=== PATIENT | female | born 1945 | race Caucasian/White ===

== ENCOUNTER → 2017-05-27 | Outpatient (CLI) | payer MEDICARE ==
[~2017-05-27] MED LIST: CALC500T36 PO; FISH500C PO; KEFL500C17 PO; MELO7.5T7 PO; MULT1TAB8 PO; NORCOTAB PO; VITA100067 PO; VITA100T20 PO
--- NOTE | 2017-05-27 17:33 | REP ---
MRI LUMBAR SPINE WITHOUT CONTRAST: 05/27/2017. Clinical history: Back pain. Radiates to left hip. Technique: Sagittal T1, T2 and STIR images with axial T1 and T2 sequences. Findings: There is slight loss of the normal lordosis. There is spondylosis from T12-L1 through L5-S1, least at L3-4. All levels show loss of disc water signal and disc height. The T11-12 level shows no bulge or herniation and no spinal or foraminal stenosis. At T12-L1, there is a broad-based disc bulge not causing cord compression, spinal stenosis or foraminal encroachment. At L1-L2, there is a broad-based disc bulge not causing any cord compression, spinal stenosis. No foraminal encroachment. At L2-3, there is a broad-based disc bulge, asymmetric towards the left, not abutting or displacing the L3 nerve roots. It does not cause significant central canal stenosis. The foramina show mild encroachment due to combined factors. At L3-4, there is a broad-based disc bulge thinning ventral subarachnoid space, flattening and abutting the L4 nerve roots. The ligamentum flavum and facet hypertrophy combined with this bulge to cause central canal stenosis. At L4-5, there is a broad-based disc bulge with asymmetric disc protrusion towards the right abutting the right L5 root. This is contributing to some central canal stenosis. The foramina show loss of perineural fat and mild encroachment, left less than right. At L5-S1, there is broad-based disc bulge not abutting or displacing the S1 nerve roots. It is not causing significant central canal stenosis. The bulge extends into the foramina with some loss of perineural fat, right more than left. Impression: 1. Multilevel degenerative disc disease with spondylosis from T12-L1 through L5-S1 and with central canal stenosis at the L3-4 level due to combined factors. Protrusion right paracentral at L4-5 and broad-based disc bulge at L5-S1 noted as well. Foramina show loss of perineural fat at multiple levels as described. No compression deformity. Diffuse loss of disc water signal and disc height. Signed by Calixto Yanez MD 05/28/2017 09:57 A
== END ==
LOC: M PLARAD 15:46
PROVIDERS: ATTEND Physician Assistant
DX: M51.36 Other intervertebral disc degeneration, lumbar region (principal); M51.16 Intervertebral disc disorders with radiculopathy, lumbar region; M48.06 Spinal stenosis, lumbar region

== ENCOUNTER → 2017-10-01 | Outpatient (CLI) | payer MEDICARE | LOC: M PAIN 08:45 | DX: G89.29 Other chronic pain (principal); M47.27 Other spondylosis with radiculopathy, lumbosacral region; M51.27 Other intervertebral disc displacement, lumbosacral region; E11.9 Type 2 diabetes mellitus without complications; E78.5 Hyperlipidemia, unspecified; E66.9 Obesity, unspecified; Z68.30 Body mass index [BMI] 30.0-30.9, adult; J30.2 Other seasonal allergic rhinitis; Z79.899 Other long term (current) drug therapy; Z98.84 Bariatric surgery status; Z87.891 Personal history of nicotine dependence; Z85.3 Personal history of malignant neoplasm of breast | CPT/HCPCS: G0463 ==

== ENCOUNTER → 2017-10-15 | Outpatient (CLI) | payer MEDICARE ==
[~2017-10-15] MED LIST changes: +BUPIVACAINE HCL 0.25% 30 ML VIAL As Ordered; -CALC500T36 PO; -FISH500C PO; +ISOVUE-M 300 61% 15ML VIAL (Q9967) As Ordered; -KEFL500C17 PO; +LIDOCAINE 1% SDV INJ 30 ML VIAL As Ordered; -MELO7.5T7 PO; -MULT1TAB8 PO; -NORCOTAB PO; +TRIAMCINOLONE ACETONIDE SUSP 40 MG/ML VIAL (J3301) As Ordered; -VITA100067 PO; -VITA100T20 PO
== END ==
LOC: M PAIN 08:30
DX: G89.29 Other chronic pain (principal); M46.1 Sacroiliitis, not elsewhere classified; E11.9 Type 2 diabetes mellitus without complications; E78.5 Hyperlipidemia, unspecified; E66.9 Obesity, unspecified; J30.2 Other seasonal allergic rhinitis; Z85.3 Personal history of malignant neoplasm of breast; Z98.84 Bariatric surgery status; Z90.11 Acquired absence of right breast and nipple; Z79.899 Other long term (current) drug therapy; Z87.891 Personal history of nicotine dependence; Z68.30 Body mass index [BMI] 30.0-30.9, adult
CPT/HCPCS: J3301

== ENCOUNTER → 2017-11-06 | Outpatient (CLI) | payer MEDICARE | LOC: M PAIN 08:45 | DX: M51.26 Other intervertebral disc displacement, lumbar region (principal); M54.17 Radiculopathy, lumbosacral region; Z79.899 Other long term (current) drug therapy; Z87.891 Personal history of nicotine dependence; J30.2 Other seasonal allergic rhinitis | CPT/HCPCS: G0463 ==

== ENCOUNTER → 2017-11-20 | Outpatient (CLI) | payer MEDICARE ==
[~2017-11-20] MED LIST changes: -BUPIVACAINE HCL 0.25% 30 ML VIAL As Ordered; -TRIAMCINOLONE ACETONIDE SUSP 40 MG/ML VIAL (J3301) As Ordered; +methylPREDNISolone SUSP 40 MG/ML (DEPO-medrol) VIAL (J1030) As Ordered
== END ==
LOC: M PAIN 11:30
DX: G89.29 Other chronic pain (principal); M51.16 Intervertebral disc disorders with radiculopathy, lumbar region; E11.9 Type 2 diabetes mellitus without complications; E78.5 Hyperlipidemia, unspecified; E66.9 Obesity, unspecified; L30.9 Dermatitis, unspecified; J30.2 Other seasonal allergic rhinitis; Z79.899 Other long term (current) drug therapy; Z85.3 Personal history of malignant neoplasm of breast
CPT/HCPCS: J1030

== ENCOUNTER → 2018-02-19 | Outpatient (CLI) | payer MEDICARE | LOC: M PAIN 09:15 | DX: M51.26 Other intervertebral disc displacement, lumbar region (principal); M54.17 Radiculopathy, lumbosacral region; E11.9 Type 2 diabetes mellitus without complications; E78.5 Hyperlipidemia, unspecified; J30.2 Other seasonal allergic rhinitis; Z79.810 Long term (current) use of selective estrogen receptor modulators (SERMs); Z79.899 Other long term (current) drug therapy; Z85.3 Personal history of malignant neoplasm of breast | CPT/HCPCS: G0463 ==

== ENCOUNTER → 2018-02-26 | Outpatient (CLI) | payer MEDICARE ==
[~2018-02-26] MED LIST changes: +BUPIVACAINE HCL 0.25% 30 ML VIAL As Ordered; +TRIAMCINOLONE ACETONIDE SUSP 40 MG/ML VIAL (J3301) As Ordered; -methylPREDNISolone SUSP 40 MG/ML (DEPO-medrol) VIAL (J1030) As Ordered
== END ==
LOC: M PAIN 10:00
DX: G89.29 Other chronic pain (principal); M47.816 Spondylosis without myelopathy or radiculopathy, lumbar region; M47.817 Spondylosis without myelopathy or radiculopathy, lumbosacral region; Z79.899 Other long term (current) drug therapy; Z98.84 Bariatric surgery status; Z87.891 Personal history of nicotine dependence; J30.2 Other seasonal allergic rhinitis
CPT/HCPCS: J3301

== ENCOUNTER → 2018-03-17 | Outpatient (CLI) | payer MEDICARE | LOC: M PAIN 09:15 | DX: M51.26 Other intervertebral disc displacement, lumbar region (principal); M54.17 Radiculopathy, lumbosacral region; E11.9 Type 2 diabetes mellitus without complications; E78.5 Hyperlipidemia, unspecified; J30.2 Other seasonal allergic rhinitis; Z79.810 Long term (current) use of selective estrogen receptor modulators (SERMs); Z79.899 Other long term (current) drug therapy; Z85.3 Personal history of malignant neoplasm of breast; Z98.84 Bariatric surgery status; Z90.11 Acquired absence of right breast and nipple; Z87.891 Personal history of nicotine dependence | CPT/HCPCS: G0463 ==

== ENCOUNTER → 2018-04-29 | Outpatient (CLI) | payer MEDICARE | LOC: M PAIN 08:45 | DX: M51.26 Other intervertebral disc displacement, lumbar region (principal); M54.17 Radiculopathy, lumbosacral region; L30.9 Dermatitis, unspecified; E11.9 Type 2 diabetes mellitus without complications; E78.5 Hyperlipidemia, unspecified; J30.2 Other seasonal allergic rhinitis; E66.9 Obesity, unspecified; Z85.3 Personal history of malignant neoplasm of breast; Z68.27 Body mass index [BMI] 27.0-27.9, adult; Z87.891 Personal history of nicotine dependence; Z98.84 Bariatric surgery status; Z90.11 Acquired absence of right breast and nipple; Z79.899 Other long term (current) drug therapy | CPT/HCPCS: G0463 ==

== ENCOUNTER → 2018-06-17 | Outpatient (CLI) | payer MEDICARE | LOC: M PAIN 10:15 | DX: M51.26 Other intervertebral disc displacement, lumbar region (principal); M79.7 Fibromyalgia; M12.9 Arthropathy, unspecified; F41.9 Anxiety disorder, unspecified; F32.9 Major depressive disorder, single episode, unspecified; Z79.899 Other long term (current) drug therapy | CPT/HCPCS: G0463 ==

== ENCOUNTER → 2018-10-21 | Outpatient (CLI) | payer MEDICARE ==
[~2018-10-21] MED LIST changes: -BUPIVACAINE HCL 0.25% 30 ML VIAL As Ordered; +CALC500T36 PO; +FISH500C PO; -ISOVUE-M 300 61% 15ML VIAL (Q9967) As Ordered; +KEFL500C17 PO; -LIDOCAINE 1% SDV INJ 30 ML VIAL As Ordered; +MELO7.5T7 PO; +MULT1TAB8 PO; +NORCOTAB PO; -TRIAMCINOLONE ACETONIDE SUSP 40 MG/ML VIAL (J3301) As Ordered; +VITA100067 PO; +VITA100T20 PO
--- NOTE | 2018-11-06 00:14 | ECWPNPC ---
PATIENT NAME: NEO HANSON : 1945 GENDER: FEMALE VISIT DATE: 10/21/2018 DISCHARGE DATE: 10/21/18 1018 VISIT LOCKED DATE TIME: PHYSICIAN: LAURA CLIFFORD RESOURCE: LAURA CLIFFORD HISTORY OF PRESENT ILLNESS HISTORY OF PRESENT ILLNESS: HERE FOR F/U OF CHRONIC LOW BACK PAIN.FEELS MEDICATION ISNT HELPING ANYMORE.RATING PAIN VAS 8/10.DESCRIBES PAIN CONTINUOUS AND ACHING.HAS TRIALED MULTIPLE MEDICATIONS AND PROCEDURES OVER THE YEARS WITHOUT IMPROVEMENT. PAIN THE PATIENT DESCRIBES THE PAIN... FALL RISK SCREENING: SCREENING :NO FALLS IN THE PAST YEAR CURRENT MEDICATIONS TAKING CALCIUM 600+D 600-800 MG-UNIT TABLET 2 TABLETS ORALLY ONCE A DAY TAKING ONE DAILY - TABLET 1 TABLET ORALLY ONCE A DAY TAKING TAMOXIFEN CITRATE 20 MG TABLET 1 TABLET ORALLY ONCE A DAY TAKING MELOXICAM 15 MG TABLET 1 TABLET ORALLY ONCE A DAY TAKING VITAMIN B-12 500 MCG LOZENGE 1 LOZENGE ORALLY ONCE A DAY TAKING VITAMIN D (CHOLECALCIFEROL) 1000 UNIT TABLET 1 TABLET ORALLY ONCE A DAY TAKING GABAPENTIN 100 MG CAPSULE 3 ORALLY BEFORE BEDTIME TAKING TRAMADOL HCL 50 MG TABLET 1 TABLET NEEDED ORALLY Q4-6H PRN MDD4 NOT-TAKING CYMBALTA 30 MG CAPSULE DELAYED RELEASE PARTICLES 1 CAPSULE ORALLY ONCE A DAY MEDICATION LIST REVIEWED AND RECONCILED WITH THE PATIENT PAST MEDICAL HISTORY DEGENERATIVE DISC DISEASE ECEMA DIABETES MELLITUS HYPERLIPIDEMIA OBESITY RIGHT BREAST CANCER ALLERGIES SEASONAL: NASAL CONGESTION, ITCHY EYES: ALLERGY SURGICAL HISTORY GASTRIC BYPASS SURGERY 2012 RIGHT MASTECTOMY 05/2016 FAMILY HISTORY FATHER: 75 YRS, EMPHYSEMA MOTHER: ALIVE 88 YRS, DEMENTIA SIBLINGS: ALIVE SON(S): ALIVE DAUGHTER(S): ALIVE 3 BROTHER(S) , 5 SISTER(S) . 2 SON(S) , 1 DAUGHTER(S) . SOCIAL HISTORY GENERAL: TOBACCO USE ARE YOU A:FORMER SMOKER HOW LONG HAS IT BEEN SINCE YOU LAST SMOKED?> 10 YEARS ALCOHOL SCREENING DID YOU HAVE A DRINK CONTAINING ALCOHOL IN THE PAST YEAR?YES HOW OFTEN DID YOU HAVE A DRINK CONTAINING ALCOHOL IN THE PAST YEAR?MONTHLY OR LESS (1 POINT) HOW MANY DRINKS DID YOU HAVE ON A TYPICAL DAY WHEN YOU WERE DRINKING IN THE PAST YEAR?7 TO 9 (3 POINTS) HOW OFTEN DID YOU HAVE SIX OR MORE DRINKS ON ONE OCCASION IN THE PAST YEAR?LESS THAN MONTHLY (1 POINT) POINTS5 INTERPRETATIONPOSITIVE RECREATIONAL DRUG USE DRUG USE?NO CAFFEINE CAFFEINE USE?YES HOW OFTEN AND HOW MUCH? 3 CUPS COFFEE/DAY PENTECOSTAL [id number] YARSANI LANGUAGE LANGUAGES SPOKEN:CITIZEN OF [place] LEARNING BARRIERS / SPECIAL NEEDS CHANGE FROM LAST VISIT?NO DOMESTIC VIOLENCE DO YOU FEEL SAFE IN YOUR ENVIRONMENT?YES PAIN CLINIC PFS, CLERGY, PUBLIC HEALTH REFERRALS PFS REFERRAL NEEDED?NO CLERGY REFERRAL NEEDED?NO PUBLIC HEALTH REFERRAL NEEDED?NO WAS THE PROVIDER NOTIFIED OF ANY PERTINENT INFO?NO N/A HAS THE PATIENT BEEN EDUCATED REGARDING HIS/HER PLAN OF CARE?YES HAS THE PATIENT BEEN EDUCATED REGARDING PAIN, THE RISK FOR PAIN, THE IMPORTANCE OF EFFECTIVE PAIN MANAGEMENT, AND THE PAIN ASSESSMENT PROCESS?YES ADVANCE DIRECTIVE ADVANCE DIRECTIVE DISCUSSED WITH PATIENT:YES PT HAS HCP LONNY [phone] 02/26/18 1005 REVIEWED WITH PT. [id number] REVIEWED WITH PT LAS. HOSPITALIZATION/MAJOR DIAGNOSTIC PROCEDURE SURGERIES REVIEW OF SYSTEMS REVIEWED BY: PROVIDER: LAURA CUEVAS . CONSTITUTIONAL: ANY CHANGE IN YOUR MEDICAL CONDITION? NO . CHILLS NO . FEVER NO . INFECTION: DO YOU HAVE NEW INFECTIONS? NO . DO YOU HAVE HISTORY OF MRSA? NO . MUSCULOSKELETAL: ANY NEW PATTERNS OF PAIN OR NUMBNESS? NO . GASTROENTEROLOGY: ANY NEW CHANGE IN BOWEL CONTROL? NO . GENITOURINARY: ANY NEW CHANGE IN BLADDER CONTROL? NO . IS THERE A CHANCE YOU COULD BE ? NO . HEMATOLOGY/LYMPH: DO YOU TAKE ANY BLOOD THINNERS? (FOR EXAMPLE- COUMADIN, PLAVIX, AGGRENOX, PLATEL, PRADAXA, OR XARELTO) NO . WHEN WAS YOUR LAST DOSE? DATE: TIME: . NEUROLOGY: HAVE YOU FALLEN IN THE PAST 12 MONTHS? NO . ANY NEW EXTREMITY NUMBNESS OR WEAKNESS? NO . CARDIOLOGY: DO YOU HAVE A PACEMAKER OR DEFIBRILLATOR? NO . RESPIRATORY: HAVE YOU BEEN SICK IN THE PAST WEEK? NO . FEVER NO . FLU LIKE SYMPTOMS? NO . COUGH NO . INTEGUMENTARY: DO YOU HAVE ANY RASHES OR OPEN SORES? NO . ALLERGIC/IMMUNO: ARE YOU ALLERGIC TO IV DYE? NO . ANY NEW ALLERGIES? NO . PSYCHIATRIC: DO YOU HAVE THOUGHTS OF HURTING YOURSELF OR SOMEONE ELSE? NO . ARE YOU ABUSED, NEGLECTED, OR IN AN UNSAFE ENVIRONMENT? NO . ENDOCRINOLOGY: ARE YOU DIABETIC? YES . OTHER: DO YOU NEED ANY PRESCRIPTIONS? YES . IF YES, PLEASE LIST: ____TRAMADOL . ANY NEW PROBLEMS WITH YOUR MEDICATIONS? NO . WHEN DID YOU LAST EAT? ____ . WHEN DID YOU LAST DRINK? ____ . WHAT DID YOU LAST DRINK? ____ . NAME OF PERSON DRIVING YOU HOME? ____ . DO YOU HAVE ANY OTHER QUESTIONS OR CONCERNS NO . VITAL SIGNS WT 169 LBS, HT 63", BMI 29.93 INDEX, BP 108/72 MM HG, HR 78 /MIN, RR 18 /MIN, TEMP 97.7 F, OXYGEN SAT % 98%, SAFE IN ENV? (Y/N) YES, REVIEWED BY: DANIEL. EXAMINATION GENERAL EXAMINATION: GENERAL APPEARANCE:AWAKE,ALERT ,PLEAASANT . PSYCHAFFECT NORMAL . LUNGS:LUNG WELSH ARE CLEAR TO AUSCULTATION BILATERALLY. GOOD MOVEMENT OF AIR . HEART:S1, S2 IN A REGULAR RATE AND RHYTHM. NO SIGNIFICANT MURMURS, RUBS OR GALLOPS NOTED . MUSCULOSKELETAL:MUSCLE STRENGTH TESTING 4/5 BILATERAL LOWER EXTREMITIES. LUMBAR SACRAL SPINETRIGGER POINTS:, ELICITED WITH PALPATION OVER LUMBAR PARAVERTEBRAL MUSCLES AND RESTRICTION OF ROM IN THIS AREA. ASSESSMENTS MYALGIA, OTHER SITE - M79.18 (PRIMARY) TREATMENT MYALGIA, OTHER SITE CONTINUE MELOXICAM TABLET, 15 MG, 1 TABLET, ORALLY, ONCE A DAY CONTINUE GABAPENTIN CAPSULE, 100 MG, 3, ORALLY, BEFORE BEDTIME CONTINUE TRAMADOL HCL TABLET, 50 MG, 1 TABLET NEEDED, ORALLY, Q4-6H PRN MDD4 NOTES: TPI LOW BACK. PROCEDURE CODES FA211 ESTABILISHED PATIENT [facility] CHARGE DISPOSITION & COMMUNICATION FOLLOW UP POST (REASON: TPI LOW BACK) ELECTRONICALLY SIGNED BY MASON GONSALVES ON 11/05/2018 AT 01:11 PM EST DISCLAIMER : THIS IS A VISIT SUMMARY EXTRACTED FROM THE [employer] CHART. IT IS NOT A COPY OF THE [employer] PROGRESS NOTE. ROGERIO
== END ==
LOC: M PAIN 09:15
PROVIDERS: ATTEND Nurse Practitioner Family
DX: M79.18 Myalgia, other site (principal); L30.9 Dermatitis, unspecified; E11.9 Type 2 diabetes mellitus without complications; E78.5 Hyperlipidemia, unspecified; Z85.3 Personal history of malignant neoplasm of breast; Z98.84 Bariatric surgery status; Z90.11 Acquired absence of right breast and nipple; Z87.891 Personal history of nicotine dependence

== ENCOUNTER → 2018-11-25 | Outpatient (CLI) | payer MEDICARE ==
[~2018-11-25] MED LIST changes: +BUPIVACAINE HCL 0.25% 10 ML VIAL As Ordered ONE; +BUPIVACAINE HCL 0.25% 30 ML VIAL As Ordered ONE; +TRIAMCINOLONE ACETONIDE SUSP 40 MG/ML VIAL (J3301) As Ordered ONE
--- NOTE | 2018-12-09 03:07 | ECWPNPC ---
PATIENT NAME: NEO HANSON : 1945 GENDER: FEMALE VISIT DATE: 11/25/2018 DISCHARGE DATE: 11/25/18924 VISIT LOCKED DATE TIME: PHYSICIAN: TONIO RAMIREZ MD RESOURCE: TONIO RAMIREZ MD REASON FOR APPOINTMENT 1. TPI HISTORY OF PRESENT ILLNESS HISTORY OF PRESENT ILLNESS: PAIN THE PATIENT DESCRIBES THE PAIN... FALL RISK SCREENING: SCREENING : NO FALLS IN THE PAST YEAR. CURRENT MEDICATIONS TAKING CALCIUM 600+D 600-800 MG-UNIT TABLET 2 TABLETS ORALLY ONCE A DAY, NOTES: 1 YEAR AGO TAKING ONE DAILY - TABLET 1 TABLET ORALLY ONCE A DAY, NOTES: 1 YEAR AGO TAKING TAMOXIFEN CITRATE 20 MG TABLET 1 TABLET ORALLY ONCE A DAY, NOTES: 11/24 8AM TAKING VITAMIN B-12 500 MCG LOZENGE 1 LOZENGE ORALLY ONCE A DAY, NOTES: 1 YEAR AGO TAKING VITAMIN D (CHOLECALCIFEROL) 1000 UNIT TABLET 1 TABLET ORALLY ONCE A DAY, NOTES: 1 YEAR AGO TAKING MELOXICAM 15 MG TABLET 1 TABLET ORALLY ONCE A DAY, NOTES: 11/24 8AM TAKING GABAPENTIN 100 MG CAPSULE 3 ORALLY BEFORE BEDTIME, NOTES: 11/24 8AM TAKING TRAMADOL HCL 50 MG TABLET 1 TABLET NEEDED ORALLY Q4-6H PRN MDD4, NOTES: 11/24 8AM NOT-TAKING CYMBALTA 30 MG CAPSULE DELAYED RELEASE PARTICLES 1 CAPSULE ORALLY ONCE A DAY MEDICATION LIST REVIEWED AND RECONCILED WITH THE PATIENT PAST MEDICAL HISTORY DEGENERATIVE DISC DISEASE ECEMA DIABETES MELLITUS HYPERLIPIDEMIA OBESITY RIGHT BREAST CANCER ALLERGIES SEASONAL: NASAL CONGESTION, ITCHY EYES - ALLERGY SURGICAL HISTORY GASTRIC BYPASS SURGERY 2012 RIGHT MASTECTOMY 05/2016 FAMILY HISTORY FATHER: 75 YRS, EMPHYSEMA MOTHER: ALIVE 88 YRS, DEMENTIA SIBLINGS: ALIVE SON(S): ALIVE DAUGHTER(S): ALIVE 3 BROTHER(S) , 5 SISTER(S) . 2 SON(S) , 1 DAUGHTER(S) . SOCIAL HISTORY GENERAL: TOBACCO USE ARE YOU A:FORMER SMOKER HOW LONG HAS IT BEEN SINCE YOU LAST SMOKED?> 10 YEARS LATEX QUESTIONNAIRE LATEX ALLERGY : HAVE YOU EVER DEVELOPED ANY TYPE OF REACTION AFTER HANDLING LATEX PRODUCTS SUCH RUBBER GLOVES, CONDOMS, DIAPHRAGMS, BALLOONS, SOCKS, OR UNDERWEAR?NO LATEX ALLERGY : HAVE YOU EVER DEVELOPED ANY TYPE OF REACTION DURING OR AFTER DENTAL APPOINTMENT, VAGINAL/RECTAL EXAMINATION, SURGICAL PROCEDURE, OR ANY OTHER EXPOSURE?NO LATEX RISK : HAVE YOU EVER HAD ANY DIFFICULTY BREATHING OR HIVES AFTER EATING OR HANDLING ANY FRUITS, OR VEGETABLES; SUCH KIWI, BANANAS, STONE FRUITS, OR CHESTNUTSNO LATEX RISK : DO YOU HAVE A PREVIOUS PERSONAL HISTORY OF MORE THAN NINE SURGERIES, SPINA BIFIDA, OR REPEATED CATHERTIZATIONS? NO LATEX RISK : ARE YOU FREQUENTLY EXPOSED TO LATEX PRODUCTS IN YOUR OCCUPATION?NO DATE ASKED : 11/25/2018 ALCOHOL SCREENING DID YOU HAVE A DRINK CONTAINING ALCOHOL IN THE PAST YEAR?YES HOW OFTEN DID YOU HAVE A DRINK CONTAINING ALCOHOL IN THE PAST YEAR?MONTHLY OR LESS (1 POINT) HOW MANY DRINKS DID YOU HAVE ON A TYPICAL DAY WHEN YOU WERE DRINKING IN THE PAST YEAR?7 TO 9 (3 POINTS) HOW OFTEN DID YOU HAVE SIX OR MORE DRINKS ON ONE OCCASION IN THE PAST YEAR?LESS THAN MONTHLY (1 POINT) POINTS5 INTERPRETATIONPOSITIVE RECREATIONAL DRUG USE DRUG USE?NO CAFFEINE CAFFEINE USE?YES HOW OFTEN AND HOW MUCH? 3 CUPS COFFEE/DAY SCIENTOLOGIST [id number] EPISCOPAL LANGUAGE LANGUAGES SPOKEN:DOMINICAN LEARNING BARRIERS / SPECIAL NEEDS CHANGE FROM LAST VISIT?NO DOMESTIC VIOLENCE DO YOU FEEL SAFE IN YOUR ENVIRONMENT?YES DIET: REGULAR. PAIN CLINIC PFS, CLERGY, PUBLIC HEALTH REFERRALS PFS REFERRAL NEEDED?NO CLERGY REFERRAL NEEDED?NO PUBLIC HEALTH REFERRAL NEEDED?NO WAS THE PROVIDER NOTIFIED OF ANY PERTINENT INFO?YES N/A HAS THE PATIENT BEEN EDUCATED REGARDING HIS/HER PLAN OF CARE?YES HAS THE PATIENT BEEN EDUCATED REGARDING PAIN, THE RISK FOR PAIN, THE IMPORTANCE OF EFFECTIVE PAIN MANAGEMENT, AND THE PAIN ASSESSMENT PROCESS?YES ADVANCE DIRECTIVE ADVANCE DIRECTIVE DISCUSSED WITH PATIENT:YES PT HAS HCP LONNY [phone] 02/26/18 1005 REVIEWED WITH PT. [id number] REVIEWED WITH LEV SANCHEZ. HOSPITALIZATION/MAJOR DIAGNOSTIC PROCEDURE SURGERIES REVIEW OF SYSTEMS REVIEWED BY: PROVIDER: . CONSTITUTIONAL: ANY CHANGE IN YOUR MEDICAL CONDITION? NO . CHILLS NO . FEVER NO . INFECTION: DO YOU HAVE NEW INFECTIONS? NO . DO YOU HAVE HISTORY OF MRSA? NO . MUSCULOSKELETAL: ANY NEW PATTERNS OF PAIN OR NUMBNESS? NO . GASTROENTEROLOGY: ANY NEW CHANGE IN BOWEL CONTROL? NO . GENITOURINARY: ANY NEW CHANGE IN BLADDER CONTROL? NO . IS THERE A CHANCE YOU COULD BE ? NO . HEMATOLOGY/LYMPH: DO YOU TAKE ANY BLOOD THINNERS? (FOR EXAMPLE- COUMADIN, PLAVIX, AGGRENOX, PLATEL, PRADAXA, OR XARELTO) NO . WHEN WAS YOUR LAST DOSE? DATE: TIME: . NEUROLOGY: HAVE YOU FALLEN IN THE PAST 12 MONTHS? NO . ANY NEW EXTREMITY NUMBNESS OR WEAKNESS? NO . CARDIOLOGY: DO YOU HAVE A PACEMAKER OR DEFIBRILLATOR? NO . RESPIRATORY: HAVE YOU BEEN SICK IN THE PAST WEEK? NO . FEVER NO . FLU LIKE SYMPTOMS? NO . COUGH NO . INTEGUMENTARY: DO YOU HAVE ANY RASHES OR OPEN SORES? YES, PT HAS RASH ON UPPER ARMS. . ALLERGIC/IMMUNO: ARE YOU ALLERGIC TO IV DYE? NO . ANY NEW ALLERGIES? NO . PSYCHIATRIC: DO YOU HAVE THOUGHTS OF HURTING YOURSELF OR SOMEONE ELSE? NO . ARE YOU ABUSED, NEGLECTED, OR IN AN UNSAFE ENVIRONMENT? NO . ENDOCRINOLOGY: ARE YOU DIABETIC? NO . OTHER: DO YOU NEED ANY PRESCRIPTIONS? NO . IF YES, PLEASE LIST: ____ . ANY NEW PROBLEMS WITH YOUR MEDICATIONS? NO . WHEN DID YOU LAST EAT? 11/24 5:30PM . WHEN DID YOU LAST DRINK? 11/24 12 MIDNIGHT . WHAT DID YOU LAST DRINK? WATER . NAME OF PERSON DRIVING YOU HOME? LONNY HANSON . DO YOU HAVE ANY OTHER QUESTIONS OR CONCERNS NO . VITAL SIGNS WT 163.2 LBS, HT 63", BMI 28.91 INDEX, BP 120/76 MM HG, HR 76 /MIN, RR 16 /MIN, TEMP 97.3 F, OXYGEN SAT % 97%, SAFE IN ENV? (Y/N) Y, NA INITIALS ME 09:04, REVIEWED BY: SAROJ. ASSESSMENTS MYALGIA, OTHER SITE - M79.18 (PRIMARY) PROCEDURES PN TRIGGER POINT INJECTION WITH STEROIDS PRE PROCEDURE DIAGNOSIS 1. MYALGIA 2. PAIN AT BILATERAL LOW BACK AREA POST PROCEDURE DIAGNOSIS 1. MYALGIA 2. PAIN AT BILATERAL LOW BACK AREA PROCEDURE TRIGGER POINT INJECTION AT BILATERAL LOW BACK AREA SURGEON DR. TONIO RAMIREZ PULP GRINDER NONE ANESTHESIA LOCAL PRE PROCEDURE NOTE THE PATIENT HAS A HISTORY OF CHRONIC PAIN AT THE RIGHT AND LEFT LOW BACK AREA. I EVALUATE THE PATIENT AND REVIEWED THE CHART. THERE IS EVIDENCE OF BANDS OF TISSUE WITH RESTRICTION OF MOVEMENT AND PRESENCE OF TRIGGER POINT AT THE AFFECTED AREA. I WENT OVER THE RISKS, ALTERNATIVES, AND BENEFITS ASSOCIATED WITH THIS PROCEDURE. THE PATIENT WOULD LIKE TO PROCEED AND GIVE CONSENT TO PERFORMED THE PROCEDURE. THE PATIENT DENIES UNEXPLAINABLE WEIGHT LOSS, FEVER, CHILLS, OR NEW CHANGES IN URINARY OR BOWEL CONTROL DESCRIPTION OF PROCEDURE THE PATIENT WAS BROUGHT TO THE PROCEDURE ROOM AND PLACED IN THE SITTING POSITION. THE AREA WAS CLEANED WITH ALCOHOL. THE PROCEDURE WAS DONE USING ASEPTIC STERILE TECHNIQUE. I CHECKED LATERALITY AND THE LEVEL WHERE THE PROCEDURE WAS GOING TO BE PERFORMED WITH THE PATIENT AND THE SUPPORTING STAFF AT THE MOMENT OF THE TIME OUT IN THE PROCEDURE ROOM. USING A 25-GAUGE NEEDLE, TRIGGER POINTS WERE INJECTED AT THE RIGHT AND LEFT LOW BACK AREA WITH A TOTAL OF 40 ML OF BUPIVACAINE 0.25% AND KENALOG 40 MG. THERE WAS NO EVIDENCE OF BLOOD, PARESTHESIA OR CEREBROSPINAL FLUID DURING THE PROCEDURE. THE PATIENT WAS SENT TO THE RECOVERY ROOM. THE PATIENT WAS MOVING THE EXTREMITIES AND DOING WELL. THERE WAS NO COMPLICATION DURING THE PROCEDURE POST PROCEDURE NOTE THE PATIENT WILL BE SEEN IN A FOLLOW UP IN THE NEXT FEW WEEKS. INSTRUCTIONS WERE GIVEN, QUESTIONS WERE ANSWERED, AND THE PATIENT EXPRESSED UNDERSTANDING AND AGREES WITH THE PLAN. I, LOLITA ROMO, DOCUMENTED THE ABOVE INFORMATION ACTING A SCRIBE FOR DR. RAMIREZ. I HAVE REVIEWED THE ABOVE DOCUMENT, WRITTEN BY LOLITA KERNS AND I VERIFY THAT IT IS ACCURATE. PROCEDURE CODES 11015 INJ TRIGGER POINT / MUSC DISPOSITION & COMMUNICATION FOLLOW UP 3 WEEKS ELECTRONICALLY SIGNED BY TONIO RAMIREZ MD, MD ON 12/08/2018 AT 06:26 PM EDT DISCLAIMER : THIS IS A VISIT SUMMARY EXTRACTED FROM THE [employer] CHART. IT IS NOT A COPY OF THE [employer] PROGRESS NOTE. MTDErnestina
== END ==
LOC: M PAIN 08:30
PROVIDERS: ATTEND Anesthesiology
DX: M79.18 Myalgia, other site (principal); E11.9 Type 2 diabetes mellitus without complications; E78.5 Hyperlipidemia, unspecified; J30.2 Other seasonal allergic rhinitis; L30.9 Dermatitis, unspecified; Z98.84 Bariatric surgery status; Z90.11 Acquired absence of right breast and nipple; Z85.3 Personal history of malignant neoplasm of breast; Z87.891 Personal history of nicotine dependence; Z79.1 Long term (current) use of non-steroidal anti-inflammatories (NSAID); Z79.899 Other long term (current) drug therapy
CPT/HCPCS: 20552; J3301

== ENCOUNTER → 2018-12-16 | Outpatient (CLI) | payer MEDICARE ==
[~2018-12-16] MED LIST changes: -BUPIVACAINE HCL 0.25% 10 ML VIAL As Ordered ONE; -BUPIVACAINE HCL 0.25% 30 ML VIAL As Ordered ONE; +CALC12504 PO; -CALC500T36 PO; +HYDR-3715 PO; -NORCOTAB PO; -TRIAMCINOLONE ACETONIDE SUSP 40 MG/ML VIAL (J3301) As Ordered ONE; -VITA100T20 PO; +VITA100T51 PO
--- NOTE | 2018-12-26 02:15 | ECWPNPC ---
PATIENT NAME: NEO HANSON : 1945 GENDER: FEMALE VISIT DATE: 12/16/2018 DISCHARGE DATE: 12/16/18917 VISIT LOCKED DATE TIME: PHYSICIAN: LAURA CLIFFORD RESOURCE: LAURA CLIFFORD REASON FOR APPOINTMENT 1. POST PROC HISTORY OF PRESENT ILLNESS HISTORY OF PRESENT ILLNESS: HERE FOR POST PROCEDURE F/U.HAD TPI ON11/25/18.REPORTING SIGNIFICANT REDUCTION IN LOW BACK PAIN THAT CONTINUES TODAY.RATING PAIN VAS 2/10.CHIEF AREA OF PAIN IS RIGHT LOW BACK.DISCUSSED TREATMENT OPTIONS. PAIN THE PATIENT DESCRIBES THE PAIN... FALL RISK SCREENING: SCREENING :NO FALLS REPORTED IN THE LAST YEAR CURRENT MEDICATIONS TAKING CALCIUM 600+D 600-800 MG-UNIT TABLET 2 TABLETS ORALLY ONCE A DAY TAKING ONE DAILY - TABLET 1 TABLET ORALLY ONCE A DAY TAKING TAMOXIFEN CITRATE 20 MG TABLET 1 TABLET ORALLY ONCE A DAY TAKING VITAMIN B-12 500 MCG LOZENGE 1 LOZENGE ORALLY ONCE A DAY TAKING VITAMIN D (CHOLECALCIFEROL) 1000 UNIT TABLET 1 TABLET ORALLY ONCE A DAY TAKING MELOXICAM 15 MG TABLET 1 TABLET ORALLY ONCE A DAY TAKING GABAPENTIN 100 MG CAPSULE 3 ORALLY BEFORE BEDTIME TAKING TRAMADOL HCL 50 MG TABLET 1 TABLET NEEDED ORALLY Q4-6H PRN MDD4 NOT-TAKING CYMBALTA 30 MG CAPSULE DELAYED RELEASE PARTICLES 1 CAPSULE ORALLY ONCE A DAY MEDICATION LIST REVIEWED AND RECONCILED WITH THE PATIENT PAST MEDICAL HISTORY DEGENERATIVE DISC DISEASE ECEMA DIABETES MELLITUS HYPERLIPIDEMIA OBESITY RIGHT BREAST CANCER ALLERGIES SEASONAL: NASAL CONGESTION, ITCHY EYES - ALLERGY SURGICAL HISTORY GASTRIC BYPASS SURGERY 2012 RIGHT MASTECTOMY 05/2016 FAMILY HISTORY FATHER: 75 YRS, EMPHYSEMA MOTHER: ALIVE 88 YRS, DEMENTIA SIBLINGS: ALIVE SON(S): ALIVE DAUGHTER(S): ALIVE 3 BROTHER(S) , 5 SISTER(S) . 2 SON(S) , 1 DAUGHTER(S) . SOCIAL HISTORY GENERAL: TOBACCO USE ARE YOU A:FORMER SMOKER HOW LONG HAS IT BEEN SINCE YOU LAST SMOKED?> 10 YEARS LATEX QUESTIONNAIRE LATEX ALLERGY : HAVE YOU EVER DEVELOPED ANY TYPE OF REACTION AFTER HANDLING LATEX PRODUCTS SUCH RUBBER GLOVES, CONDOMS, DIAPHRAGMS, BALLOONS, SOCKS, OR UNDERWEAR?NO LATEX ALLERGY : HAVE YOU EVER DEVELOPED ANY TYPE OF REACTION DURING OR AFTER DENTAL APPOINTMENT, VAGINAL/RECTAL EXAMINATION, SURGICAL PROCEDURE, OR ANY OTHER EXPOSURE?NO LATEX RISK : HAVE YOU EVER HAD ANY DIFFICULTY BREATHING OR HIVES AFTER EATING OR HANDLING ANY FRUITS, OR VEGETABLES; SUCH KIWI, BANANAS, STONE FRUITS, OR CHESTNUTSNO LATEX RISK : DO YOU HAVE A PREVIOUS PERSONAL HISTORY OF MORE THAN NINE SURGERIES, SPINA BIFIDA, OR REPEATED CATHERTIZATIONS? NO LATEX RISK : ARE YOU FREQUENTLY EXPOSED TO LATEX PRODUCTS IN YOUR OCCUPATION?NO DATE ASKED : 11/25/2018 ALCOHOL SCREENING DID YOU HAVE A DRINK CONTAINING ALCOHOL IN THE PAST YEAR?YES HOW OFTEN DID YOU HAVE A DRINK CONTAINING ALCOHOL IN THE PAST YEAR?MONTHLY OR LESS (1 POINT) HOW MANY DRINKS DID YOU HAVE ON A TYPICAL DAY WHEN YOU WERE DRINKING IN THE PAST YEAR?7 TO 9 (3 POINTS) HOW OFTEN DID YOU HAVE SIX OR MORE DRINKS ON ONE OCCASION IN THE PAST YEAR?LESS THAN MONTHLY (1 POINT) POINTS5 INTERPRETATIONPOSITIVE RECREATIONAL DRUG USE DRUG USE?NO CAFFEINE CAFFEINE USE?YES HOW OFTEN AND HOW MUCH? 3 CUPS COFFEE/DAY EPISCOPAL [id number] ISLAM LANGUAGE LANGUAGES SPOKEN:KINYARWANDA LEARNING BARRIERS / SPECIAL NEEDS CHANGE FROM LAST VISIT?NO DOMESTIC VIOLENCE DO YOU FEEL SAFE IN YOUR ENVIRONMENT?YES DIET: REGULAR. PAIN CLINIC PFS, CLERGY, PUBLIC HEALTH REFERRALS PFS REFERRAL NEEDED?NO CLERGY REFERRAL NEEDED?NO PUBLIC HEALTH REFERRAL NEEDED?NO WAS THE PROVIDER NOTIFIED OF ANY PERTINENT INFO?YES N/A HAS THE PATIENT BEEN EDUCATED REGARDING HIS/HER PLAN OF CARE?YES HAS THE PATIENT BEEN EDUCATED REGARDING PAIN, THE RISK FOR PAIN, THE IMPORTANCE OF EFFECTIVE PAIN MANAGEMENT, AND THE PAIN ASSESSMENT PROCESS?YES ADVANCE DIRECTIVE ADVANCE DIRECTIVE DISCUSSED WITH PATIENT:YES PT HAS HCP LONNY [phone] 02/26/18 1005 REVIEWED WITH PT. [id number] REVIEWED WITH LEV SANCHEZ. HOSPITALIZATION/MAJOR DIAGNOSTIC PROCEDURE SURGERIES REVIEW OF SYSTEMS REVIEWED BY: PROVIDER: LAURA CUEVAS . CONSTITUTIONAL: ANY CHANGE IN YOUR MEDICAL CONDITION? NO . CHILLS NO . FEVER NO . INFECTION: DO YOU HAVE NEW INFECTIONS? NO . DO YOU HAVE HISTORY OF MRSA? NO . MUSCULOSKELETAL: ANY NEW PATTERNS OF PAIN OR NUMBNESS? NO . GASTROENTEROLOGY: ANY NEW CHANGE IN BOWEL CONTROL? NO . GENITOURINARY: ANY NEW CHANGE IN BLADDER CONTROL? NO . IS THERE A CHANCE YOU COULD BE ? NO . HEMATOLOGY/LYMPH: DO YOU TAKE ANY BLOOD THINNERS? (FOR EXAMPLE- COUMADIN, PLAVIX, AGGRENOX, PLATEL, PRADAXA, OR XARELTO) NO . WHEN WAS YOUR LAST DOSE? DATE: TIME: . NEUROLOGY: HAVE YOU FALLEN IN THE PAST 12 MONTHS? NO . ANY NEW EXTREMITY NUMBNESS OR WEAKNESS? NO . CARDIOLOGY: DO YOU HAVE A PACEMAKER OR DEFIBRILLATOR? NO . RESPIRATORY: HAVE YOU BEEN SICK IN THE PAST WEEK? NO . FEVER NO . FLU LIKE SYMPTOMS? NO . COUGH NO . INTEGUMENTARY: DO YOU HAVE ANY RASHES OR OPEN SORES? NO . ALLERGIC/IMMUNO: ARE YOU ALLERGIC TO IV DYE? NO . ANY NEW ALLERGIES? NO . PSYCHIATRIC: DO YOU HAVE THOUGHTS OF HURTING YOURSELF OR SOMEONE ELSE? NO . ARE YOU ABUSED, NEGLECTED, OR IN AN UNSAFE ENVIRONMENT? NO . ENDOCRINOLOGY: ARE YOU DIABETIC? YES . OTHER: DO YOU NEED ANY PRESCRIPTIONS? NO . IF YES, PLEASE LIST: ____ . ANY NEW PROBLEMS WITH YOUR MEDICATIONS? NO . WHEN DID YOU LAST EAT? ____ . WHEN DID YOU LAST DRINK? ____ . WHAT DID YOU LAST DRINK? ____ . NAME OF PERSON DRIVING YOU HOME? ____ . DO YOU HAVE ANY OTHER QUESTIONS OR CONCERNS NO . VITAL SIGNS WT 159.6 LBS, HT 63", BMI 28.27 INDEX, BP 168/84 MM HG, HR 85 /MIN, RR 16 /MIN, TEMP 99.0 F, OXYGEN SAT % 95%, NA INITIALS AW 0859. EXAMINATION GENERAL EXAMINATION: GENERAL APPEARANCE:AWAKE,ALERT ,PLEAASANT . PSYCHAFFECT NORMAL . LUNGS:LUNG WELSH ARE CLEAR TO AUSCULTATION BILATERALLY. GOOD MOVEMENT OF AIR . HEART:S1, S2 IN A REGULAR RATE AND RHYTHM. NO SIGNIFICANT MURMURS, RUBS OR GALLOPS NOTED . MUSCULOSKELETAL:MUSCLE STRENGTH TESTING 4/5 BILATERAL LOWER EXTREMITIES. LUMBAR SACRAL SPINETRIGGER POINTS:, ELICITED WITH PALPATION OVER RIGHT LUMBAR PARAVERTEBRAL MUSCLES AND RESTRICTION OF ROM IN THIS AREA. ASSESSMENTS MYALGIA, OTHER SITE - M79.18 (PRIMARY) TREATMENT MYALGIA, OTHER SITE NOTES: TPI LOW BACK R>L. PROCEDURE CODES FA211 ESTABILISHED PATIENT [facility] CHARGE DISPOSITION & COMMUNICATION FOLLOW UP POST (REASON: TPI LOW BACK R>L IN 1 MOS) ELECTRONICALLY SIGNED BY MASON GONSALVES ON 12/25/2018 AT 04:10 PM EDT DISCLAIMER : THIS IS A VISIT SUMMARY EXTRACTED FROM THE [employer] CHART. IT IS NOT A COPY OF THE [employer] PROGRESS NOTE. ROGERIO
== END ==
LOC: M PAIN 08:30
PROVIDERS: ATTEND Nurse Practitioner Family
DX: M79.18 Myalgia, other site (principal); E11.9 Type 2 diabetes mellitus without complications; E78.5 Hyperlipidemia, unspecified; Z85.3 Personal history of malignant neoplasm of breast; Z98.84 Bariatric surgery status; Z90.11 Acquired absence of right breast and nipple; Z87.891 Personal history of nicotine dependence; Z79.1 Long term (current) use of non-steroidal anti-inflammatories (NSAID); Z79.899 Other long term (current) drug therapy

== ENCOUNTER → 2019-01-07 | Outpatient (CLI) | payer MEDICARE ==
[~2019-01-07] MED LIST changes: +BUPIVACAINE HCL 0.25% 10 ML VIAL As Ordered ONE; +BUPIVACAINE HCL 0.25% 30 ML VIAL As Ordered ONE; +TRIAMCINOLONE ACETONIDE SUSP 40 MG/ML VIAL (J3301) As Ordered ONE
--- NOTE | 2019-01-26 00:41 | ECWPNPC ---
PATIENT NAME: NEO HANSON : 1945 GENDER: FEMALE VISIT DATE: 01/07/2019 DISCHARGE DATE: 01/07/19945 VISIT LOCKED DATE TIME: PHYSICIAN: TONIO RAMIREZ MD RESOURCE: TONIO RAMIREZ MD REASON FOR APPOINTMENT 1. TPI LOW BACK HISTORY OF PRESENT ILLNESS HISTORY OF PRESENT ILLNESS: PAIN THE PATIENT DESCRIBES THE PAIN... FALL RISK SCREENING: SCREENING :NO FALLS REPORTED IN THE LAST YEAR CURRENT MEDICATIONS TAKING CALCIUM 600+D 600-800 MG-UNIT TABLET 2 TABLETS ORALLY ONCE A DAY, NOTES: 01/06/19 TAKING ONE DAILY - TABLET 1 TABLET ORALLY ONCE A DAY, NOTES: 01/06/19 TAKING TAMOXIFEN CITRATE 20 MG TABLET 1 TABLET ORALLY ONCE A DAY, NOTES: 01/06/19 TAKING VITAMIN B-12 500 MCG LOZENGE 1 LOZENGE ORALLY ONCE A DAY, NOTES: 01/06/19 TAKING VITAMIN D (CHOLECALCIFEROL) 1000 UNIT TABLET 1 TABLET ORALLY ONCE A DAY, NOTES: 01/06/19 TAKING MELOXICAM 15 MG TABLET 1 TABLET ORALLY ONCE A DAY, NOTES: 01/06/19 TAKING TRAMADOL HCL 50 MG TABLET 1 TABLET NEEDED ORALLY Q4-6H PRN MDD4, NOTES: 01/06/19 TAKING GABAPENTIN 100 MG CAPSULE 3 ORALLY BEFORE BEDTIME, NOTES: 01/06/19 NOT-TAKING CYMBALTA 30 MG CAPSULE DELAYED RELEASE PARTICLES 1 CAPSULE ORALLY ONCE A DAY MEDICATION LIST REVIEWED AND RECONCILED WITH THE PATIENT PAST MEDICAL HISTORY DEGENERATIVE DISC DISEASE ECEMA DIABETES MELLITUS HYPERLIPIDEMIA OBESITY RIGHT BREAST CANCER ALLERGIES SEASONAL: NASAL CONGESTION, ITCHY EYES - ALLERGY SURGICAL HISTORY GASTRIC BYPASS SURGERY 2012 RIGHT MASTECTOMY 05/2016 BILAT BREAST IMPLANTS 11/2018 FAMILY HISTORY FATHER: 75 YRS, EMPHYSEMA MOTHER: ALIVE 88 YRS, DEMENTIA SIBLINGS: ALIVE SON(S): ALIVE DAUGHTER(S): ALIVE 3 BROTHER(S) , 5 SISTER(S) . 2 SON(S) , 1 DAUGHTER(S) . SOCIAL HISTORY GENERAL: TOBACCO USE ARE YOU A:FORMER SMOKER HOW LONG HAS IT BEEN SINCE YOU LAST SMOKED?> 10 YEARS PAIN CLINIC PFS, CLERGY, PUBLIC HEALTH REFERRALS PFS REFERRAL NEEDED?NO CLERGY REFERRAL NEEDED?NO PUBLIC HEALTH REFERRAL NEEDED?NO WAS THE PROVIDER NOTIFIED OF ANY PERTINENT INFO?YES N/A HAS THE PATIENT BEEN EDUCATED REGARDING HIS/HER PLAN OF CARE?YES HAS THE PATIENT BEEN EDUCATED REGARDING PAIN, THE RISK FOR PAIN, THE IMPORTANCE OF EFFECTIVE PAIN MANAGEMENT, AND THE PAIN ASSESSMENT PROCESS?YES LATEX QUESTIONNAIRE LATEX ALLERGY : HAVE YOU EVER DEVELOPED ANY TYPE OF REACTION AFTER HANDLING LATEX PRODUCTS SUCH RUBBER GLOVES, CONDOMS, DIAPHRAGMS, BALLOONS, SOCKS, OR UNDERWEAR?NO LATEX ALLERGY : HAVE YOU EVER DEVELOPED ANY TYPE OF REACTION DURING OR AFTER DENTAL APPOINTMENT, VAGINAL/RECTAL EXAMINATION, SURGICAL PROCEDURE, OR ANY OTHER EXPOSURE?NO LATEX RISK : HAVE YOU EVER HAD ANY DIFFICULTY BREATHING OR HIVES AFTER EATING OR HANDLING ANY FRUITS, OR VEGETABLES; SUCH KIWI, BANANAS, STONE FRUITS, OR CHESTNUTSNO LATEX RISK : DO YOU HAVE A PREVIOUS PERSONAL HISTORY OF MORE THAN NINE SURGERIES, SPINA BIFIDA, OR REPEATED CATHERTIZATIONS? NO LATEX RISK : ARE YOU FREQUENTLY EXPOSED TO LATEX PRODUCTS IN YOUR OCCUPATION?NO DATE ASKED : 11/25/2018 CAFFEINE CAFFEINE USE?YES HOW OFTEN AND HOW MUCH? 3 CUPS COFFEE/DAY ADVANCE DIRECTIVE ADVANCE DIRECTIVE DISCUSSED WITH PATIENT:YES PT HAS HCP [facility] [phone] DIET: REGULAR. PENTECOSTAL [id number] ALEVISM LANGUAGE LANGUAGES SPOKEN:MALAYSIAN DOMESTIC VIOLENCE DO YOU FEEL SAFE IN YOUR ENVIRONMENT?YES ALCOHOL SCREENING DID YOU HAVE A DRINK CONTAINING ALCOHOL IN THE PAST YEAR?YES HOW OFTEN DID YOU HAVE A DRINK CONTAINING ALCOHOL IN THE PAST YEAR?MONTHLY OR LESS (1 POINT) HOW MANY DRINKS DID YOU HAVE ON A TYPICAL DAY WHEN YOU WERE DRINKING IN THE PAST YEAR?7 TO 9 (3 POINTS) HOW OFTEN DID YOU HAVE SIX OR MORE DRINKS ON ONE OCCASION IN THE PAST YEAR?LESS THAN MONTHLY (1 POINT) POINTS5 INTERPRETATIONPOSITIVE RECREATIONAL DRUG USE DRUG USE?NO LEARNING BARRIERS / SPECIAL NEEDS CHANGE FROM LAST VISIT?NO 02/26/18 1005 REVIEWED WITH PT. [id number] REVIEWED WITH PT DANIEL. HOSPITALIZATION/MAJOR DIAGNOSTIC PROCEDURE SURGERIES REVIEW OF SYSTEMS REVIEWED BY: PROVIDER: . CONSTITUTIONAL: ANY CHANGE IN YOUR MEDICAL CONDITION? NO . CHILLS NO . FEVER NO . INFECTION: DO YOU HAVE NEW INFECTIONS? NO . DO YOU HAVE HISTORY OF MRSA? NO . MUSCULOSKELETAL: ANY NEW PATTERNS OF PAIN OR NUMBNESS? NO . GASTROENTEROLOGY: ANY NEW CHANGE IN BOWEL CONTROL? NO . GENITOURINARY: ANY NEW CHANGE IN BLADDER CONTROL? NO . IS THERE A CHANCE YOU COULD BE ? NO . HEMATOLOGY/LYMPH: DO YOU TAKE ANY BLOOD THINNERS? (FOR EXAMPLE- COUMADIN, PLAVIX, AGGRENOX, PLATEL, PRADAXA, OR XARELTO) NO . WHEN WAS YOUR LAST DOSE? DATE: TIME: . NEUROLOGY: HAVE YOU FALLEN IN THE PAST 12 MONTHS? NO . ANY NEW EXTREMITY NUMBNESS OR WEAKNESS? NO . CARDIOLOGY: DO YOU HAVE A PACEMAKER OR DEFIBRILLATOR? NO . RESPIRATORY: HAVE YOU BEEN SICK IN THE PAST WEEK? NO . FEVER NO . FLU LIKE SYMPTOMS? NO . COUGH NO . INTEGUMENTARY: DO YOU HAVE ANY RASHES OR OPEN SORES? NO . ALLERGIC/IMMUNO: ARE YOU ALLERGIC TO IV DYE? NO . ANY NEW ALLERGIES? NO . PSYCHIATRIC: DO YOU HAVE THOUGHTS OF HURTING YOURSELF OR SOMEONE ELSE? NO . ARE YOU ABUSED, NEGLECTED, OR IN AN UNSAFE ENVIRONMENT? NO . ENDOCRINOLOGY: ARE YOU DIABETIC? YES, DIET CONTROLLED . OTHER: DO YOU NEED ANY PRESCRIPTIONS? NO . IF YES, PLEASE LIST: ____ . ANY NEW PROBLEMS WITH YOUR MEDICATIONS? NO . WHEN DID YOU LAST EAT? 01/06 1800 . WHEN DID YOU LAST DRINK? 01/06 1900 . WHAT DID YOU LAST DRINK? COFFEE . NAME OF PERSON DRIVING YOU HOME? MARILIN- . DO YOU HAVE ANY OTHER QUESTIONS OR CONCERNS NO PT. HAS NOT HAD ANY VACCINES IN THE PAST 30 DAYS . VITAL SIGNS WT 161.8 LBS, HT 63", BMI 28.66 INDEX, BP 119/75 MM HG, HR 71 /MIN, RR 16 /MIN, TEMP 96.8 F, OXYGEN SAT % 94%, SAFE IN ENV? (Y/N) Y, NA INITIALS 09:00, REVIEWED BY: AD. ASSESSMENTS MYALGIA, OTHER SITE - M79.18 (PRIMARY) PROCEDURES PN TRIGGER POINT INJECTION WITH STEROIDS PRE PROCEDURE DIAGNOSIS 1. MYALGIA 2. PAIN AT BILATERAL LOW BACK AREA. POST PROCEDURE DIAGNOSIS 1. MYALGIA 2. PAIN AT BILATERAL LOW BACK AREA. PROCEDURE TRIGGER POINT INJECTION AT RIGHT AND LEFT LOW BACK AREA. SURGEON DR. TONIO RAMIREZ SCORING MACHINE OPERATOR NONE ANESTHESIA LOCAL PRE PROCEDURE NOTE THE PATIENT HAS A HISTORY OF CHRONIC PAIN AT THE RIGHT AND LEFT LOW BACK AREA. I EVALUATED THE PATIENT AND REVIEWED THE CHART. THERE IS EVIDENCE OF BANDS OF TISSUE WITH RESTRICTION OF MOVEMENT AND PRESENCE OF TRIGGER POINT AT THE AFFECTED AREA. I WENT OVER THE RISKS, ALTERNATIVES, AND BENEFITS ASSOCIATED WITH THIS PROCEDURE. THE PATIENT WOULD LIKE TO PROCEED AND GIVES CONSENT TO PERFORMED THE PROCEDURE. THE PATIENT DENIES UNEXPLAINABLE WEIGHT LOSS, FEVER, CHILLS, OR NEW CHANGES IN URINARY OR BOWEL CONTROL DESCRIPTION OF PROCEDURE THE PATIENT WAS BROUGHT TO THE PROCEDURE ROOM AND PLACED IN THE SITTING POSITION. THE AREA WAS CLEANED WITH ALCOHOL. THE PROCEDURE WAS DONE USING ASEPTIC STERILE TECHNIQUE. I CHECKED LATERALITY AND THE LEVEL WHERE THE PROCEDURE WAS GOING TO BE PERFORMED WITH THE PATIENT AND THE SUPPORTING STAFF AT THE MOMENT OF THE TIME OUT IN THE PROCEDURE ROOM. USING A 25-GAUGE NEEDLE, TRIGGER POINTS WERE INJECTED AT THE RIGHT AND LEFT LOW BACK AREA WITH A TOTAL OF 40 ML OF BUPIVACAINE 0.25% AND KENALOG 40 MG. THERE WAS NO EVIDENCE OF BLOOD, PARESTHESIA OR CEREBROSPINAL FLUID DURING THE PROCEDURE. THE PATIENT WAS SENT TO THE RECOVERY ROOM. THE PATIENT WAS MOVING THE EXTREMITIES AND DOING WELL. THERE WAS NO COMPLICATION DURING THE PROCEDURE POST PROCEDURE NOTE THE PATIENT WILL BE SEEN IN A FOLLOW UP IN THE NEXT FEW WEEKS. INSTRUCTIONS WERE GIVEN, QUESTIONS WERE ANSWERED, AND THE PATIENT EXPRESSED UNDERSTANDING AND AGREES WITH THE PLAN. I, CHRISTIE NIEVES, DOCUMENTED THE ABOVE INFORMATION ACTING A SCRIBE FOR DR. RAMIREZ. I HAVE REVIEWED THE ABOVE DOCUMENT, WRITTEN BY CHRISTIE NIEVES SCRIBAlexis AND I VERIFY THAT IT IS ACCURATE. PROCEDURE CODES 46933 INJ TRIGGER POINT 09/17 [facility] [place] [facility] FOLLOW UP 3 WEEKS ELECTRONICALLY SIGNED BY TONIO RAMIREZ MD, MD ON 01/25/2019 AT 03:15 PM EDT DISCLAIMER : THIS IS A VISIT SUMMARY EXTRACTED FROM THE [employer] CHART. IT IS NOT A COPY OF THE [employer] PROGRESS NOTE. ROGERIO
== END ==
LOC: M PAIN 08:30
PROVIDERS: ATTEND Anesthesiology
DX: M79.18 Myalgia, other site (principal); M54.5 Low back pain; E11.9 Type 2 diabetes mellitus without complications; E78.5 Hyperlipidemia, unspecified; J30.2 Other seasonal allergic rhinitis; Z79.899 Other long term (current) drug therapy; Z85.3 Personal history of malignant neoplasm of breast; Z98.84 Bariatric surgery status; Z90.11 Acquired absence of right breast and nipple; Z98.82 Breast implant status; Z87.891 Personal history of nicotine dependence
CPT/HCPCS: 20552; J3301

== ENCOUNTER → 2019-02-17 | Outpatient (CLI) | payer MEDICARE ==
[~2019-02-17] MED LIST changes: -BUPIVACAINE HCL 0.25% 10 ML VIAL As Ordered ONE; -BUPIVACAINE HCL 0.25% 30 ML VIAL As Ordered ONE; -TRIAMCINOLONE ACETONIDE SUSP 40 MG/ML VIAL (J3301) As Ordered ONE
== END ==
LOC: M PAIN 08:45
PROVIDERS: ATTEND Nurse Practitioner Family
DX: M46.1 Sacroiliitis, not elsewhere classified (principal); Z79.891 Long term (current) use of opiate analgesic; Z79.899 Other long term (current) drug therapy; Z87.891 Personal history of nicotine dependence; Z98.84 Bariatric surgery status; J30.2 Other seasonal allergic rhinitis

== ENCOUNTER → 2019-04-07 | Outpatient (CLI) | payer MEDICARE ==
[~2019-04-07] MED LIST changes: +BUPIVACAINE HCL 0.25% 30 ML VIAL As Ordered ONE; -CALC12504 PO; +CALC500T61 PO; +ISOVUE-M 200 41% 20ML VIAL (Q9966) As Ordered ONE; +LIDOCAINE 1% SDV INJ 30 ML VIAL As Ordered ONE
--- NOTE | 2019-04-07 14:30 | REP ---
C-ARM VIEWS, LOWER LUMBAR SPINE: CLINICAL HISTORY: Pain. Two C-arm views are performed during bilateral lumbar facet injections by Dr. Griggs. Crawford are seen along the lower lumbar facets. 45 seconds fluoroscopy time utilized. Electronically Signed by George Moser MD 04/08/2019 09:24 A
--- NOTE | 2019-04-18 01:02 | ECWPNPC ---
PATIENT NAME: NEO HANSON : 1945 GENDER: FEMALE VISIT DATE: 04/07/2019 DISCHARGE DATE: 04/07/19 1020 VISIT LOCKED DATE TIME: PHYSICIAN: TONIO RAMIREZ MD RESOURCE: TONIO RAMIREZ MD REASON FOR APPOINTMENT 1. LFBD #1 HISTORY OF PRESENT ILLNESS HISTORY OF PRESENT ILLNESS: PAIN THE PATIENT DESCRIBES THE PAIN... 74 YEAR OLD FEMALE PATIENT WITH A HISTORY OF CHRONIC LOW BACK PAIN. THE PATIENT DESCRIBES THE PAIN ACHING, TENDER, SORE WITH A PAIN SCORE OF 8-10/10 DEPENDING ON PHYSICAL ACTIVITY. THE PATIENT SAYS HER LOW BACK PAIN IS AFFECTING HER ABILITY TO PERFORM HER DAILY ACTIVITIES SUCH COOKING, CLEANING, AND GROCERY SHOPPING. PATIENT DENIES UNEXPLAINABLE WEIGHT LOSS, FEVER, CHILLS, NEW CHANGES ON HER URINARY OR BOWEL CONTROL. FALL RISK SCREENING: SCREENING :NO FALLS REPORTED IN THE LAST YEAR CURRENT MEDICATIONS TAKING CALCIUM 600+D 600-800 MG-UNIT TABLET 2 TABLETS ORALLY ONCE A DAY, NOTES: 04/06/19@999 TAKING ONE DAILY - TABLET 1 TABLET ORALLY ONCE A DAY, NOTES: 04/06/19@999 TAKING TAMOXIFEN CITRATE 20 MG TABLET 1 TABLET ORALLY ONCE A DAY, NOTES: 04/06/19@999 TAKING VITAMIN B-12 500 MCG LOZENGE 1 LOZENGE ORALLY ONCE A DAY, NOTES: 04/06/19@999 TAKING VITAMIN D (CHOLECALCIFEROL) 1000 UNIT TABLET 1 TABLET ORALLY ONCE A DAY, NOTES: 04/06/19@999 TAKING MELOXICAM 15 MG TABLET 1 TABLET ORALLY ONCE A DAY, NOTES: 04/06/19@999 TAKING TRAMADOL HCL 50 MG TABLET 1 TABLET NEEDED ORALLY Q4-6H PRN MDD4, NOTES: 04/06/19@999 TAKING GABAPENTIN 100 MG CAPSULE 3 ORALLY BEFORE BEDTIME, NOTES: 04/06/19@999 DISCONTINUED CYMBALTA 30 MG CAPSULE DELAYED RELEASE PARTICLES 1 CAPSULE ORALLY ONCE A DAY MEDICATION LIST REVIEWED AND RECONCILED WITH THE PATIENT PAST MEDICAL HISTORY DEGENERATIVE DISC DISEASE [employer]EMA DIABETES MELLITUS HYPERLIPIDEMIA OBESITY RIGHT BREAST CANCER ALLERGIES SEASONAL: NASAL CONGESTION, ITCHY EYES - ALLERGY SURGICAL HISTORY GASTRIC BYPASS SURGERY 2012 RIGHT MASTECTOMY 05/2016 BILAT BREAST IMPLANTS 11/2018 FAMILY HISTORY FATHER: 75 YRS, EMPHYSEMA MOTHER: ALIVE 88 YRS, DEMENTIA SIBLINGS: ALIVE SON(S): ALIVE DAUGHTER(S): ALIVE 3 BROTHER(S) , 5 SISTER(S) . 2 SON(S) , 1 DAUGHTER(S) . MOTHER DARIELA'S. SOCIAL HISTORY GENERAL: TOBACCO USE ARE YOU A:FORMER SMOKER HOW LONG HAS IT BEEN SINCE YOU LAST SMOKED?> 10 YEARS OTHERS AT HOME: SPOUSE. DIET: REGULAR. LANGUAGE LANGUAGES SPOKEN:BENGALI DOMESTIC VIOLENCE DO YOU FEEL SAFE IN YOUR ENVIRONMENT?YES RECREATIONAL DRUG USE DRUG USE?NO EXERCISE: NO REGULAR EXERCISE. LEARNING BARRIERS / SPECIAL NEEDS CHANGE FROM LAST VISIT?NO PAIN CLINIC PFS, CLERGY, PUBLIC HEALTH REFERRALS PFS REFERRAL NEEDED?NO CLERGY REFERRAL NEEDED?NO PUBLIC HEALTH REFERRAL NEEDED?NO WAS THE PROVIDER NOTIFIED OF ANY PERTINENT INFO?YES N/A HAS THE PATIENT BEEN EDUCATED REGARDING HIS/HER PLAN OF CARE?YES HAS THE PATIENT BEEN EDUCATED REGARDING PAIN, THE RISK FOR PAIN, THE IMPORTANCE OF EFFECTIVE PAIN MANAGEMENT, AND THE PAIN ASSESSMENT PROCESS?YES LATEX QUESTIONNAIRE LATEX ALLERGY : HAVE YOU EVER DEVELOPED ANY TYPE OF REACTION AFTER HANDLING LATEX PRODUCTS SUCH RUBBER GLOVES, CONDOMS, DIAPHRAGMS, BALLOONS, SOCKS, OR UNDERWEAR?NO LATEX ALLERGY : HAVE YOU EVER DEVELOPED ANY TYPE OF REACTION DURING OR AFTER DENTAL APPOINTMENT, VAGINAL/RECTAL EXAMINATION, SURGICAL PROCEDURE, OR ANY OTHER EXPOSURE?NO LATEX RISK : HAVE YOU EVER HAD ANY DIFFICULTY BREATHING OR HIVES AFTER EATING OR HANDLING ANY FRUITS, OR VEGETABLES; SUCH KIWI, BANANAS, STONE FRUITS, OR CHESTNUTSNO LATEX RISK : DO YOU HAVE A PREVIOUS PERSONAL HISTORY OF MORE THAN NINE SURGERIES, SPINA BIFIDA, OR REPEATED CATHERIZATIONS? NO LATEX RISK : ARE YOU FREQUENTLY EXPOSED TO LATEX PRODUCTS IN YOUR OCCUPATION?NO DATE ASKED : 04/07/2019 CAFFEINE CAFFEINE USE?YES HOW OFTEN AND HOW MUCH? 3 CUPS COFFEE/DAY ADVANCE DIRECTIVE ADVANCE DIRECTIVE DISCUSSED WITH PATIENT:YES PT HAS HCP [facility] [phone] LATTER DAY [id number] CAODAISM MARITAL STATUS: . ALCOHOL SCREENING DID YOU HAVE A DRINK CONTAINING ALCOHOL IN THE PAST YEAR?YES HOW OFTEN DID YOU HAVE A DRINK CONTAINING ALCOHOL IN THE PAST YEAR?MONTHLY OR LESS (1 POINT) HOW MANY DRINKS DID YOU HAVE ON A TYPICAL DAY WHEN YOU WERE DRINKING IN THE PAST YEAR?7 TO 9 (3 POINTS) HOW OFTEN DID YOU HAVE SIX OR MORE DRINKS ON ONE OCCASION IN THE PAST YEAR?LESS THAN MONTHLY (1 POINT) POINTS5 INTERPRETATIONPOSITIVE OCCUPATION: RETIRED. 02/26/18 1005 REVIEWED WITH PT. [id number] REVIEWED WITH PT DANIEL. HOSPITALIZATION/MAJOR DIAGNOSTIC PROCEDURE SURGERIES REVIEW OF SYSTEMS REVIEWED BY: PROVIDER: . CONSTITUTIONAL: ANY CHANGE IN YOUR MEDICAL CONDITION? NO . CHILLS NO . FEVER NO . INFECTION: DO YOU HAVE NEW INFECTIONS? NO . DO YOU HAVE HISTORY OF MRSA? NO . MUSCULOSKELETAL: ANY NEW PATTERNS OF PAIN OR NUMBNESS? NO . GASTROENTEROLOGY: ANY NEW CHANGE IN BOWEL CONTROL? NO . GENITOURINARY: ANY NEW CHANGE IN BLADDER CONTROL? NO . IS THERE A CHANCE YOU COULD BE ? NO . HEMATOLOGY/LYMPH: DO YOU TAKE ANY BLOOD THINNERS? (FOR EXAMPLE- COUMADIN, PLAVIX, AGGRENOX, PLATEL, PRADAXA, OR XARELTO) NO . WHEN WAS YOUR LAST DOSE? DATE: TIME: . NEUROLOGY: HAVE YOU FALLEN IN THE PAST 12 MONTHS? NO . ANY NEW EXTREMITY NUMBNESS OR WEAKNESS? NO . CARDIOLOGY: DO YOU HAVE A PACEMAKER OR DEFIBRILLATOR? NO . RESPIRATORY: HAVE YOU BEEN SICK IN THE PAST WEEK? NO . FEVER NO . FLU LIKE SYMPTOMS? NO . COUGH NO . INTEGUMENTARY: DO YOU HAVE ANY RASHES OR OPEN SORES? NO . ALLERGIC/IMMUNO: ARE YOU ALLERGIC TO IV DYE? NO . ANY NEW ALLERGIES? NO . PSYCHIATRIC: DO YOU HAVE THOUGHTS OF HURTING YOURSELF OR SOMEONE ELSE? NO . ARE YOU ABUSED, NEGLECTED, OR IN AN UNSAFE ENVIRONMENT? NO . ENDOCRINOLOGY: ARE YOU DIABETIC? YES . OTHER: DO YOU NEED ANY PRESCRIPTIONS? NO . IF YES, PLEASE LIST: ____ . ANY NEW PROBLEMS WITH YOUR MEDICATIONS? NO . WHEN DID YOU LAST EAT? ____04/06/19, YES . WHEN DID YOU LAST DRINK? ____04/06/19 . WHAT DID YOU LAST DRINK? ____WATER . NAME OF PERSON DRIVING YOU HOME? ____JOSEPH . DO YOU HAVE ANY OTHER QUESTIONS OR CONCERNS NO . VITAL SIGNS WT 161.8 LBS, HT 63", BMI 28.66 INDEX, BP 129/72 MM HG, HR 63 /MIN, RR 16 /MIN, TEMP 98.5 F, OXYGEN SAT % 98%, SAFE IN ENV? (Y/N) YES, NA INITIALS WI 09:02, REVIEWED BY: VD. EXAMINATION GENERAL EXAMINATION: PATIENT IS ALERT O X 3 AND COOPERATIVE. TENDERNESS IN THE LOW BACK. PAIN INCREASES OVER THE LUMBAR FACET JOINTS WITH EXTENSION AND LATERAL ROTATION OF THE BACK. MRI OF THE LUMBAR SPINE DONE ON 05/27/2017 SHOWS FACET ARTHROPATHY CHANGES. ASSESSMENTS SPONDYLOSIS OF LUMBAR REGION WITHOUT MYELOPATHY OR RADICULOPATHY - M47.816 (PRIMARY) SPONDYLOSIS OF LUMBOSACRAL REGION WITHOUT MYELOPATHY OR RADICULOPATHY - M47.817 TREATMENT SPONDYLOSIS OF LUMBAR REGION WITHOUT MYELOPATHY OR RADICULOPATHY CLINICAL NOTES: WE DISCUSSED SEVERAL ISSUES WITH MS. HANSON'S PAIN MANAGEMENT CASE. DUE TO THE LUMBAR SPONDYLOSIS, I WOULD LIKE TO MOVE FORWARD WITH A BILATERAL LUMBAR DIAGNOSTIC FACET BLOCK _#1 TO CONSIDER RADIOFREQUENCY. WE DISCUSSED THE BENEFITS, RISKS, AND ALTERNATIVES OF THE PROCEDURE AND THE PATIENT WOULD LIKE TO PROCEED. THE PATIENT WILL FOLLOW UP IN SEVERAL WEEKS AFTER THE PROCEDURE. INSTRUCTIONS WERE GIVEN, QUESTIONS WERE ANSWERED, PATIENT REPORTS UNDERSTANDING AND AGREES WITH THE PLAN. I, CHRISTIE NIEVES, DOCUMENTED THE ABOVE INFORMATION ACTING A SCRIBE FOR DR. RAMIREZ. I HAVE REVIEWED THE ABOVE DOCUMENT, WRITTEN BY CHRISTIE NIEVES SCRIBE AND I VERIFY THAT IT IS ACCURATE. . SPONDYLOSIS OF LUMBOSACRAL REGION WITHOUT MYELOPATHY OR RADICULOPATHY SMC FACET BLOCK (PAIN)[id number] PROCEDURES PN LUMBAR FACET BLOCK DIAGNOSTIC PRE PROCEDURE DIAGNOSIS LUMBAR SPONDYLOSIS, LUMBOSACRAL SPONDYLOSIS POST PROCEDURE DIAGNOSIS LUMBAR SPONDYLOSIS, LUMBOSACRAL SPONDYLOSIS PROCEDURE BILATERAL L4-L5 AND BILATERAL L5-S1 FACET BLOCK DIAGNOSTIC NUMBER [address] TONIO RAMIREZ AREA RELIEF PILOT NONE ANESTHESIA LOCAL PRE PROCEDURE NOTE THE PATIENT WITH HISTORY OF CHRONIC LOW BACK PAIN. I EVALUATED THE PATIENT AND REVIEWED THE CHART. I WENT OVER THE RISKS, ALTERNATIVES, AND BENEFITS ASSOCIATED WITH THIS PROCEDURE. THE PATIENT WOULD LIKE TO PROCEED AND GAVE CONSENT TO PERFORM THE PROCEDURE. AGREED WITH THE PATIENT WE ARE DOING THIS PROCEDURE TO DETERMINE IF THE PATIENT IS A CANDIDATE FOR A RADIOFREQUENCY ABLATION OF THE FACETS JOINTS. THE PATIENT DENIES UNEXPLAINABLE WEIGHT LOSS, FEVER, CHILLS, OR NEW CHANGES IN URINARY OR BOWEL CONTROL DESCRIPTION OF PROCEDURE THE PATIENT WAS BROUGHT TO THE PROCEDURE ROOM AND PLACED IN THE PRONE POSITION. THE LUMBOSACRAL AREA WAS CLEANED WITH CHLORAPREP SOLUTION AND DRAPED ASEPTICALLY. THE PROCEDURE WAS DONE UNDER STERILE CONDITIONS. I CHECKED LATERALITY AND THE LEVEL WHERE THE PROCEDURE WAS GOING TO BE PERFORMED WITH THE PATIENT AND THE SUPPORTING STAFF AT THE MOMENT OF THE TIME OUT IN THE PROCEDURE ROOM. UNDER FLUOROSCOPIC GUIDANCE, TARGETS WERE SELECTED AT THE INTERSECTION OF THE RIGHT AND LEFT TRANSVERSE PROCESS OF L4, L5 AND ALA OF S1 WITH ITS RESPECTIVE SUPERIOR ARTICULAR PROCESS. LIDOCAINE WAS USED TO NUMB THE SKIN AND THE SUBCUTANEOUS TISSUE BELOW IT. SPINAL NEEDLE, 22-GAUGE WAS ADVANCED UNDER FLUOROSCOPIC GUIDANCE AND FOLLOWING PATIENT FEEDBACK UNTIL THE TARGETS WERE REACHED. POSITION OF THE NEEDLES WAS VERIFIED WITH AP AND LATERAL VIEWS. AFTER PROPER POSITION OF THE NEEDLES WAS ACHIEVED, ISOVUE M-200 DYE WAS INJECTED AT EACH SITE SHOWING ADEQUATE SPREAD OF THE DYE. THEN A SOLUTION OF 0.4 ML OF BUPIVACAINE 0.25% WAS INJECTED AT EACH SITE. THERE WAS NO EVIDENCE OF BLOOD, PARESTHESIA OR CEREBROSPINAL FLUID DURING THE PROCEDURE. THE PATIENT WAS SENT TO THE RECOVERY ROOM. THE PATIENT WAS MOVING THE EXTREMITIES AND DOING WELL. THERE WAS NO COMPLICATION DURING THE PROCEDURE. FLUOROSCOPY TIME WAS 45 SECONDS POST PROCEDURE NOTE THE PATIENT WILL DOCUMENT HIS PAIN LEVEL AND RESPONSE TO THIS PROCEDURE EVERY 30 MINUTES. THE PATIENT WILL BE SEEN IN A FOLLOW UP IN THE NEXT FEW WEEKS. FURTHER DETERMINATION FOR HIS CASE WILL BE DONE AT THE NEXT VISIT. INSTRUCTIONS WERE GIVEN, QUESTIONS WERE ANSWERED, AND THE PATIENT EXPRESSED UNDERSTANDING AND AGREED WITH THE PLAN. I, LOLITA ROMO, DOCUMENTED THE ABOVE INFORMATION ACTING A SCRIBE FOR DR. RAMIREZ. I HAVE REVIEWED THE ABOVE DOCUMENT, WRITTEN BY LOLITA GUERREROIBAlexis AND I VERIFY THAT IT IS ACCURATE. PROCEDURE CODES [id number] RADXPS IN END [id number] PXD 10096 INJ PARAVERT F JNT L/S 1 LEV, MODIFIERS: 50 [id number] INJ PARAVERT F JNT L/S 2 LEV, MODIFIERS: 50 DISPOSITION & COMMUNICATION FOLLOW UP 3 WEEKS ELECTRONICALLY SIGNED BY TONIO RAMIREZ MD, MD ON 04/17/2019 AT 01:23 PM EDT DISCLAIMER : THIS IS A VISIT SUMMARY EXTRACTED FROM THE [email or web address] CHART. IT IS NOT A COPY OF THE [email or web address] PROGRESS NOTE. MTDD
== END ==
LOC: M PAIN 09:00
PROVIDERS: ATTEND Anesthesiology
DX: M47.816 Spondylosis without myelopathy or radiculopathy, lumbar region (principal); M47.817 Spondylosis without myelopathy or radiculopathy, lumbosacral region; E11.9 Type 2 diabetes mellitus without complications; E78.5 Hyperlipidemia, unspecified; E66.9 Obesity, unspecified; Z85.3 Personal history of malignant neoplasm of breast; J30.2 Other seasonal allergic rhinitis; Z98.84 Bariatric surgery status; Z90.11 Acquired absence of right breast and nipple; Z87.891 Personal history of nicotine dependence; Z68.28 Body mass index [BMI] 28.0-28.9, adult; Z79.1 Long term (current) use of non-steroidal anti-inflammatories (NSAID); Z79.891 Long term (current) use of opiate analgesic; Z79.899 Other long term (current) drug therapy
CPT/HCPCS: 64493; 64494; Q9966

== ENCOUNTER → 2019-05-05 | Outpatient (CLI) | payer MEDICARE ==
[~2019-05-05] MED LIST changes: -BUPIVACAINE HCL 0.25% 30 ML VIAL As Ordered ONE; -ISOVUE-M 200 41% 20ML VIAL (Q9966) As Ordered ONE; -LIDOCAINE 1% SDV INJ 30 ML VIAL As Ordered ONE
--- NOTE | 2019-05-06 01:46 | ECWPNPC ---
PATIENT NAME: NEO HANSON : 1945 GENDER: FEMALE VISIT DATE: 05/05/2019 DISCHARGE DATE: 05/05/19927 VISIT LOCKED DATE TIME: PHYSICIAN: LAURA CLIFFORD RESOURCE: LAURA CLIFFORD REASON FOR APPOINTMENT 1. POST RIGHT SIJ VS PIRIFORMIS HISTORY OF PRESENT ILLNESS HISTORY OF PRESENT ILLNESS: HERE FOR POST PROCEDURE F/U.HAD BILAT LUMBAR FACET DIAGNOSTIC BLOCK ON 04/07/19.ONLY 3-4 HRS OF 50% IMPROVEMENT THEN PAIN RETURNED TO BASELINE.RATING LOW BACK PAIN 7/10 VAS.SHE FELL TWO WEEKS AGO AND FX TOE LEFT FOOT AND AGGREVATED LEFT HIP PAIN.THAT HAS GOTTEN BETTER BUT CONTINUES WITH CHRONIC LOW BACK PAIN.DISCUSSED TREATMENT OPTIONS TO INCLUDE TPI AND DAILY WALKING FOR LOW BACK REHAB. PAIN THE PATIENT DESCRIBES THE PAIN... FALL RISK SCREENING: SCREENING :NO FALLS REPORTED IN THE LAST YEAR CURRENT MEDICATIONS TAKING CALCIUM 600+D 600-800 MG-UNIT TABLET 2 TABLETS ORALLY ONCE A DAY TAKING ONE DAILY - TABLET 1 TABLET ORALLY ONCE A DAY TAKING TAMOXIFEN CITRATE 20 MG TABLET 1 TABLET ORALLY ONCE A DAY TAKING VITAMIN B-12 500 MCG LOZENGE 1 LOZENGE ORALLY ONCE A DAY TAKING VITAMIN D (CHOLECALCIFEROL) 1000 UNIT TABLET 1 TABLET ORALLY ONCE A DAY TAKING MELOXICAM 15 MG TABLET 1 TABLET ORALLY ONCE A DAY TAKING TRAMADOL HCL 50 MG TABLET 1 TABLET NEEDED ORALLY Q4-6H PRN MDD4 TAKING GABAPENTIN 100 MG CAPSULE 3 ORALLY BEFORE BEDTIME MEDICATION LIST REVIEWED AND RECONCILED WITH THE PATIENT PAST MEDICAL HISTORY DEGENERATIVE DISC DISEASE ECZEMA DIABETES MELLITUS OBESITY RIGHT BREAST CANCER ALLERGIES SEASONAL: NASAL CONGESTION, ITCHY EYES - ALLERGY SURGICAL HISTORY GASTRIC BYPASS SURGERY 2012 RIGHT MASTECTOMY 05/2016 BILAT BREAST IMPLANTS 11/2018 FAMILY HISTORY FATHER: 75 YRS, EMPHYSEMA MOTHER: ALIVE 88 YRS, DEMENTIA SIBLINGS: ALIVE SON(S): ALIVE DAUGHTER(S): ALIVE 3 BROTHER(S) , 5 SISTER(S) - HEALTHY. 2 SON(S) , 1 DAUGHTER(S) - HEALTHY. MOTHER ALZHEIMER'S. SOCIAL HISTORY GENERAL: TOBACCO USE ARE YOU A:FORMER SMOKER HOW LONG HAS IT BEEN SINCE YOU LAST SMOKED?> 10 YEARS OTHERS AT HOME: SPOUSE. DIET: REGULAR. LANGUAGE LANGUAGES SPOKEN:NAURUAN DOMESTIC VIOLENCE DO YOU FEEL SAFE IN YOUR ENVIRONMENT?YES RECREATIONAL DRUG USE DRUG USE?NO EXERCISE: GYM 4 DAYS A WEEK. LEARNING BARRIERS / SPECIAL NEEDS CHANGE FROM LAST VISIT?NO PAIN CLINIC PFS, CLERGY, PUBLIC HEALTH REFERRALS PFS REFERRAL NEEDED?NO CLERGY REFERRAL NEEDED?NO PUBLIC HEALTH REFERRAL NEEDED?NO WAS THE PROVIDER NOTIFIED OF ANY PERTINENT INFO?YES N/A HAS THE PATIENT BEEN EDUCATED REGARDING HIS/HER PLAN OF CARE?YES HAS THE PATIENT BEEN EDUCATED REGARDING PAIN, THE RISK FOR PAIN, THE IMPORTANCE OF EFFECTIVE PAIN MANAGEMENT, AND THE PAIN ASSESSMENT PROCESS?YES LATEX QUESTIONNAIRE LATEX ALLERGY : HAVE YOU EVER DEVELOPED ANY TYPE OF REACTION AFTER HANDLING LATEX PRODUCTS SUCH RUBBER GLOVES, CONDOMS, DIAPHRAGMS, BALLOONS, SOCKS, OR UNDERWEAR?NO LATEX ALLERGY : HAVE YOU EVER DEVELOPED ANY TYPE OF REACTION DURING OR AFTER DENTAL APPOINTMENT, VAGINAL/RECTAL EXAMINATION, SURGICAL PROCEDURE, OR ANY OTHER EXPOSURE?NO LATEX RISK : HAVE YOU EVER HAD ANY DIFFICULTY BREATHING OR HIVES AFTER EATING OR HANDLING ANY FRUITS, OR VEGETABLES; SUCH KIWI, BANANAS, STONE FRUITS, OR CHESTNUTSNO LATEX RISK : DO YOU HAVE A PREVIOUS PERSONAL HISTORY OF MORE THAN NINE SURGERIES, SPINA BIFIDA, OR REPEATED CATHERIZATIONS? NO LATEX RISK : ARE YOU FREQUENTLY EXPOSED TO LATEX PRODUCTS IN YOUR OCCUPATION?NO DATE ASKED : 04/07/2019 CAFFEINE CAFFEINE USE?YES HOW OFTEN AND HOW MUCH? 3 CUPS COFFEE/DAY ADVANCE DIRECTIVE ADVANCE DIRECTIVE DISCUSSED WITH PATIENT:YES PT HAS HCP [facility] [phone] JEW [id number] RELIGION MARITAL STATUS: . ALCOHOL SCREENING DID YOU HAVE A DRINK CONTAINING ALCOHOL IN THE PAST YEAR?YES HOW OFTEN DID YOU HAVE A DRINK CONTAINING ALCOHOL IN THE PAST YEAR?MONTHLY OR LESS (1 POINT) HOW MANY DRINKS DID YOU HAVE ON A TYPICAL DAY WHEN YOU WERE DRINKING IN THE PAST YEAR?7 TO 9 (3 POINTS) HOW OFTEN DID YOU HAVE SIX OR MORE DRINKS ON ONE OCCASION IN THE PAST YEAR?LESS THAN MONTHLY (1 POINT) POINTS5 INTERPRETATIONPOSITIVE OCCUPATION: RETIRED. 02/26/18 1005 REVIEWED WITH PT. [id number] REVIEWED WITH PT DANIEL. HOSPITALIZATION/MAJOR DIAGNOSTIC PROCEDURE SURGERIES REVIEW OF SYSTEMS REVIEWED BY: PROVIDER: . CONSTITUTIONAL: ANY CHANGE IN YOUR MEDICAL CONDITION? NO . CHILLS NO . FEVER NO . INFECTION: DO YOU HAVE NEW INFECTIONS? NO . DO YOU HAVE HISTORY OF MRSA? NO . MUSCULOSKELETAL: ANY NEW PATTERNS OF PAIN OR NUMBNESS? NO . GASTROENTEROLOGY: ANY NEW CHANGE IN BOWEL CONTROL? NO . GENITOURINARY: ANY NEW CHANGE IN BLADDER CONTROL? NO . IS THERE A CHANCE YOU COULD BE ? NO . HEMATOLOGY/LYMPH: DO YOU TAKE ANY BLOOD THINNERS? (FOR EXAMPLE- COUMADIN, PLAVIX, AGGRENOX, PLATEL, PRADAXA, OR XARELTO) NO . WHEN WAS YOUR LAST DOSE? DATE: TIME: . NEUROLOGY: HAVE YOU FALLEN IN THE PAST 12 MONTHS? YES . ANY NEW EXTREMITY NUMBNESS OR WEAKNESS? NO . CARDIOLOGY: DO YOU HAVE A PACEMAKER OR DEFIBRILLATOR? NO . RESPIRATORY: HAVE YOU BEEN SICK IN THE PAST WEEK? NO . FEVER NO . FLU LIKE SYMPTOMS? NO . COUGH NO . INTEGUMENTARY: DO YOU HAVE ANY RASHES OR OPEN SORES? NO . ALLERGIC/IMMUNO: ARE YOU ALLERGIC TO IV DYE? NO . ANY NEW ALLERGIES? NO . PSYCHIATRIC: DO YOU HAVE THOUGHTS OF HURTING YOURSELF OR SOMEONE ELSE? NO . ARE YOU ABUSED, NEGLECTED, OR IN AN UNSAFE ENVIRONMENT? NO . ENDOCRINOLOGY: ARE YOU DIABETIC? YES . OTHER: DO YOU NEED ANY PRESCRIPTIONS? NO . IF YES, PLEASE LIST: ____ . ANY NEW PROBLEMS WITH YOUR MEDICATIONS? NO . WHEN DID YOU LAST EAT? ____ . WHEN DID YOU LAST DRINK? ____ . WHAT DID YOU LAST DRINK? ____ . NAME OF PERSON DRIVING YOU HOME? ____ . DO YOU HAVE ANY OTHER QUESTIONS OR CONCERNS NO . VITAL SIGNS WT 162.6 LBS, HT 63", BMI 28.80 INDEX, BP 120/63 MM HG, HR 83 /MIN, RR 16 /MIN, TEMP 97.6 F, OXYGEN SAT % 98%, NA INITIALS AW 0839, REVIEWED BY: LS. EXAMINATION GENERAL EXAMINATION: GENERALAWAKE,ALERT ,PLEAASANT . PSYCHAFFECT NORMAL . LUNGS:LUNG WELSH ARE CLEAR TO AUSCULTATION BILATERALLY. GOOD MOVEMENT OF AIR . HEART:S1, S2 IN A REGULAR RATE AND RHYTHM. NO SIGNIFICANT MURMURS, RUBS OR GALLOPS NOTED . MUSCULOSKELETAL:MUSCLE STRENGTH TESTING 4/5 BILATERAL LOWER EXTREMITIES. LUMBAR SACRAL SPINETRIGGER POINTS:, ELICITED WITH PALPATION OVER BIALT. LUMBAR PARAVERTEBRAL MUSCLES AND RESTRICTION OF ROM IN THIS AREA. ASSESSMENTS MYALGIA, OTHER SITE - M79.18 TREATMENT OTHERS NOTES: TPI BILAT LOW BACK. PROCEDURE CODES FA211 ESTABILISHED PATIENT [facility] FACILITY CHARGE DISPOSITION & COMMUNICATION FOLLOW UP POST (REASON: TPI BILAT LOW BACK) ELECTRONICALLY SIGNED BY MASON GONSALVES ON 05/05/2019 AT 09:24 AM EDT DISCLAIMER : THIS IS A VISIT SUMMARY EXTRACTED FROM THE [employer] CHART. IT IS NOT A COPY OF THE [employer] PROGRESS NOTE. ROGERIO
== END ==
LOC: M PAIN 08:45
PROVIDERS: ATTEND Nurse Practitioner Family
DX: M79.18 Myalgia, other site (principal); E11.9 Type 2 diabetes mellitus without complications; Z98.84 Bariatric surgery status; Z87.891 Personal history of nicotine dependence; Z79.899 Other long term (current) drug therapy

== ENCOUNTER → 2019-06-15 | Outpatient (CLI) | payer MEDICARE ==
[~2019-06-15] MED LIST changes: +BUPIVACAINE HCL 0.25% 10 ML VIAL As Ordered ONE; +BUPIVACAINE HCL 0.25% 30 ML VIAL As Ordered ONE; +TRIAMCINOLONE ACETONIDE SUSP 40 MG/ML VIAL (J3301) As Ordered ONE
--- NOTE | 2019-07-06 11:41 | ECWPNPC ---
PATIENT NAME: NEO HANSON : 1945 GENDER: FEMALE VISIT DATE: 06/15/2019 DISCHARGE DATE: 06/15/19 0954 VISIT LOCKED DATE TIME: PHYSICIAN: TONIO RAMIREZ MD RESOURCE: TONIO RAMIREZ MD REASON FOR APPOINTMENT 1. TPI BILAT LOW BACK HISTORY OF PRESENT ILLNESS HISTORY OF PRESENT ILLNESS: PAIN THE PATIENT DESCRIBES THE PAIN... FALL RISK SCREENING: SCREENING :NO FALLS REPORTED IN THE LAST YEAR CURRENT MEDICATIONS TAKING CALCIUM 600+D 600-800 MG-UNIT TABLET 2 TABLETS ORALLY ONCE A DAY TAKING ONE DAILY - TABLET 1 TABLET ORALLY ONCE A DAY TAKING TAMOXIFEN CITRATE 20 MG TABLET 1 TABLET ORALLY ONCE A DAY TAKING VITAMIN B-12 500 MCG LOZENGE 1 LOZENGE ORALLY ONCE A DAY TAKING VITAMIN D (CHOLECALCIFEROL) 1000 UNIT TABLET 1 TABLET ORALLY ONCE A DAY TAKING TRAMADOL HCL 50 MG TABLET 1 TABLET NEEDED ORALLY Q4-6H PRN MDD4, NOTES: 06/14/19 TAKING GABAPENTIN 100 MG CAPSULE 3 ORALLY BEFORE BEDTIME, NOTES: 06/14/19 NOT-TAKING MELOXICAM 15 MG TABLET 1 TABLET ORALLY ONCE A DAY MEDICATION LIST REVIEWED AND RECONCILED WITH THE PATIENT PAST MEDICAL HISTORY DEGENERATIVE DISC DISEASE ECZEMA DIABETES MELLITUS OBESITY RIGHT BREAST CANCER ALLERGIES SEASONAL: NASAL CONGESTION, ITCHY EYES - ALLERGY SURGICAL HISTORY GASTRIC BYPASS SURGERY 2012 RIGHT MASTECTOMY 05/2016 BILAT BREAST IMPLANTS 11/2018 FAMILY HISTORY FATHER: 75 YRS, EMPHYSEMA MOTHER: ALIVE 88 YRS, DEMENTIA SIBLINGS: ALIVE SON(S): ALIVE DAUGHTER(S): ALIVE 3 BROTHER(S) , 5 SISTER(S) - HEALTHY. 2 SON(S) , 1 DAUGHTER(S) - HEALTHY. MOTHER ALZHEIMER'S. SOCIAL HISTORY GENERAL: TOBACCO USE ARE YOU A:FORMER SMOKER HOW LONG HAS IT BEEN SINCE YOU LAST SMOKED?> 10 YEARS OTHERS AT HOME: SPOUSE. DIET: REGULAR. LANGUAGE LANGUAGES SPOKEN:BANGLADESHI DOMESTIC VIOLENCE DO YOU FEEL SAFE IN YOUR ENVIRONMENT?YES RECREATIONAL DRUG USE DRUG USE?NO EXERCISE: GYM 4 DAYS A WEEK. LEARNING BARRIERS / SPECIAL NEEDS CHANGE FROM LAST VISIT?NO PAIN CLINIC PFS, CLERGY, PUBLIC HEALTH REFERRALS PFS REFERRAL NEEDED?NO CLERGY REFERRAL NEEDED?NO PUBLIC HEALTH REFERRAL NEEDED?NO WAS THE PROVIDER NOTIFIED OF ANY PERTINENT INFO?YES N/A HAS THE PATIENT BEEN EDUCATED REGARDING HIS/HER PLAN OF CARE?YES HAS THE PATIENT BEEN EDUCATED REGARDING PAIN, THE RISK FOR PAIN, THE IMPORTANCE OF EFFECTIVE PAIN MANAGEMENT, AND THE PAIN ASSESSMENT PROCESS?YES LATEX QUESTIONNAIRE LATEX ALLERGY : HAVE YOU EVER DEVELOPED ANY TYPE OF REACTION AFTER HANDLING LATEX PRODUCTS SUCH RUBBER GLOVES, CONDOMS, DIAPHRAGMS, BALLOONS, SOCKS, OR UNDERWEAR?NO LATEX ALLERGY : HAVE YOU EVER DEVELOPED ANY TYPE OF REACTION DURING OR AFTER DENTAL APPOINTMENT, VAGINAL/RECTAL EXAMINATION, SURGICAL PROCEDURE, OR ANY OTHER EXPOSURE?NO DATE ASKED : 04/07/2019 LATEX RISK : HAVE YOU EVER HAD ANY DIFFICULTY BREATHING OR HIVES AFTER EATING OR HANDLING ANY FRUITS, OR VEGETABLES; SUCH KIWI, BANANAS, STONE FRUITS, OR CHESTNUTSNO LATEX RISK : DO YOU HAVE A PREVIOUS PERSONAL HISTORY OF MORE THAN NINE SURGERIES, SPINA BIFIDA, OR REPEATED CATHERIZATIONS? NO LATEX RISK : ARE YOU FREQUENTLY EXPOSED TO LATEX PRODUCTS IN YOUR OCCUPATION?NO CAFFEINE CAFFEINE USE?YES HOW OFTEN AND HOW MUCH? 3 CUPS COFFEE/DAY ADVANCE DIRECTIVE ADVANCE DIRECTIVE DISCUSSED WITH PATIENT:YES PT HAS HCP [facility] [phone] LATTER DAY [id number] BAPTIST MARITAL STATUS: . ALCOHOL SCREENING DID YOU HAVE A DRINK CONTAINING ALCOHOL IN THE PAST YEAR?YES HOW OFTEN DID YOU HAVE SIX OR MORE DRINKS ON ONE OCCASION IN THE PAST YEAR?LESS THAN MONTHLY (1 POINT) HOW MANY DRINKS DID YOU HAVE ON A TYPICAL DAY WHEN YOU WERE DRINKING IN THE PAST YEAR?7 TO 9 (3 POINTS) HOW OFTEN DID YOU HAVE A DRINK CONTAINING ALCOHOL IN THE PAST YEAR?MONTHLY OR LESS (1 POINT) POINTS5 INTERPRETATIONPOSITIVE OCCUPATION: RETIRED. 02/26/18 1005 REVIEWED WITH PT. [id number] REVIEWED WITH PT DANIEL. HOSPITALIZATION/MAJOR DIAGNOSTIC PROCEDURE SURGERIES REVIEW OF SYSTEMS REVIEWED BY: PROVIDER: . CONSTITUTIONAL: ANY CHANGE IN YOUR MEDICAL CONDITION? NO . CHILLS NO . FEVER NO . INFECTION: DO YOU HAVE NEW INFECTIONS? NO . DO YOU HAVE HISTORY OF MRSA? NO . MUSCULOSKELETAL: ANY NEW PATTERNS OF PAIN OR NUMBNESS? NO . GASTROENTEROLOGY: ANY NEW CHANGE IN BOWEL CONTROL? NO . GENITOURINARY: ANY NEW CHANGE IN BLADDER CONTROL? NO . IS THERE A CHANCE YOU COULD BE ? NO . HEMATOLOGY/LYMPH: DO YOU TAKE ANY BLOOD THINNERS? (FOR EXAMPLE- COUMADIN, PLAVIX, AGGRENOX, PLATEL, PRADAXA, OR XARELTO) NO . WHEN WAS YOUR LAST DOSE? DATE: TIME: . NEUROLOGY: HAVE YOU FALLEN IN THE PAST 12 MONTHS? NO . ANY NEW EXTREMITY NUMBNESS OR WEAKNESS? NO . CARDIOLOGY: DO YOU HAVE A PACEMAKER OR DEFIBRILLATOR? NO . RESPIRATORY: HAVE YOU BEEN SICK IN THE PAST WEEK? NO . FEVER NO . FLU LIKE SYMPTOMS? NO . COUGH NO . INTEGUMENTARY: DO YOU HAVE ANY RASHES OR OPEN SORES? NO . ALLERGIC/IMMUNO: ARE YOU ALLERGIC TO IV DYE? NO . ANY NEW ALLERGIES? NO . PSYCHIATRIC: DO YOU HAVE THOUGHTS OF HURTING YOURSELF OR SOMEONE ELSE? NO . ARE YOU ABUSED, NEGLECTED, OR IN AN UNSAFE ENVIRONMENT? NO . ENDOCRINOLOGY: ARE YOU DIABETIC? YES . OTHER: DO YOU NEED ANY PRESCRIPTIONS? NO . IF YES, PLEASE LIST: ____ . ANY NEW PROBLEMS WITH YOUR MEDICATIONS? NO . WHEN DID YOU LAST EAT? 06/14/191899 . WHEN DID YOU LAST DRINK? 06/14/191899 . WHAT DID YOU LAST DRINK? COFFEE AND WATER . NAME OF PERSON DRIVING YOU HOME? MARILIN . DO YOU HAVE ANY OTHER QUESTIONS OR CONCERNS NO . VITAL SIGNS WT 163 LBS, HT 63", BMI 28.87 INDEX, BP 111/69 MM HG, HR 61 /MIN, RR 16 /MIN, TEMP 97.1 F, OXYGEN SAT % 98%, NA INITIALS SC 09:03, REVIEWED BY: ASSESSMENTS MYALGIA, OTHER SITE - M79.18 (PRIMARY) PROCEDURES PN TRIGGER POINT INJECTION WITH STEROIDS PRE PROCEDURE DIAGNOSIS 1. MYALGIA 2. PAIN AT BILATERAL LOW BACK AREA. POST PROCEDURE DIAGNOSIS 1. MYALGIA 2. PAIN AT BILATERAL LOW BACK AREA. PROCEDURE TRIGGER POINT INJECTION AT RIGHT AND LEFT LOW BACK AREA. SURGEON DR. TONIO RAMIREZ FRONT OFFICE CLERK NONE ANESTHESIA LOCAL PRE PROCEDURE NOTE THE PATIENT HAS A HISTORY OF CHRONIC PAIN AT THE RIGHT AND LEFT LOW BACK AREA. I EVALUATED THE PATIENT AND REVIEWED THE CHART. THERE IS EVIDENCE OF BANDS OF TISSUE WITH RESTRICTION OF MOVEMENT AND PRESENCE OF TRIGGER POINT AT THE AFFECTED AREA. I WENT OVER THE RISKS, ALTERNATIVES, AND BENEFITS ASSOCIATED WITH THIS PROCEDURE. THE PATIENT WOULD LIKE TO PROCEED AND GIVES CONSENT TO PERFORM THE PROCEDURE. THE PATIENT DENIES UNEXPLAINABLE WEIGHT LOSS, FEVER, CHILLS, OR NEW CHANGES IN URINARY OR BOWEL CONTROL DESCRIPTION OF PROCEDURE THE PATIENT WAS BROUGHT TO THE PROCEDURE ROOM AND PLACED IN THE SITTING POSITION. THE AREA WAS CLEANED WITH ALCOHOL. THE PROCEDURE WAS DONE USING ASEPTIC STERILE TECHNIQUE. I CHECKED LATERALITY AND THE LEVEL WHERE THE PROCEDURE WAS GOING TO BE PERFORMED WITH THE PATIENT AND THE SUPPORTING STAFF AT THE MOMENT OF THE TIME OUT IN THE PROCEDURE ROOM. USING A 25-GAUGE NEEDLE, TRIGGER POINTS WERE INJECTED AT THE RIGHT AND LEFT LOW BACK AREA WITH A TOTAL OF 40 ML OF BUPIVACAINE 0.25% AND KENALOG 40 MG. THERE WAS NO EVIDENCE OF BLOOD, PARESTHESIA OR CEREBROSPINAL FLUID DURING THE PROCEDURE. THE PATIENT WAS SENT TO THE RECOVERY ROOM. THE PATIENT WAS MOVING THE EXTREMITIES AND DOING WELL. THERE WAS NO COMPLICATION DURING THE PROCEDURE POST PROCEDURE NOTE THE PATIENT WILL BE SEEN IN A FOLLOW UP IN THE NEXT FEW WEEKS. DEPENDING ON THE TRIGGER POINT INJECTION RESULTS, I MAY CONSIDER A LUMBAR FACET BLOCK IN THE FUTURE. INSTRUCTIONS WERE GIVEN, QUESTIONS WERE ANSWERED, AND THE PATIENT EXPRESSED UNDERSTANDING AND AGREES WITH THE PLAN. I, CHRISTIE NIEVES, DOCUMENTED THE ABOVE INFORMATION ACTING A SCRIBE FOR DR. RAMIREZ. I HAVE REVIEWED THE ABOVE DOCUMENT, WRITTEN BY CHRISTIE NIEVES SCRIBAlexis AND I VERIFY THAT IT IS ACCURATE. PROCEDURE CODES 42628 INJ TRIGGER POINT /2 [facility] [place] COMMUNICATION FOLLOW UP 3 WEEKS ELECTRONICALLY SIGNED BY TONIO RAMIREZ MD, MD ON 06/24/2019 AT 07:02 PM EDT DISCLAIMER : THIS IS A VISIT SUMMARY EXTRACTED FROM THE [employer] CHART. IT IS NOT A COPY OF THE [employer] PROGRESS NOTE. ROGERIO
== END ==
LOC: M PAIN 09:30
PROVIDERS: ATTEND Anesthesiology
DX: M79.18 Myalgia, other site (principal); L30.9 Dermatitis, unspecified; E11.9 Type 2 diabetes mellitus without complications; E66.9 Obesity, unspecified; Z85.3 Personal history of malignant neoplasm of breast; Z98.84 Bariatric surgery status; Z90.11 Acquired absence of right breast and nipple; Z98.82 Breast implant status; Z87.891 Personal history of nicotine dependence; Z79.891 Long term (current) use of opiate analgesic; Z79.899 Other long term (current) drug therapy; Z68.28 Body mass index [BMI] 28.0-28.9, adult
CPT/HCPCS: 20552; J3301

== ENCOUNTER → 2019-07-06 | Outpatient (CLI) | payer MEDICARE ==
[~2019-07-06] MED LIST changes: -BUPIVACAINE HCL 0.25% 10 ML VIAL As Ordered ONE; -BUPIVACAINE HCL 0.25% 30 ML VIAL As Ordered ONE; -TRIAMCINOLONE ACETONIDE SUSP 40 MG/ML VIAL (J3301) As Ordered ONE
--- NOTE | 2019-07-08 01:34 | ECWPNPC ---
PATIENT NAME: NEO HANSON : 1945 GENDER: FEMALE VISIT DATE: 07/06/2019 DISCHARGE DATE: 07/06/19927 VISIT LOCKED DATE TIME: PHYSICIAN: LAURA CLIFFORD RESOURCE: LAURA CLIFFORD REASON FOR APPOINTMENT 1. POST TPI BILAT LOW BACK HISTORY OF PRESENT ILLNESS HISTORY OF PRESENT ILLNESS: HERE FOR POST PROCEDURE F/U.HAD TPI BILAT LOW BACK ON06/15/19.REPORTING SIGNIFICANT IMPROVEMENT X2 WEEKS THEN PAIN RETURNED TO BASELINE.REPORTING INCREASE IN PAIN WITH WEATHER CHANGE/COLD WEATHER.RATING PAIN VAS 6/10.REVIEWED MRI AND DISCUSSED TREATMENT OPTIONS. PAIN THE PATIENT DESCRIBES THE PAIN... FALL RISK SCREENING: SCREENING :NO FALLS REPORTED IN THE LAST YEAR CURRENT MEDICATIONS TAKING CALCIUM 600+D 600-800 MG-UNIT TABLET 2 TABLETS ORALLY ONCE A DAY TAKING ONE DAILY - TABLET 1 TABLET ORALLY ONCE A DAY TAKING TAMOXIFEN CITRATE 20 MG TABLET 1 TABLET ORALLY ONCE A DAY TAKING VITAMIN B-12 500 MCG LOZENGE 1 LOZENGE ORALLY ONCE A DAY TAKING VITAMIN D (CHOLECALCIFEROL) 1000 UNIT TABLET 1 TABLET ORALLY ONCE A DAY TAKING GABAPENTIN 100 MG CAPSULE 3 ORALLY BEFORE BEDTIME NOT-TAKING TRAMADOL HCL 50 MG TABLET 1 TABLET NEEDED ORALLY Q4-6H PRN MDD4 NOT-TAKING MELOXICAM 15 MG TABLET 1 TABLET ORALLY ONCE A DAY MEDICATION LIST REVIEWED AND RECONCILED WITH THE PATIENT PAST MEDICAL HISTORY DEGENERATIVE DISC DISEASE ECZEMA DIABETES MELLITUS OBESITY RIGHT BREAST CANCER ALLERGIES SEASONAL: NASAL CONGESTION, ITCHY EYES - ALLERGY SURGICAL HISTORY GASTRIC BYPASS SURGERY 2012 RIGHT MASTECTOMY 05/2016 BILAT BREAST IMPLANTS 11/2018 FAMILY HISTORY FATHER: 75 YRS, EMPHYSEMA MOTHER: ALIVE 88 YRS, DEMENTIA SIBLINGS: ALIVE SON(S): ALIVE DAUGHTER(S): ALIVE 3 BROTHER(S) , 5 SISTER(S) - HEALTHY. 2 SON(S) , 1 DAUGHTER(S) - HEALTHY. MOTHER ALZHEIMER'S. SOCIAL HISTORY GENERAL: TOBACCO USE ARE YOU A:FORMER SMOKER HOW LONG HAS IT BEEN SINCE YOU LAST SMOKED?> 10 YEARS OTHERS AT HOME: SPOUSE. DIET: REGULAR. LANGUAGE LANGUAGES SPOKEN:MONGOLIAN DOMESTIC VIOLENCE DO YOU FEEL SAFE IN YOUR ENVIRONMENT?YES RECREATIONAL DRUG USE DRUG USE?NO EXERCISE: GYM 4 DAYS A WEEK. LEARNING BARRIERS / SPECIAL NEEDS CHANGE FROM LAST VISIT?NO PAIN CLINIC PFS, CLERGY, PUBLIC HEALTH REFERRALS PFS REFERRAL NEEDED?NO CLERGY REFERRAL NEEDED?NO PUBLIC HEALTH REFERRAL NEEDED?NO WAS THE PROVIDER NOTIFIED OF ANY PERTINENT INFO?YES N/A HAS THE PATIENT BEEN EDUCATED REGARDING HIS/HER PLAN OF CARE?YES HAS THE PATIENT BEEN EDUCATED REGARDING PAIN, THE RISK FOR PAIN, THE IMPORTANCE OF EFFECTIVE PAIN MANAGEMENT, AND THE PAIN ASSESSMENT PROCESS?YES LATEX QUESTIONNAIRE LATEX ALLERGY : HAVE YOU EVER DEVELOPED ANY TYPE OF REACTION AFTER HANDLING LATEX PRODUCTS SUCH RUBBER GLOVES, CONDOMS, DIAPHRAGMS, BALLOONS, SOCKS, OR UNDERWEAR?NO LATEX ALLERGY : HAVE YOU EVER DEVELOPED ANY TYPE OF REACTION DURING OR AFTER DENTAL APPOINTMENT, VAGINAL/RECTAL EXAMINATION, SURGICAL PROCEDURE, OR ANY OTHER EXPOSURE?NO DATE ASKED : 04/07/2019 LATEX RISK : HAVE YOU EVER HAD ANY DIFFICULTY BREATHING OR HIVES AFTER EATING OR HANDLING ANY FRUITS, OR VEGETABLES; SUCH KIWI, BANANAS, STONE FRUITS, OR CHESTNUTSNO LATEX RISK : DO YOU HAVE A PREVIOUS PERSONAL HISTORY OF MORE THAN NINE SURGERIES, SPINA BIFIDA, OR REPEATED CATHERIZATIONS? NO LATEX RISK : ARE YOU FREQUENTLY EXPOSED TO LATEX PRODUCTS IN YOUR OCCUPATION?NO CAFFEINE CAFFEINE USE?YES HOW OFTEN AND HOW MUCH? 3 CUPS COFFEE/DAY ADVANCE DIRECTIVE ADVANCE DIRECTIVE DISCUSSED WITH PATIENT:YES PT HAS HCP [facility] [phone] MU-ISM [id number] ZOROASTRIANISM MARITAL STATUS: . ALCOHOL SCREENING DID YOU HAVE A DRINK CONTAINING ALCOHOL IN THE PAST YEAR?YES HOW OFTEN DID YOU HAVE SIX OR MORE DRINKS ON ONE OCCASION IN THE PAST YEAR?LESS THAN MONTHLY (1 POINT) HOW MANY DRINKS DID YOU HAVE ON A TYPICAL DAY WHEN YOU WERE DRINKING IN THE PAST YEAR?7 TO 9 (3 POINTS) HOW OFTEN DID YOU HAVE A DRINK CONTAINING ALCOHOL IN THE PAST YEAR?MONTHLY OR LESS (1 POINT) POINTS5 INTERPRETATIONPOSITIVE OCCUPATION: RETIRED. 02/26/18 1005 REVIEWED WITH PT. [id number] REVIEWED WITH PT LASREVIEWED WITH PATIENT 07/06/19 0800 NL. HOSPITALIZATION/MAJOR DIAGNOSTIC PROCEDURE SURGERIES REVIEW OF SYSTEMS REVIEWED BY: PROVIDER: LAURA CUEVAS . CONSTITUTIONAL: ANY CHANGE IN YOUR MEDICAL CONDITION? NO . CHILLS NO . FEVER NO . INFECTION: DO YOU HAVE NEW INFECTIONS? NO . DO YOU HAVE HISTORY OF MRSA? NO . MUSCULOSKELETAL: ANY NEW PATTERNS OF PAIN OR NUMBNESS? YES- STATES TPI IN [place] WORKED FOR ABOUT 2 WEEKS, STATES THE WEATHER CHANGED HER PAIN STARTED TO INCREASE AND HAS NOW RETURNED TO PRE PROCEDURE LEVEL . GASTROENTEROLOGY: ANY NEW CHANGE IN BOWEL CONTROL? NO . GENITOURINARY: ANY NEW CHANGE IN BLADDER CONTROL? NO . IS THERE A CHANCE YOU COULD BE ? NO . HEMATOLOGY/LYMPH: DO YOU TAKE ANY BLOOD THINNERS? (FOR EXAMPLE- COUMADIN, PLAVIX, AGGRENOX, PLATEL, PRADAXA, OR XARELTO) NO . WHEN WAS YOUR LAST DOSE? DATE: TIME: . NEUROLOGY: HAVE YOU FALLEN IN THE PAST 12 MONTHS? NO . ANY NEW EXTREMITY NUMBNESS OR WEAKNESS? NO . CARDIOLOGY: DO YOU HAVE A PACEMAKER OR DEFIBRILLATOR? NO . RESPIRATORY: HAVE YOU BEEN SICK IN THE PAST WEEK? NO . FEVER NO . FLU LIKE SYMPTOMS? NO . COUGH NO . INTEGUMENTARY: DO YOU HAVE ANY RASHES OR OPEN SORES? NO . ALLERGIC/IMMUNO: ARE YOU ALLERGIC TO IV DYE? NO . ANY NEW ALLERGIES? NO . PSYCHIATRIC: DO YOU HAVE THOUGHTS OF HURTING YOURSELF OR SOMEONE ELSE? NO . ARE YOU ABUSED, NEGLECTED, OR IN AN UNSAFE ENVIRONMENT? NO . ENDOCRINOLOGY: ARE YOU DIABETIC? YES . OTHER: DO YOU NEED ANY PRESCRIPTIONS? NO . IF YES, PLEASE LIST: ____ . ANY NEW PROBLEMS WITH YOUR MEDICATIONS? NO . WHEN DID YOU LAST EAT? ____ . WHEN DID YOU LAST DRINK? ____ . WHAT DID YOU LAST DRINK? ____ . NAME OF PERSON DRIVING YOU HOME? ____ . DO YOU HAVE ANY OTHER QUESTIONS OR CONCERNS NO . VITAL SIGNS WT 161.6 LBS, HT 63", BMI 28.62 INDEX, BP 189/88 MM HG, HR 72 /MIN, RR 18 /MIN, TEMP 98.3 F, OXYGEN SAT % 98%, SAFE IN ENV? (Y/N) YES, NA INITIALS VT 08:54, REVIEWED BY: BRETTPATIENT RECEIVED BAD NEWS ONCE GETTING INTO EXAM ROOM 07/06/19 0906 BRETT. EXAMINATION GENERAL EXAMINATION: GENERALAWAKE,ALERT ,PLEAASANT . PSYCHAFFECT NORMAL . LUNGS:LUNG WELSH ARE CLEAR TO AUSCULTATION BILATERALLY. GOOD MOVEMENT OF AIR . HEART:S1, S2 IN A REGULAR RATE AND RHYTHM. NO SIGNIFICANT MURMURS, RUBS OR GALLOPS NOTED . MUSCULOSKELETAL:MUSCLE STRENGTH TESTING 4/5 BILATERAL LOWER EXTREMITIES. LUMBAR SACRAL SPINETRIGGER POINTS:, ELICITED WITH PALPATION OVER BIALT. LUMBAR PARAVERTEBRAL MUSCLES AND RESTRICTION OF ROM IN THIS AREA. ASSESSMENTS MYALGIA, OTHER SITE - M79.18 (PRIMARY) TREATMENT MYALGIA, OTHER SITE NOTES: TPI BILAT LOW BACK. PREVENTIVE MEDICINE PAIN CLINIC TEACHING: PROCEDURE TEACHING TRIGGER POINT INJECTION INFORMATION REVIEWED WITH PATIENT, PT DECLINED PRINTED HANOUTS 07/06/19 0928 [facility]. PROCEDURE CODES FA211 ESTABILISHED PATIENT [facility] FACILITY CHARGE DISPOSITION & COMMUNICATION FOLLOW UP POST (REASON: TPI BILAT LOW BACK) ELECTRONICALLY SIGNED BY MASON GONSALVES ON 07/07/2019 AT 09:08 AM EDT DISCLAIMER : THIS IS A VISIT SUMMARY EXTRACTED FROM THE [employer] CHART. IT IS NOT A COPY OF THE [employer] PROGRESS NOTE. ROGERIO
== END ==
LOC: M PAIN 08:45
PROVIDERS: ATTEND Nurse Practitioner Family
DX: M79.18 Myalgia, other site (principal); E11.9 Type 2 diabetes mellitus without complications; Z98.84 Bariatric surgery status; Z87.891 Personal history of nicotine dependence; Z79.899 Other long term (current) drug therapy

== ENCOUNTER → 2019-07-08 | Outpatient (CLI) | payer MEDICARE ==
[~2019-07-08] MED LIST changes: +BUPIVACAINE HCL 0.25% 10 ML VIAL As Ordered ONE; +BUPIVACAINE HCL 0.25% 30 ML VIAL As Ordered ONE; +TRIAMCINOLONE ACETONIDE SUSP 40 MG/ML VIAL (J3301) As Ordered ONE
--- NOTE | 2019-07-11 23:02 | ECWPNPC ---
PATIENT NAME: NEO HANSON : 1945 GENDER: FEMALE VISIT DATE: 07/08/2019 DISCHARGE DATE: 07/08/19 1536 VISIT LOCKED DATE TIME: PHYSICIAN: TONIO RAMIREZ MD RESOURCE: TONIO RAMIREZ MD REASON FOR APPOINTMENT 1. TPI BILAT LOW BACK HISTORY OF PRESENT ILLNESS HISTORY OF PRESENT ILLNESS: PAIN THE PATIENT DESCRIBES THE PAIN... FALL RISK SCREENING: SCREENING :NO FALLS REPORTED IN THE LAST YEAR CURRENT MEDICATIONS TAKING CALCIUM 600+D 600-800 MG-UNIT TABLET 2 TABLETS ORALLY ONCE A DAY, NOTES: 07/07/19 TAKING ONE DAILY - TABLET 1 TABLET ORALLY ONCE A DAY, NOTES: 07/07/19 TAKING TAMOXIFEN CITRATE 20 MG TABLET 1 TABLET ORALLY ONCE A DAY, NOTES: 07/07/19 TAKING VITAMIN B-12 500 MCG LOZENGE 1 LOZENGE ORALLY ONCE A DAY, NOTES: 07/07/19 TAKING VITAMIN D (CHOLECALCIFEROL) 1000 UNIT TABLET 1 TABLET ORALLY ONCE A DAY, NOTES: 07/07/19 TAKING MELOXICAM 15 MG TABLET 1 TABLET ORALLY ONCE A DAY, NOTES: 07/07/19 NOT-TAKING GABAPENTIN 100 MG CAPSULE 3 ORALLY BEFORE BEDTIME, NOTES: NONE RECENT NOT-TAKING TRAMADOL HCL 50 MG TABLET 1 TABLET NEEDED ORALLY Q4-6H PRN MDD4 MEDICATION LIST REVIEWED AND RECONCILED WITH THE PATIENT PAST MEDICAL HISTORY DEGENERATIVE DISC DISEASE ECZEMA DIABETES MELLITUS OBESITY RIGHT BREAST CANCER ALLERGIES SEASONAL: NASAL CONGESTION, ITCHY EYES - ALLERGY SURGICAL HISTORY GASTRIC BYPASS SURGERY 2012 RIGHT MASTECTOMY 05/2016 BILAT BREAST IMPLANTS 11/2018 FAMILY HISTORY FATHER: 75 YRS, EMPHYSEMA MOTHER: ALIVE 88 YRS, DEMENTIA SIBLINGS: ALIVE SON(S): ALIVE DAUGHTER(S): ALIVE 3 BROTHER(S) , 5 SISTER(S) - HEALTHY. 2 SON(S) , 1 DAUGHTER(S) - HEALTHY. MOTHER ALZHEIMER'S. SOCIAL HISTORY GENERAL: TOBACCO USE ARE YOU A:FORMER SMOKER HOW LONG HAS IT BEEN SINCE YOU LAST SMOKED?> 10 YEARS OTHERS AT HOME: SPOUSE. DIET: REGULAR. LANGUAGE LANGUAGES SPOKEN:BULGARIAN DOMESTIC VIOLENCE DO YOU FEEL SAFE IN YOUR ENVIRONMENT?YES RECREATIONAL DRUG USE DRUG USE?NO EXERCISE: GYM 4 DAYS A WEEK. LEARNING BARRIERS / SPECIAL NEEDS CHANGE FROM LAST VISIT?NO PAIN CLINIC PFS, CLERGY, PUBLIC HEALTH REFERRALS PFS REFERRAL NEEDED?NO CLERGY REFERRAL NEEDED?NO PUBLIC HEALTH REFERRAL NEEDED?NO WAS THE PROVIDER NOTIFIED OF ANY PERTINENT INFO?YES N/A HAS THE PATIENT BEEN EDUCATED REGARDING HIS/HER PLAN OF CARE?YES HAS THE PATIENT BEEN EDUCATED REGARDING PAIN, THE RISK FOR PAIN, THE IMPORTANCE OF EFFECTIVE PAIN MANAGEMENT, AND THE PAIN ASSESSMENT PROCESS?YES LATEX QUESTIONNAIRE LATEX ALLERGY : HAVE YOU EVER DEVELOPED ANY TYPE OF REACTION AFTER HANDLING LATEX PRODUCTS SUCH RUBBER GLOVES, CONDOMS, DIAPHRAGMS, BALLOONS, SOCKS, OR UNDERWEAR?NO LATEX ALLERGY : HAVE YOU EVER DEVELOPED ANY TYPE OF REACTION DURING OR AFTER DENTAL APPOINTMENT, VAGINAL/RECTAL EXAMINATION, SURGICAL PROCEDURE, OR ANY OTHER EXPOSURE?NO DATE ASKED : 04/07/2019 LATEX RISK : HAVE YOU EVER HAD ANY DIFFICULTY BREATHING OR HIVES AFTER EATING OR HANDLING ANY FRUITS, OR VEGETABLES; SUCH KIWI, BANANAS, STONE FRUITS, OR CHESTNUTSNO LATEX RISK : DO YOU HAVE A PREVIOUS PERSONAL HISTORY OF MORE THAN NINE SURGERIES, SPINA BIFIDA, OR REPEATED CATHERIZATIONS? NO LATEX RISK : ARE YOU FREQUENTLY EXPOSED TO LATEX PRODUCTS IN YOUR OCCUPATION?NO CAFFEINE CAFFEINE USE?YES HOW OFTEN AND HOW MUCH? 3 CUPS COFFEE/DAY ADVANCE DIRECTIVE ADVANCE DIRECTIVE DISCUSSED WITH PATIENT:YES PT HAS HCP [facility] [phone] TEMPLE [id number] TAOISM MARITAL STATUS: . ALCOHOL SCREENING DID YOU HAVE A DRINK CONTAINING ALCOHOL IN THE PAST YEAR?YES HOW OFTEN DID YOU HAVE SIX OR MORE DRINKS ON ONE OCCASION IN THE PAST YEAR?LESS THAN MONTHLY (1 POINT) HOW MANY DRINKS DID YOU HAVE ON A TYPICAL DAY WHEN YOU WERE DRINKING IN THE PAST YEAR?7 TO 9 (3 POINTS) HOW OFTEN DID YOU HAVE A DRINK CONTAINING ALCOHOL IN THE PAST YEAR?MONTHLY OR LESS (1 POINT) POINTS5 INTERPRETATIONPOSITIVE OCCUPATION: RETIRED. 02/26/18 1005 REVIEWED WITH PT. [id number] REVIEWED WITH PT LASREVIEWED WITH PATIENT 07/06/19 0859 NLJREVIEWED WITH PATIENT 07/08/19 2226 BV. HOSPITALIZATION/MAJOR DIAGNOSTIC PROCEDURE SURGERIES REVIEW OF SYSTEMS REVIEWED BY: PROVIDER: . CONSTITUTIONAL: ANY CHANGE IN YOUR MEDICAL CONDITION? NO . CHILLS NO . FEVER NO . INFECTION: DO YOU HAVE NEW INFECTIONS? NO . DO YOU HAVE HISTORY OF MRSA? NO . MUSCULOSKELETAL: ANY NEW PATTERNS OF PAIN OR NUMBNESS? NO . GASTROENTEROLOGY: ANY NEW CHANGE IN BOWEL CONTROL? NO . GENITOURINARY: ANY NEW CHANGE IN BLADDER CONTROL? NO . IS THERE A CHANCE YOU COULD BE ? NO . HEMATOLOGY/LYMPH: DO YOU TAKE ANY BLOOD THINNERS? (FOR EXAMPLE- COUMADIN, PLAVIX, AGGRENOX, PLATEL, PRADAXA, OR XARELTO) NO . WHEN WAS YOUR LAST DOSE? DATE: TIME: . NEUROLOGY: HAVE YOU FALLEN IN THE PAST 12 MONTHS? NO . ANY NEW EXTREMITY NUMBNESS OR WEAKNESS? NO . CARDIOLOGY: DO YOU HAVE A PACEMAKER OR DEFIBRILLATOR? NO . RESPIRATORY: HAVE YOU BEEN SICK IN THE PAST WEEK? NO . FEVER NO . FLU LIKE SYMPTOMS? NO . COUGH NO . INTEGUMENTARY: DO YOU HAVE ANY RASHES OR OPEN SORES? NO . ALLERGIC/IMMUNO: ARE YOU ALLERGIC TO IV DYE? NO . ANY NEW ALLERGIES? NO . PSYCHIATRIC: DO YOU HAVE THOUGHTS OF HURTING YOURSELF OR SOMEONE ELSE? NO . ARE YOU ABUSED, NEGLECTED, OR IN AN UNSAFE ENVIRONMENT? NO . ENDOCRINOLOGY: ARE YOU DIABETIC? NO . OTHER: DO YOU NEED ANY PRESCRIPTIONS? NO . IF YES, PLEASE LIST: ____ . ANY NEW PROBLEMS WITH YOUR MEDICATIONS? NO . WHEN DID YOU LAST EAT? 07/07/19 1630 . WHEN DID YOU LAST DRINK? 07/07/191999 . WHAT DID YOU LAST DRINK? COFFEE . NAME OF PERSON DRIVING YOU HOME? LONNY- . DO YOU HAVE ANY OTHER QUESTIONS OR CONCERNS NO . VITAL SIGNS WT 161 LBS, HT 63", BMI 28.52 INDEX, BP 170/78 MM HG, HR 65 /MIN, RR 18 /MIN, TEMP 97.5 F, OXYGEN SAT % 96%, NA INITIALS AW 1423, REVIEWED BY: BV. ASSESSMENTS MYALGIA, OTHER SITE - M79.18 (PRIMARY) PROCEDURES PN TRIGGER POINT INJECTION WITH STEROIDS PRE PROCEDURE DIAGNOSIS 1. MYALGIA 2. PAIN AT BILATERAL LOW BACK AREA. POST PROCEDURE DIAGNOSIS 1. MYALGIA 2. PAIN AT BILATERAL LOW BACK AREA. PROCEDURE TRIGGER POINT INJECTION AT RIGHT AND LEFT LOW BACK AREA. SURGEON DR. TONIO RAMIREZ LOAN EXAMINER NONE ANESTHESIA LOCAL PRE PROCEDURE NOTE THE PATIENT HAS A HISTORY OF CHRONIC PAIN AT THE RIGHT AND LEFT LOW BACK AREA. I EVALUATED THE PATIENT AND REVIEWED THE CHART. THERE IS EVIDENCE OF BANDS OF TISSUE WITH RESTRICTION OF MOVEMENT AND PRESENCE OF TRIGGER POINT AT THE AFFECTED AREA. I WENT OVER THE RISKS, ALTERNATIVES, AND BENEFITS ASSOCIATED WITH THIS PROCEDURE. THE PATIENT WOULD LIKE TO PROCEED AND GIVES CONSENT TO PERFORM THE PROCEDURE. THE PATIENT DENIES UNEXPLAINABLE WEIGHT LOSS, FEVER, CHILLS, OR NEW CHANGES IN URINARY OR BOWEL CONTROL DESCRIPTION OF PROCEDURE THE PATIENT WAS BROUGHT TO THE PROCEDURE ROOM AND PLACED IN THE SITTING POSITION. THE AREA WAS CLEANED WITH ALCOHOL. THE PROCEDURE WAS DONE USING ASEPTIC STERILE TECHNIQUE. I CHECKED LATERALITY AND THE LEVEL WHERE THE PROCEDURE WAS GOING TO BE PERFORMED WITH THE PATIENT AND THE SUPPORTING STAFF AT THE MOMENT OF THE TIME OUT IN THE PROCEDURE ROOM. USING A 25-GAUGE NEEDLE, TRIGGER POINTS WERE INJECTED AT THE RIGHT AND LEFT LOW BACK AREA WITH A TOTAL OF 40 ML OF BUPIVACAINE 0.25% AND KENALOG 40 MG. THERE WAS NO EVIDENCE OF BLOOD, PARESTHESIA OR CEREBROSPINAL FLUID DURING THE PROCEDURE. THE PATIENT WAS SENT TO THE RECOVERY ROOM. THE PATIENT WAS MOVING THE EXTREMITIES AND DOING WELL. THERE WAS NO COMPLICATION DURING THE PROCEDURE POST PROCEDURE NOTE THE PATIENT WILL BE SEEN IN A FOLLOW UP IN THE NEXT FEW WEEKS. DEPENDING ON THE TRIGGER POINT INJECTION RESULTS, I MAY CONSIDER TRYING A LUMBAR FACET BLOCK IN THE FUTURE. INSTRUCTIONS WERE GIVEN, QUESTIONS WERE ANSWERED, AND THE PATIENT EXPRESSED UNDERSTANDING AND AGREES WITH THE PLAN. I, CHRISTIE NIEVES, DOCUMENTED THE ABOVE INFORMATION ACTING A SCRIBE FOR DR. RAMIREZ. I HAVE REVIEWED THE ABOVE DOCUMENT, WRITTEN BY CHRISTIE KERNS AND I VERIFY THAT IT IS ACCURATE. PROCEDURE CODES 11727 INJ TRIGGER POINT / [facility] [place] DIS[place]ITION & COMMUNICATION FOLLOW UP 3 WEEKS ELECTRONICALLY SIGNED BY TONIO RAMIREZ MD, MD ON 07/11/2019 AT 04:52 PM EDT DISCLAIMER : THIS IS A VISIT SUMMARY EXTRACTED FROM THE [employer] CHART. IT IS NOT A COPY OF THE [employer] PROGRESS NOTE. ROGERIO
== END ==
LOC: M PAIN 14:15
PROVIDERS: ATTEND Anesthesiology
DX: M79.18 Myalgia, other site (principal); L30.9 Dermatitis, unspecified; E11.9 Type 2 diabetes mellitus without complications; Z85.3 Personal history of malignant neoplasm of breast; Z90.11 Acquired absence of right breast and nipple; Z87.891 Personal history of nicotine dependence; Z98.84 Bariatric surgery status; Z79.1 Long term (current) use of non-steroidal anti-inflammatories (NSAID); Z79.899 Other long term (current) drug therapy
CPT/HCPCS: 20552; J3301

== ENCOUNTER → 2019-08-03 | Outpatient (CLI) | payer MEDICARE ==
[~2019-08-03] MED LIST changes: -BUPIVACAINE HCL 0.25% 10 ML VIAL As Ordered ONE; -BUPIVACAINE HCL 0.25% 30 ML VIAL As Ordered ONE; -TRIAMCINOLONE ACETONIDE SUSP 40 MG/ML VIAL (J3301) As Ordered ONE
--- NOTE | 2019-08-19 03:43 | ECWPNPC ---
PATIENT NAME: NEO HANSON : 1945 GENDER: FEMALE VISIT DATE: 08/03/2019 DISCHARGE DATE: 08/03/1957 VISIT LOCKED DATE TIME: PHYSICIAN: LAURA CLIFFORD RESOURCE: LAURA CLIFFORD REASON FOR APPOINTMENT 1. POST TPI HISTORY OF PRESENT ILLNESS HISTORY OF PRESENT ILLNESS: HERE FOR POST PROCEDURE F/U.HAD TPI BILAT LOW BACK ON 07/08/19.REPORTING NO IMPROVEMENT POST PROCEDURE.REPORTING INCREASE IN PAIN WITH WEATHER CHANGE/COLD WEATHER.RATING PAIN VAS 8/10.REVIEWED MRI AND DISCUSSED TREATMENT OPTIONS. PAIN THE PATIENT DESCRIBES THE PAIN... FALL RISK SCREENING: SCREENING :NO FALLS REPORTED IN THE LAST YEAR CURRENT MEDICATIONS TAKING CALCIUM 600+D 600-800 MG-UNIT TABLET 2 TABLETS ORALLY ONCE A DAY TAKING ONE DAILY - TABLET 1 TABLET ORALLY ONCE A DAY TAKING TAMOXIFEN CITRATE 20 MG TABLET 1 TABLET ORALLY ONCE A DAY TAKING VITAMIN B-12 500 MCG LOZENGE 1 LOZENGE ORALLY ONCE A DAY TAKING VITAMIN D (CHOLECALCIFEROL) 1000 UNIT TABLET 1 TABLET ORALLY ONCE A DAY TAKING MELOXICAM 15 MG TABLET 1 TABLET ORALLY ONCE A DAY NOT-TAKING GABAPENTIN 100 MG CAPSULE 3 ORALLY BEFORE BEDTIME, NOTES: NONE RECENT NOT-TAKING TRAMADOL HCL 50 MG TABLET 1 TABLET NEEDED ORALLY Q4-6H PRN MDD4 MEDICATION LIST REVIEWED AND RECONCILED WITH THE PATIENT PAST MEDICAL HISTORY DEGENERATIVE DISC DISEASE ECZEMA DIABETES MELLITUS OBESITY RIGHT BREAST CANCER ALLERGIES SEASONAL: NASAL CONGESTION, ITCHY EYES - ALLERGY SURGICAL HISTORY GASTRIC BYPASS SURGERY 2012 RIGHT MASTECTOMY 05/2016 BILAT BREAST IMPLANTS 11/2018 FAMILY HISTORY FATHER: 75 YRS, EMPHYSEMA MOTHER: ALIVE 88 YRS, DEMENTIA SIBLINGS: ALIVE SON(S): ALIVE DAUGHTER(S): ALIVE 3 BROTHER(S) , 5 SISTER(S) - HEALTHY. 2 SON(S) , 1 DAUGHTER(S) - HEALTHY. MOTHER ALZHEIMER'S. SOCIAL HISTORY GENERAL: TOBACCO USE ARE YOU A:FORMER SMOKER HOW LONG HAS IT BEEN SINCE YOU LAST SMOKED?> 10 YEARS OTHERS AT HOME: SPOUSE. DIET: REGULAR. LANGUAGE LANGUAGES SPOKEN:CHINESE DOMESTIC VIOLENCE DO YOU FEEL SAFE IN YOUR ENVIRONMENT?YES RECREATIONAL DRUG USE DRUG USE?NO EXERCISE: GYM 4 DAYS A WEEK. LEARNING BARRIERS / SPECIAL NEEDS CHANGE FROM LAST VISIT?NO PAIN CLINIC PFS, CLERGY, PUBLIC HEALTH REFERRALS PFS REFERRAL NEEDED?NO CLERGY REFERRAL NEEDED?NO PUBLIC HEALTH REFERRAL NEEDED?NO WAS THE PROVIDER NOTIFIED OF ANY PERTINENT INFO?YES N/A HAS THE PATIENT BEEN EDUCATED REGARDING HIS/HER PLAN OF CARE?YES HAS THE PATIENT BEEN EDUCATED REGARDING PAIN, THE RISK FOR PAIN, THE IMPORTANCE OF EFFECTIVE PAIN MANAGEMENT, AND THE PAIN ASSESSMENT PROCESS?YES LATEX QUESTIONNAIRE LATEX ALLERGY : HAVE YOU EVER DEVELOPED ANY TYPE OF REACTION AFTER HANDLING LATEX PRODUCTS SUCH RUBBER GLOVES, CONDOMS, DIAPHRAGMS, BALLOONS, SOCKS, OR UNDERWEAR?NO LATEX ALLERGY : HAVE YOU EVER DEVELOPED ANY TYPE OF REACTION DURING OR AFTER DENTAL APPOINTMENT, VAGINAL/RECTAL EXAMINATION, SURGICAL PROCEDURE, OR ANY OTHER EXPOSURE?NO LATEX RISK : HAVE YOU EVER HAD ANY DIFFICULTY BREATHING OR HIVES AFTER EATING OR HANDLING ANY FRUITS, OR VEGETABLES; SUCH KIWI, BANANAS, STONE FRUITS, OR CHESTNUTSNO LATEX RISK : DO YOU HAVE A PREVIOUS PERSONAL HISTORY OF MORE THAN NINE SURGERIES, SPINA BIFIDA, OR REPEATED CATHERIZATIONS? NO LATEX RISK : ARE YOU FREQUENTLY EXPOSED TO LATEX PRODUCTS IN YOUR OCCUPATION?NO DATE ASKED : 04/07/2019 CAFFEINE CAFFEINE USE?YES HOW OFTEN AND HOW MUCH? 3 CUPS COFFEE/DAY ADVANCE DIRECTIVE ADVANCE DIRECTIVE DISCUSSED WITH PATIENT:YES PT HAS HCP [facility] [phone] AMISH [id number] YAZIDISM MARITAL STATUS: . ALCOHOL SCREENING DID YOU HAVE A DRINK CONTAINING ALCOHOL IN THE PAST YEAR?YES HOW OFTEN DID YOU HAVE SIX OR MORE DRINKS ON ONE OCCASION IN THE PAST YEAR?LESS THAN MONTHLY (1 POINT) HOW MANY DRINKS DID YOU HAVE ON A TYPICAL DAY WHEN YOU WERE DRINKING IN THE PAST YEAR?7 TO 9 (3 POINTS) HOW OFTEN DID YOU HAVE A DRINK CONTAINING ALCOHOL IN THE PAST YEAR?MONTHLY OR LESS (1 POINT) POINTS5 INTERPRETATIONPOSITIVE OCCUPATION: RETIRED. 02/26/18 1005 REVIEWED WITH PT. [id number] REVIEWED WITH PT LASREVIEWED WITH PATIENT 07/06/19 0859 NLJREVIEWED WITH PATIENT 07/08/19 1452 BVREVIEWED WITH PATIENT 08/03/19 0921 JS. HOSPITALIZATION/MAJOR DIAGNOSTIC PROCEDURE SURGERIES REVIEW OF SYSTEMS REVIEWED BY: PROVIDER: LAURA CUEVAS . CONSTITUTIONAL: ANY CHANGE IN YOUR MEDICAL CONDITION? NO . CHILLS NO . FEVER NO . INFECTION: DO YOU HAVE NEW INFECTIONS? NO . DO YOU HAVE HISTORY OF MRSA? NO . MUSCULOSKELETAL: ANY NEW PATTERNS OF PAIN OR NUMBNESS? NO . GASTROENTEROLOGY: ANY NEW CHANGE IN BOWEL CONTROL? NO . GENITOURINARY: ANY NEW CHANGE IN BLADDER CONTROL? NO . IS THERE A CHANCE YOU COULD BE ? NO . HEMATOLOGY/LYMPH: DO YOU TAKE ANY BLOOD THINNERS? (FOR EXAMPLE- COUMADIN, PLAVIX, AGGRENOX, PLATEL, PRADAXA, OR XARELTO) NO . WHEN WAS YOUR LAST DOSE? DATE: TIME: . NEUROLOGY: HAVE YOU FALLEN IN THE PAST 12 MONTHS? NO . ANY NEW EXTREMITY NUMBNESS OR WEAKNESS? NO . CARDIOLOGY: DO YOU HAVE A PACEMAKER OR DEFIBRILLATOR? NO . RESPIRATORY: HAVE YOU BEEN SICK IN THE PAST WEEK? NO . FEVER NO . FLU LIKE SYMPTOMS? NO . COUGH NO . INTEGUMENTARY: DO YOU HAVE ANY RASHES OR OPEN SORES? NO . ALLERGIC/IMMUNO: ARE YOU ALLERGIC TO IV DYE? NO . ANY NEW ALLERGIES? NO . PSYCHIATRIC: DO YOU HAVE THOUGHTS OF HURTING YOURSELF OR SOMEONE ELSE? NO . ARE YOU ABUSED, NEGLECTED, OR IN AN UNSAFE ENVIRONMENT? NO . ENDOCRINOLOGY: ARE YOU DIABETIC? YES - DIET CONTROLLED . OTHER: DO YOU NEED ANY PRESCRIPTIONS? NO . IF YES, PLEASE LIST: ____ . ANY NEW PROBLEMS WITH YOUR MEDICATIONS? NO . WHEN DID YOU LAST EAT? ____ . WHEN DID YOU LAST DRINK? ____ . WHAT DID YOU LAST DRINK? ____ . NAME OF PERSON DRIVING YOU HOME? ____ . DO YOU HAVE ANY OTHER QUESTIONS OR CONCERNS NO . VITAL SIGNS WT 161.0 LBS, HT 63", BMI 28.52 INDEX, BP 156/85 MM HG, HR 77 /MIN, RR 18 /MIN, TEMP 96.0 F, OXYGEN SAT % 97%, SAFE IN ENV? (Y/N) YES, NA INITIALS AW 0913, REVIEWED BY: JS. EXAMINATION GENERAL EXAMINATION: GENERAL AWAKE,ALERT ,PLEASANT . PSYCH AFFECT NORMAL . LUNGS: LUNG WELSH ARE CLEAR TO AUSCULTATION BILATERALLY. GOOD MOVEMENT OF AIR . HEART: S1, S2 IN A REGULAR RATE AND RHYTHM. NO SIGNIFICANT MURMURS, RUBS OR GALLOPS NOTED . LUMBAR SACRAL SPINEPALPATION:TENDER OVER BILAT. L4/5-L5/S1 LUMBAR FACETS WITH FACET LOADING.. DIAGNOSTIC TESTS REVIEWED MRI L/S SPINE-05/27/17. ASSESSMENTS SPONDYLOSIS OF LUMBOSACRAL REGION WITHOUT MYELOPATHY OR RADICULOPATHY - M47.817 (PRIMARY) TREATMENT SPONDYLOSIS OF LUMBOSACRAL REGION WITHOUT MYELOPATHY OR RADICULOPATHY NOTES: L4/5-L5/S1 BILAT. LUMBAR FACET BLOCK DIAGNOSTIC. PREVENTIVE MEDICINE PAIN CLINIC TEACHING: PROCEDURE TEACHING REVIEWED INFORMATION ON DIAGNOSTIC FACET BLOCK PROCEDURE WITH PATIENT. ALSO REVIEWED PRE-PROCEDURE INSTRUCTIONS. PATIENT VERBALIZED AN UNDERSTANDING. JOSE HAYS 08/03/2019 9:49:15 AM > . PROCEDURE CODES FA211 ESTABILISHED PATIENT [facility] FACILITY CHARGE DISPOSITION & COMMUNICATION FOLLOW UP POST (REASON: L4/5-L5/S1 BILAT. LUMBAR FACET BLOCK DIAGNOSTIC) ELECTRONICALLY SIGNED BY MASON GONSALVES ON 08/18/2019 AT 03:44 PM EST DISCLAIMER : THIS IS A VISIT SUMMARY EXTRACTED FROM THE [employer] CHART. IT IS NOT A COPY OF THE [employer] PROGRESS NOTE. ROGERIO
== END ==
LOC: M PAIN 09:15
PROVIDERS: ATTEND Nurse Practitioner Family
DX: M47.817 Spondylosis without myelopathy or radiculopathy, lumbosacral region (principal); E11.9 Type 2 diabetes mellitus without complications; Z98.84 Bariatric surgery status; Z87.891 Personal history of nicotine dependence; Z79.899 Other long term (current) drug therapy

== ENCOUNTER → 2019-09-28 | Outpatient (CLI) | payer MEDICARE ==
[~2019-09-28] MED LIST changes: +BUPIVACAINE HCL 0.25% 30 ML VIAL As Ordered ONE; +ISOVUE-M 300 61% 15ML VIAL (Q9967) As Ordered ONE; +LIDOCAINE 1% SDV INJ 30 ML VIAL As Ordered ONE
--- NOTE | 2019-09-28 14:02 | REP ---
C-ARM VIEWS LUMBAR SPINE: CLINICAL HISTORY: Pain. Two C-arm views lower lumbar spine performed during bilateral facet injection performed by Dr. Griggs. Taylors are seen along the lower lumbar facet joints, and a small amount of contrast is injected. 30 seconds fluoroscopy time utilized. Electronically Signed by George Moser MD 09/28/2019 06:07 P
--- NOTE | 2019-10-08 05:07 | ECWPNPC ---
PATIENT NAME: NEO HANSON : 1945 GENDER: FEMALE VISIT DATE: 09/28/2019 DISCHARGE DATE: 09/28/19 1028 VISIT LOCKED DATE TIME: PHYSICIAN: TONIO RAMIREZ MD RESOURCE: TONIO RAMIREZ MD REASON FOR APPOINTMENT 1. L4/5-L5/S1 BILAT. LUMBAR FACET BLOCK DIAGNOSTIC HISTORY OF PRESENT ILLNESS HISTORY OF PRESENT ILLNESS: PAIN THE PATIENT DESCRIBES THE PAIN... FALL RISK SCREENING: SCREENING :NO FALLS REPORTED IN THE LAST YEAR CURRENT MEDICATIONS TAKING CALCIUM 600+D 600-800 MG-UNIT TABLET 2 TABLETS ORALLY ONCE A DAY, NOTES: A COUPKLE OF DAYS AGO TAKING ONE DAILY - TABLET 1 TABLET ORALLY ONCE A DAY, NOTES: A COUPLE DAYS AGO TAKING TAMOXIFEN CITRATE 20 MG TABLET 1 TABLET ORALLY ONCE A DAY, NOTES: 09/27/19 0900 TAKING VITAMIN B-12 500 MCG LOZENGE 1 LOZENGE ORALLY ONCE A DAY, NOTES: A COUPLE DAYS AGO TAKING VITAMIN D (CHOLECALCIFEROL) 1000 UNIT TABLET 1 TABLET ORALLY ONCE A DAY, NOTES: A COUPLE DAYS AGO TAKING MELOXICAM 15 MG TABLET 1 TABLET ORALLY ONCE A DAY, NOTES: 09/27/19 0900 MEDICATION LIST REVIEWED AND RECONCILED WITH THE PATIENT PAST MEDICAL HISTORY DEGENERATIVE DISC DISEASE ECZEMA DIABETES MELLITUS OBESITY RIGHT BREAST CANCER ALLERGIES SEASONAL: NASAL CONGESTION, ITCHY EYES - ALLERGY SURGICAL HISTORY GASTRIC BYPASS SURGERY 2012 RIGHT MASTECTOMY 05/2016 BILAT BREAST IMPLANTS 11/2018 FAMILY HISTORY FATHER: 75 YRS, EMPHYSEMA MOTHER: ALIVE 88 YRS, DEMENTIA SIBLINGS: ALIVE SON(S): ALIVE DAUGHTER(S): ALIVE 3 BROTHER(S) , 5 SISTER(S) - HEALTHY. 2 SON(S) , 1 DAUGHTER(S) - HEALTHY. MOTHER ALZHEIMER'S. SOCIAL HISTORY GENERAL: TOBACCO USE ARE YOU A:FORMER SMOKER HOW LONG HAS IT BEEN SINCE YOU LAST SMOKED?> 10 YEARS OTHERS AT HOME: SPOUSE. DIET: REGULAR. LANGUAGE LANGUAGES SPOKEN:SAMMARINESE DOMESTIC VIOLENCE DO YOU FEEL SAFE IN YOUR ENVIRONMENT?YES RECREATIONAL DRUG USE DRUG USE?NO EXERCISE: GYM 4 DAYS A WEEK. LEARNING BARRIERS / SPECIAL NEEDS CHANGE FROM LAST VISIT?NO PAIN CLINIC PFS, CLERGY, PUBLIC HEALTH REFERRALS PFS REFERRAL NEEDED?NO CLERGY REFERRAL NEEDED?NO PUBLIC HEALTH REFERRAL NEEDED?NO WAS THE PROVIDER NOTIFIED OF ANY PERTINENT INFO?YES N/A HAS THE PATIENT BEEN EDUCATED REGARDING HIS/HER PLAN OF CARE?YES HAS THE PATIENT BEEN EDUCATED REGARDING PAIN, THE RISK FOR PAIN, THE IMPORTANCE OF EFFECTIVE PAIN MANAGEMENT, AND THE PAIN ASSESSMENT PROCESS?YES LATEX QUESTIONNAIRE LATEX ALLERGY : HAVE YOU EVER DEVELOPED ANY TYPE OF REACTION AFTER HANDLING LATEX PRODUCTS SUCH RUBBER GLOVES, CONDOMS, DIAPHRAGMS, BALLOONS, SOCKS, OR UNDERWEAR?NO LATEX ALLERGY : HAVE YOU EVER DEVELOPED ANY TYPE OF REACTION DURING OR AFTER DENTAL APPOINTMENT, VAGINAL/RECTAL EXAMINATION, SURGICAL PROCEDURE, OR ANY OTHER EXPOSURE?NO DATE ASKED : 04/07/2019 LATEX RISK : HAVE YOU EVER HAD ANY DIFFICULTY BREATHING OR HIVES AFTER EATING OR HANDLING ANY FRUITS, OR VEGETABLES; SUCH KIWI, BANANAS, STONE FRUITS, OR CHESTNUTSNO LATEX RISK : DO YOU HAVE A PREVIOUS PERSONAL HISTORY OF MORE THAN NINE SURGERIES, SPINA BIFIDA, OR REPEATED CATHERIZATIONS? NO LATEX RISK : ARE YOU FREQUENTLY EXPOSED TO LATEX PRODUCTS IN YOUR OCCUPATION?NO CAFFEINE CAFFEINE USE?YES HOW OFTEN AND HOW MUCH? 3 CUPS COFFEE/DAY ADVANCE DIRECTIVE ADVANCE DIRECTIVE DISCUSSED WITH PATIENT:YES PT HAS HCP [facility] [phone] UATSDIN [id number] [facility] STATUS: . ALCOHOL SCREENING DID YOU HAVE A DRINK CONTAINING ALCOHOL IN THE PAST YEAR?YES HOW OFTEN DID YOU HAVE SIX OR MORE DRINKS ON ONE OCCASION IN THE PAST YEAR?LESS THAN MONTHLY (1 POINT) HOW MANY DRINKS DID YOU HAVE ON A TYPICAL DAY WHEN YOU WERE DRINKING IN THE PAST YEAR?7 TO 9 (3 POINTS) HOW OFTEN DID YOU HAVE A DRINK CONTAINING ALCOHOL IN THE PAST YEAR?MONTHLY OR LESS (1 POINT) POINTS5 INTERPRETATIONPOSITIVE OCCUPATION: RETIRED. 02/26/18 1005 REVIEWED WITH PT. [id number] REVIEWED WITH PT LASREVIEWED WITH PATIENT 07/06/19 0859 NLJREVIEWED WITH PATIENT 07/08/19 1452 BVREVIEWED WITH PATIENT 08/03/19 0921 JSPRE PROCEDURE PHONE CALL COMPLETED 09/24/19 1711 BRETT. HOSPITALIZATION/MAJOR DIAGNOSTIC PROCEDURE SURGERIES REVIEW OF SYSTEMS REVIEWED BY: PROVIDER: . CONSTITUTIONAL: ANY CHANGE IN YOUR MEDICAL CONDITION? NO . CHILLS NO . FEVER NO . INFECTION: DO YOU HAVE NEW INFECTIONS? NO . DO YOU HAVE HISTORY OF MRSA? NO . MUSCULOSKELETAL: ANY NEW PATTERNS OF PAIN OR NUMBNESS? NO . GASTROENTEROLOGY: ANY NEW CHANGE IN BOWEL CONTROL? NO . GENITOURINARY: ANY NEW CHANGE IN BLADDER CONTROL? NO . IS THERE A CHANCE YOU COULD BE ? NO . HEMATOLOGY/LYMPH: DO YOU TAKE ANY BLOOD THINNERS? (FOR EXAMPLE- COUMADIN, PLAVIX, AGGRENOX, PLATEL, PRADAXA, OR XARELTO) NO . WHEN WAS YOUR LAST DOSE? DATE: TIME: . NEUROLOGY: HAVE YOU FALLEN IN THE PAST 12 MONTHS? NO . ANY NEW EXTREMITY NUMBNESS OR WEAKNESS? NO . CARDIOLOGY: DO YOU HAVE A PACEMAKER OR DEFIBRILLATOR? NO . RESPIRATORY: HAVE YOU BEEN SICK IN THE PAST WEEK? NO . FEVER NO . FLU LIKE SYMPTOMS? NO . COUGH NO . INTEGUMENTARY: DO YOU HAVE ANY RASHES OR OPEN SORES? NO . ALLERGIC/IMMUNO: ARE YOU ALLERGIC TO IV DYE? NO . ANY NEW ALLERGIES? NO . PSYCHIATRIC: DO YOU HAVE THOUGHTS OF HURTING YOURSELF OR SOMEONE ELSE? NO . ARE YOU ABUSED, NEGLECTED, OR IN AN UNSAFE ENVIRONMENT? NO . ENDOCRINOLOGY: ARE YOU DIABETIC? NO . OTHER: DO YOU NEED ANY PRESCRIPTIONS? NO . IF YES, PLEASE LIST: ____ . ANY NEW PROBLEMS WITH YOUR MEDICATIONS? NO . WHEN DID YOU LAST EAT? 09/27/19 1700 . WHEN DID YOU LAST DRINK? 09/27/19 193 . WHAT DID YOU LAST DRINK? COFFEE . NAME OF PERSON DRIVING YOU HOME? MARILIN HANSON . DO YOU HAVE ANY OTHER QUESTIONS OR CONCERNS NO . VITAL SIGNS WT 160 LBS, HT 63", BMI 28.34 INDEX, BP 127/71 MM HG, HR 75 /MIN, RR 18 /MIN, TEMP 97.3 F, OXYGEN SAT % 93%, SAFE IN ENV? (Y/N) YES, NA INITIALS VA 08:54, REVIEWED BY: BRETT. 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 TONIO RAMIREZ CASUALTY INSURANCE CLAIM ADJUSTER NONE ANESTHESIA LOCAL PRE PROCEDURE NOTE THE PATIENT WITH HISTORY OF CHRONIC LOW BACK PAIN. I EVALUATED THE PATIENT AND REVIEWED THE CHART. I WENT OVER THE RISKS, ALTERNATIVES, AND BENEFITS ASSOCIATED WITH THIS PROCEDURE. THE PATIENT WOULD LIKE TO PROCEED AND GAVE CONSENT TO PERFORM THE PROCEDURE. AGREED WITH THE PATIENT WE ARE DOING THIS PROCEDURE TO DETERMINE IF THE PATIENT IS A CANDIDATE FOR A RADIOFREQUENCY ABLATION OF THE FACETS JOINTS. THE PATIENT DENIES UNEXPLAINABLE WEIGHT LOSS, FEVER, CHILLS, OR NEW CHANGES IN URINARY OR BOWEL CONTROL DESCRIPTION OF PROCEDURE THE PATIENT WAS BROUGHT TO THE PROCEDURE ROOM AND PLACED IN THE PRONE POSITION. THE LUMBOSACRAL AREA WAS CLEANED WITH CHLORAPREP SOLUTION AND DRAPED ASEPTICALLY. THE PROCEDURE WAS DONE UNDER STERILE CONDITIONS. I CHECKED LATERALITY AND THE LEVEL WHERE THE PROCEDURE WAS GOING TO BE PERFORMED WITH THE PATIENT AND THE SUPPORTING STAFF AT THE MOMENT OF THE TIME OUT IN THE PROCEDURE ROOM. UNDER FLUOROSCOPIC GUIDANCE, TARGETS WERE SELECTED AT THE INTERSECTION OF THE RIGHT AND LEFT TRANSVERSE PROCESS L4, L5 AND ALA OF S1 WITH ITS RESPECTIVE SUPERIOR ARTICULAR PROCESS. LIDOCAINE WAS USED TO NUMB THE SKIN AND THE SUBCUTANEOUS TISSUE BELOW IT. SPINAL NEEDLE, 22-GAUGE WAS ADVANCED UNDER FLUOROSCOPIC GUIDANCE AND FOLLOWING PATIENT FEEDBACK UNTIL THE TARGETS WERE REACHED. POSITION OF THE NEEDLES WAS VERIFIED WITH AP AND LATERAL VIEWS. AFTER PROPER POSITION OF THE NEEDLES WAS ACHIEVED, ISOVUE-M DYE 30% 0.1 ML WAS INJECTED AT EACH SITE SHOWING ADEQUATE SPREAD OF THE DYE. THEN A SOLUTION OF 0.4 ML OF BUPIVACAINE 0.25% WAS INJECTED AT EACH SITE. THERE WAS NO EVIDENCE OF BLOOD, PARESTHESIA OR CEREBROSPINAL FLUID DURING THE PROCEDURE. THE PATIENT WAS SENT TO THE RECOVERY ROOM. THE PATIENT WAS MOVING THE EXTREMITIES AND DOING WELL. THERE WAS NO COMPLICATION DURING THE PROCEDURE. FLUOROSCOPY TIME WAS 30 SECONDS POST PROCEDURE NOTE THE PATIENT WILL DOCUMENT HIS PAIN LEVEL AND RESPONSE TO THIS PROCEDURE EVERY 30 MINUTES. THE PATIENT WILL BE SEEN IN A FOLLOWUP IN THE NEXT FEW WEEKS. FURTHER DETERMINATION FOR HIS CASE WILL BE DONE AT THE NEXT VISIT. INSTRUCTIONS WERE GIVEN, QUESTIONS WERE ANSWERED, AND THE PATIENT EXPRESSED UNDERSTANDING AND AGREED WITH THE PLAN. I, REFUGIO VALDOVINOS, DOCUMENTED THE ABOVE INFORMATION ACTING A SCRIBE FOR DR. RAMIREZ. I HAVE REVIEWED THE ABOVE DOCUMENT, WRITTEN BY SAUMYA ALARCON, AND I VERIFY THAT IT IS ACCURATE PROCEDURE CODES 30457 INJ PARAVERT F JNT L/S 1 LEV, MODIFIERS: 50 [id number] INJ PARAVERT F JNT L/S 2 LEV, MODIFIERS: 50 [id number] RADXPS IN END [id number] PXD DISPOSITION & COMMUNICATION FOLLOW UP 3 WEEKS ELECTRONICALLY SIGNED BY TONIO RAMIREZ MD, MD ON 10/07/2019 AT 03:50 PM EST DISCLAIMER : THIS IS A VISIT SUMMARY EXTRACTED FROM THE [employer] CHART. IT IS NOT A COPY OF THE [employer] PROGRESS NOTE. MTDD
== END ==
LOC: M PAIN 08:45
PROVIDERS: ATTEND Anesthesiology
DX: M47.816 Spondylosis without myelopathy or radiculopathy, lumbar region (principal); M47.817 Spondylosis without myelopathy or radiculopathy, lumbosacral region; E11.9 Type 2 diabetes mellitus without complications; Z98.84 Bariatric surgery status; Z87.891 Personal history of nicotine dependence; Z79.899 Other long term (current) drug therapy
CPT/HCPCS: 64493; 64494; Q9967

== ENCOUNTER → 2019-10-19 | Outpatient (CLI) | payer MEDICARE ==
[~2019-10-19] MED LIST changes: -BUPIVACAINE HCL 0.25% 30 ML VIAL As Ordered ONE; -ISOVUE-M 300 61% 15ML VIAL (Q9967) As Ordered ONE; -LIDOCAINE 1% SDV INJ 30 ML VIAL As Ordered ONE
--- NOTE | 2019-11-03 05:10 | ECWPNPC ---
PATIENT NAME: NEO HANSON : 1945 GENDER: FEMALE VISIT DATE: 10/19/2019 DISCHARGE DATE: 10/19/19 1446 VISIT LOCKED DATE TIME: PHYSICIAN: LAURA CLIFFORD RESOURCE: LAURA CLIFFORD REASON FOR APPOINTMENT 1. MED AB-POST DX FACET HISTORY OF PRESENT ILLNESS HISTORY OF PRESENT ILLNESS: HERE FOR POST PROCEDURE FOLLOW-UP. HAD DIAGNOSTIC L4-5, L5-S1 BILATERAL FACET BLOCK ON 09/28/2019. REPORTING GREATER THAN 80% REDUCTION IN HER LOW BACK PAIN FOR 24 HOURS, THEN PAIN ABRUPTLY RETURNED. PAIN IS WORSE ON THE LEFT SIDE. RATING PAIN LEVEL 5/10 VAS. DESCRIBES LOW BACK PAIN CONSTANT AND SHARP. PAIN THE PATIENT DESCRIBES THE PAIN... FALL RISK SCREENING: SCREENING :NO FALLS REPORTED IN THE LAST YEAR CURRENT MEDICATIONS TAKING CALCIUM 600+D 600-800 MG-UNIT TABLET 2 TABLETS ORALLY ONCE A DAY TAKING ONE DAILY - TABLET 1 TABLET ORALLY ONCE A DAY TAKING TAMOXIFEN CITRATE 20 MG TABLET 1 TABLET ORALLY ONCE A DAY TAKING VITAMIN B-12 500 MCG LOZENGE 1 LOZENGE ORALLY ONCE A DAY TAKING VITAMIN D (CHOLECALCIFEROL) 1000 UNIT TABLET 1 TABLET ORALLY ONCE A DAY TAKING MELOXICAM 15 MG TABLET 1 TABLET ORALLY ONCE A DAY MEDICATION LIST REVIEWED AND RECONCILED WITH THE PATIENT PAST MEDICAL HISTORY DEGENERATIVE DISC DISEASE ECZEMA DIABETES MELLITUS OBESITY RIGHT BREAST CANCER ALLERGIES SEASONAL: NASAL CONGESTION, ITCHY EYES - ALLERGY SURGICAL HISTORY GASTRIC BYPASS SURGERY 2012 RIGHT MASTECTOMY 05/2016 BILAT BREAST IMPLANTS 11/2018 FAMILY HISTORY FATHER: 75 YRS, EMPHYSEMA MOTHER: ALIVE 88 YRS, DEMENTIA SIBLINGS: ALIVE SON(S): ALIVE DAUGHTER(S): ALIVE 3 BROTHER(S) , 5 SISTER(S) - HEALTHY. 2 SON(S) , 1 DAUGHTER(S) - HEALTHY. MOTHER ALZHEIMER'S. SOCIAL HISTORY GENERAL: TOBACCO USE ARE YOU A:FORMER SMOKER HOW LONG HAS IT BEEN SINCE YOU LAST SMOKED?> 10 YEARS OTHERS AT HOME: SPOUSE. DIET: REGULAR. LANGUAGE LANGUAGES SPOKEN:CHINESE DOMESTIC VIOLENCE DO YOU FEEL SAFE IN YOUR ENVIRONMENT?YES RECREATIONAL DRUG USE DRUG USE?NO EXERCISE: GYM 4 DAYS A WEEK. LEARNING BARRIERS / SPECIAL NEEDS CHANGE FROM LAST VISIT?NO PAIN CLINIC PFS, CLERGY, PUBLIC HEALTH REFERRALS PFS REFERRAL NEEDED?NO CLERGY REFERRAL NEEDED?NO PUBLIC HEALTH REFERRAL NEEDED?NO WAS THE PROVIDER NOTIFIED OF ANY PERTINENT INFO?YES N/A HAS THE PATIENT BEEN EDUCATED REGARDING HIS/HER PLAN OF CARE?YES HAS THE PATIENT BEEN EDUCATED REGARDING PAIN, THE RISK FOR PAIN, THE IMPORTANCE OF EFFECTIVE PAIN MANAGEMENT, AND THE PAIN ASSESSMENT PROCESS?YES LATEX QUESTIONNAIRE LATEX ALLERGY : HAVE YOU EVER DEVELOPED ANY TYPE OF REACTION AFTER HANDLING LATEX PRODUCTS SUCH RUBBER GLOVES, CONDOMS, DIAPHRAGMS, BALLOONS, SOCKS, OR UNDERWEAR?NO LATEX ALLERGY : HAVE YOU EVER DEVELOPED ANY TYPE OF REACTION DURING OR AFTER DENTAL APPOINTMENT, VAGINAL/RECTAL EXAMINATION, SURGICAL PROCEDURE, OR ANY OTHER EXPOSURE?NO LATEX RISK : HAVE YOU EVER HAD ANY DIFFICULTY BREATHING OR HIVES AFTER EATING OR HANDLING ANY FRUITS, OR VEGETABLES; SUCH KIWI, BANANAS, STONE FRUITS, OR CHESTNUTSNO LATEX RISK : DO YOU HAVE A PREVIOUS PERSONAL HISTORY OF MORE THAN NINE SURGERIES, SPINA BIFIDA, OR REPEATED CATHERIZATIONS? NO LATEX RISK : ARE YOU FREQUENTLY EXPOSED TO LATEX PRODUCTS IN YOUR OCCUPATION?NO DATE ASKED : 04/07/2019 CAFFEINE CAFFEINE USE?YES HOW OFTEN AND HOW MUCH? 3 CUPS COFFEE/DAY ADVANCE DIRECTIVE ADVANCE DIRECTIVE DISCUSSED WITH PATIENT:YES PT HAS HCP [facility] [phone] ISLAM [id number] [facility] MARITAL STATUS: . ALCOHOL SCREENING DID YOU HAVE A DRINK CONTAINING ALCOHOL IN THE PAST YEAR?YES HOW OFTEN DID YOU HAVE SIX OR MORE DRINKS ON ONE OCCASION IN THE PAST YEAR?LESS THAN MONTHLY (1 POINT) HOW MANY DRINKS DID YOU HAVE ON A TYPICAL DAY WHEN YOU WERE DRINKING IN THE PAST YEAR?7 TO 9 (3 POINTS) HOW OFTEN DID YOU HAVE A DRINK CONTAINING ALCOHOL IN THE PAST YEAR?MONTHLY OR LESS (1 POINT) POINTS5 INTERPRETATIONPOSITIVE OCCUPATION: RETIRED. 02/26/18 1005 REVIEWED WITH PT. [id number] REVIEWED WITH PT LASREVIEWED WITH PATIENT 07/06/19 0859 NLJREVIEWED WITH PATIENT 07/08/19 1452 BVREVIEWED WITH PATIENT 08/03/19 0921 JSPRE PROCEDURE PHONE CALL COMPLETED 09/24/19 1711 NLJREVIEWED WITH PATIENT 10/19/2019 1407 JS. HOSPITALIZATION/MAJOR DIAGNOSTIC PROCEDURE SURGERIES REVIEW OF SYSTEMS REVIEWED BY: PROVIDER: LAURA CUEVAS . CONSTITUTIONAL: ANY CHANGE IN YOUR MEDICAL CONDITION? NO . CHILLS NO . FEVER NO . INFECTION: DO YOU HAVE NEW INFECTIONS? NO . DO YOU HAVE HISTORY OF MRSA? NO . MUSCULOSKELETAL: ANY NEW PATTERNS OF PAIN OR NUMBNESS? NO . GASTROENTEROLOGY: ANY NEW CHANGE IN BOWEL CONTROL? NO . GENITOURINARY: ANY NEW CHANGE IN BLADDER CONTROL? NO . IS THERE A CHANCE YOU COULD BE ? NO . HEMATOLOGY/LYMPH: DO YOU TAKE ANY BLOOD THINNERS? (FOR EXAMPLE- COUMADIN, PLAVIX, AGGRENOX, PLATEL, PRADAXA, OR XARELTO) NO . WHEN WAS YOUR LAST DOSE? DATE: TIME: . NEUROLOGY: HAVE YOU FALLEN IN THE PAST 12 MONTHS? NO . ANY NEW EXTREMITY NUMBNESS OR WEAKNESS? NO . CARDIOLOGY: DO YOU HAVE A PACEMAKER OR DEFIBRILLATOR? NO . RESPIRATORY: HAVE YOU BEEN SICK IN THE PAST WEEK? NO . FEVER NO . FLU LIKE SYMPTOMS? NO . COUGH NO . INTEGUMENTARY: DO YOU HAVE ANY RASHES OR OPEN SORES? NO . ALLERGIC/IMMUNO: ARE YOU ALLERGIC TO IV DYE? NO . ANY NEW ALLERGIES? NO . PSYCHIATRIC: DO YOU HAVE THOUGHTS OF HURTING YOURSELF OR SOMEONE ELSE? NO . ARE YOU ABUSED, NEGLECTED, OR IN AN UNSAFE ENVIRONMENT? NO . ENDOCRINOLOGY: ARE YOU DIABETIC? YES, PRIOR TO GASTRIC BYPASS - NO DIABETIC MEDICATIONS CURRENTLY . OTHER: DO YOU NEED ANY PRESCRIPTIONS? NO . IF YES, PLEASE LIST: ____ . ANY NEW PROBLEMS WITH YOUR MEDICATIONS? NO . WHEN DID YOU LAST EAT? ____ . WHEN DID YOU LAST DRINK? ____ . WHAT DID YOU LAST DRINK? ____ . NAME OF PERSON DRIVING YOU HOME? ____ . DO YOU HAVE ANY OTHER QUESTIONS OR CONCERNS NO . VITAL SIGNS WT 163.6 LBS, HT 63", BMI 28.98 INDEX, BP 143/77 MM HG, HR 95 /MIN, RR 18 /MIN, TEMP 97.8 F, OXYGEN SAT % 97%, SAFE IN ENV? (Y/N) YES, NA INITIALS AW 1407, REVIEWED BY: JS. EXAMINATION GENERAL EXAMINATION: GENERAL AWAKE,ALERT ,PLEASANT . PSYCH AFFECT NORMAL . LUNGS: LUNG WELSH ARE CLEAR TO AUSCULTATION BILATERALLY. GOOD MOVEMENT OF AIR . HEART: S1, S2 IN A REGULAR RATE AND RHYTHM. NO SIGNIFICANT MURMURS, RUBS OR GALLOPS NOTED . LUMBAR:PALPATION:TENDER OVER BILAT. L4/5-L5/S1 LUMBAR FACETS WITH FACET LOADING.. DIAGNOSTIC TESTS REVIEWED MRI L/S SPINE-9/11/17. ASSESSMENTS SPONDYLOSIS OF LUMBOSACRAL REGION WITHOUT MYELOPATHY OR RADICULOPATHY - M47.817 (PRIMARY) TREATMENT SPONDYLOSIS OF LUMBOSACRAL REGION WITHOUT MYELOPATHY OR RADICULOPATHY NOTES: LEFT L4-5, L5-S1 LUMBAR FACET BLOCK DIAGNOSTIC #2. PREVENTIVE MEDICINE PAIN CLINIC TEACHING: PROCEDURE TEACHING REVIEWED INFORMATION ON DIAGNOSTIC LUMBAR FACET BLOCK PROCEDURE WITH PATIENT. ALSO REVIEWED PRE-PROCEDURE INSTRUCTIONS. PATIENT VERBALIZED AN UNDERSTANDING. JOSE HAYS 10/19/2019 2:48:37 PM > . PROCEDURE CODES FA211 ESTABILISHED PATIENT [facility] CHARGE DISPOSITION & COMMUNICATION FOLLOW UP POST ELECTRONICALLY SIGNED BY MASON GONSALVES ON 11/02/2019 AT 03:53 PM EST DISCLAIMER : THIS IS A VISIT SUMMARY EXTRACTED FROM THE [employer] CHART. IT IS NOT A COPY OF THE [employer] PROGRESS NOTE. ROGERIO
== END ==
LOC: M PAIN 14:15
PROVIDERS: ATTEND Nurse Practitioner Family
DX: M47.817 Spondylosis without myelopathy or radiculopathy, lumbosacral region (principal); Z79.899 Other long term (current) drug therapy; Z98.84 Bariatric surgery status; Z87.891 Personal history of nicotine dependence

== ENCOUNTER → 2019-11-18 | Outpatient (CLI) | payer MEDICARE ==
[~2019-11-18] MED LIST changes: +BUPIVACAINE HCL 0.25% 30 ML VIAL As Ordered ONE; +ISOVUE-M 300 61% 15ML VIAL (Q9967) As Ordered ONE; +LIDOCAINE 1% SDV INJ 30 ML VIAL As Ordered ONE
--- NOTE | 2019-11-18 11:39 | REP ---
C-ARM VIEWS LOWER LUMBAR SPINE: CLINICAL HISTORY: Pain. Three C-arm views of the lower lumbar spine are performed during injection by Dr. Griggs. Painter are seen along the lower lumbar spine and a small amount of contrast is injected. 20 seconds fluoroscopy time utilized. Electronically Signed by George Moser MD 11/18/2019 03:58 P
--- NOTE | 2019-11-24 03:10 | ECWPNPC ---
PATIENT NAME: NEO HANSON : 1945 GENDER: FEMALE VISIT DATE: 11/18/2019 DISCHARGE DATE: 11/18/19 1103 VISIT LOCKED DATE TIME: PHYSICIAN: TONIO RAMIREZ MD RESOURCE: TONIO RAMIREZ MD REASON FOR APPOINTMENT 1. LEFT L4-5, L5-S1 LUMBAR FACET BLOCK DIAGNOSTIC #2 HISTORY OF PRESENT ILLNESS HISTORY OF PRESENT ILLNESS: PAIN THE PATIENT DESCRIBES THE PAIN... FALL RISK SCREENING: SCREENING :NO FALLS REPORTED IN THE LAST YEAR CURRENT MEDICATIONS TAKING CALCIUM 600+D 600-800 MG-UNIT TABLET 2 TABLETS ORALLY ONCE A DAY, NOTES: 11/17/19 TAKING ONE DAILY - TABLET 1 TABLET ORALLY ONCE A DAY, NOTES: 11/17/19 TAKING TAMOXIFEN CITRATE 20 MG TABLET 1 TABLET ORALLY ONCE A DAY, NOTES: 11/17/19 TAKING VITAMIN B-12 500 MCG LOZENGE 1 LOZENGE ORALLY ONCE A DAY, NOTES: 11/17/19 TAKING VITAMIN D (CHOLECALCIFEROL) 1000 UNIT TABLET 1 TABLET ORALLY ONCE A DAY, NOTES: 11/17/19 TAKING MELOXICAM 15 MG TABLET 1 TABLET ORALLY ONCE A DAY, NOTES: 11/17/19 TAKING VITAMIN C 500 MG CAPSULE DIRECTED ORALLY ONE TAB DAILY- OTC, NOTES: 11/17/19 MEDICATION LIST REVIEWED AND RECONCILED WITH THE PATIENT PAST MEDICAL HISTORY DEGENERATIVE DISC DISEASE ECZEMA DIABETES MELLITUS OBESITY RIGHT BREAST CANCER ALLERGIES SEASONAL: NASAL CONGESTION, ITCHY EYES - ALLERGY SURGICAL HISTORY GASTRIC BYPASS SURGERY 2011 RIGHT MASTECTOMY 05/2016 BILAT BREAST IMPLANTS 11/2018 FAMILY HISTORY FATHER: 75 YRS, EMPHYSEMA MOTHER: ALIVE 88 YRS, DEMENTIA SIBLINGS: ALIVE SON(S): ALIVE DAUGHTER(S): ALIVE 3 BROTHER(S) , 5 SISTER(S) - HEALTHY. 2 SON(S) , 1 DAUGHTER(S) - HEALTHY. MOTHER ALZHEIMER'S. SOCIAL HISTORY GENERAL: TOBACCO USE ARE YOU A:FORMER SMOKER HOW LONG HAS IT BEEN SINCE YOU LAST SMOKED?> 10 YEARS OTHERS AT HOME: SPOUSE. DIET: REGULAR. LANGUAGE LANGUAGES SPOKEN:SPANISH DOMESTIC VIOLENCE DO YOU FEEL SAFE IN YOUR ENVIRONMENT?YES RECREATIONAL DRUG USE DRUG USE?NO PATIENT DENIES ABUSE OR MISSUSED OF ANY MEDICATION DENIES PATIENT DENIES USE OF ANY ILLEGAL SUBSTANCE INCLUDING MARIJUANA OR COCAINE DENIES EXERCISE: GYM 4 DAYS A WEEK. LEARNING BARRIERS / SPECIAL NEEDS CHANGE FROM LAST VISIT?NO PAIN CLINIC PFS, CLERGY, PUBLIC HEALTH REFERRALS PFS REFERRAL NEEDED?NO CLERGY REFERRAL NEEDED?NO PUBLIC HEALTH REFERRAL NEEDED?NO WAS THE PROVIDER NOTIFIED OF ANY PERTINENT INFO?YES N/A HAS THE PATIENT BEEN EDUCATED REGARDING HIS/HER PLAN OF CARE?YES HAS THE PATIENT BEEN EDUCATED REGARDING PAIN, THE RISK FOR PAIN, THE IMPORTANCE OF EFFECTIVE PAIN MANAGEMENT, AND THE PAIN ASSESSMENT PROCESS?YES LATEX QUESTIONNAIRE LATEX ALLERGY : HAVE YOU EVER DEVELOPED ANY TYPE OF REACTION AFTER HANDLING LATEX PRODUCTS SUCH RUBBER GLOVES, CONDOMS, DIAPHRAGMS, BALLOONS, SOCKS, OR UNDERWEAR?NO LATEX ALLERGY : HAVE YOU EVER DEVELOPED ANY TYPE OF REACTION DURING OR AFTER DENTAL APPOINTMENT, VAGINAL/RECTAL EXAMINATION, SURGICAL PROCEDURE, OR ANY OTHER EXPOSURE?NO LATEX RISK : HAVE YOU EVER HAD ANY DIFFICULTY BREATHING OR HIVES AFTER EATING OR HANDLING ANY FRUITS, OR VEGETABLES; SUCH KIWI, BANANAS, STONE FRUITS, OR CHESTNUTSNO LATEX RISK : DO YOU HAVE A PREVIOUS PERSONAL HISTORY OF MORE THAN NINE SURGERIES, SPINA BIFIDA, OR REPEATED CATHERIZATIONS? NO LATEX RISK : ARE YOU FREQUENTLY EXPOSED TO LATEX PRODUCTS IN YOUR OCCUPATION?NO DATE ASKED : 11/09/2019 CAFFEINE CAFFEINE USE?YES HOW OFTEN AND HOW MUCH? 3 CUPS COFFEE/DAY ADVANCE DIRECTIVE ADVANCE DIRECTIVE DISCUSSED WITH PATIENT:YES PT HAS HCP [facility] [phone] GNOSTICIST [id number] BAPTIST MARITAL STATUS: . ALCOHOL SCREENING DID YOU HAVE A DRINK CONTAINING ALCOHOL IN THE PAST YEAR?YES HOW OFTEN DID YOU HAVE A DRINK CONTAINING ALCOHOL IN THE PAST YEAR?MONTHLY OR LESS (1 POINT) HOW MANY DRINKS DID YOU HAVE ON A TYPICAL DAY WHEN YOU WERE DRINKING IN THE PAST YEAR?3 OR 4 (1 POINT) HOW OFTEN DID YOU HAVE SIX OR MORE DRINKS ON ONE OCCASION IN THE PAST YEAR?LESS THAN MONTHLY (1 POINT) POINTS3 INTERPRETATIONPOSITIVE OCCUPATION: RETIRED. 02/26/18 1005 REVIEWED WITH PT. [phone] REVIEWED WITH PT LASREVIEWED WITH PATIENT 07/06/19 0859 NLJREVIEWED WITH PATIENT 07/08/19 1452 BVREVIEWED WITH PATIENT 08/03/19 0921 JSPRE PROCEDURE PHONE CALL COMPLETED 09/24/19 1711 NLJREVIEWED WITH PATIENT 10/19/2019 1407 JSPRE PROCEDURE PHONE CALL COMPLETED 11/09/2019 1330 NLJ. HOSPITALIZATION/MAJOR DIAGNOSTIC PROCEDURE SURGERIES REVIEW OF SYSTEMS REVIEWED BY: PROVIDER: . CONSTITUTIONAL: ANY CHANGE IN YOUR MEDICAL CONDITION? NO . CHILLS NO . FEVER NO . INFECTION: DO YOU HAVE NEW INFECTIONS? NO . DO YOU HAVE HISTORY OF MRSA? NO . MUSCULOSKELETAL: ANY NEW PATTERNS OF PAIN OR NUMBNESS? NO . GASTROENTEROLOGY: ANY NEW CHANGE IN BOWEL CONTROL? NO . GENITOURINARY: ANY NEW CHANGE IN BLADDER CONTROL? NO . IS THERE A CHANCE YOU COULD BE ? NO . HEMATOLOGY/LYMPH: DO YOU TAKE ANY BLOOD THINNERS? (FOR EXAMPLE- COUMADIN, PLAVIX, AGGRENOX, PLATEL, PRADAXA, OR XARELTO) NO . WHEN WAS YOUR LAST DOSE? DATE: TIME: . NEUROLOGY: HAVE YOU FALLEN IN THE PAST 12 MONTHS? NO . ANY NEW EXTREMITY NUMBNESS OR WEAKNESS? NO . CARDIOLOGY: DO YOU HAVE A PACEMAKER OR DEFIBRILLATOR? NO . RESPIRATORY: HAVE YOU BEEN SICK IN THE PAST WEEK? NO . FEVER NO . FLU LIKE SYMPTOMS? NO . COUGH NO . INTEGUMENTARY: DO YOU HAVE ANY RASHES OR OPEN SORES? NO . ALLERGIC/IMMUNO: ARE YOU ALLERGIC TO IV DYE? NO . ANY NEW ALLERGIES? NO . PSYCHIATRIC: DO YOU HAVE THOUGHTS OF HURTING YOURSELF OR SOMEONE ELSE? NO . ARE YOU ABUSED, NEGLECTED, OR IN AN UNSAFE ENVIRONMENT? NO . ENDOCRINOLOGY: ARE YOU DIABETIC? NO . OTHER: DO YOU NEED ANY PRESCRIPTIONS? NO . IF YES, PLEASE LIST: ____ . ANY NEW PROBLEMS WITH YOUR MEDICATIONS? NO . WHEN DID YOU LAST EAT? 11/17/19 1800 . WHEN DID YOU LAST DRINK? 11/17/19 1800 . WHAT DID YOU LAST DRINK? COFFEE . NAME OF PERSON DRIVING YOU HOME? MARILIN . DO YOU HAVE ANY OTHER QUESTIONS OR CONCERNS NO . VITAL SIGNS WT 162.2 LBS, HT 63", BMI 28.73 INDEX, BP 141/80 MM HG, HR 65 /MIN, RR 16 /MIN, TEMP 98 F, OXYGEN SAT % 94, REVIEWED BY: ERIK. ASSESSMENTS SPONDYLOSIS WITHOUT MYELOPATHY OR RADICULOPATHY, LUMBAR REGION - M47.816 (PRIMARY) SPONDYLOSIS OF LUMBOSACRAL REGION WITHOUT MYELOPATHY OR RADICULOPATHY - M47.817 TREATMENT SPONDYLOSIS OF LUMBOSACRAL REGION WITHOUT MYELOPATHY OR RADICULOPATHY SMC FACET BLOCK (PAIN)[id number] PROCEDURES PN LUMBAR FACET BLOCK DIAGNOSTIC PRE PROCEDURE DIAGNOSIS LUMBAR SPONDYLOSIS, LUMBOSACRAL SPONDYLOSIS POST PROCEDURE DIAGNOSIS LUMBAR SPONDYLOSIS, LUMBOSACRAL SPONDYLOSIS PROCEDURE LEFT L4-L5 AND LEFT L5-S1 FACET BLOCK DIAGNOSTIC NUMBER [address] TONIO RAMIREZ PIN STICKER NONE ANESTHESIA LOCAL PRE PROCEDURE NOTE THE PATIENT WITH HISTORY OF CHRONIC LOW BACK PAIN. I EVALUATED THE PATIENT AND REVIEWED THE CHART. I WENT OVER THE RISKS, ALTERNATIVES, AND BENEFITS ASSOCIATED WITH THIS PROCEDURE. THE PATIENT WOULD LIKE TO PROCEED AND GAVE CONSENT TO PERFORM THE PROCEDURE. AGREED WITH THE PATIENT WE ARE DOING THIS PROCEDURE TO DETERMINE IF THE PATIENT IS A CANDIDATE FOR A RADIOFREQUENCY ABLATION OF THE FACETS JOINTS. THE PATIENT DENIES UNEXPLAINABLE WEIGHT LOSS, FEVER, CHILLS, OR NEW CHANGES IN URINARY OR BOWEL CONTROL DESCRIPTION OF PROCEDURE THE PATIENT WAS BROUGHT TO THE PROCEDURE ROOM AND PLACED IN THE PRONE POSITION. THE LUMBOSACRAL AREA WAS CLEANED WITH CHLORAPREP SOLUTION AND DRAPED ASEPTICALLY. THE PROCEDURE WAS DONE UNDER STERILE CONDITIONS. I CHECKED LATERALITY AND THE LEVEL WHERE THE PROCEDURE WAS GOING TO BE PERFORMED WITH THE PATIENT AND THE SUPPORTING STAFF AT THE MOMENT OF THE TIME OUT IN THE PROCEDURE ROOM. UNDER FLUOROSCOPIC GUIDANCE, TARGETS WERE SELECTED AT THE INTERSECTION OF THE LEFT TRANSVERSE PROCESS OF L4, L5 AND ALA OF S1 WITH ITS RESPECTIVE SUPERIOR ARTICULAR PROCESS. LIDOCAINE WAS USED TO NUMB THE SKIN AND THE SUBCUTANEOUS TISSUE BELOW IT. SPINAL NEEDLE, 22-GAUGE WAS ADVANCED UNDER FLUOROSCOPIC GUIDANCE AND FOLLOWING PATIENT FEEDBACK UNTIL THE TARGETS WERE REACHED. POSITION OF THE NEEDLES WAS VERIFIED WITH AP AND LATERAL VIEWS. AFTER PROPER POSITION OF THE NEEDLES WAS ACHIEVED, ISOVUE-M DYE 30% 0.1 ML WAS INJECTED AT EACH SITE SHOWING ADEQUATE SPREAD OF THE DYE. THEN A SOLUTION OF 0.4 ML OF BUPIVACAINE 0.25% WAS INJECTED AT EACH SITE. THERE WAS NO EVIDENCE OF BLOOD, PARESTHESIA OR CEREBROSPINAL FLUID DURING THE PROCEDURE. THE PATIENT WAS SENT TO THE RECOVERY ROOM. THE PATIENT WAS MOVING THE EXTREMITIES AND DOING WELL. THERE WAS NO COMPLICATION DURING THE PROCEDURE. FLUOROSCOPY TIME WAS 20 SECONDS POST PROCEDURE NOTE THE PATIENT WILL DOCUMENT HIS PAIN LEVEL AND RESPONSE TO THIS PROCEDURE EVERY 30 MINUTES. THE PATIENT WILL BE SEEN IN A FOLLOW UP IN THE NEXT FEW WEEKS. FURTHER DETERMINATION FOR HIS CASE WILL BE DONE AT THE NEXT VISIT. INSTRUCTIONS WERE GIVEN, QUESTIONS WERE ANSWERED, AND THE PATIENT EXPRESSED UNDERSTANDING AND AGREED WITH THE PLAN. I, CHRISTIE NIEVES, DOCUMENTED THE ABOVE INFORMATION ACTING A SCRIBE FOR DR. RAMIREZ. I HAVE REVIEWED THE ABOVE DOCUMENT, WRITTEN BY CHRISTIE KERNS AND I VERIFY THAT IT IS ACCURATE. PROCEDURE CODES 85704 INJ PARAVERT F JNT L/S 1 LEV, MODIFIERS: [place] 27605 INJ PARAVERT F JNT L/S 2 LEV, MODIFIERS: LT 6045F RADXPS IN END [id number] PXD DISPOSITION & COMMUNICATION FOLLOW UP 3 WEEKS ELECTRONICALLY SIGNED BY TONIO RAMIREZ MD, MD ON 11/23/2019 AT 03:34 PM EDT DISCLAIMER : THIS IS A VISIT SUMMARY EXTRACTED FROM THE [employer] CHART. IT IS NOT A COPY OF THE [employer] PROGRESS NOTE. MTDD
== END ==
LOC: M PAIN 09:30
PROVIDERS: ATTEND Anesthesiology
DX: M47.816 Spondylosis without myelopathy or radiculopathy, lumbar region (principal); M47.817 Spondylosis without myelopathy or radiculopathy, lumbosacral region; E11.9 Type 2 diabetes mellitus without complications; J30.9 Allergic rhinitis, unspecified; L30.9 Dermatitis, unspecified; Z87.891 Personal history of nicotine dependence; Z79.1 Long term (current) use of non-steroidal anti-inflammatories (NSAID); Z79.899 Other long term (current) drug therapy; Z85.3 Personal history of malignant neoplasm of breast; Z98.84 Bariatric surgery status; Z90.11 Acquired absence of right breast and nipple
CPT/HCPCS: 64493; 64494; Q9967

== ENCOUNTER → 2019-11-27 | Outpatient (CLI) | payer MEDICARE ==
[~2019-11-27] MED LIST changes: -BUPIVACAINE HCL 0.25% 30 ML VIAL As Ordered ONE; -ISOVUE-M 300 61% 15ML VIAL (Q9967) As Ordered ONE; -LIDOCAINE 1% SDV INJ 30 ML VIAL As Ordered ONE
--- NOTE | 2019-12-16 03:34 | ECWPNPC ---
PATIENT NAME: NEO HANSON : 1945 GENDER: FEMALE VISIT DATE: 11/27/2019 DISCHARGE DATE: 11/27/19 1524 VISIT LOCKED DATE TIME: PHYSICIAN: LAURA CLIFFORD RESOURCE: LAURA CLIFFORD REASON FOR APPOINTMENT 1. POST PROCEDURE HISTORY OF PRESENT ILLNESS HISTORY OF PRESENT ILLNESS: HERE FOR POST PROCEDURE FOLLOW-UP. HAD LEFT L4-5/ L5-S1 DIAGNOSTIC LUMBAR FACET BLOCK #2 ON 11/18/2019. REPORTS MARKED REDUCTION IN PAIN X24 HOURS AND THEN PAIN ABRUPTLY RETURNED TO BASELINE. RATING PAIN LEVEL AN 8/10 VAS. REVIEWED MRI AND DISCUSSED TREATMENT OPTIONS. PAIN THE PATIENT DESCRIBES THE PAIN... FALL RISK SCREENING: SCREENING :NO FALLS REPORTED IN THE LAST YEAR CURRENT MEDICATIONS TAKING CALCIUM 600+D 600-800 MG-UNIT TABLET 2 TABLETS ORALLY ONCE A DAY, NOTES: 11/17/19 TAKING ONE DAILY - TABLET 1 TABLET ORALLY ONCE A DAY, NOTES: 11/17/19 TAKING TAMOXIFEN CITRATE 20 MG TABLET 1 TABLET ORALLY ONCE A DAY, NOTES: 11/17/19 TAKING VITAMIN B-12 500 MCG LOZENGE 1 LOZENGE ORALLY ONCE A DAY, NOTES: 11/17/19 TAKING VITAMIN D (CHOLECALCIFEROL) 1000 UNIT TABLET 1 TABLET ORALLY ONCE A DAY, NOTES: 11/17/19 TAKING MELOXICAM 15 MG TABLET 1 TABLET ORALLY ONCE A DAY, NOTES: 11/17/19 TAKING VITAMIN C 500 MG CAPSULE DIRECTED ORALLY ONE TAB DAILY- OTC, NOTES: 11/17/19 MEDICATION LIST REVIEWED AND RECONCILED WITH THE PATIENT PAST MEDICAL HISTORY DEGENERATIVE DISC DISEASE ECZEMA DIABETES MELLITUS OBESITY RIGHT BREAST CANCER ALLERGIES SEASONAL: NASAL CONGESTION, ITCHY EYES - ALLERGY SURGICAL HISTORY GASTRIC BYPASS SURGERY 2012 RIGHT MASTECTOMY 05/2016 BILAT BREAST IMPLANTS 11/2018 FAMILY HISTORY FATHER: 75 YRS, EMPHYSEMA MOTHER: ALIVE 88 YRS, DEMENTIA SIBLINGS: ALIVE SON(S): ALIVE DAUGHTER(S): ALIVE 3 BROTHER(S) , 5 SISTER(S) - HEALTHY. 2 SON(S) , 1 DAUGHTER(S) - HEALTHY. MOTHER ALZHEIMER'S. SOCIAL HISTORY GENERAL: TOBACCO USE ARE YOU A:FORMER SMOKER HOW LONG HAS IT BEEN SINCE YOU LAST SMOKED?> 10 YEARS OTHERS AT HOME: SPOUSE. DIET: REGULAR. LANGUAGE LANGUAGES SPOKEN:BENGALI DOMESTIC VIOLENCE DO YOU FEEL SAFE IN YOUR ENVIRONMENT?YES RECREATIONAL DRUG USE DRUG USE?NO PATIENT DENIES ABUSE OR MISSUSED OF ANY MEDICATION DENIES PATIENT DENIES USE OF ANY ILLEGAL SUBSTANCE INCLUDING MARIJUANA OR COCAINE DENIES EXERCISE: GYM 4 DAYS A WEEK. LEARNING BARRIERS / SPECIAL NEEDS CHANGE FROM LAST VISIT?NO PAIN CLINIC PFS, CLERGY, PUBLIC HEALTH REFERRALS PFS REFERRAL NEEDED?NO CLERGY REFERRAL NEEDED?NO PUBLIC HEALTH REFERRAL NEEDED?NO WAS THE PROVIDER NOTIFIED OF ANY PERTINENT INFO?YES N/A HAS THE PATIENT BEEN EDUCATED REGARDING HIS/HER PLAN OF CARE?YES HAS THE PATIENT BEEN EDUCATED REGARDING PAIN, THE RISK FOR PAIN, THE IMPORTANCE OF EFFECTIVE PAIN MANAGEMENT, AND THE PAIN ASSESSMENT PROCESS?YES LATEX QUESTIONNAIRE LATEX ALLERGY : HAVE YOU EVER DEVELOPED ANY TYPE OF REACTION AFTER HANDLING LATEX PRODUCTS SUCH RUBBER GLOVES, CONDOMS, DIAPHRAGMS, BALLOONS, SOCKS, OR UNDERWEAR?NO LATEX ALLERGY : HAVE YOU EVER DEVELOPED ANY TYPE OF REACTION DURING OR AFTER DENTAL APPOINTMENT, VAGINAL/RECTAL EXAMINATION, SURGICAL PROCEDURE, OR ANY OTHER EXPOSURE?NO DATE ASKED : 11/09/2019 LATEX RISK : HAVE YOU EVER HAD ANY DIFFICULTY BREATHING OR HIVES AFTER EATING OR HANDLING ANY FRUITS, OR VEGETABLES; SUCH KIWI, BANANAS, STONE FRUITS, OR CHESTNUTSNO LATEX RISK : DO YOU HAVE A PREVIOUS PERSONAL HISTORY OF MORE THAN NINE SURGERIES, SPINA BIFIDA, OR REPEATED CATHERIZATIONS? NO LATEX RISK : ARE YOU FREQUENTLY EXPOSED TO LATEX PRODUCTS IN YOUR OCCUPATION?NO CAFFEINE CAFFEINE USE?YES HOW OFTEN AND HOW MUCH? 3 CUPS COFFEE/DAY ADVANCE DIRECTIVE ADVANCE DIRECTIVE DISCUSSED WITH PATIENT:YES PT HAS HCP [facility] [phone] CHURCH [id number] SABIANISM MARITAL STATUS: . ALCOHOL SCREENING DID YOU HAVE A DRINK CONTAINING ALCOHOL IN THE PAST YEAR?YES HOW OFTEN DID YOU HAVE SIX OR MORE DRINKS ON ONE OCCASION IN THE PAST YEAR?LESS THAN MONTHLY (1 POINT) HOW MANY DRINKS DID YOU HAVE ON A TYPICAL DAY WHEN YOU WERE DRINKING IN THE PAST YEAR?3 OR 4 (1 POINT) HOW OFTEN DID YOU HAVE A DRINK CONTAINING ALCOHOL IN THE PAST YEAR?MONTHLY OR LESS (1 POINT) POINTS3 INTERPRETATIONPOSITIVE OCCUPATION: RETIRED. HOSPITALIZATION/MAJOR DIAGNOSTIC PROCEDURE SURGERIES REVIEW OF SYSTEMS REVIEWED BY: PROVIDER: LAURA CUEVAS . CONSTITUTIONAL: ANY CHANGE IN YOUR MEDICAL CONDITION? NO . CHILLS NO . FEVER NO . INFECTION: DO YOU HAVE NEW INFECTIONS? NO . DO YOU HAVE HISTORY OF MRSA? NO . MUSCULOSKELETAL: ANY NEW PATTERNS OF PAIN OR NUMBNESS? NO . GASTROENTEROLOGY: ANY NEW CHANGE IN BOWEL CONTROL? NO . GENITOURINARY: ANY NEW CHANGE IN BLADDER CONTROL? NO . IS THERE A CHANCE YOU COULD BE ? NO . HEMATOLOGY/LYMPH: DO YOU TAKE ANY BLOOD THINNERS? (FOR EXAMPLE- COUMADIN, PLAVIX, AGGRENOX, PLATEL, PRADAXA, OR XARELTO) NO . WHEN WAS YOUR LAST DOSE? DATE: TIME: . NEUROLOGY: HAVE YOU FALLEN IN THE PAST 12 MONTHS? NO . ANY NEW EXTREMITY NUMBNESS OR WEAKNESS? NO . CARDIOLOGY: DO YOU HAVE A PACEMAKER OR DEFIBRILLATOR? NO . RESPIRATORY: HAVE YOU BEEN SICK IN THE PAST WEEK? NO . FEVER NO . FLU LIKE SYMPTOMS? NO . COUGH NO . INTEGUMENTARY: DO YOU HAVE ANY RASHES OR OPEN SORES? NO . ALLERGIC/IMMUNO: ARE YOU ALLERGIC TO IV DYE? NO . ANY NEW ALLERGIES? NO . PSYCHIATRIC: DO YOU HAVE THOUGHTS OF HURTING YOURSELF OR SOMEONE ELSE? NO . ARE YOU ABUSED, NEGLECTED, OR IN AN UNSAFE ENVIRONMENT? NO . ENDOCRINOLOGY: ARE YOU DIABETIC? YES, USE TO BE BEFORE HER GASTRIC BYPASS 7 YEARS AGO. . OTHER: DO YOU NEED ANY PRESCRIPTIONS? NO . IF YES, PLEASE LIST: ____ . ANY NEW PROBLEMS WITH YOUR MEDICATIONS? NO . WHEN DID YOU LAST EAT? ____ . WHEN DID YOU LAST DRINK? ____ . WHAT DID YOU LAST DRINK? ____ . NAME OF PERSON DRIVING YOU HOME? ____ . DO YOU HAVE ANY OTHER QUESTIONS OR CONCERNS NO . VITAL SIGNS WT 162.2 LBS, HT 63", BMI 28.73 INDEX, BP 167/86 MM HG, HR 83 /MIN, RR 16 /MIN, TEMP 98.8 F, OXYGEN SAT % 94%, NA INITIALS AW 1447, REVIEWED BY: JEFFREY FONSECA LPN. EXAMINATION GENERAL EXAMINATION: GENERAL AWAKE,ALERT ,PLEASANT . PSYCH AFFECT NORMAL . LUNGS: LUNG WELSH ARE CLEAR TO AUSCULTATION BILATERALLY. GOOD MOVEMENT OF AIR . HEART: S1, S2 IN A REGULAR RATE AND RHYTHM. NO SIGNIFICANT MURMURS, RUBS OR GALLOPS NOTED . LUMBAR:PALPATION:TENDER OVER BILAT. L4/5-L5/S1 LUMBAR FACETS WITH FACET LOADING.. DIAGNOSTIC TESTS REVIEWED MRI L/S SPINE-05/27/17. ASSESSMENTS SPONDYLOSIS OF LUMBOSACRAL REGION WITHOUT MYELOPATHY OR RADICULOPATHY - M47.817 (PRIMARY) TREATMENT SPONDYLOSIS OF LUMBOSACRAL REGION WITHOUT MYELOPATHY OR RADICULOPATHY NOTES: LEFT L4/5-L5/S1 RF. DISPOSITION & COMMUNICATION FOLLOW UP POST (REASON: LEFT L4/5-L5/S1 RF) ELECTRONICALLY SIGNED BY MASON GONSALVES ON 12/15/2019 AT 03:09 PM EDT DISCLAIMER : THIS IS A VISIT SUMMARY EXTRACTED FROM THE [employer] CHART. IT IS NOT A COPY OF THE [employer] PROGRESS NOTE. MTDD
== END ==
LOC: M PAIN 14:30
PROVIDERS: ATTEND Nurse Practitioner Family
DX: M47.817 Spondylosis without myelopathy or radiculopathy, lumbosacral region (principal); Z79.899 Other long term (current) drug therapy; Z87.891 Personal history of nicotine dependence; Z98.84 Bariatric surgery status

== ENCOUNTER → 2019-12-30 | Outpatient (CLI) | payer MEDICARE ==
--- NOTE | 2020-01-05 01:04 | ECWPNPC ---
PATIENT NAME: NEO HANSON : 1945 GENDER: FEMALE VISIT DATE: 12/30/2019 DISCHARGE DATE: 12/30/19 1245 VISIT LOCKED DATE TIME: PHYSICIAN: TONIO RAMIREZ MD RESOURCE: TONIO RAMIREZ MD REASON FOR APPOINTMENT 1. PATIENT NEEDS PHONE VISIT HISTORY OF PRESENT ILLNESS HISTORY OF PRESENT ILLNESS: PAIN THE PATIENT DESCRIBES THE PAIN... PERMISSION FROM PATIENT WAS RECEIVED TO DO TELEPHONE OFFICE VISIT. 74 YEAR OLD FEMALE PATIENT WITH A HISTORY OF CHRONIC LOW BACK PAIN. THE PATIENT STATES HER PAIN BEGINS IN HER LOW BACK AND RADIATES DOWN HER LEGS DOWN TO HER KNEES. THE PATIENT SAYS SHE HAS BEEN SUFFERING FROM HER PAIN FOR MANY YEARS AND THE PAIN INCREASES WITH ACTIVITIES. THE PATIENT RECEIVED A LUMBAR DIAGNOSTIC FACET BLOCK #2 ON NOVEMBER 18, 2019, WHICH SHE SAYS HELPED DECREASED HER PAIN. THE PATIENT SAYS SHE UNDERSTAND THE RADIOFREQUENCY WILL HAVE TO BE PUT ON HOLD DUE TO THE CURRENT COVID-19 SITUATION. THE PATIENT SAYS SHE IS CURRENTLY USING MELOXICAM 15 MG TO AID IN PAIN RELIEF, AND HAS TRIED GABAPENTIN IN THE PAST THAT HELPED WITH PAIN RELIEF, BUT SHE STOPPED OUT OF FEAR OF POTENTIAL TIE PRESSER SIDE EFFECTS. THE PATIENT SAYS HER LOW BACK PAIN HAS WORSENED OVER THE LAST WEEK AND IS CAUSING SLEEP DIFFICULTY FOR HER. THE PATIENT DENIES UNEXPLAINED WEIGHT LOSS, FEVER, CHILLS, NEW CHANGES IN HER URINARY OR BOWEL CONTROL. FALL RISK SCREENING: SCREENING :NO FALLS REPORTED IN THE LAST YEAR CURRENT MEDICATIONS TAKING CALCIUM 600+D 600-800 MG-UNIT TABLET 2 TABLETS ORALLY ONCE A DAY TAKING ONE DAILY - TABLET 1 TABLET ORALLY ONCE A DAY TAKING TAMOXIFEN CITRATE 20 MG TABLET 1 TABLET ORALLY ONCE A DAY TAKING VITAMIN B-12 500 MCG LOZENGE 1 LOZENGE ORALLY ONCE A DAY TAKING VITAMIN D (CHOLECALCIFEROL) 1000 UNIT TABLET 1 TABLET ORALLY ONCE A DAY TAKING MELOXICAM 15 MG TABLET 1 TABLET ORALLY ONCE A DAY TAKING VITAMIN C 500 MG CAPSULE 2 TABLETS ORALLY ONE TAB DAILY- OTC MEDICATION LIST REVIEWED AND RECONCILED WITH THE PATIENT PAST MEDICAL HISTORY DEGENERATIVE DISC DISEASE ECZEMA DIABETES MELLITUS OBESITY RIGHT BREAST CANCER ALLERGIES SEASONAL: NASAL CONGESTION, ITCHY EYES - ALLERGY SURGICAL HISTORY GASTRIC BYPASS SURGERY 2012 RIGHT MASTECTOMY 05/2016 BILAT BREAST IMPLANTS 11/2018 FAMILY HISTORY FATHER: 75 YRS, EMPHYSEMA MOTHER: ALIVE 88 YRS, DEMENTIA SIBLINGS: ALIVE SON(S): ALIVE DAUGHTER(S): ALIVE 3 BROTHER(S) , 5 SISTER(S) - HEALTHY. 2 SON(S) , 1 DAUGHTER(S) - HEALTHY. MOTHER ALZHEIMER'S. SOCIAL HISTORY GENERAL: TOBACCO USE ARE YOU A:FORMER SMOKER HOW LONG HAS IT BEEN SINCE YOU LAST SMOKED?> 10 YEARS LATEX QUESTIONNAIRE LATEX ALLERGY : HAVE YOU EVER DEVELOPED ANY TYPE OF REACTION AFTER HANDLING LATEX PRODUCTS SUCH RUBBER GLOVES, CONDOMS, DIAPHRAGMS, BALLOONS, SOCKS, OR UNDERWEAR?NO LATEX ALLERGY : HAVE YOU EVER DEVELOPED ANY TYPE OF REACTION DURING OR AFTER DENTAL APPOINTMENT, VAGINAL/RECTAL EXAMINATION, SURGICAL PROCEDURE, OR ANY OTHER EXPOSURE?NO DATE ASKED : 11/09/2019 LATEX RISK : HAVE YOU EVER HAD ANY DIFFICULTY BREATHING OR HIVES AFTER EATING OR HANDLING ANY FRUITS, OR VEGETABLES; SUCH KIWI, BANANAS, STONE FRUITS, OR CHESTNUTSNO LATEX RISK : DO YOU HAVE A PREVIOUS PERSONAL HISTORY OF MORE THAN NINE SURGERIES, SPINA BIFIDA, OR REPEATED CATHERIZATIONS? NO LATEX RISK : ARE YOU FREQUENTLY EXPOSED TO LATEX PRODUCTS IN YOUR OCCUPATION?NO ALCOHOL SCREENING DID YOU HAVE A DRINK CONTAINING ALCOHOL IN THE PAST YEAR?YES HOW OFTEN DID YOU HAVE SIX OR MORE DRINKS ON ONE OCCASION IN THE PAST YEAR?LESS THAN MONTHLY (1 POINT) HOW MANY DRINKS DID YOU HAVE ON A TYPICAL DAY WHEN YOU WERE DRINKING IN THE PAST YEAR?3 OR 4 (1 POINT) HOW OFTEN DID YOU HAVE A DRINK CONTAINING ALCOHOL IN THE PAST YEAR?MONTHLY OR LESS (1 POINT) POINTS3 INTERPRETATIONPOSITIVE RECREATIONAL DRUG USE DRUG USE?NO PATIENT DENIES ABUSE OR MISSUSED OF ANY MEDICATION DENIES PATIENT DENIES USE OF ANY ILLEGAL SUBSTANCE INCLUDING MARIJUANA OR COCAINE DENIES CAFFEINE CAFFEINE USE?YES HOW OFTEN AND HOW MUCH? 3 CUPS COFFEE/DAY JUDAISM [id number] SAMARITAN LANGUAGE LANGUAGES SPOKEN:SALVADOREAN LEARNING BARRIERS / SPECIAL NEEDS CHANGE FROM LAST VISIT?NO DOMESTIC VIOLENCE DO YOU FEEL SAFE IN YOUR ENVIRONMENT?YES OCCUPATION: RETIRED. DIET: REGULAR. EXERCISE: GYM 4 DAYS A WEEK. MARITAL STATUS: . OTHERS AT HOME: SPOUSE. NEW PATIENT PAIN DIARY PATIENT DESCRIBES PAIN :HAVE IT ALL THE TIME, TENDER FROM 0-10, WHAT LEVEL IS YOUR PAIN TODAY? 12/30/19 PRECIPITATING FACTORS STANDING, SITTING, WORKING ALLEVIATING FACTORS REST PAIN CLINIC PFS, CLERGY, PUBLIC HEALTH REFERRALS PFS REFERRAL NEEDED?NO CLERGY REFERRAL NEEDED?NO PUBLIC HEALTH REFERRAL NEEDED?NO WAS THE PROVIDER NOTIFIED OF ANY PERTINENT INFO?YES N/A HAS THE PATIENT BEEN EDUCATED REGARDING HIS/HER PLAN OF CARE?YES HAS THE PATIENT BEEN EDUCATED REGARDING PAIN, THE RISK FOR PAIN, THE IMPORTANCE OF EFFECTIVE PAIN MANAGEMENT, AND THE PAIN ASSESSMENT PROCESS?YES ADVANCE DIRECTIVE ADVANCE DIRECTIVE DISCUSSED WITH PATIENT:YES PT HAS HCP [facility] [phone] HOSPITALIZATION/MAJOR DIAGNOSTIC PROCEDURE SURGERIES REVIEW OF SYSTEMS REVIEWED BY: PROVIDER: TONIO RAMIREZ MD . CONSTITUTIONAL: ANY CHANGE IN YOUR MEDICAL CONDITION? NO . CHILLS NO . FEVER NO . INFECTION: DO YOU HAVE NEW INFECTIONS? NO . DO YOU HAVE HISTORY OF MRSA? NO . MUSCULOSKELETAL: ANY NEW PATTERNS OF PAIN OR NUMBNESS? NO . GASTROENTEROLOGY: ANY NEW CHANGE IN BOWEL CONTROL? NO . GENITOURINARY: ANY NEW CHANGE IN BLADDER CONTROL? NO . IS THERE A CHANCE YOU COULD BE ? NO . HEMATOLOGY/LYMPH: DO YOU TAKE ANY BLOOD THINNERS? (FOR EXAMPLE- COUMADIN, PLAVIX, AGGRENOX, PLATEL, PRADAXA, OR XARELTO) NO . WHEN WAS YOUR LAST DOSE? DATE: TIME: . NEUROLOGY: HAVE YOU FALLEN IN THE PAST 12 MONTHS? NO . ANY NEW EXTREMITY NUMBNESS OR WEAKNESS? NO . CARDIOLOGY: DO YOU HAVE A PACEMAKER OR DEFIBRILLATOR? NO . RESPIRATORY: HAVE YOU BEEN SICK IN THE PAST WEEK? NO . FEVER NO . FLU LIKE SYMPTOMS? NO . COUGH NO . INTEGUMENTARY: DO YOU HAVE ANY RASHES OR OPEN SORES? NO . ALLERGIC/IMMUNO: ARE YOU ALLERGIC TO IV DYE? NO . ANY NEW ALLERGIES? NO . PSYCHIATRIC: DO YOU HAVE THOUGHTS OF HURTING YOURSELF OR SOMEONE ELSE? NO . ARE YOU ABUSED, NEGLECTED, OR IN AN UNSAFE ENVIRONMENT? NO . ENDOCRINOLOGY: ARE YOU DIABETIC? NO . OTHER: DO YOU NEED ANY PRESCRIPTIONS? NO . IF YES, PLEASE LIST: ____ . ANY NEW PROBLEMS WITH YOUR MEDICATIONS? NO . WHEN DID YOU LAST EAT? ____ . WHEN DID YOU LAST DRINK? ____ . WHAT DID YOU LAST DRINK? ____ . NAME OF PERSON DRIVING YOU HOME? ____ . DO YOU HAVE ANY OTHER QUESTIONS OR CONCERNS NO . EXAMINATION GENERAL EXAMINATION: TELEPHONE ENCOUNTER. PATIENT IS ALERT O X 3 AND COOPERATIVE. MRI OF THE LUMBAR SPINE DONE ON 05/27/2017 SHOWS FACET ARTHROPATHY CHANGES. ASSESSMENTS SPONDYLOSIS WITHOUT MYELOPATHY OR RADICULOPATHY, LUMBAR REGION - M47.816 (PRIMARY) TREATMENT SPONDYLOSIS WITHOUT MYELOPATHY OR RADICULOPATHY, LUMBAR REGION CLINICAL NOTES: WE DISCUSSED SEVERAL ISSUES WITH MS. HANSON'S PAIN MANAGEMENT CASE. I DISCUSSED WITH THE PATIENT ABOUT GABAPENTIN AND MELOXICAM SAFETY AND RISKS. I WILL START THE PATIENT ON CYMBALTA ONE TABLET DAILY WITH FOOD TO AID IN PAIN RELIEF. I ALSO DISCUSSED THE SAFETY AND RISKS OF THIS MEDICATION WITH THE PATIENT AND ADVISED HER TO SWITCH TO TAKING AT NIGHT IF IT CAUSES SLEEPINESS DURING THE DAY. THE PLAN IS TO SLOWLY INCREASE THE MEDICATION TO AVOID ANY ADVERSE SIDE EFFECTS, BUT SHE WILL STOP IF SHE EXPERIENCES ANY. THE PATIENT WILL FOLLOW UP WITH LUKAS CLIFFORD IN 2 WEEKS TO SEE HOW IT IS HELPING WITH HER PAIN. THE TOTAL TIME FOR TODAY'S TELEPHONE ENCOUNTER WAS 21 MINUTES. INSTRUCTIONS WERE GIVEN, QUESTIONS WERE ANSWERED, PATIENT REPORTS UNDERSTANDING AND AGREES WITH THE PLAN. I, CHRISTIE NIEVES, DOCUMENTED THE ABOVE INFORMATION ACTING A SCRIBE FOR DR. RAMIREZ. I HAVE REVIEWED THE ABOVE DOCUMENT, WRITTEN BY CHRISTIE KERNS AND I VERIFY THAT IT IS ACCURATE. . OTHERS START DULOXETINE HCL CAPSULE DELAYED RELEASE PARTICLES, 30 MG, 1 CAPSULE WITH FOOD, ORALLY FOR PAIN, ONCE A DAY MDD1, 30 DAY(S), 30, REFILLS 0 PROCEDURE CODES 13975 TELEMEDICINE PHONE E/M BY KAROLINE 21-30 MIN DISPOSITION & COMMUNICATION FOLLOW UP 2 WEEKS (REASON: F/UP WITH LUKAS SANCHEZ (SCHEDULED)) ELECTRONICALLY SIGNED BY TONIO RAMIREZ MD, MD ON 01/04/2020 AT 05:19 PM EDT DISCLAIMER : THIS IS A VISIT SUMMARY EXTRACTED FROM THE [employer] CHART. IT IS NOT A COPY OF THE [employer] PROGRESS NOTE. MTDD
== END ==
LOC: M PAIN 11:15
PROVIDERS: ATTEND Anesthesiology
DX: M47.816 Spondylosis without myelopathy or radiculopathy, lumbar region (principal); G89.29 Other chronic pain; E11.9 Type 2 diabetes mellitus without complications; Z98.84 Bariatric surgery status; Z87.891 Personal history of nicotine dependence; Z79.899 Other long term (current) drug therapy

== ENCOUNTER → 2020-01-14 | Outpatient (CLI) | payer MEDICARE ==
--- NOTE | 2020-01-16 03:12 | ECWPNPC ---
PATIENT NAME: NEO HANSON : 1945 GENDER: FEMALE VISIT DATE: 01/14/2020 DISCHARGE DATE: 01/14/20 0748 VISIT LOCKED DATE TIME: PHYSICIAN: LAURA CLIFFORD RESOURCE: LAURA CLIFFORD REASON FOR APPOINTMENT 1. F/UP WITH LUKAS SANCHEZ (SCHEDULED) - PLEASE CALL BEFORE 10:00 OR AFTER 10:30 HISTORY OF PRESENT ILLNESS HISTORY OF PRESENT ILLNESS: PATIENT IS AGREEABLE TO TELEPHONE VISIT TODAY. CONTINUES WITH CHRONIC LOW BACK PAIN. RATING PAIN VAS 6/10. DESCRIBES PAIN CONSTANT AND ACHING. PAIN IS AGGRAVATED BY INCREASED ACTIVITY. PAIN IS RELIEVED SOMEWHAT AT REST. DR. RAMIREZ HAD STARTED HER ON CYMBALTA 30 MG DAILY A FEW WEEKS AGO DURING A TELEPHONE VISIT. PATIENT FEELS MEDICATION IS SOMEWHAT HELPFUL. DENIES ADVERSE SIDE EFFECTS. WE WERE IN THE PROCESS OF RADIOFREQUENCY AT L4-5, L5-S1-LEFT. THIS WAS CANCELED DUE TO COVID 19. TODAY WE WILL PLAN BRINGING PATIENT IN FOR THAT PROCEDURE. PAIN THE PATIENT DESCRIBES THE PAIN... FALL RISK SCREENING: SCREENING :NO FALLS REPORTED IN THE LAST YEAR CURRENT MEDICATIONS TAKING CALCIUM 600+D 600-800 MG-UNIT TABLET 2 TABLETS ORALLY ONCE A DAY TAKING ONE DAILY - TABLET 1 TABLET ORALLY ONCE A DAY TAKING TAMOXIFEN CITRATE 20 MG TABLET 1 TABLET ORALLY ONCE A DAY TAKING VITAMIN B-12 500 MCG LOZENGE 1 LOZENGE ORALLY ONCE A DAY TAKING VITAMIN D (CHOLECALCIFEROL) 1000 UNIT TABLET 1 TABLET ORALLY ONCE A DAY TAKING MELOXICAM 15 MG TABLET 1 TABLET ORALLY ONCE A DAY TAKING VITAMIN C 500 MG CAPSULE 2 TABLETS ORALLY ONE TAB DAILY- OTC TAKING DULOXETINE HCL 30 MG CAPSULE DELAYED RELEASE PARTICLES 1 CAPSULE WITH FOOD ORALLY FOR PAIN ONCE A DAY MDD1 MEDICATION LIST REVIEWED AND RECONCILED WITH THE PATIENT PAST MEDICAL HISTORY DEGENERATIVE DISC DISEASE ECZEMA DIABETES MELLITUS OBESITY RIGHT BREAST CANCER ALLERGIES SEASONAL: NASAL CONGESTION, ITCHY EYES - ALLERGY SURGICAL HISTORY GASTRIC BYPASS SURGERY 2012 RIGHT MASTECTOMY 05/2016 BILAT BREAST IMPLANTS 11/2018 FAMILY HISTORY FATHER: 75 YRS, EMPHYSEMA MOTHER: ALIVE 88 YRS, DEMENTIA SIBLINGS: ALIVE SON(S): ALIVE DAUGHTER(S): ALIVE 3 BROTHER(S) , 5 SISTER(S) - HEALTHY. 2 SON(S) , 1 DAUGHTER(S) - HEALTHY. MOTHER ALZHEIMER'S. SOCIAL HISTORY GENERAL: TOBACCO USE ARE YOU A:FORMER SMOKER HOW LONG HAS IT BEEN SINCE YOU LAST SMOKED?> 10 YEARS LATEX QUESTIONNAIRE LATEX ALLERGY : HAVE YOU EVER DEVELOPED ANY TYPE OF REACTION AFTER HANDLING LATEX PRODUCTS SUCH RUBBER GLOVES, CONDOMS, DIAPHRAGMS, BALLOONS, SOCKS, OR UNDERWEAR?NO LATEX ALLERGY : HAVE YOU EVER DEVELOPED ANY TYPE OF REACTION DURING OR AFTER DENTAL APPOINTMENT, VAGINAL/RECTAL EXAMINATION, SURGICAL PROCEDURE, OR ANY OTHER EXPOSURE?NO DATE ASKED : 11/09/2019 LATEX RISK : HAVE YOU EVER HAD ANY DIFFICULTY BREATHING OR HIVES AFTER EATING OR HANDLING ANY FRUITS, OR VEGETABLES; SUCH KIWI, BANANAS, STONE FRUITS, OR CHESTNUTSNO LATEX RISK : DO YOU HAVE A PREVIOUS PERSONAL HISTORY OF MORE THAN NINE SURGERIES, SPINA BIFIDA, OR REPEATED CATHERIZATIONS? NO LATEX RISK : ARE YOU FREQUENTLY EXPOSED TO LATEX PRODUCTS IN YOUR OCCUPATION?NO ALCOHOL SCREENING DID YOU HAVE A DRINK CONTAINING ALCOHOL IN THE PAST YEAR?YES HOW OFTEN DID YOU HAVE SIX OR MORE DRINKS ON ONE OCCASION IN THE PAST YEAR?LESS THAN MONTHLY (1 POINT) HOW MANY DRINKS DID YOU HAVE ON A TYPICAL DAY WHEN YOU WERE DRINKING IN THE PAST YEAR?3 OR 4 (1 POINT) HOW OFTEN DID YOU HAVE A DRINK CONTAINING ALCOHOL IN THE PAST YEAR?MONTHLY OR LESS (1 POINT) POINTS3 INTERPRETATIONPOSITIVE RECREATIONAL DRUG USE DRUG USE?NO PATIENT DENIES ABUSE OR MISSUSED OF ANY MEDICATION DENIES PATIENT DENIES USE OF ANY ILLEGAL SUBSTANCE INCLUDING MARIJUANA OR COCAINE DENIES CAFFEINE CAFFEINE USE?YES HOW OFTEN AND HOW MUCH? 3 CUPS COFFEE/DAY JEHOVAH'S WITNESS [id number] ZOROASTRIANISM LANGUAGE LANGUAGES SPOKEN:AMHARIC LEARNING BARRIERS / SPECIAL NEEDS CHANGE FROM LAST VISIT?NO HEARING IMPAIRED?NO VISION IMPAIRED?NO WEARS GLASSES COGNITIVELY IMPAIRED?NO SPECIAL DEVICES?NO CASE FILLER NEEDED?NO DOMESTIC VIOLENCE DO YOU FEEL SAFE IN YOUR ENVIRONMENT?YES OCCUPATION: RETIRED. DIET: REGULAR. EXERCISE: GYM 4 DAYS A WEEK. MARITAL STATUS: . OTHERS AT HOME: SPOUSE. NEW PATIENT PAIN DIARY TODAY'S VISIT 01/13/2020 PATIENT DESCRIBES PAIN :ACHING, HAVE IT ALL THE TIME, SHARP FROM 0-10, WHAT LEVEL IS YOUR PAIN TODAY?6 PRECIPITATING FACTORS PROLONGED STANDING, OR ACTIVITY ALLEVIATING FACTORS LAYING DOWN PAIN CLINIC PFS, CLERGY, PUBLIC HEALTH REFERRALS PFS REFERRAL NEEDED?NO CLERGY REFERRAL NEEDED?NO PUBLIC HEALTH REFERRAL NEEDED?NO WAS THE PROVIDER NOTIFIED OF ANY PERTINENT INFO?YES N/A HAS THE PATIENT BEEN EDUCATED REGARDING HIS/HER PLAN OF CARE?YES HAS THE PATIENT BEEN EDUCATED REGARDING PAIN, THE RISK FOR PAIN, THE IMPORTANCE OF EFFECTIVE PAIN MANAGEMENT, AND THE PAIN ASSESSMENT PROCESS?YES ADVANCE DIRECTIVE ADVANCE DIRECTIVE DISCUSSED WITH PATIENT:YES PT HAS HCP [facility] [phone] HOSPITALIZATION/MAJOR DIAGNOSTIC PROCEDURE SURGERIES REVIEW OF SYSTEMS REVIEWED BY: PROVIDER: LAURA CUEVAS . CONSTITUTIONAL: ANY CHANGE IN YOUR MEDICAL CONDITION? NO . CHILLS NO . FEVER NO . INFECTION: DO YOU HAVE NEW INFECTIONS? NO . DO YOU HAVE HISTORY OF MRSA? NO . MUSCULOSKELETAL: ANY NEW PATTERNS OF PAIN OR NUMBNESS? NO . GASTROENTEROLOGY: ANY NEW CHANGE IN BOWEL CONTROL? NO . GENITOURINARY: ANY NEW CHANGE IN BLADDER CONTROL? NO . IS THERE A CHANCE YOU COULD BE ? NO . HEMATOLOGY/LYMPH: DO YOU TAKE ANY BLOOD THINNERS? (FOR EXAMPLE- COUMADIN, PLAVIX, AGGRENOX, PLATEL, PRADAXA, OR XARELTO) NO . WHEN WAS YOUR LAST DOSE? DATE: TIME: . NEUROLOGY: HAVE YOU FALLEN IN THE PAST 12 MONTHS? NO . ANY NEW EXTREMITY NUMBNESS OR WEAKNESS? NO . CARDIOLOGY: DO YOU HAVE A PACEMAKER OR DEFIBRILLATOR? NO . RESPIRATORY: HAVE YOU BEEN SICK IN THE PAST WEEK? NO . FEVER NO . FLU LIKE SYMPTOMS? NO . COUGH NO . INTEGUMENTARY: DO YOU HAVE ANY RASHES OR OPEN SORES? NO . ALLERGIC/IMMUNO: ARE YOU ALLERGIC TO IV DYE? NO . ANY NEW ALLERGIES? NO . PSYCHIATRIC: DO YOU HAVE THOUGHTS OF HURTING YOURSELF OR SOMEONE ELSE? NO . ARE YOU ABUSED, NEGLECTED, OR IN AN UNSAFE ENVIRONMENT? NO . ENDOCRINOLOGY: ARE YOU DIABETIC? NO . OTHER: DO YOU NEED ANY PRESCRIPTIONS? NO . IF YES, PLEASE LIST: ____ . ANY NEW PROBLEMS WITH YOUR MEDICATIONS? NO . WHEN DID YOU LAST EAT? ____ . WHEN DID YOU LAST DRINK? ____ . WHAT DID YOU LAST DRINK? ____ . NAME OF PERSON DRIVING YOU HOME? ____ . DO YOU HAVE ANY OTHER QUESTIONS OR CONCERNS NO . ASSESSMENTS SPONDYLOSIS OF LUMBOSACRAL REGION WITHOUT MYELOPATHY OR RADICULOPATHY - M47.817 (PRIMARY) TREATMENT SPONDYLOSIS OF LUMBOSACRAL REGION WITHOUT MYELOPATHY OR RADICULOPATHY CONTINUE DULOXETINE HCL CAPSULE DELAYED RELEASE PARTICLES, 30 MG, 1 CAPSULE WITH FOOD, ORALLY FOR PAIN, ONCE A DAY MDD1 NOTES: LEFT L4-5, L5-S1 RADIOFREQUENCY ADVISED TO CONTINUE CYMBALTA 30 MG DAILY. LEFT L4-5, L5-S1 RADIOFREQUENCY PROCEDURE WILL BE SCHEDULED. FOLLOW-UP WILL BE SCHEDULED POST PROCEDURE. TOTAL TIME DURING TELEPHONE CONSULTATION WAS APPROXIMATELY 12 MINUTES. OTHERS NOTES: NO VITAL SIGNS TAKEN, THIS IS A TELEPHONE/VIRTUAL VISIT. PREVENTIVE MEDICINE PAIN CLINIC TEACHING: PROCEDURE TEACHING REVIEWED INFORMATION ON RADIOFREQUENCY PROCEDURE WITH PATIENT VIA TELEPHONE. ALSO REVIEWED PRE-PROCEDURE INSTRUCTIONS. PATIENT VERBALIZED AN UNDERSTANDING. INSTRUCTIONS MAILED TO PATIENT AT THIS TIME. PATIENT STATES SHE IS PICKING UP AN ANTIBIOTIC TODAY FOR A TOOTH INFECTION, UNSURE OF HOW MANY DAYS THE PRESCRIPTION IS FOR. ADVISED PATIENT TO CALL US ONCE SHE PICKS UP THE PRESCRIPTION WITH INFORMATION REGARDING DURATION IN ORDER TO ADVISE HER ON WHETHER THE PROCEDURE CAN BE PERFORMED ON THE SCHEDULED DATE. JOSE HAYS 01/14/2020 11:40:17 AM > . DISPOSITION & COMMUNICATION FOLLOW UP POST (REASON: LEFT L4-5, L5-S1 RADIOFREQUENCY) ELECTRONICALLY SIGNED BY MASON GONSALVES ON 01/15/2020 AT 01:55 PM EDT DISCLAIMER : THIS IS A VISIT SUMMARY EXTRACTED FROM THE [employer] CHART. IT IS NOT A COPY OF THE [employer] PROGRESS NOTE. ROGERIO
== END ==
LOC: M PAIN 10:00
PROVIDERS: ATTEND Nurse Practitioner Family
DX: M47.817 Spondylosis without myelopathy or radiculopathy, lumbosacral region (principal); Z79.899 Other long term (current) drug therapy; Z98.84 Bariatric surgery status; Z87.891 Personal history of nicotine dependence

== ENCOUNTER → 2020-02-04 | Outpatient (CLI) | payer MEDICARE ==
[~2020-02-04] MED LIST changes: +BUPIVACAINE HCL 0.25% 30ML VIAL As Ordered ONE; +LIDOCAINE 1% SDV 30ML VIAL As Ordered ONE; +dexameTHASONE 10MG/1ML VIAL PRES.FREE (J1100 PER 1MG) As Ordered ONE
--- NOTE | 2020-02-04 12:55 | REP ---
Partial lumbar spine series: Two views . History: Injection procedure for pain. 143 seconds of fluoroscopy time is reported. Findings: A sequence of two fluoroscopically obtained last image hold procedural spot radiographs of the lumbar spine document needle position and contrast injection associated with injection procedure. Electronically Signed by Alvaro Coughlin MD 02/04/2020 12:47 P
--- NOTE | 2020-02-06 02:07 | ECWPNPC ---
PATIENT NAME: NEO HANSON : 1945 GENDER: FEMALE VISIT DATE: 02/04/2020 DISCHARGE DATE: 02/04/20 1306 VISIT LOCKED DATE TIME: PHYSICIAN: TONIO RAMIREZ MD RESOURCE: TONIO RAMIREZ MD REASON FOR APPOINTMENT 1. LEFT L4-5, L5-S1 RADIOFREQUENCY- KAYLIN AWARE PAT PHONE CALL COMPLETED HISTORY OF PRESENT ILLNESS HISTORY OF PRESENT ILLNESS: PAIN THE PATIENT DESCRIBES THE PAIN... FALL RISK SCREENING: SCREENING :NO FALLS REPORTED IN THE LAST YEAR CURRENT MEDICATIONS TAKING CALCIUM 600+D 600-800 MG-UNIT TABLET 2 TABLETS ORALLY ONCE A DAY, NOTES: SEVERAL DAYS AGO TAKING ONE DAILY - TABLET 1 TABLET ORALLY ONCE A DAY, NOTES: SEVERAL DAYS AGO TAKING TAMOXIFEN CITRATE 20 MG TABLET 1 TABLET ORALLY ONCE A DAY, NOTES: SEVERAL DAYS AGO TAKING VITAMIN B-12 500 MCG LOZENGE 1 LOZENGE ORALLY ONCE A DAY, NOTES: SEVERAL DAYS AGO TAKING VITAMIN D (CHOLECALCIFEROL) 1000 UNIT TABLET 1 TABLET ORALLY ONCE A DAY, NOTES: SEERAL DAYS AGO TAKING MELOXICAM 15 MG TABLET 1 TABLET ORALLY ONCE A DAY, NOTES: SEVERAL DAYS AGO TAKING VITAMIN C 500 MG CAPSULE 2 TABLETS ORALLY ONE TAB DAILY- OTC, NOTES: SEVERAL DAYS AGO TAKING DULOXETINE HCL 30 MG CAPSULE DELAYED RELEASE PARTICLES 1 CAPSULE WITH FOOD ORALLY FOR PAIN ONCE A DAY MDD1, NOTES: SEVERAL DAYS AGO MEDICATION LIST REVIEWED AND RECONCILED WITH THE PATIENT PAST MEDICAL HISTORY DEGENERATIVE DISC DISEASE ECZEMA DIABETES MELLITUS OBESITY RIGHT BREAST CANCER ALLERGIES SEASONAL: NASAL CONGESTION, ITCHY EYES - ALLERGY SURGICAL HISTORY GASTRIC BYPASS SURGERY 2012 RIGHT MASTECTOMY 05/2016 BILAT BREAST IMPLANTS 11/2018 FAMILY HISTORY FATHER: 75 YRS, EMPHYSEMA MOTHER: ALIVE 88 YRS, DEMENTIA SIBLINGS: ALIVE SON(S): ALIVE DAUGHTER(S): ALIVE 3 BROTHER(S) , 5 SISTER(S) - HEALTHY. 2 SON(S) , 1 DAUGHTER(S) - HEALTHY. MOTHER ALZHEIMER'S. SOCIAL HISTORY GENERAL: TOBACCO USE ARE YOU A:FORMER SMOKER HOW LONG HAS IT BEEN SINCE YOU LAST SMOKED?> 10 YEARS LATEX QUESTIONNAIRE LATEX ALLERGY : HAVE YOU EVER DEVELOPED ANY TYPE OF REACTION AFTER HANDLING LATEX PRODUCTS SUCH RUBBER GLOVES, CONDOMS, DIAPHRAGMS, BALLOONS, SOCKS, OR UNDERWEAR?NO LATEX ALLERGY : HAVE YOU EVER DEVELOPED ANY TYPE OF REACTION DURING OR AFTER DENTAL APPOINTMENT, VAGINAL/RECTAL EXAMINATION, SURGICAL PROCEDURE, OR ANY OTHER EXPOSURE?NO DATE ASKED : 11/09/2019 LATEX RISK : HAVE YOU EVER HAD ANY DIFFICULTY BREATHING OR HIVES AFTER EATING OR HANDLING ANY FRUITS, OR VEGETABLES; SUCH KIWI, BANANAS, STONE FRUITS, OR CHESTNUTSNO LATEX RISK : DO YOU HAVE A PREVIOUS PERSONAL HISTORY OF MORE THAN NINE SURGERIES, SPINA BIFIDA, OR REPEATED CATHERIZATIONS? NO LATEX RISK : ARE YOU FREQUENTLY EXPOSED TO LATEX PRODUCTS IN YOUR OCCUPATION?NO ALCOHOL SCREENING DID YOU HAVE A DRINK CONTAINING ALCOHOL IN THE PAST YEAR?YES HOW OFTEN DID YOU HAVE SIX OR MORE DRINKS ON ONE OCCASION IN THE PAST YEAR?LESS THAN MONTHLY (1 POINT) HOW MANY DRINKS DID YOU HAVE ON A TYPICAL DAY WHEN YOU WERE DRINKING IN THE PAST YEAR?3 OR 4 (1 POINT) HOW OFTEN DID YOU HAVE A DRINK CONTAINING ALCOHOL IN THE PAST YEAR?MONTHLY OR LESS (1 POINT) POINTS3 INTERPRETATIONPOSITIVE RECREATIONAL DRUG USE DRUG USE?NO PATIENT DENIES ABUSE OR MISSUSED OF ANY MEDICATION DENIES PATIENT DENIES USE OF ANY ILLEGAL SUBSTANCE INCLUDING MARIJUANA OR COCAINE DENIES CAFFEINE CAFFEINE USE?YES HOW OFTEN AND HOW MUCH? 3 CUPS COFFEE/DAY EPISCOPAL [id number] RESTORATION LANGUAGE LANGUAGES SPOKEN:KHMER LEARNING BARRIERS / SPECIAL NEEDS CHANGE FROM LAST VISIT?NO HEARING IMPAIRED?NO VISION IMPAIRED?NO WEARS GLASSES COGNITIVELY IMPAIRED?NO SPECIAL DEVICES?NO FREELANCE OPERATOR NEEDED?NO DOMESTIC VIOLENCE DO YOU FEEL SAFE IN YOUR ENVIRONMENT?YES OCCUPATION: RETIRED. DIET: REGULAR. EXERCISE: GYM 4 DAYS A WEEK. MARITAL STATUS: . OTHERS AT HOME: SPOUSE. NEW PATIENT PAIN DIARY TODAY'S VISIT 02/04/2020 PATIENT DESCRIBES PAIN :ACHING, HAVE IT ALL THE TIME, SHARP FROM 0-10, WHAT LEVEL IS YOUR PAIN TODAY?5 PRECIPITATING FACTORS PROLONGED STANDING, OR ACTIVITY ALLEVIATING FACTORS LAYING DOWN, HEAT, PAIN RELIEVERS IMPACT ON FUNCTION YES PAIN CLINIC PFS, CLERGY, PUBLIC HEALTH REFERRALS PFS REFERRAL NEEDED?NO CLERGY REFERRAL NEEDED?NO PUBLIC HEALTH REFERRAL NEEDED?NO WAS THE PROVIDER NOTIFIED OF ANY PERTINENT INFO?YES N/A HAS THE PATIENT BEEN EDUCATED REGARDING HIS/HER PLAN OF CARE?YES HAS THE PATIENT BEEN EDUCATED REGARDING PAIN, THE RISK FOR PAIN, THE IMPORTANCE OF EFFECTIVE PAIN MANAGEMENT, AND THE PAIN ASSESSMENT PROCESS?YES ADVANCE DIRECTIVE ADVANCE DIRECTIVE DISCUSSED WITH PATIENT:YES PT HAS HCP [facility] [phone] HOSPITALIZATION/MAJOR DIAGNOSTIC PROCEDURE SURGERIES REVIEW OF SYSTEMS REVIEWED BY: PROVIDER: TONIO RAMIREZ MD . CONSTITUTIONAL: ANY CHANGE IN YOUR MEDICAL CONDITION? NO . CHILLS NO . FEVER NO . INFECTION: DO YOU HAVE NEW INFECTIONS? YES PT REPORTS SHE HAD A BAD TOOTH (LOST PART OF A FILLING) AND COULDN'T GET IN TO SEE A DENTIST, THE DENTIST PRESCRIBED PENICILLIN, SHE REPORTS IT'S BETTER, AND PAIN FREE NOW, LAST DOSE WAS 02/01 . DO YOU HAVE HISTORY OF MRSA? NO . MUSCULOSKELETAL: ANY NEW PATTERNS OF PAIN OR NUMBNESS? NO . GASTROENTEROLOGY: ANY NEW CHANGE IN BOWEL CONTROL? NO . GENITOURINARY: ANY NEW CHANGE IN BLADDER CONTROL? NO . IS THERE A CHANCE YOU COULD BE ? NO . HEMATOLOGY/LYMPH: DO YOU TAKE ANY BLOOD THINNERS? (FOR EXAMPLE- COUMADIN, PLAVIX, AGGRENOX, PLATEL, PRADAXA, OR XARELTO) NO . WHEN WAS YOUR LAST DOSE? DATE: TIME: . NEUROLOGY: HAVE YOU FALLEN IN THE PAST 12 MONTHS? NO . ANY NEW EXTREMITY NUMBNESS OR WEAKNESS? NO . CARDIOLOGY: DO YOU HAVE A PACEMAKER OR DEFIBRILLATOR? NO . RESPIRATORY: HAVE YOU BEEN SICK IN THE PAST WEEK? NO . FEVER NO . FLU LIKE SYMPTOMS? NO . COUGH NO . INTEGUMENTARY: DO YOU HAVE ANY RASHES OR OPEN SORES? YES PT REPORTS SHE HAS A NEW PUPPY AND HAS SCRATCHES ON HER ARMS AND LEGS . ALLERGIC/IMMUNO: ARE YOU ALLERGIC TO IV DYE? NO . ANY NEW ALLERGIES? NO . PSYCHIATRIC: DO YOU HAVE THOUGHTS OF HURTING YOURSELF OR SOMEONE ELSE? NO . ARE YOU ABUSED, NEGLECTED, OR IN AN UNSAFE ENVIRONMENT? NO . ENDOCRINOLOGY: ARE YOU DIABETIC? NO . OTHER: DO YOU NEED ANY PRESCRIPTIONS? NO . IF YES, PLEASE LIST: ____ . ANY NEW PROBLEMS WITH YOUR MEDICATIONS? NO . WHEN DID YOU LAST EAT? 02/03 6P . WHEN DID YOU LAST DRINK? 02/03 6P . WHAT DID YOU LAST DRINK? WATER . NAME OF PERSON DRIVING YOU HOME? ____HUSBAND LONNY . DO YOU HAVE ANY OTHER QUESTIONS OR CONCERNS NO . VITAL SIGNS WT 153.2 LBS, HT 63", BMI 27.14 INDEX, BP 160/78 MM HG, HR 77 /MIN, RR 18 /MIN, TEMP 97.7 F, OXYGEN SAT % 96%, SAFE IN ENV? (Y/N) YES, NA INITIALS AW 0923, REVIEWED BY: BRETT. 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 LUMBAR SPONDYLOSIS. 2. LUMBOSACRAL SPONDYLOSIS. POST PROCEDURE DIAGNOSES: 1. LUMBAR SPONDYLOSIS. 2. LUMBOSACRAL SPONDYLOSIS. PROCEDURE: LEFT L4-L5 AND LEFT L5-S1 LUMBAR FACET RADIOFREQUENCY. SURGEON: DR. TONIO RAMIREZ. PERSONAL CARE ATTENDANT: NONE. ANESTHESIA: LOCAL. PRE PROCEDURE REPORT: THE PATIENT HAS HISTORY OF CHRONIC LOW BACK PAIN. I EVALUATED THE PATIENT AND REVIEWED THE CHART. I WENT OVER THE RISKS, ALTERNATIVES, AND BENEFITS ASSOCIATED WITH THIS PROCEDURE. I DISCUSSED THAT THE USE OF STEROIDS MAY CONTRIBUTE TO IMMUNOSUPPRESSION OF THE PATIENT'S BODY AGAINST INFECTIONS SUCH THE HAYES VIRUS, COVID-19. THE PATIENT IS AWARE OF THE POTENTIAL COMPLICATIONS ASSOCIATED WITH AN INFECTION OF THIS VIRUS INCLUDING . THE PATIENT WOULD LIKE TO PROCEED AND GIVE CONSENT TO PERFORMED THE PROCEDURE. THE PATIENT DENIES UNEXPLAINABLE WEIGHT LOSS, FEVER, CHILLS, OR NEW CHANGES IN URINARY OR BOWEL CONTROL. THE PATIENT IS COVID-19 NEGATIVE.DESCRIPTION OF PROCEDURE: THE PATIENT WAS BROUGHT TO THE PROCEDURE ROOM AND PLACED IN THE PRONE POSITION. THE LUMBOSACRAL AREA WAS CLEANED WITH CHLORAPREP SOLUTION AND DRAPED ASEPTICALLY. THE PROCEDURE WAS DONE UNDER STERILE CONDITIONS. I CHECKED LATERALITY AND THE LEVEL WHERE THE PROCEDURE WAS GOING TO BE PERFORMED WITH THE PATIENT AND THE SUPPORTING STAFF AT THE MOMENT OF THE TIME OUT IN THE PROCEDURE ROOM. UNDER FLUOROSCOPIC GUIDANCE, TARGETS WERE SELECTED AT THE INTERSECTION OF THE LEFT TRANSVERSE PROCESS OF L4, L5 AND ALA OF S1 WITH ITS RESPECTIVE SUPERIOR ARTICULAR PROCESS. LIDOCAINE WAS USED TO NUMB THE SKIN AND THE SUBCUTANEOUS TISSUE BELOW IT. RADIOFREQUENCY NEEDLES, 17-GAUGE, 15 CM LONG WITH 4 MM ACTIVE TIP, WERE ADVANCED UNDER FLUOROSCOPIC GUIDANCE AND FOLLOWING PATIENT FEEDBACK UNTIL THE TARGET AREA WAS REACHED. POSITION OF THE NEEDLES WAS VERIFIED WITH AP AND LATERAL VIEWS. AFTER PROPER POSITION OF THE NEEDLE WAS ACHIEVED, WE WORKED WITH THE LEFT SELECTED MEDIAN BRANCHES OF L3, L4 AND THE DORSAL RAMI OF L5. WE MEASURED THE CORRESPONDING IMPEDANCES AND MOTOR RESPONSES INDICATED IN THE RADIOFREQUENCY WORKSHEET. POSITION OF THE NEEDLES WAS VERIFIED AGAIN WITH AP AND LATERAL VIEWS. LIDOCAINE 1%, 2 ML, WAS INJECTED AT EACH LEVEL. RADIOFREQUENCY WAS DONE AT EACH LEVEL USING THE [employer] SYSTEM-- COOLED RF-- WITH A SETTING AT THE MACHINE OF 60 DEGREES WITH A TARGET TISSUE TEMPERATURE OF 80 TO 90 DEGREES FOR A MINIMUM OF 150 SECONDS. AFTER RADIOFREQUENCY WAS DONE, THE PATIENT RECEIVED BUPIVACAINE 0.125% 1 ML WITH DEXAMETHASONE 2 MG AT EACH SITE. THERE WAS NO EVIDENCE OF BLOOD, PARESTHESIA OR CEREBROSPINAL FLUID DURING THE PROCEDURE. THE PATIENT WAS SENT TO THE RECOVERY ROOM. THE PATIENT WAS MOVING THE EXTREMITIES AND DOING WELL. THERE WAS NO COMPLICATION DURING THE PROCEDURE. FLUOROSCOPY TIME WAS 1 MINUTE 43 SECONDS. POST PROCEDURE NOTE: THE PATIENT WILL BE SEEN IN A FOLLOW UP IN THE NEXT FEW WEEKS. INSTRUCTIONS WERE GIVEN, QUESTIONS WERE ANSWERED, AND THE PATIENT EXPRESSED UNDERSTANDING AND AGREES WITH THE PLAN. THE PATIENT IS AWARE TO STAY HOME FOR THE NEXT WEEK, IF POSSIBLE, DUE TO COVID-19. I, JEOVANY MORALES, DOCUMENTED THE ABOVE INFORMATION ACTING A SCRIBE FOR DR. RAMIREZ. I HAVE REVIEWED THE ABOVE DOCUMENT, WRITTEN BY SAUMYA NOVOA, AND I VERIFY THAT IT IS ACCURATE. PROCEDURE CODES 10282 DESTROY LUMB/SAC FACET JNT, [place]IF[place]: [place] [address]32 DESTROY L/S FACET JNT ADDL, MODIFIERS: LT DISPOSITION & COMMUNICATION FOLLOW UP F/UP WITH FLEET SALES ASSOCIATE (REASON: POST COOL RF-LT L4-L5, L5-S1) ELECTRONICALLY SIGNED BY TONIO RAMIREZ MD, MD ON 02/05/2020 AT 05:07 PM EDT DISCLAIMER : THIS IS A VISIT SUMMARY EXTRACTED FROM THE [employer] CHART. IT IS NOT A COPY OF THE [employer] PROGRESS NOTE. JAGDISHD
== END ==
LOC: M PAIN 09:45
PROVIDERS: ATTEND Anesthesiology
DX: M47.816 Spondylosis without myelopathy or radiculopathy, lumbar region (principal); M47.817 Spondylosis without myelopathy or radiculopathy, lumbosacral region
CPT/HCPCS: 64635; 64636; J1100

== ENCOUNTER → 2020-02-23 | Outpatient (CLI) | payer MEDICARE ==
[~2020-02-23] MED LIST changes: -BUPIVACAINE HCL 0.25% 30ML VIAL As Ordered ONE; +DULO1CAP5 PO; -LIDOCAINE 1% SDV 30ML VIAL As Ordered ONE; +MELO15TA28 PO; +TAMO10TA PO; +VITAD1000T PO; -dexameTHASONE 10MG/1ML VIAL PRES.FREE (J1100 PER 1MG) As Ordered ONE
--- NOTE | 2020-02-25 01:18 | ECWPNPC ---
PATIENT NAME: NEO HANSON : 1945 GENDER: FEMALE VISIT DATE: 02/23/2020 DISCHARGE DATE: 02/23/20 0759 VISIT LOCKED DATE TIME: PHYSICIAN: LAURA CLIFFORD RESOURCE: LAUAR CLIFFORD REASON FOR APPOINTMENT 1. POST COOL RF-LT L4-L5, L5-S1; [phone] HISTORY OF PRESENT ILLNESS GENERAL: NOE IS AGREEABLE TO TELEPHONE VISIT TODAY. HAD LEFT L4-5, L5-S1 RADIOFREQUENCY ON 02/04/2020. REPORTING IMPROVEMENT SIGNIFICANTLY SINCE PROCEDURE ON THE LEFT SIDE. CONTINUES WITH RIGHT LOW BACK PAIN. DISCUSSED DIAGNOSTIC TESTING#2 FOR THE RIGHT SIDE TO PROCEED WITH RADIOFREQUENCY IN THE FUTURE. PATIENT IS RECEPTIVE. COMPLAINING OF SOME LEFT SCIATIC PAIN.-. FALL RISK SCREENING: SCREENING :NO FALLS REPORTED IN THE LAST YEAR PAIN SCREENING: PATIENT HAS A COMPLAINT OF ACUTE OR CHRONIC PAIN :YES 02/23/20 INTENSITY OF PAIN (SCALE OF 1 TO 10):5 WHAT DOES YOUR PAIN FEEL LIKE:ACHING, CONTINOUS PAIN IS INCREASED BY: SITTING, STANDING PAIN IS DECREASED BY: NOTHING NURSING NOTE: -. PAIN CENTER INTAKE QUESTIONS: DO YOU HAVE A HISTORY OF MRSA? :NO DO YOU TAKE A BLOOD THINNERS? :NO DO YOU HAVE ANY BLEEDING DISORDERS? :NO ANY NEW NUMBNESS OR WEAKNESS IN YOUR LEGS OR ARMS? :NO ANY PACEMAKER,DEFIBRILLATOR, OR DORSAL COLUMN STIMULATOR? :NO DO YOU HAVE ANY RASHES OR OPEN SORES? :NO ARE YOU ALLERGIC TO IV DYE? :NO ARE YOU DIABETIC? :NO ANY NEW PROBLEMS WITH YOUR MEDICATIONS? :NO HAVE YOU RECEIVED A VACCINE IN THE PAST 30 DAYS? :NO DO YOU PLAN TO RECEIVE A VACCINE IN THE NEXT 21 DAYS? :NO DO YOU NEED ANY PRESCRIPTION? :NO DO YOU TAKE ANY IMMUNOSUPPRESSIVE MEDICATIONS? :NO IS THERE A CHANCE YOU COULD BE ? :NO ARE YOU BREAST FEEDING? :NO CURRENT MEDICATIONS TAKING CALCIUM 600+D 600-800 MG-UNIT TABLET 2 TABLETS ORALLY ONCE A DAY TAKING ONE DAILY - TABLET 1 TABLET ORALLY ONCE A DAY TAKING TAMOXIFEN CITRATE 20 MG TABLET 1 TABLET ORALLY ONCE A DAY TAKING VITAMIN B-12 500 MCG LOZENGE 1 LOZENGE ORALLY ONCE A DAY TAKING VITAMIN D (CHOLECALCIFEROL) 1000 UNIT TABLET 1 TABLET ORALLY ONCE A DAY TAKING MELOXICAM 15 MG TABLET 1 TABLET ORALLY ONCE A DAY TAKING VITAMIN C 500 MG CAPSULE 2 TABLETS ORALLY ONE TAB DAILY- OTC TAKING DULOXETINE HCL 30 MG CAPSULE DELAYED RELEASE PARTICLES 1 CAPSULE WITH FOOD ORALLY FOR PAIN ONCE A DAY MDD1 MEDICATION LIST REVIEWED AND RECONCILED WITH THE PATIENT PAST MEDICAL HISTORY DEGENERATIVE DISC DISEASE ECZEMA DIABETES MELLITUS OBESITY RIGHT BREAST CANCER ALLERGIES SEASONAL: NASAL CONGESTION, ITCHY EYES - ALLERGY SURGICAL HISTORY GASTRIC BYPASS SURGERY 2012 RIGHT MASTECTOMY 05/2016 BILAT BREAST IMPLANTS 11/2018 FAMILY HISTORY FATHER: 75 YRS, EMPHYSEMA MOTHER: ALIVE 88 YRS, DEMENTIA SIBLINGS: ALIVE SON(S): ALIVE DAUGHTER(S): ALIVE 3 BROTHER(S) , 5 SISTER(S) - HEALTHY. 2 SON(S) , 1 DAUGHTER(S) - HEALTHY. MOTHER ALZHEIMER'S. SOCIAL HISTORY GENERAL: TOBACCO USE ARE YOU A:FORMER SMOKER HOW LONG HAS IT BEEN SINCE YOU LAST SMOKED?> 10 YEARS LATEX QUESTIONNAIRE LATEX ALLERGY : HAVE YOU EVER DEVELOPED ANY TYPE OF REACTION AFTER HANDLING LATEX PRODUCTS SUCH RUBBER GLOVES, CONDOMS, DIAPHRAGMS, BALLOONS, SOCKS, OR UNDERWEAR?NO LATEX ALLERGY : HAVE YOU EVER DEVELOPED ANY TYPE OF REACTION DURING OR AFTER DENTAL APPOINTMENT, VAGINAL/RECTAL EXAMINATION, SURGICAL PROCEDURE, OR ANY OTHER EXPOSURE?NO DATE ASKED : 11/09/2019 LATEX RISK : HAVE YOU EVER HAD ANY DIFFICULTY BREATHING OR HIVES AFTER EATING OR HANDLING ANY FRUITS, OR VEGETABLES; SUCH KIWI, BANANAS, STONE FRUITS, OR CHESTNUTSNO LATEX RISK : DO YOU HAVE A PREVIOUS PERSONAL HISTORY OF MORE THAN NINE SURGERIES, SPINA BIFIDA, OR REPEATED CATHERIZATIONS? NO LATEX RISK : ARE YOU FREQUENTLY EXPOSED TO LATEX PRODUCTS IN YOUR OCCUPATION?NO ALCOHOL SCREENING DID YOU HAVE A DRINK CONTAINING ALCOHOL IN THE PAST YEAR?YES HOW OFTEN DID YOU HAVE SIX OR MORE DRINKS ON ONE OCCASION IN THE PAST YEAR?LESS THAN MONTHLY (1 POINT) HOW MANY DRINKS DID YOU HAVE ON A TYPICAL DAY WHEN YOU WERE DRINKING IN THE PAST YEAR?3 OR 4 (1 POINT) HOW OFTEN DID YOU HAVE A DRINK CONTAINING ALCOHOL IN THE PAST YEAR?MONTHLY OR LESS (1 POINT) POINTS3 INTERPRETATIONPOSITIVE RECREATIONAL DRUG USE DRUG USE?NO PATIENT DENIES ABUSE OR MISSUSED OF ANY MEDICATION DENIES PATIENT DENIES USE OF ANY ILLEGAL SUBSTANCE INCLUDING MARIJUANA OR COCAINE DENIES CAFFEINE CAFFEINE USE?YES HOW OFTEN AND HOW MUCH? 3 CUPS COFFEE/DAY JEHOVAH'S WITNESS [id number] [employer] LANGUAGE LANGUAGES SPOKEN:[place] LEARNING BARRIERS / SPECIAL NEEDS CHANGE FROM LAST VISIT?NO HEARING IMPAIRED?NO VISION IMPAIRED?NO WEARS GLASSES COGNITIVELY IMPAIRED?NO SPECIAL DEVICES?NO IMPROVEMENT COORDINATOR NEEDED?NO DOMESTIC VIOLENCE DO YOU FEEL SAFE IN YOUR ENVIRONMENT?YES OCCUPATION: RETIRED. DIET: REGULAR. EXERCISE: GYM 4 DAYS A WEEK. MARITAL STATUS: . OTHERS AT HOME: SPOUSE. NEW PATIENT PAIN DIARY TODAY'S VISIT 02/04/2020 PATIENT DESCRIBES PAIN :ACHING, HAVE IT ALL THE TIME, SHARP FROM 0-10, WHAT LEVEL IS YOUR PAIN TODAY?5 PRECIPITATING FACTORS PROLONGED STANDING, OR ACTIVITY ALLEVIATING FACTORS LAYING DOWN, HEAT, PAIN RELIEVERS IMPACT ON FUNCTION YES PAIN CLINIC PFS, CLERGY, PUBLIC HEALTH REFERRALS PFS REFERRAL NEEDED?NO CLERGY REFERRAL NEEDED?NO PUBLIC HEALTH REFERRAL NEEDED?NO WAS THE PROVIDER NOTIFIED OF ANY PERTINENT INFO?YES N/A HAS THE PATIENT BEEN EDUCATED REGARDING HIS/HER PLAN OF CARE?YES HAS THE PATIENT BEEN EDUCATED REGARDING PAIN, THE RISK FOR PAIN, THE IMPORTANCE OF EFFECTIVE PAIN MANAGEMENT, AND THE PAIN ASSESSMENT PROCESS?YES ADVANCE DIRECTIVE ADVANCE DIRECTIVE DISCUSSED WITH PATIENT:YES PT HAS HCP [facility] [phone] HOSPITALIZATION/MAJOR DIAGNOSTIC PROCEDURE SURGERIES REVIEW OF SYSTEMS CONSTITUTIONAL: ANY RECENT FEVER OR ILLNESS NO . CHILLS NO . GASTROENTEROLOGY: BOWEL INCONTINENCE NO . ANY NEW CHANGE IN BOWEL CONTROL? NO . ABDOMINAL PAIN NO . CONSTIPATION NO . GENITOURINARY: ANY NEW CHANGE IN BLADDER CONTROL? NO . IS THERE A CHANCE YOU COULD BE ? NO . URINARY INCONTINENCE NO . CARDIOLOGY: CHEST PRESSURE NO . CHEST PAIN NO . RESPIRATORY: COUGH NO . SHORTNESS OF BREATH NO . ASSESSMENTS SPONDYLOSIS OF LUMBOSACRAL REGION WITHOUT MYELOPATHY OR RADICULOPATHY - M47.817 (PRIMARY) TREATMENT SPONDYLOSIS OF LUMBOSACRAL REGION WITHOUT MYELOPATHY OR RADICULOPATHY NOTES: RIGHT L4-5, L5-S1 DIAGNOSTIC LUMBAR FACET BLOCK #2 TREATMENT PLAN WAS REVIEWED AT LENGTH WITH PATIENT. SHE WAS GIVEN TIME TO HAVE HER QUESTIONS ANSWERED. TOTAL TIME SPENT DURING TELEPHONE VISIT WAS APPROXIMATELY 12 MINUTES. OTHERS CLINICAL NOTES: PRE SCREENING CALL DONE 02/23/20 EM. DISPOSITION & COMMUNICATION FOLLOW UP POST (REASON: RIGHT L4-5, L5-S1 DIAGNOSTIC LUMBAR FACET BLOCK) ELECTRONICALLY SIGNED BY MASON GONSALVES ON 02/24/2020 AT 02:57 PM EDT DISCLAIMER : THIS IS A VISIT SUMMARY EXTRACTED FROM THE [employer] CHART. IT IS NOT A COPY OF THE [facility] PROGRESS NOTE. MTDD
== END ==
LOC: M PAIN 09:30
PROVIDERS: ATTEND Nurse Practitioner Family
DX: M47.817 Spondylosis without myelopathy or radiculopathy, lumbosacral region (principal)

== ENCOUNTER → 2020-02-26 | Outpatient (CLI) | payer MEDICARE | LOC: M LABSMTC 11:19 | PROVIDERS: ATTEND Anesthesiology | DX: Z01.818 Encounter for other preprocedural examination (principal); Z11.59 Encounter for screening for other viral diseases; Z03.818 Encounter for observation for suspected exposure to other biological agents ruled out | CPT/HCPCS: C9803; U0003 ==

== ENCOUNTER → 2020-02-29 | Day surgery (SDC) | payer MEDICARE ==
[~2020-02-29] VITALS: Ht 160 cm; Wt 72.6 kg
[~2020-02-29] MED LIST changes: +BALANCED SALT IRRIGATION SOLUTION 500ML BAG (FOR OR EYE MACHINE) As Ordered ONE; +CEFUROXIME 1MG/0.1ML INTRACAMERAL INJ As Ordered ONE; +CYCLOPENTOLATE 2% OPHTH SOLN 2ML BTL OD ONE; +HEALON DUET PRO(HEALON 10MG/ML 0.55ML & HEALON ENDOCOAT 30MG/ML 0.85ML) As Ordered ONE; +LIDOCAINE 1% MDV 20ML VIAL SQ PRN; +LIDOCAINE 1% SDV 5ML VIAL As Ordered ONE; +LIDOCAINE 3.5 % 1ML OPHTH TOPICAL GEL OU ONE; +MIDAZOLAM INJ 2MG/2ML VIAL (J2250 PER 1MG) As Ordered ONE; +OFLOXACIN 0.3 % (OCUFLOX) OPTH SOL 5ML OD ONE; +PHENYLEPHRINE 2.5% OPHTH SOL 2ML OD ONE; +PHENYLEPHRINE HCL 10 % OPHTH. SOL 5ML OD PRN; +POVIDONE-IODINE 5% OPHTH PREP SOL 30ML As Ordered ONE; +TROPICAMIDE 1% OPHTH SOLN 2ML OD ONE; +fentaNYL 250 MCG/5 ML INJECTION (J3010) As Ordered ONE
[2020-02-29 12:15] VITALS: BP 122/69
--- NOTE | 2020-03-02 08:56 | RO ---
DATE OF PROCEDURE: 02/29/2020 DATE OF PROCEDURE: 02/29/2020 PREPROCEDURE DIAGNOSIS: Age related nuclear cataract right eye. POSTPROCEDURE DIAGNOSIS: Age related nuclear cataract right eye. PROCEDURE: Phacoemulsification and posterior chamber intraocular lens implantation right eye. The lens used was [id number], 21.5 diopters. SURGEON: Milena Sim MD MECHANICAL UNIT REPAIRER: ANESTHESIA: Topical with sedation. DESCRIPTION OF PROCEDURE: The patient was prepped and draped in the usual fashion. A lid speculum was placed between the lids. The eye was fixated. A stab incision was made to the anterior chamber, and 1% nonpreserved lidocaine was instilled. Then, viscoelastic was instilled. The eye was re-fixated. A 2.75 mm sapphire keratome was used to make a clear corneal temporal limbal incision. Capsulorrhexis was begun with a 30-gauge bent needle and then carried out in a circular fashion with capsulorrhexis forceps. The lens was hydrodissected, and then the phacoemulsification unit was used to make a groove in the nucleus in two meridians. The nucleus was then cracked into four quadrants. Each quadrant was removed with the phacoemulsification unit. Any remaining cortex was removed with the irrigation and aspiration (I and A) unit. Capsular bag was refilled with viscoelastic. A posterior chamber intraocular lens was placed in the capsular bag without difficulty. Any remaining viscoelastic was removed with the I and A unit. The wound was hydrated, and Miochol and cefuroxime were instilled into the anterior chamber. The patient tolerated the procedure well and went to the recovery room in stable condition.
== END | disposition home or self-care (01) ==
LOC: M SDC 09:21
PROVIDERS: ATTEND Ophthalmology
DX: H25.11 Age-related nuclear cataract, right eye (principal); Z85.3 Personal history of malignant neoplasm of breast; Z98.84 Bariatric surgery status; Z79.899 Other long term (current) drug therapy
CPT/HCPCS: 66984; 92015; J2250; J3010; V2632

== ENCOUNTER → 2020-03-06 | Outpatient (CLI) | payer MEDICARE ==
[~2020-03-06] MED LIST changes: -BALANCED SALT IRRIGATION SOLUTION 500ML BAG (FOR OR EYE MACHINE) As Ordered ONE; -CEFUROXIME 1MG/0.1ML INTRACAMERAL INJ As Ordered ONE; -CYCLOPENTOLATE 2% OPHTH SOLN 2ML BTL OD ONE; -HEALON DUET PRO(HEALON 10MG/ML 0.55ML & HEALON ENDOCOAT 30MG/ML 0.85ML) As Ordered ONE; -LIDOCAINE 1% MDV 20ML VIAL SQ PRN; -LIDOCAINE 1% SDV 5ML VIAL As Ordered ONE; -LIDOCAINE 3.5 % 1ML OPHTH TOPICAL GEL OU ONE; -MIDAZOLAM INJ 2MG/2ML VIAL (J2250 PER 1MG) As Ordered ONE; -OFLOXACIN 0.3 % (OCUFLOX) OPTH SOL 5ML OD ONE; -PHENYLEPHRINE 2.5% OPHTH SOL 2ML OD ONE; -PHENYLEPHRINE HCL 10 % OPHTH. SOL 5ML OD PRN; -POVIDONE-IODINE 5% OPHTH PREP SOL 30ML As Ordered ONE; -TROPICAMIDE 1% OPHTH SOLN 2ML OD ONE; -fentaNYL 250 MCG/5 ML INJECTION (J3010) As Ordered ONE
== END ==
LOC: M LABSMTC 10:24
PROVIDERS: ATTEND Anesthesiology
DX: Z11.59 Encounter for screening for other viral diseases (principal); Z03.818 Encounter for observation for suspected exposure to other biological agents ruled out
CPT/HCPCS: C9803; U0003

== ENCOUNTER → 2020-03-09 | Outpatient (CLI) | payer MEDICARE ==
[~2020-03-09] MED LIST changes: +BUPIVACAINE HCL 0.25% 30ML VIAL As Ordered ONE; +ISOVUE-M 300 61% 15ML VIAL As Ordered ONE; +LIDOCAINE 1% SDV 30ML VIAL As Ordered ONE
--- NOTE | 2020-03-09 16:04 | REP ---
C-ARM VIEW LUMBAR SPINE: Single C-arm view of the lumbar spine performed during right lumbar facet joint injections by Dr. Griggs. [place] are seen along the lower lumbar facet joints on the right side. A small amount of contrast is injected. 18 seconds of fluoroscopy time is utilized. Electronically Signed by George Moser MD 03/09/2020 07:40 P
--- NOTE | 2020-03-10 00:27 | ECWPNPC ---
PATIENT NAME: NEO HANSON : 1945 GENDER: FEMALE VISIT DATE: 03/09/2020 DISCHARGE DATE: 03/09/20 1453 VISIT LOCKED DATE TIME: PHYSICIAN: TONIO RAMIREZ MD RESOURCE: TONIO RAMIREZ MD REASON FOR APPOINTMENT 1. RT L4/L5, L5/S1 DX LFB- PAT COMPLETED HISTORY OF PRESENT ILLNESS GENERAL: -. FALL RISK SCREENING: SCREENING :NO FALLS REPORTED IN THE LAST YEAR PAIN SCREENING: PATIENT HAS A COMPLAINT OF ACUTE OR CHRONIC PAIN :YES LOCATION OF PAIN:LOW BACK, LEFT HIP, RIGHT HIP, LEG(S) LEFT LEG INTENSITY OF PAIN (SCALE OF 1 TO 10):8 WHAT DOES YOUR PAIN FEEL LIKE:ACHING, CONTINOUS DURATION:CONSTANT PAIN IS INCREASED BY:PROLONGED STANDING, OTHERS SITTING TO LONG PAIN IS DECREASED BY: NOTHING HELPS THE PAIN RIGHT NOW NURSING NOTE: -. PAIN CENTER INTAKE QUESTIONS: DO YOU HAVE A HISTORY OF MRSA? :NO DO YOU TAKE A BLOOD THINNERS? :NO DO YOU HAVE ANY BLEEDING DISORDERS? :NO ANY NEW NUMBNESS OR WEAKNESS IN YOUR LEGS OR ARMS? :NO ANY PACEMAKER,DEFIBRILLATOR, OR DORSAL COLUMN STIMULATOR? :NO DO YOU HAVE ANY RASHES OR OPEN SORES? :NO ARE YOU ALLERGIC TO IV DYE? :NO ARE YOU DIABETIC? :NO ANY NEW PROBLEMS WITH YOUR MEDICATIONS? :NO HAVE YOU RECEIVED A VACCINE IN THE PAST 30 DAYS? :NO DO YOU PLAN TO RECEIVE A VACCINE IN THE NEXT 21 DAYS? :NO DO YOU TAKE ANY IMMUNOSUPPRESSIVE MEDICATIONS? :NO ANY HISTORY OF SEIZURES? :NO ANY HISTORY OF CARDIAC ISSUES OR EVENTS? :NO DO YOU HAVE SLEEP APNEA? :NO ANY RECENT HEAD INJURY? :NO DO YOU HAVE ANY NEW INFECTIONS? :NO IS THERE A CHANCE YOU COULD BE ? :NO ARE YOU BREAST FEEDING? :NO WHEN DID YOU LAST EAT? : 03/08/2020 1830 WHEN DID YOU LAST DRINK? : 03/09/2020 1200 WHAT DID YOU LAST DRINK? : WATER NAME OF PERSON DRIVING YOU HOME? : DO YOU HAVE ANY OTHER QUESTIONS OR CONCERNS? : - CURRENT MEDICATIONS TAKING CALCIUM 600+D 600-800 MG-UNIT TABLET 2 TABLETS ORALLY ONCE A DAY, NOTES: 03/08/2020 0900 TAKING ONE DAILY - TABLET 1 TABLET ORALLY ONCE A DAY, NOTES: 03/08/2020 0900 TAKING TAMOXIFEN CITRATE 20 MG TABLET 1 TABLET ORALLY ONCE A DAY, NOTES: 03/08/2020899 TAKING VITAMIN B-12 500 MCG LOZENGE 1 LOZENGE ORALLY ONCE A DAY, NOTES: 03/08/2020899 TAKING VITAMIN D (CHOLECALCIFEROL) 1000 UNIT TABLET 1 TABLET ORALLY ONCE A DAY, NOTES: 03/08/2020899 TAKING MELOXICAM 15 MG TABLET 1 TABLET ORALLY ONCE A DAY, NOTES: 03/08/2020899 TAKING VITAMIN C 500 MG CAPSULE 2 TABLETS ORALLY ONE TAB DAILY- OTC, NOTES: 03/08/2020899 TAKING DULOXETINE HCL 30 MG CAPSULE DELAYED RELEASE PARTICLES 1 CAPSULE WITH FOOD ORALLY FOR PAIN ONCE A DAY MDD1, NOTES: 03/08/2020899 MEDICATION LIST REVIEWED AND RECONCILED WITH THE PATIENT PAST MEDICAL HISTORY DEGENERATIVE DISC DISEASE ECZEMA DIABETES MELLITUS OBESITY RIGHT BREAST CANCER ALLERGIES SEASONAL: NASAL CONGESTION, ITCHY EYES - ALLERGY SURGICAL HISTORY GASTRIC BYPASS SURGERY 2011 RIGHT MASTECTOMY 05/2016 BILAT BREAST IMPLANTS 11/2018 FAMILY HISTORY FATHER: 75 YRS, EMPHYSEMA MOTHER: ALIVE 88 YRS, DEMENTIA SIBLINGS: ALIVE SON(S): ALIVE DAUGHTER(S): ALIVE 3 BROTHER(S) , 5 SISTER(S) - HEALTHY. 2 SON(S) , 1 DAUGHTER(S) - HEALTHY. MOTHER ALZHEIMER'S. SOCIAL HISTORY GENERAL: TOBACCO USE ARE YOU A:FORMER SMOKER HOW LONG HAS IT BEEN SINCE YOU LAST SMOKED?> 10 YEARS LATEX QUESTIONNAIRE LATEX ALLERGY : HAVE YOU EVER DEVELOPED ANY TYPE OF REACTION AFTER HANDLING LATEX PRODUCTS SUCH RUBBER GLOVES, CONDOMS, DIAPHRAGMS, BALLOONS, SOCKS, OR UNDERWEAR?NO LATEX ALLERGY : HAVE YOU EVER DEVELOPED ANY TYPE OF REACTION DURING OR AFTER DENTAL APPOINTMENT, VAGINAL/RECTAL EXAMINATION, SURGICAL PROCEDURE, OR ANY OTHER EXPOSURE?NO LATEX RISK : HAVE YOU EVER HAD ANY DIFFICULTY BREATHING OR HIVES AFTER EATING OR HANDLING ANY FRUITS, OR VEGETABLES; SUCH KIWI, BANANAS, STONE FRUITS, OR CHESTNUTSNO LATEX RISK : DO YOU HAVE A PREVIOUS PERSONAL HISTORY OF MORE THAN NINE SURGERIES, SPINA BIFIDA, OR REPEATED CATHERIZATIONS? NO LATEX RISK : ARE YOU FREQUENTLY EXPOSED TO LATEX PRODUCTS IN YOUR OCCUPATION?NO DATE ASKED : 03/08/2020 ALCOHOL SCREENING DID YOU HAVE A DRINK CONTAINING ALCOHOL IN THE PAST YEAR?YES HOW OFTEN DID YOU HAVE SIX OR MORE DRINKS ON ONE OCCASION IN THE PAST YEAR?LESS THAN MONTHLY (1 POINT) HOW MANY DRINKS DID YOU HAVE ON A TYPICAL DAY WHEN YOU WERE DRINKING IN THE PAST YEAR?3 OR 4 (1 POINT) HOW OFTEN DID YOU HAVE A DRINK CONTAINING ALCOHOL IN THE PAST YEAR?MONTHLY OR LESS (1 POINT) POINTS3 INTERPRETATIONPOSITIVE RECREATIONAL DRUG USE DRUG USE?NO PATIENT DENIES ABUSE OR MISSUSED OF ANY MEDICATION DENIES PATIENT DENIES USE OF ANY ILLEGAL SUBSTANCE INCLUDING MARIJUANA OR COCAINE DENIES CAFFEINE CAFFEINE USE?YES HOW OFTEN AND HOW MUCH? 3 CUPS COFFEE/DAY CHURCH [id number] AMISH LANGUAGE LANGUAGES SPOKEN:LITHUANIAN LEARNING BARRIERS / SPECIAL NEEDS CHANGE FROM LAST VISIT?NO HEARING IMPAIRED?NO VISION IMPAIRED?NO WEARS GLASSES COGNITIVELY IMPAIRED?NO SPECIAL DEVICES?NO FOOD TECHNOLOGY TEACHER NEEDED?NO DOMESTIC VIOLENCE DO YOU FEEL SAFE IN YOUR ENVIRONMENT?YES OCCUPATION: RETIRED. DIET: REGULAR. EXERCISE: GYM 4 DAYS A WEEK. MARITAL STATUS: . OTHERS AT HOME: SPOUSE. PAIN CLINIC PFS, CLERGY, PUBLIC HEALTH REFERRALS PFS REFERRAL NEEDED?NO CLERGY REFERRAL NEEDED?NO PUBLIC HEALTH REFERRAL NEEDED?NO WAS THE PROVIDER NOTIFIED OF ANY PERTINENT INFO?YES N/A HAS THE PATIENT BEEN EDUCATED REGARDING HIS/HER PLAN OF CARE?YES HAS THE PATIENT BEEN EDUCATED REGARDING PAIN, THE RISK FOR PAIN, THE IMPORTANCE OF EFFECTIVE PAIN MANAGEMENT, AND THE PAIN ASSESSMENT PROCESS?YES ADVANCE DIRECTIVE ADVANCE DIRECTIVE DISCUSSED WITH PATIENT:YES PT HAS HCP [facility] [phone] HOSPITALIZATION/MAJOR DIAGNOSTIC PROCEDURE SURGERIES VITAL SIGNS WT 163.6 LBS, HT 63", BMI 28.98 INDEX, BP 167/76 MM HG, HR 74 /MIN, RR 18 /MIN, TEMP 96.3 F, OXYGEN SAT % 97%, SAFE IN ENV? (Y/N) YES, NA INITIALS AW 1325, REVIEWED BY: BRETT. EXAMINATION GENERAL EXAMINATION: THE PATIENT IS ALERT, ORIENTED TIMES THREE AND COOPERATIVE. HEART SHOWS REGULAR RHYTHM, NO MURMURS AND NO GALLOPS. LUNGS ARE CLEAR TO AUSCULTATION. 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 BRETT. SPONDYLOSIS OF LUMBOSACRAL REGION WITHOUT MYELOPATHY OR RADICULOPATHY SMC FACET BLOCK (PAIN)[id number] PROCEDURES PAIN NURSING RECORD PRE-PROCEDURE IV SITE N/A PROCEDURE IN ROOM 1420, PHYSICIAN IN ROOM 1430, START 1434, FINISH 1438, PHYSICIAN OUT OF ROOM 1440, OUT OF ROOM 1445, STEROID N/A, O2 RA, ECG NORMAL SINUS, PATIENT SHIELDED YES, SAFETY STRAP YES, PREP CHLOROPREP BY Ernesitna FIGUEROA RN, IV INFUSED N/A, DRESSING TEGADERM BY DR RAMIREZ LOC: LOLITA JOHNSON 03/09/2020 2:24:49 PM > , 1. ALERT, ORIENTED RESP: LOLITA JOHNSON 03/09/2020 2:24:54 PM > , 1. REGULAR, NO DYSPNEA COLOR: LOLITA JOHNSON 03/09/2020 2:24:58 PM > , 1. PINK SKIN: LOLITA JOHNSON 03/09/2020 2:25:01 PM > , 1. WARM, DRY POSITION: LOLITA JOHNSON 03/09/2020 2:25:05 PM > , 1. PRONE VITALS: LOLITA JOHNSON 03/09/2020 2:25:11 PM > 186/78-59-20-97% , ELIZABETHLOLITA 03/09/2020 2:36:37 PM > 147/71-59-18-96% LOLITA JOHNSON 03/09/2020 1457 PM> 132/79-77-96% DISCHARGE: POST PAIN 0/10- RIGHT LOWER BACK, DRESSING SITE DRY AND INTACT, IV N/A, GAIT STEADY, TEACHING COMPLETED, PATIENT ACKNOWLEDGES UNDERSTANDING YES, PATIENT DISCHARGED AT 1455 PN LUMBAR FACET BLOCK DIAGNOSTIC PRE PROCEDURE DIAGNOSIS LUMBAR SPONDYLOSIS, LUMBOSACRAL SPONDYLOSIS POST PROCEDURE DIAGNOSIS LUMBAR SPONDYLOSIS, LUMBOSACRAL SPONDYLOSIS PROCEDURE RIGHT L4-L5 AND RIGHT L5-S1 FACET BLOCK DIAGNOSTIC NUMBER [address] TONIO RAMIREZ BENEFITS SPECIALIST RECRUITER NONE ANESTHESIA LOCAL PRE PROCEDURE NOTE THE PATIENT WITH HISTORY OF CHRONIC LOW BACK PAIN. I EVALUATED THE PATIENT AND REVIEWED THE CHART. I WENT OVER THE RISKS, ALTERNATIVES, AND BENEFITS ASSOCIATED WITH THIS PROCEDURE. THE PATIENT WOULD LIKE TO PROCEED AND GAVE CONSENT TO PERFORM THE PROCEDURE. AGREED WITH THE PATIENT WE ARE DOING THIS PROCEDURE TO DETERMINE IF THE PATIENT IS A CANDIDATE FOR A RADIOFREQUENCY ABLATION OF THE FACETS JOINTS. THE PATIENT DENIES UNEXPLAINABLE WEIGHT LOSS, FEVER, CHILLS, OR NEW CHANGES IN URINARY OR BOWEL CONTROL. THE PATIENT IS COVID-19 NEGATIVE DESCRIPTION OF PROCEDURE THE PATIENT WAS BROUGHT TO THE PROCEDURE ROOM AND PLACED IN THE PRONE POSITION. THE LUMBOSACRAL AREA WAS CLEANED WITH CHLORAPREP SOLUTION AND DRAPED ASEPTICALLY. THE PROCEDURE WAS DONE UNDER STERILE CONDITIONS. I CHECKED LATERALITY AND THE LEVEL WHERE THE PROCEDURE WAS GOING TO BE PERFORMED WITH THE PATIENT AND THE SUPPORTING STAFF AT THE MOMENT OF THE TIME OUT IN THE PROCEDURE ROOM. UNDER FLUOROSCOPIC GUIDANCE, TARGETS WERE SELECTED AT THE INTERSECTION OF THE RIGHT TRANSVERSE PROCESS OF L4, L5 AND ALA OF S1 WITH ITS RESPECTIVE SUPERIOR ARTICULAR PROCESS. LIDOCAINE WAS USED TO NUMB THE SKIN AND THE SUBCUTANEOUS TISSUE BELOW IT. SPINAL NEEDLE, 22-GAUGE, WAS ADVANCED UNDER FLUOROSCOPIC GUIDANCE AND FOLLOWING PATIENT FEEDBACK UNTIL THE TARGETS WERE REACHED. POSITION OF THE NEEDLES WAS VERIFIED WITH AP AND LATERAL VIEWS. AFTER PROPER POSITION OF THE NEEDLES WAS ACHIEVED, ISOVUE-M DYE 30%, 0.1 ML, WAS INJECTED AT EACH SITE SHOWING ADEQUATE SPREAD OF THE DYE. THEN A SOLUTION OF 0.4 ML OF BUPIVACAINE 0.25% WAS INJECTED AT EACH SITE. THERE WAS NO EVIDENCE OF BLOOD, PARESTHESIA OR CEREBROSPINAL FLUID DURING THE PROCEDURE. THE PATIENT WAS SENT TO THE RECOVERY ROOM. THE PATIENT WAS MOVING THE EXTREMITIES AND DOING WELL. THERE WAS NO COMPLICATION DURING THE PROCEDURE. EBL LESS THAN 5 ML. FLUOROSCOPY TIME WAS 18 SECONDS POST PROCEDURE NOTE THE PATIENT WILL DOCUMENT THE PAIN LEVEL AND RESPONSE TO THIS PROCEDURE EVERY HOUR. THE PATIENT WILL BE SEEN IN A FOLLOW UP IN THE NEXT FEW WEEKS. FURTHER DETERMINATION FOR THE PATIENT'S CASE WILL BE DONE AT THE NEXT VISIT. INSTRUCTIONS WERE GIVEN, QUESTIONS WERE ANSWERED, AND THE PATIENT EXPRESSED UNDERSTANDING AND AGREED WITH THE PLAN. I, JEOVANY MORALES, DOCUMENTED THE ABOVE INFORMATION ACTING A SCRIBE FOR DR. RAMIREZ. I HAVE REVIEWED THE ABOVE DOCUMENT, WRITTEN BY JEOVANY MORALES, SUPERVISOR WORD PROCESSING, AND I VERIFY THAT IT IS ACCURATE PROCEDURE CODES 77613 INJ PARAVERT F JNT L/S 1 LEV, MODIFIERS: [place] [id number] INJ PARAVERT F JNT L/S 2 LEV, MODIFIERS: RT DISPOSITION & COMMUNICATION FOLLOW UP F/UP WITH WORKERS COMPENSATION ATTORNEY (REASON: POST LFBD #2 RT L4-L5, L5-S1-F/UP WITH WORKERS COMPENSATION ATTORNEY OR DR. Castellon NEXT WEEK) ELECTRONICALLY SIGNED BY TONIO RAMIREZ MD, MD ON 03/09/2020 AT 04:23 PM EDT DISCLAIMER : THIS IS A VISIT SUMMARY EXTRACTED FROM THE [employer] CHART. IT IS NOT A COPY OF THE [employer] PROGRESS NOTE. ROGERIO
== END ==
LOC: M PAIN 13:15
PROVIDERS: ATTEND Anesthesiology
DX: M47.816 Spondylosis without myelopathy or radiculopathy, lumbar region (principal); M47.817 Spondylosis without myelopathy or radiculopathy, lumbosacral region
CPT/HCPCS: 64493; 64494; Q9967

== ENCOUNTER → 2020-03-17 | Outpatient (CLI) | payer MEDICARE ==
[~2020-03-17] MED LIST changes: -BUPIVACAINE HCL 0.25% 30ML VIAL As Ordered ONE; +D31000TA2 PO; -ISOVUE-M 300 61% 15ML VIAL As Ordered ONE; -LIDOCAINE 1% SDV 30ML VIAL As Ordered ONE; -VITAD1000T PO
--- NOTE | 2020-03-31 02:08 | ECWPNPC ---
PATIENT NAME: NEO HANSON : 1945 GENDER: FEMALE VISIT DATE: 03/17/2020 DISCHARGE DATE: 03/17/20 1438 VISIT LOCKED DATE TIME: PHYSICIAN: LAURA CLIFFORD RESOURCE: LAURA CLIFFORD REASON FOR APPOINTMENT 1. POST FACET BLK HISTORY OF PRESENT ILLNESS GENERAL: HERE FOR POST PROCEDURE FOLLOW-UP. HAD RIGHT L4-5, L5-S1 DIAGNOSTIC BLOCK #2 ON 03/09/2020. REPORTING MARKED REDUCTION IN PAIN, SOME OF WHICH CONTINUES TODAY. REPORTING PAIN RELIEF AT GREATER THAN 80% SINCE THE PROCEDURE. DISCUSSED RADIOFREQUENCY AND PATIENT IS ANXIOUS TO PROCEED. -. FALL RISK SCREENING: SCREENING :NO FALLS REPORTED IN THE LAST YEAR PAIN SCREENING: PATIENT HAS A COMPLAINT OF ACUTE OR CHRONIC PAIN :YES 03/17/20 INTENSITY OF PAIN (SCALE OF 1 TO 10):0 NURSING NOTE: -. PAIN CENTER INTAKE QUESTIONS: DO YOU HAVE A HISTORY OF MRSA? :NO DO YOU TAKE A BLOOD THINNERS? :NO DO YOU HAVE ANY BLEEDING DISORDERS? :NO ANY NEW NUMBNESS OR WEAKNESS IN YOUR LEGS OR ARMS? :NO ANY PACEMAKER,DEFIBRILLATOR, OR DORSAL COLUMN STIMULATOR? :NO DO YOU HAVE ANY RASHES OR OPEN SORES? :NO ARE YOU ALLERGIC TO IV DYE? :NO ARE YOU DIABETIC? :NO ANY NEW PROBLEMS WITH YOUR MEDICATIONS? :NO HAVE YOU RECEIVED A VACCINE IN THE PAST 30 DAYS? :NO DO YOU PLAN TO RECEIVE A VACCINE IN THE NEXT 21 DAYS? :NO DO YOU NEED ANY PRESCRIPTION? :NO DO YOU TAKE ANY IMMUNOSUPPRESSIVE MEDICATIONS? :NO IS THERE A CHANCE YOU COULD BE ? :NO ARE YOU BREAST FEEDING? :NO CURRENT MEDICATIONS TAKING CALCIUM 600+D 600-800 MG-UNIT TABLET 2 TABLETS ORALLY ONCE A DAY TAKING ONE DAILY - TABLET 1 TABLET ORALLY ONCE A DAY TAKING VITAMIN B-12 500 MCG LOZENGE 1 LOZENGE ORALLY ONCE A DAY TAKING VITAMIN D (CHOLECALCIFEROL) 1000 UNIT TABLET 1 TABLET ORALLY ONCE A DAY TAKING MELOXICAM 15 MG TABLET 1 TABLET ORALLY ONCE A DAY TAKING VITAMIN C 500 MG CAPSULE 2 TABLETS ORALLY ONE TAB DAILY- OTC TAKING DULOXETINE HCL 30 MG CAPSULE DELAYED RELEASE PARTICLES 1 CAPSULE WITH FOOD ORALLY FOR PAIN ONCE A DAY MDD1 NOT-TAKING TAMOXIFEN CITRATE 20 MG TABLET 1 TABLET ORALLY ONCE A DAY MEDICATION LIST REVIEWED AND RECONCILED WITH THE PATIENT PAST MEDICAL HISTORY DEGENERATIVE DISC DISEASE ECZEMA DIABETES MELLITUS OBESITY RIGHT BREAST CANCER ALLERGIES SEASONAL: NASAL CONGESTION, ITCHY EYES - ALLERGY SURGICAL HISTORY GASTRIC BYPASS SURGERY 2012 RIGHT MASTECTOMY 05/2016 BILAT BREAST IMPLANTS 11/2018 RIGHT EYE CATARACT REMOVED 02/2020 FAMILY HISTORY FATHER: 75 YRS, EMPHYSEMA MOTHER: ALIVE 88 YRS, DEMENTIA SIBLINGS: ALIVE SON(S): ALIVE DAUGHTER(S): ALIVE 3 BROTHER(S) , 5 SISTER(S) - HEALTHY. 2 SON(S) , 1 DAUGHTER(S) - HEALTHY. MOTHER ALZHEIMER'S. SOCIAL HISTORY GENERAL: TOBACCO USE ARE YOU A:FORMER SMOKER HOW LONG HAS IT BEEN SINCE YOU LAST SMOKED?> 10 YEARS LATEX QUESTIONNAIRE LATEX ALLERGY : HAVE YOU EVER DEVELOPED ANY TYPE OF REACTION AFTER HANDLING LATEX PRODUCTS SUCH RUBBER GLOVES, CONDOMS, DIAPHRAGMS, BALLOONS, SOCKS, OR UNDERWEAR?NO LATEX ALLERGY : HAVE YOU EVER DEVELOPED ANY TYPE OF REACTION DURING OR AFTER DENTAL APPOINTMENT, VAGINAL/RECTAL EXAMINATION, SURGICAL PROCEDURE, OR ANY OTHER EXPOSURE?NO DATE ASKED : 03/08/2020 LATEX RISK : HAVE YOU EVER HAD ANY DIFFICULTY BREATHING OR HIVES AFTER EATING OR HANDLING ANY FRUITS, OR VEGETABLES; SUCH KIWI, BANANAS, STONE FRUITS, OR CHESTNUTSNO LATEX RISK : DO YOU HAVE A PREVIOUS PERSONAL HISTORY OF MORE THAN NINE SURGERIES, SPINA BIFIDA, OR REPEATED CATHERIZATIONS? NO LATEX RISK : ARE YOU FREQUENTLY EXPOSED TO LATEX PRODUCTS IN YOUR OCCUPATION?NO ALCOHOL SCREENING DID YOU HAVE A DRINK CONTAINING ALCOHOL IN THE PAST YEAR?YES HOW OFTEN DID YOU HAVE SIX OR MORE DRINKS ON ONE OCCASION IN THE PAST YEAR?LESS THAN MONTHLY (1 POINT) HOW MANY DRINKS DID YOU HAVE ON A TYPICAL DAY WHEN YOU WERE DRINKING IN THE PAST YEAR?3 OR 4 (1 POINT) HOW OFTEN DID YOU HAVE A DRINK CONTAINING ALCOHOL IN THE PAST YEAR?MONTHLY OR LESS (1 POINT) POINTS3 INTERPRETATIONPOSITIVE RECREATIONAL DRUG USE DRUG USE?NO PATIENT DENIES ABUSE OR MISSUSED OF ANY MEDICATION DENIES PATIENT DENIES USE OF ANY ILLEGAL SUBSTANCE INCLUDING MARIJUANA OR COCAINE DENIES CAFFEINE CAFFEINE USE?YES HOW OFTEN AND HOW MUCH? 3 CUPS COFFEE/DAY TAOIST [id number] RASTAFARIAN LANGUAGE LANGUAGES SPOKEN:PANAMANIAN LEARNING BARRIERS / SPECIAL NEEDS CHANGE FROM LAST VISIT?NO HEARING IMPAIRED?NO VISION IMPAIRED?NO WEARS GLASSES COGNITIVELY IMPAIRED?NO SPECIAL DEVICES?NO GETTER OPERATOR NEEDED?NO DOMESTIC VIOLENCE DO YOU FEEL SAFE IN YOUR ENVIRONMENT?YES OCCUPATION: RETIRED. DIET: REGULAR. EXERCISE: GYM 4 DAYS A WEEK. MARITAL STATUS: . OTHERS AT HOME: SPOUSE. PAIN CLINIC PFS, CLERGY, PUBLIC HEALTH REFERRALS PFS REFERRAL NEEDED?NO CLERGY REFERRAL NEEDED?NO PUBLIC HEALTH REFERRAL NEEDED?NO WAS THE PROVIDER NOTIFIED OF ANY PERTINENT INFO?YES N/A HAS THE PATIENT BEEN EDUCATED REGARDING HIS/HER PLAN OF CARE?YES HAS THE PATIENT BEEN EDUCATED REGARDING PAIN, THE RISK FOR PAIN, THE IMPORTANCE OF EFFECTIVE PAIN MANAGEMENT, AND THE PAIN ASSESSMENT PROCESS?YES ADVANCE DIRECTIVE ADVANCE DIRECTIVE DISCUSSED WITH PATIENT:YES PT HAS HCP [facility] [phone] HOSPITALIZATION/MAJOR DIAGNOSTIC PROCEDURE SURGERIES REVIEW OF SYSTEMS CONSTITUTIONAL: ANY RECENT FEVER NO . CHILLS NO . WEIGHT CHANGE OF UNKNOWN REASONS NO . GASTROENTEROLOGY: NEW UNEXPLAINABLE CHANGES IN BOWEL CONTROL NO . CONSTIPATION NO . GENITOURINARY: ANY NEW CHANGE IN BLADDER CONTROL? NO . NEUROLOGY: NEW ONSET DIZZINESS OR NEUROLOGICAL CHANGES NOT MENTIONED NO . NEW NUMBNESS OR PAIN PATTERNS NOT MENTIONED AND PERTINENT TO TODAY'S VISIT NO . CARDIOLOGY: NEW CHEST PRESSURE NO . NEW CHEST PAIN NO . RESPIRATORY: UNEXPLAINABLE COUGH NO . NEW SHORTNESS OF BREATH NO . VITAL SIGNS WT 165.2 LBS, HT 63", BMI 29.26 INDEX, BP 132/77 MM HG, HR 82 /MIN, RR 18 /MIN, TEMP 98.3 F, OXYGEN SAT % 93%, SAFE IN ENV? (Y/N) Y, NA INITIALS PR 13:53, REVIEWED BY: MARGRET. EXAMINATION GENERAL EXAMINATION: GENERAL AWAKE,ALERT ,PLEASANT . PSYCH AFFECT NORMAL . LUNGS: LUNG WELSH ARE CLEAR TO AUSCULTATION BILATERALLY. GOOD MOVEMENT OF AIR . HEART: S1, S2 IN A REGULAR RATE AND RHYTHM. NO SIGNIFICANT MURMURS, RUBS OR GALLOPS NOTED . LUMBAR:PALPATION:TENDER OVER RIGHT L4/5-L5/S1 LUMBAR FACETS WITH FACET LOADING.. DIAGNOSTIC TESTS REVIEWED MRI L/S SPINE-05/27/17. ASSESSMENTS SPONDYLOSIS WITHOUT MYELOPATHY OR RADICULOPATHY, LUMBAR REGION - M47.816 (PRIMARY) TREATMENT OTHERS NOTES: RIGHT L4-5, L5-S1 RADIOFREQUENCY. DISPOSITION & COMMUNICATION FOLLOW UP POST (REASON: RIGHT L4-5, L5-S1 RADIOFREQUENCY) ELECTRONICALLY SIGNED BY MASON GONSALVES ON 03/30/2020 AT 10:13 AM EDT DISCLAIMER : THIS IS A VISIT SUMMARY EXTRACTED FROM THE [employer] CHART. IT IS NOT A COPY OF THE [employer] PROGRESS NOTE. MTDD
== END ==
LOC: M PAIN 14:15
PROVIDERS: ATTEND Nurse Practitioner Family
DX: M47.816 Spondylosis without myelopathy or radiculopathy, lumbar region (principal)

== ENCOUNTER → 2020-04-20 | Outpatient (POV) | payer MEDICARE ==
[~2020-04-20] MED LIST changes: +BUPIVACAINE HCL 0.25% 30ML VIAL ONE; +LIDOCAINE 1% SDV 30ML VIAL ONE; +dexameTHASONE 10MG/1ML VIAL PRES.FREE (J1100 PER 1MG) ONE
--- NOTE | 2020-06-09 09:38 | REP ---
PARTIAL LUMBAR SPINE SERIES: 3-VIEWS HISTORY: Injection procedure for pain. Fluoroscopy time is recorded as 76.8 seconds. FINDINGS: A sequence of 3 last image hold fluoroscopically obtained spot radiographs in the lumbar spine document various needle positions associated with lumbar spine injection procedure. MTDD
== END ==
LOC: M PAIN 10:00
PROVIDERS: ATTEND Anesthesiology
DX: M47.816 Spondylosis without myelopathy or radiculopathy, lumbar region (principal); M47.817 Spondylosis without myelopathy or radiculopathy, lumbosacral region

== ENCOUNTER → 2020-05-05 | Outpatient (POV) | payer MEDICARE ==
[~2020-05-05] MED LIST changes: -BUPIVACAINE HCL 0.25% 30ML VIAL ONE; -D31000TA2 PO; -LIDOCAINE 1% SDV 30ML VIAL ONE; +VITAD1000T PO; -dexameTHASONE 10MG/1ML VIAL PRES.FREE (J1100 PER 1MG) ONE
== END ==
LOC: M PAIN 09:00
PROVIDERS: ATTEND Nurse Practitioner Family
DX: M46.1 Sacroiliitis, not elsewhere classified (principal); M46.96 Unspecified inflammatory spondylopathy, lumbar region

== ENCOUNTER → 2020-05-20 | Outpatient (CLI) | payer MEDICARE ==
[~2020-05-20] MED LIST changes: +D31000TA2 PO; -VITAD1000T PO
== END ==
LOC: M LABSMTC 12:52
PROVIDERS: ATTEND Anesthesiology
DX: Z11.59 Encounter for screening for other viral diseases (principal)
CPT/HCPCS: C9803; U0003

== ENCOUNTER → 2020-05-30 | Outpatient (CLI) | payer MEDICARE ==
[~2020-05-30] MED LIST changes: +BUPIVACAINE HCL 0.25% 30ML VIAL As Ordered ONE; +ISOVUE-M 300 61% 15ML VIAL As Ordered ONE; +LIDOCAINE 1% SDV 30ML VIAL As Ordered ONE; +TRIAMCINOLONE ACETONIDE SUSP 40 MG/ML VIAL (J3301) As Ordered ONE
--- NOTE | 2020-06-14 08:32 | REP ---
FLUOROSCOPIC GUIDANCE STUDY CLINICAL: Sacroiliac block. TECHNIQUE: Intraoperative fluoroscopic imaging using portable C-arm technique. FINDINGS: Four images demonstrate needle placement and contrast injection at the bilateral sacroiliac joints. Total fluoroscopy time 22 seconds. IMPRESSION: Status post sacroiliac joint block bilateral. MTDD
== END ==
LOC: M PAIN 10:00
PROVIDERS: ATTEND Anesthesiology
DX: M46.1 Sacroiliitis, not elsewhere classified (principal)
CPT/HCPCS: 76000; G0260; G0463; J3301; Q9967

== ENCOUNTER → 2020-06-08 | Outpatient (CLI) | payer MEDICARE ==
[~2020-06-08] MED LIST changes: -BUPIVACAINE HCL 0.25% 30ML VIAL As Ordered ONE; -ISOVUE-M 300 61% 15ML VIAL As Ordered ONE; -LIDOCAINE 1% SDV 30ML VIAL As Ordered ONE; -TRIAMCINOLONE ACETONIDE SUSP 40 MG/ML VIAL (J3301) As Ordered ONE
== END ==
LOC: M PAIN 13:38
PROVIDERS: ATTEND Nurse Practitioner Family
DX: M47.817 Spondylosis without myelopathy or radiculopathy, lumbosacral region (principal)

== ENCOUNTER → 2020-10-23 | Outpatient (CLI) | payer MEDICARE ==
[~2020-10-23] MED LIST changes: +B-12100010 PO; +CALC-190 PO; +OMEG1CAP16 PO; +TURM500C5 PO; +VITA500C19 PO; +ZINC1TAB2 PO
== END ==
LOC: M LABSMTC 09:25
PROVIDERS: ATTEND Anesthesiology
DX: Z01.812 Encounter for preprocedural laboratory examination (principal); Z20.822 Contact with and (suspected) exposure to COVID-19

== ENCOUNTER 2020-10-28 07:54 | Day surgery (SDC) | payer MEDICARE ==
[~2020-10-28] VITALS: Ht 160 cm; Wt 76.7 kg
[~2020-10-28 07:54] MED LIST changes: +BACITRACIN PWD 50,000 UNITS VIAL As Ordered ONE; +BUPIVACAINE HCL 0.5% 30 ML VIAL As Ordered ONE; +LIDOCAINE 2% MDV 20ML VIAL As Ordered ONE; +LR 1,000 ML IV ONE; +NEOSPORIN GU IRRIG 20 ML VIAL As Ordered ONE; +ceFAZolin SOD 2 GM in IV 1 EA IV ONE; +dexameTHASONE 4 MG/ML 1ML VIAL (J1100 PER 1MG) As Ordered ONE
--- OUTSIDE RECORDS SUMMARY | 2020-10-28 07:58 | CCD | Continuity of Care Document ---
Author Author [facility] Address [address] [place] [address] Phone Support Name Relationship Address Phone Minh Bhatia PRS [address] [place] [address] TevinYair keyes PRS [address] [place] [address] AmandaОлег mahajandameenakshi [place] [address] [place] [address] Amanda Eldad PRS [address] [place] [address] Erica, Bobby PRS [address] [place] [address] Milena Sim PRS [address] [place] [address] NITHIN PAULSON PRS [address] [place] [address] Allergies, Adverse Reactions, Alerts No known allergies. Medications Medication Status Dose Units Route Directions Qty Days Start Date End Date Instructions Gabapentin Discontinued 500 MG PO At Bedtime 150 July 06, 2019 10:45am November 06, 2019 2:34pm 2 in the AM and 3 in the PM Tamoxifen Discontinued 20 MG PO Once Per Day July 06, 2019 10:46am July 14, 2019 6:38am Afluria Qd (3yr up)(PF) (flu vac cu8222-04 36mos up(PF)) Discontinued 60 MCG IM 1 Time/Once 0.5 July 08, 2020 10:36am June 172019 10:46am Multivitamin Active 1 TAB PO Once Per Day July 08, 2020 11:39am Duloxetine Active 30 MG PO daily March 15, 2020 8:27am [place] 4-Jmi-Tan-Fish Oil Discontinued 1 EACH PO Once Per Day December 02, 2013 1:0 6pm December 17, 2017 7:58am Meloxicam Active 15 MG PO Once Per Day March 16, 2020 11:57am Calcium Carbonate-Vitamin D3 (Calcium 60 0 + D(3)) 600 mg(1,500mg) -400 unit tablet Active 1 TAB PO 2 Times Per Day March 16, 2020 11:57am Multivitamin Discontinued 1 TAB PO Once Per Day 0 September 06, 2010 11:17am July 08, 2020 11:40am null (Calcium) Discontinued ERR.NONE ERR.NONE 0 September 06, 2010 11:17am October 29, 2012 1:11pm Ammonium Lactate (Lac-Hydrin) 12 % cream Discontinued ERR.NONE ERR.NONE As Directed (Daily) 0 September 06, 2010 11:18am August 20, 2011 1:17pm Metformin Hcl Discontinued 1000 MG PO 2 Times Per Day 0 September 06, 2010 11:18am May 01, 2011 9:13am Ibuprofen Discontinued 8 00 MG PO TID PRN 0 September 06, 2010 11:19am October 29, 2012 1:11pm Tuberculin Ppd (Tubersol 0.1 Ml (Ppd)) Discontinued 0.1 MILLILITRE TD ONE TIME 1 December 11, 2010 1:10pm December 11, 2010 1:11pm Nateglinide Discontinued 120 MG PO Three times a day April 02, 2011 3:03pm April 03, 2011 10:24am Nateglinide Discontinued 120 MG PO Three times a day 90 April 03, 2011 10:24am October 29, 2012 1:11pm Metformin Hcl Discontinued 1000 MG PO 2 Times Per Day 180 May 01, 2011 9:13am October 29, 2012 1:11pm Blood Sugar Diagnostic (Freestyle Test) strip Discontinued 1 STRIP MC Once Per Day 0 July 16, 2011 9:03am July 16, 2011 9:04am Blood Sugar Diagnostic (Freestyle Test) strip Discontinued 1 STRIP MC Once Per Day July 16, 2011 9:04am October 29, 2012 1:11pm Adalimumab (Humira) 40 mg/0.8 mL syringe kit Discontinued 40 MG SQ 2 XM 2 August 20, 2011 1:18pm October 29, 2012 1:11pm Calcium Carbonate-Vitamin D3 (Calcium 60 0 + D(3)) 600 mg(1,500mg) -400 unit tablet Discontinued 1 TAB PO 2 Times Per Day 60 October 29, 2012 1:13pm March 16, 2020 11:57am Vitamin E Mixed Discontinued 1 TAB PO Once Per Day 30 October 29, 2012 1:13pm December 17, 2017 7:58am Blood Sugar Diagnostic (Freestyle Test) strip Discontinued 1 STRIP MC Once Per Day 100 October 29, 2012 1:14pm August 06, 2013 9:02am Ammonium Lactate (Lac-Hydrin) Discontinued 5 GM TP Once Per Day 225 October 29 3 1:21pm December 02, 2013 1:07pm Blood Sugar Diagnostic (Freestyle Test) strip Discontinued 1 STRIP MC Once Per Day 100 August 06, 2013 9:02am December 02, 2013 1:07pm Phenazopyridine Discontinued 200 MG PO Three times a day November 06, 2013 10:00am December 02, 2013 1:06pm Meloxicam Discontinued 7 .5 MG PO Once Per Day June 11, 2014 8:33am August 16, 2014 1:37pm Meloxicam Discontinued 7 .5 MG PO Once Per Day August 16, 2014 1:37pm January 27, 2015 2:36pm Meloxicam Discontinued 7 .5 MG PO Once Per Day January 27, 2015 2:36pm August 22, 2015 8:39am Meloxicam Discontinued 7 .5 MG PO Once Per Day August 22, 2015 8:39am February 06, 2016 12:07pm Meloxicam Discontinued 15 MG PO Once Per Day February 06, 2016 12:07pm February 13, 2017 7:07am Tamoxifen Discontinued July 30, 2016 4:14pm November 2:08pm Cyanocobalamin (Vitamin B-12) Active 5000 MCG PO Once Per Day August 15, 2016 2:38pm Tamoxifen Discontinued 1 TAB PO Once Per Day November 19, 2016 2:08pm May 15, 2017 7:25am Meloxicam Discontinued 15 MG PO Once Per Day February 13, 2017 7:07am February 14, 2017 7:09am Meloxicam Discontinued 15 MG PO Once Per Day February 14, 2017 7:09am July 16, 2017 6:39am Tamoxifen Discontinued 1 TAB PO Once Per Day May 15, 2017 7:25am May 16, 2017 6:42am Tamoxifen Discontinued 1 TAB PO Once Per Day May 16, 2017 6:42am October 16, 2017 7:53am Meloxicam Discontinued 15 MG PO Once Per Day July 16, 2017 6:39am December 16, 2017 7:26am Tamoxifen Discontinued 1 TAB PO Once Per Day October 16, 2017 7:53am April 04, 2018 6:43am Gabapentin Discontinued 1 CAP PO At Bedtime October 28, 2017 9:08am December 03, 2017 9:46am Gabapentin Discontinued 1 CAP PO At Bedtime December 03, 2017 9:46am January 07, 2018 10:16am Meloxicam Discontinued 15 MG PO Once Per Day December 16, 2017 7:26am December 24, 2018 7:47am Cholecalciferol (Vitamin D3) (Vitamin D3) 1000 UNIT ca psule Active 1 CAP PO Once Per Day December 17, 2017 7:59am Gabapentin Discontinued 1 CAP PO At Bedtime January 07, 2018 10:16am February 17, 2018 9:39am Gabapentin Discontinued 1 CAP PO At Bedtime February 17, 2018 9:39am April 17, 2018 10:23am Tamoxifen Discontinued 1 TAB PO Once Per Day April 04, 2018 6:43am December 24, 2018 7:47am Gabapentin Discontinued 1 CAP PO At Bedtime April 17, 2018 10:23am January 14, 2019 7:21am Gabapentin Discontinued 1 CAP PO At Bedtime April 17, 2018 10:23am July 06, 2019 10:46am Meloxicam Discontinued 15 MG PO Once Per Day December 24, 2018 7:47am January 14, 2019 10:41am Meloxicam Discontinued 15 MG PO Once Per Day December 24, 2018 7:47am July 14, 2019 6:38am Tamoxifen Discontinued 1 TAB PO Once Per Day December 24, 2018 7:47am January 14, 2019 10:41am Tamoxifen Discontinued 1 TAB PO Once Per Day December 24, 2018 7:47am July 06, 2019 10:46am Tamoxifen Discontinued 20 MG PO Once Per Day July 14, 2019 6:36am March 15, 2020 8:26am Meloxicam Discontinued 15 MG PO Once Per Day July 14, 2019 6:37am January 20, 2020 6:34am Meloxicam Discontinued 15 MG PO Once Per Day January 20, 2020 6:33am J 2019 11:57am Problems Active Problems Medical Problem Onset Date Status History of Diabetes Mellitus Active Arthritis pain Active Pure hypercholesterolemia Active History of right breast cancer Febru 2017 Active 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 Right shoulder pain Ac tive Inactive/Resolved Problems Medical Problem Onset Date Status Essential hypertension Resolved Procedures Procedure Date Performed Status Xray Hand Complete LT September 23 11:40am completed Xray Hand Complete RT September 23 11:40am completed Phacoemulsification With IOL (Left) March 23, 2020 10:25am completed Xray Shoulder complete RT February 15, 2020 9:56am completed 3D DIG MAMMO SCREEN LT October 4:26pm completed Relevant Diagnostic Tests and/or Laboratory Data Laboratory Results Test Date/Time Result Interpretation Reference Range Result Comment Performing Site White Blood Count September 23, 2020 11:37a m 7.0 10e3/uL 4.45-10.71 [facility], [address] [place] [address] 62225 White Blood Count July 04, 2020 9:10a m 6.4 10e3/uL 4.45-10.71 [facility], [address] [place] [address] 30283 Red Blood Count September 23, 2020 11:37am 4.40 10e6/uL 4.20-5.40 [facility], [address] [place] [address] 80639 Red Blood Count July 04, 2020 9:10am 4.35 10e6/uL 4.20-5.40 [facility], [address] [place] [address] 59868 Hemoglobin September 23, 2020 11:37am 12.9 g/dL 10.7-15.4 [facility], [address] [place] [address] 02012 Hemoglobin July 04, 2020 9:10am 13.1 g/dL 10.7-15.4 [facility], [address] [place] [address] 31887 Hematocrit September 23, 2020 11:37am 41.4 % 37-47 [facility], [address] [place] [address] 73357 Hematocrit July 04, 2020 9:10am 41.3 % 37-47 [facility], [address] [place] [address] 05446 Mean Corpuscular Volume September 23, 2020 11:37am 94.1 fl 80-96 [facility], [address] [place] [address] 05266 Mean Corpuscular Volume June 9:10am 94.9 fl 80-96 [facility], [address] [place] [address] 15727 Mean Corpuscular Hemoglobin September 23, 2020 11:37am 29.3 pg 27-31 [facility], [address] [place] [address] 06921 Mean Corpuscular Hemoglobin July 04, 2020 9:10am 30.1 pg 27-31 [facility], [address] [place] [address] 62874 Mean Corpuscular Hemoglobin Concent September 23, 2020 11:37am 31.2 g/dl 37 [facility], [address] [place] [address] Mean Corpuscular Hemoglobin Concent July 04, 2020 9:10am 31.7 g/dl 3337 [facility], [address] [place] [address] 21530 Red Cell Distribution Width September 23, 2020 11:37am 12 % 11-15 [facility], [address] [place] [address] 92253 Red Cell Distribution Width July 04, 2020 9:10am 12 % 11-15 [facility], [address] [place] [address] 51294 Platelet Count September 23, 2020 11:37am 194 10e3/ul 130-472 [facility], [address] [place] [address] 21138 Platelet Count July 04, 2020 9:10am 256 10e3/ul 130-472 [facility], [address] [place] [address] 29606 Mean Platelet Volume September 23 21 11:37am 9.9 fl 9.1-13.1 [facility], [address] [place] [address] 57194 Mean Platelet Volume July 04 020 9:10am 9.2 fl 9.1-13.1 [facility], [address] [place] [address] 44615 Neutrophils (%) (Auto) September 23, 2020 11:37am 55.9 % 41-77 [facility], [address] [place] [address] 79295 Neutrophils (%) (Auto) July 04, 2020 9:10am 57.4 % 41-77 [facility], [address] [place] [address] 15929 Absolute Neutrophil September 23 11:37am 3.9 # 1.7-7.6 [facility], [address] [place] [address] 89054 Absolute Neutrophil July 04 9:10am 3.7 # 1.7-7.6 [facility], [address] [place] [address] 12773 Lymphocytes (%) (Auto) September 23, 2020 11:37am 35.2 % 14-46 [facility], [address] [place] [address] 39461 Lymphocytes (%) (Auto) July 04, 2020 9:10am 32.1 % 14-46 [facility], [address] [place] [address] 51024 Lymphocytes # (Auto) September 23 11:37am 2.5 # 0.6-4.6 [facility], [address] [place] [address] 16268 Lymphocytes # (Auto) July 04 020 9:10am 2.1 # 0.6-4.6 [facility], [address] [place] [address] 31117 Monocytes (%) (Auto) September 23 11:37am 6.2 % 4-12 [facility], [address] [place] [address] 18103 Monocytes (%) (Auto) July 04, 020 9:10am 8.0 % 4-12 [facility], [address] [place] [address] 04023 Monocytes # September 23, 2020 11:37am 0.4 # 0.2-1.2 [facility], [address] [place] [address] 17608 Monocytes # July 04, 2020 9:10am 0.5 # 0.2-1.2 [facility], [address] [place] [address] 39748 Eosinophils (%) (Auto) September 23, 2020 11:37am 2.0 % 0-7 [facility], [address] [place] [address] 39354 Eosinophils (%) (Auto) July 04, 2020 9:10am 1.4 % 0-7 [facility], [address] [place] [address] 49082 Absolute Eosinophils (CBC) September 232020 11:37am 0.1 # 0.0-0.5 [facility], [address] [place] [address] 33614 Absolute Eosinophils (CBC) June 162019 9:10am 0.1 # 0.0-0.5 [facility], [address] [place] [address] 77322 Basophils (%) (Auto) September 23 11:37am 0.6 % 0.4-1.3 [facility], [address] [place] [address] 60335 Basophils (%) (Auto) July 04 9:10am 0.8 % 0.4-1.3 [facility], [address] [place] [address] 07183 Absolute Basophils (CBC) September 11:37am 0.0 # 0.0-0.2 [facility], [address] [place] [address] 82520 Absolute Basophils (CBC) June 9:10am 0.1 # 0.0-0.2 [facility], [address] [place] [address] 04018 Immature Granulocyte % (Auto) Sepuar y 2020 11:37am 0.1 % 0-2 [facility], [address] [place] [address] 59263 Immature Granulocyte % (Auto) Octobe r 2019 9:10am 0.3 % 0-2 [facility], [address] [place] [address] 90317 Absolute Immature Granulocyte (auto September 23, 2020 11:37am 0.0 # 0-0.1 [facility], [address] [place] [address] 93151 Absolute Immature Granulocyte (auto July 04, 2020 9:10am 0.0 # 0-0.1 [facility], [address] [place] [address] 72725 Add Manual Differential September 23, 2020 11:37am No [facility], [address] [place] [address] 33654 Add Manual Differential June 9:10am No [facility], [address] [place] [address] 69316 Sedimentation Rate, Westergren Janua ry 2020 11:37am 18 mm/hr 0-30 [facility], [address] [place] [address] 01733 Urine Color July 04, 2020 9:16am Yellow [facility], [address] [place] [address] 25116 Urine Appearance July 04, 2020 9:16am Clear CLEAR [facility], [address] [place] [address] 26911 Urine pH July 04, 2020 9:16am 5.0 [facility], [address] [place] [address] 63321 Urine Specific [place] July 04, 2020 9:16am 1.033 [facility], [address] [place] [address] 92378 Urine Leukocyte Esterase June 9:16am Trace NEGATIVE [facility], [address] [place] [address] 30488 Urine Nitrite July 04, 2020 9:16am Negative NEGATIVE [facility], [address] [place] [address] 90085 Urine Protein July 04, 2020 9:16am Negative NEGATIVE [facility], [address] [place] [address] 39007 Urine Glucose July 04, 2020 9:16am Negative NEGATIVE [facility], [address] [place] [address] 07384 Urine Ketones July 04, 2020 9:16am Trace NEGATIVE [facility], [address] [place] [address] Urine Urobilinogen July 04 0 9:16am 1 eu/dl [facility], [address] [place] [address] 49506 Urine Bilirubin July 04, 2020 9:16am Negative NEGATIVE [facility], [address] [place] [address] 70678 Urine Blood July 04, 2020 9:16am Negative NEGATIVE [facility], [address] [place] [address] 51351 Microscopic Urinalysis Comment Octob er 2019 9:16am Microscopic added [facility], [address] [place] [address] 80549 Urine WBC July 04, 2020 9:16am 3-5 /hpf [facility], [address] [place] [address] Urine Squamous Epithelial Cells Octo 2019 9:16am Moderate /hpf [facility], [address] [place] [address] 23486 Urine Mucus July 04, 2020 9:16am Moderate amount [facility], [address] [place] [address] Blood Urea Nitrogen September 23 11:37am 15 mg/dL 06-08 [facility], [address] [place] [address] 93970 Blood Urea Nitrogen July 04 9:10am 22 mg/dL 06-08 [facility], [address] [place] [address] 18150 Sodium Level September 23, 2020 11:37am 142 mmol/L 132-146 [facility], [address] [place] [address] 33871 Sodium Level July 04, 2020 9:10am 141 mmol/L 132-146 [facility], [address] [place] [address] 37595 Potassium Level September 23, 2020 11:37am 4.2 mmol/L 3.5-5.5 [facility], [address] [place] [address] 11997 Potassium Level July 04, 2020 9:10am 4.1 mmol/L 3.5-5.5 [facility], [address] [place] [address] 82449 Chloride Level September 23, 2020 11:37am 106 mmol/l 99-109 [facility], [address] [place] [address] 68519 Chloride Level July 04, 2020 9:10am 106 mmol/l 99-109 [facility], [address] [place] [address] 81594 Carbon Dioxide Level September 23 11:37am 32 mmol/l 20-31 [facility], [address] [place] [address] 63430 Carbon Dioxide Level July 04 9:10am 31 mmol/l -31 [facility], [address] [place] [address] 18172 Anion Gap September 23, 2020 11:37am 8 mmol/l 8-16 [facility], [address] [place] [address] 24950 Anion Gap July 04, 2020 9:10am 8 mmol/l 8-16 [facility], [address] [place] [address] 66476 Glucose Level September 23, 2020 11:37am 112 mg/dL 74-106 [facility], [address] [place] [address] 59951 Glucose Level July 04, 2020 9:10am 97 mg/dL 74-106 [facility], [address] [place] [address] 98358 Creatinine September 23, 2020 11:37am 0.7 mg/dL 0.5-1.1 [facility], [address] [place] [address] 72244 Creatinine July 04, 2020 9:10am 0.7 mg/dL 0.5-1.1 [facility], [address] [place] [address] 84365 Glomerular Filtration Rate Calc Peewee pedro 2020 11:37am Greater than 60 ml/min ABOVE 60 [facility], [address] [place] [address] 93973 Glomerular Filtration Rate Calc Octo farnck 2019 9:10am Greater than 60 ml/min ABOVE 60 [facility], [address] [place] [address] 14759 Alanine Aminotransferase (ALT/SGPT) September 29, 2020 11:46am 23 U/L -49 [facility], [address] [place] [address] 61673 Alanine Aminotransferase (ALT/SGPT) July 04, 2020 9:10am 26 U/L 10-49 [facility], [address] [place] [address] 85602 Aspartate Amino Transf (AST/SGOT) [place] [facility] 2020 11:46am 21 U/L 0-33 [facility], [address] [place] [address] 07360 Aspartate Amino Transf (AST/SGOT) Oc tober 2019 9:10am 22 U/L 0-33 [facility], [address] [place] [address] 70447 Alkaline Phosphatase September 29 021 11:46am 94 U/L 45-129 [facility], [address] [place] [address] 89685 Alkaline Phosphatase July 04 020 9:10am 71 U/L 45-129 [facility], [address] [place] [address] 06334 Calcium Level September 23, 2020 11:37am 9.0 mg/dL 8.5-10.1 [facility], [address] [place] [address] 07195 Calcium Level July 04, 2020 9:10am 9.0 mg/dL 8.5-10.1 [facility], [address] [place] [address] 36989 Total Bilirubin September 29, 2020 11:46am 0.4 mg/dL 0.3-1.2 [facility], [address] [place] [address] 72563 Total Bilirubin July 04, 2020 9:10am 0.6 mg/dL 0.3-1.2 [facility], [address] [place] [address] 63468 Direct Bilirubin September 29, 2020 11:46a m 0.1 mg/dL 0.0-0.2 [facility], [address] [place] [address] 28667 Albumin September 29, 2020 11:46am 3.3 g/dL 3.2-4.8 [facility], [address] [place] [address] 31663 Albumin July 04, 2020 9:10am 3.4 g/dL 3.2-4.8 [facility], [address] [place] [address] 23174 Serum Total Protein September 29 11:46am 6.2 g/dL 5.7-8.2 [facility], [address] [place] [address] 19374 Serum Total Protein July 04 9:10am 6.3 g/dL 5.7-8.2 [facility], [address] [place] [address] 12891 Triglycerides Level September 29 11:46am 119 mg/dL 0-150 [facility], [address] [place] [address] 27111 Triglycerides Level July 04 9:10am 82 mg/dL 0-150 [facility], [address] [place] [address] 15754 Cholesterol Level September 29, 2020 11:46am 188 mg/dL 120-200 [facility], [address] [place] [address] 03829 Cholesterol Level July 04, 2020 9:10a m 189 mg/dL 120-200 [facility], [address] [place] [address] 52068 HDL Cholesterol September 29, 2020 11:46am 73 mg/dL HDL Less than 40 mg/dL: Major risk for CHDHDL Greater than 59 mg/dL: Low risk for CHD [facility], [address] [place] [address] 68009 HDL Cholesterol July 04, 2020 9:10am 84 mg/dL HDL Less than 40 mg/dL: Major risk for CHDHDL Greater than 59 mg/dL: Low risk for CHD [facility], [address] [place] [address] 62731 LDL Cholesterol, Calculated September 29, 2020 11:46am 92 mg/dL 0-100 [facility], [address] [place] [address] 56779 LDL Cholesterol, Calculated July 04, 2020 9:10am 89 mg/dL 0-100 [facility], [address] [place] [address] 63902 LDL Cholesterol Direct September 29, 2020 11:46am 95 mg/dL 0-100 OPTIMAL [facility], [address] [place] [address] 02145 C-Reactive Protein September 23, 2020 11:37am Less than 2.9 mg/L 0.0 -5.0 [facility], [address] [place] [address] 49487 Rheumatoid Factor September 23, 2020 11:37a m Less than 10.0 IU/mL 0.0-14.0 [facility], [address] [place] [address] 01092 Hepatitis B Surface Antigen September 29, 2020 11:46am Non-reactive NON-REACT GERONIMO THIS TEST WAS PERFORMED AT:[facility]GARRETT THOMAS MD [facility] Hepatitis B Surface Ag Confirmation September 29, 2020 11:46am TNP No Reportable Result [facility] Hepatitis B Core Total Antibody Peewee vasquez 2020 11:46am Non-reactive NON-REACT GERONIMO THIS TEST WAS PERFORMED AT:[facility] [address]WRTIHN MERATI,MD [facility] Hepatitis B Surface Ab Concentrat becky 2020 11:46am <5 mIU/mL Patient does not have immunity to hepati tis B virus.For additional information, please refer [email or web address]/faq/WUL855(This link is being provided for informational/educational purposes only).THIS TEST WAS PERFORMED AT:[facility] [address]GARRETT THOMAS MD [facility] TB Test (QFT) Gold In Tube September 162020 11:46am Negative NEGATIVE Negative test result. M. tuberculosis co mplexinfection unlikely. [facility] TB Test (QFT) TB - Nil September 29, 2020 11:46am 0.03 IU/mL [facility] TB Test (QFT) Mitogen September 29, 2020 11:46am >10.00 IU/mL [facility] TB Test (QFT) Antigen Minus Nil 1 [facility] 2020 11:46am <0.00 IU/mL [facility] TB Test (QFT) Antigen Minus Nil 2 [facility] 2020 11:46am 0.00 IU/mL The Nil tube value reflects the backgrou nd interferongamma immune response of the patient's blood sample.This value has been subtracted from the patient'sdisplayed TB and Mitogen results.Lower than expected results with the Mitogen tubeprevent false-negative Quantiferon readings bydetecting a patient with a potential immunesuppressive condition and/or suboptimal pre- analyticalspecimen handling.The TB1 Antigen tube is coated with theM. tuberculosis-specific antigens designed to elicitresponses from TB antigen primed CD4+ helperT-lymphocytes.The TB2 Antigen tube is coated with theM. tuberculosis-specific antigens designed to elicitresponses from TB antigen primed CD4+ helper and CD8+cytotoxic T-lymphocytes.For additional information, please refer tohttps://[employer].[facility]/faq/KJZ478(This link is being provided for informational/educational purposes only.)THIS TEST WAS PERFORMED AT:[facility] [id number] MERATI,MD [facility] Anti-Nuclear Antibody Screen September 23, 2020 11:37am Negative NEGATIVE MARIA ELENA IFA is a first line screen for detec ting thepresence of up to approximately 150 autoantibodies invarious autoimmune diseases. A negative MARIA ELENA IFA resultsuggests an MARIA ELENA-associated autoimmune disease is notpresent at this time, but is not definitive. If thereis high clinical suspicion for Sjogren's syndrome,testing for anti-SS-A/Ro antibody should be considered.Anti-Neris-1 antibody should be considered for clinicallysuspected inflammatory myopathies.AC-0: NegativeInternational Consensus on MARIA ELENA Patterns(https://doi.org/10.1515/aimu-1141-0417)For additional information, please refer tohttp://[employer]/faq/LDW861(This link is being provided for informational/educational purposes only.)THIS TEST WAS PERFORMED AT:[facility] [address]AXEMSB MERATI,MD [facility] Hepatitis C Antibody September 29 11:46am Non-reactive NON-REACT GERONIMO [facility] Hepatitis C RNA Qualitative (BELKYS) Javier pena 2020 11:46am 0.01 HCV antibody was non-reactive. There is no laboratoryevidence of HCV infection.In most cases, no further action is required. However,if recent HCV exposure is suspected, a test for HCV RNA(test code 43733) is suggested.For additional information please refer tohttp://education.[facility]/faq/OCY91n1(This link is being provided for informational/educational purposes only.)THIS TEST WAS PERFORMED AT:[facility] [place] [address]GARRETT THOMAS MD [facility] Reports Report Dictated Date/Time Dictated By Status Radiology Report November 16, 2019 11:47am Shahriar Hernandez MD [place] [id number] [phone] NAME SEX PT STATUS ACCOUNT NUMBER NEO HANSON REG REF [id number] ORDERING PHYSICIAN LOCATION MEDICAL RECORD NO. Lyly Patel MD MAMMO [id number] ATTENDING PHYSICIAN DATE OF DATE OF EXAM/TIME Minh Bhatia MD 1945 11/13/191625 TYPE / EXAM 3D DIG MAMMO SCREEN LT REASON FOR EXAM hx of R breast CA, R implant, part L implant, u/s LAST CLINICAL BREAST EXAM: last week FIVE YEAR RISK: n/a% LIFETIME RISK: n/a% FAMILY HISTORY OF BREAST CARCINOMA: self, 2 maternal aunts COMPARISON: November 05, 2017 and October 04, 2016 2D digital mammogram in the CC and MLO projections was performed on the left breast with supplemental 3D tomosynthesis of the left breast. Images were acquired both directly and with implant displaced. FINDINGS: Craniocaudad and oblique lateral views of the left breast were obtained. The breast is composed of scattered areas of fibroglandular density. A few benign type calcifications remain stable. There is no dominant mass, suspicious clustered microcalcification or architectural distortion. IMPRESSION: No mammographic evidence of malignancy. Yearly screening recommended. OVERALL FINAL ASSESSMENT OF FINDINGS BI-RADS 2 - Benign findings OVERALL FINAL ASSESSMENT OF THE BREAST COMPOSITION Breast Density Classification: B Description: The breast is composed of scattered areas of fibroglandular density. This mammogram was read with the assistance of Alia, an FDA-approved computer- aided detection system for mammography. Reported By Shahriar Hernandez MD on 11/16/19 1147 Signed By Shahriar Hernandez MD on 11/16/19 1149 Date Time CC: Shahriar Hernandez MD; Minh Bhatia MD Techn: FROSA Trans Dt/Tm: Trans by: DT Prt Dt/Tm: [id number]: Total DLP = 0.00 mGy-cm : Total Radiation Dose = 0.0000 mSv Lifetime Dose: 0 mSv Radiology Report February 15, 2020 11:20am Shahriar Hernandez MD completed [facility] [address] [place] [address] [phone] NAME SEX PT STATUS ACCOUNT NUMBER NEO HANSON REG REF [id number] ORDERING PHYSICIAN LOCATION MEDICAL RECORD NO. Minh Bhatia MD RAD [id number] ATTENDING PHYSICIAN DATE OF DATE OF EXAM/TIME Minh Bhatia MD 1945 02/15/20 / 1056 TYPE / EXAM Xray Shoulder complete RT REASON FOR EXAM Right shoulder pain COMPARISON: None FINDINGS: There is normal alignment and position of the bones of the shoulder. No evidence for acute bony injury is identified. Early degenerative changes are seen at the acromioclavicular joint. The soft tissues also appear normal. IMPRESSION: Early degenerative changes at the acromial clavicular joint. No fracture, dislocation, or other significant abnormality. Reported By Shahriar Hernandez MD on 02/15/20 1120 Signed By Shahriar Hernandez MD on 02/15/20 1121 Date Time CC: Shahriar Hernandez MD; Minh Bhatia MD Techn: EBEBR Trans Dt/Tm: Trans by: DT Prt Dt/Tm: : Total DLP = 0.00 mGy-cm Fluoroscopy Time (in secs): Operative Report March 23, 2020 8:37am Milena Sim completed OPERATIV E REPORT NAME: NEO HANSON : 1945 AGE: 75 MR#: [id number] ADMITTING DATE: 03/23/[address]: DISCHARGE DATE: 03/23/[address]: Milena Sim M.D. ROOM#: DATE OF SURGERY/PROCEDURE 03/23/2020 SURGEON Milena Sim MD PREOPERATIVE DIAGNOSIS Age related nuclear cataract, left eye. POSTOPERATIVE DIAGNOSIS Age related nuclear cataract, left eye. PROCEDURE PERFORMED Phacoemulsification and posterior chamber intraocular lens implantation, left eye. ANESTHESIA Topical with sedation. LENS AU00T0, 21.0 diopter. DESCRIPTION OF PROCEDURE The patient was given topical 4% Lidocaine anesthetic in the prep room. The patient's eye was prepped with Betadine in saline solution in the usual manner. After the patient was fully draped in the operating room, a self-retaining lid speculum was inserted. A side-port incision was made and 1% preservative-free Lidocaine was injected in the anterior chamber. Temporal clear cornea bilevel incision was made with keratome. A cystotome needle was passed through the opening and a capsulorrhexis opening of the capsule was performed. The capsule was removed with forceps and then phacoemulsification of the lens was done completely to remove all the nucleus. Then, the tip was withdrawn and the irrig ation aspiration tip was inserted to remove all the cortical contents. Once all the cortex was removed, Viscoat was used to inflate the bag and smooth the entry way for the capsular bag. The implant was placed in the eye. This was put in horizontal position and Miochol was used to constrict the pupil. This was irrigated inside the eye and then the irrigation aspiration unit was inserted again to remove the Viscoat. Wound was checked for leakage. No leaks were noted. Lid speculum was removed. One drop of Betagan was instilled at the end of the case. The patient was discharged in good condition and met all criteria for discharge. /[id number] <Electronically signed by Milena Sim MD> Milena Sim MD 05/26/20 1350 Milena Sim M.D. Cosigner: D: IVELISSE 03/23/20 0837 T: BEAMI 03/23/20 1251 CC: Milena Sim M.D.; Minh Bhatia MD LAST EDIT: Radiology Report September 23, 2020 3:21pm Bhumi Dawkins MD completed [place] [address] [place] [address] [phone] NAME SEX PT STATUS ACCOUNT NUMBER NEO HANSON REG REF [id number] ORDERING PHYSICIAN LOCATION MEDICAL RECORD NO. Minh Bhatia MD LAB [id number] ATTENDING PHYSICIAN DATE OF DATE OF EXAM/TIME Minh Bhatia MD 1945 09/23/20 / 1140 TYPE / EXAM Xray Hand Complete LT REASON FOR EXAM Bilateral hand pain COMPARISON: None FINDINGS: Mild degenerative changes particularly involving the fifth DIP joint. IMPRESSION: Unremarkable hand. Reported By Bhumi Dawkins MD on 09/23/20 152 Signed By Bhumi Dawkins MD on 09/23/20 152 Date Time CC: Minh Bhatia MD; Bhumi Dawkins MD Techn: BAIAB Trans Dt/Tm: Trans by: DT Prt Dt/Tm: [id number]: Total DLP = 0.00 mGy-cm Fluoroscopy Time (in secs): Radiology Report September 23, 2020 3:33pm Bhumi Dawkins MD completed [facility] [address] [facility] [place] [id number] [phone] NAME SEX PT STATUS ACCOUNT NUMBER NEO HANSON REG REF [id number] ORDERING PHYSICIAN LOCATION MEDICAL RECORD NO. Minh Bhatia MD LAB [id number] ATTENDING PHYSICIAN DATE OF DATE OF EXAM/TIME Minh Bhatia MD 1945 09/23/201139 TYPE / EXAM Xray Hand Complete RT REASON FOR EXAM Bilateral hand pain COMPARISON: None FINDINGS: There is normal alignment and position of the bones. No fracture or radiopaque foreign body is identified. IMPRESSION: Unremarkable hand. Reported By Bhumi Dawkins MD on 09/23/201532 Signed By Bhumi Dawkins MD on 09/23/201533 Date Time CC: Minh Bhatia MD; Bhumi Dawkins MD Techn: BAIAB Trans Dt/Tm: Trans by: DT Prt Dt/Tm: [id number]: Total DLP = 0.00 mGy-cm Fluoroscopy Time (in secs): Health Concerns Health Concerns may be documented in an alternate section. Advance Directives Advance Directive Response Recorded Date/Time Advanced Directive No [facility] 2013 7:03am Advance Directives on File or in chart? No March 14, 2020 3:43pm Does Patient have a DNR? 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 History of right breast cancer Pure hypercholesterolemia Encounters Encounter Location(s) Ar rival/Admit Date Discharge/Depart Date Provider(s) Departed Physician/Provider Office Visit [facility] Orthopedics October 19, 2019 9:53am October 19, 2019 10:35am Yair anderson MD Departed Physician/Provider Office Visit [facility] Women's Health November 06, 2019 2:13pm November 06, 2019 3:14pm Lyly Patel MD Registered Referred [facility]-Mammography November 13, 2019 3:55pm Lyly Patel MD Registered Referred [facility]-Radiology February 15, 2020 9:53am Minh Bhatia MD Departed Physician/Provider Office Visit [facility] Internal Medicine March 15, 2020 8:21am March 15, 2020 8:53am Minh Bhatia MD Departed Physician/Provider Office Visit [facility] March 21, 2020 9:20am March 21, 2020 9:20am Milena Sim Departed Surgical Day [facility] Ambulatory Surgery [facility] March 23, 2020 5:35am March 23, 2020 8:49am Milena Sim Registered Referred [facility]-Laboratory July 04, 2020 9:02am Minh Bhatia MD Departed Physician/Provider Office Visit [facility] Internal Medicine July 08, 2020 10:36am July 08, 2020 11:15am Minh Bhatia MD Departed Physician/Provider Office Visit [facility] Internal Medicine September 22, 2020 2:03pm September 22, 2020 2:14pm Minh Bhatia MD Registered Referred [facility]Laboratory September 23, 2020 11:27am Minh Bhatia MD Registered Referred [facility]Labor[facility] September 29, 2020 11:30am LORENE WELLER Departed Physician/Provider Office Visit [facility] Orthopedics October 17, 2020 1:06pm October 17, 2020 2:10pm Yair Abarca MD Recent Diagnosis Onset Date 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 History of right breast cancer 2017 Pure hypercholesterolemia Assessments Diagnosis Onset Date Res olution Status 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 acute History of right breast cancer Febru pedro2017 acute Pure hypercholesterolemia acute Family History Relationship Condition A ge at Onset Recorded Date/Time Not Specified Diabetes mellitus Unknown Not Specified Alzheimer's disease Unknown Functional Status No Functional Status information available Goals Goals may be documented in an alternate section. Immunizations Immunization Event Date Not Given Reason Dose Number Glassine Machine Tender Lot Number Vaccine Information Statement (VIS) Deta il influenza vaccine, inactivated Octob er 2019 [id number] Mental Status Observation Response Keon e Recorded Cognitive Status Mild Dementia March 23, 2020 6:10am Medical Equipment Implanted Devices Device Date Implanted De vice Details LENS [id number] March 23, 2020 SEAN: Insurance Providers Guarantor NEO HANSON Address [address] [place] [address] Contact Info. Home Phone: Payer Policy Id Coverage Id Subscriber's Name Subscriber Id Effective Date Expiration Date [facility] [id number] NEO HANSON [id number] [facility] [id number] NEO HANSON [id number] MEDICARE [employer] [id number] NEO HANSON [id number] MEDICARE [id number] NEO HANSON [id number] [employer] Self Pay Self N/A [facility] [id number] NEO HANSON [id number] [facility] [id number] NEO HANSON [id number] Plan of Treatment Patient with worsening joint pain involving both wrists and small joints of both hands. Her description is suggestive of rheumatoid arthritis given the stiffness lasting fo r more than 1 hour in the morning. Testing has been requested. Lab data and imaging studies have been ordered. I will call the patient with the test results. Referral to the appropriate specia list will be considered. Based on today's physical evaluation and review of the available data, Ms. Jorge Luis manzanares is medically optimized for the proposed left eye cataract surgical procedure. A printed medic ation list with preoperative instructions was given to her. If there are any medical concerns, vinicio emmanuel reach me at [phone]. Patient has bilateral hallux valgus of the feet. At this point I discussed this problem at length with the patient. As she is failed nonoperative treatment she would likely requ stephen surgical correction. I explained that I do not do this operation routinely. I will refe r her to a packaging sales consultant for treatment. Annual visit today. Personal history was updated. Medication record was updated. Results of the annual blood work were discussed with the patient in detail. Comprehensive revie w of systems was done. Comprehensive examination was done. Depression questionnaire was reviewed. Patient came for the annual wellness visit as well as her annual physical. Jace louis's medical and personal history was updated. I updated the list of patient's current medical pr oviders. Medication regimen was also reviewed. Vital signs were recorded. Patient was subjected to t he mini-cog test. There is no evidence of cognitive impairment. Health maintenance activity record was updated. Patient was provided with personalized advice regarding lifestyle measures. A p ersonalized prevention plan was also given to the patient in print. Return appointment will be at the end of 12 months for a recheck. Results of the fasting lipid panel were discussed with the patient. The finding s are satisfactory. Patient was advised to follow a low-fat diet. Patient states that she has had no need for further follow-up with her oncologis t. Patient is overweight. Patient was counseled regarding diet, exercise and weight control. Her weight has remained around the same over the past 1 year Depression questionnaire was filled out. The score was zero. Future Tests Future scheduled test information is unavailable Pending Tests Pending diagnostic test information is unavailable Future Visits Future appointment information is unavailable Referrals to Other Providers Referral information is unavailable Future Procedures Future procedure information is unavailable Future Medications Future medication information is unavailable Patient Instructions Cataract Extraction (DC) Social History Smoking Status Status Date of Observation Former smoker March 16, 2020 12:58pm Observation Status Date of Observation Not April 09, 2016 Observation Status Observation Response Keon e of Response Smoking Status Former smoker March 16, 2020 11:58am Substance Use No March 11:58am Assigned Sex Female Vital Signs Vital Reading Result Ref erence Range Collection Date/Time Heart Rate 70 /min 60-100 October 19, 2019 10:06am Respiratory rate 16 /min 12-24 October 19, 2019 10:06am Oxygen saturation by Pulse oximetry 96 % 95- 100 October 19, 2019 10:06am BP Systolic 120 mm[Hg] October 19, 2019 10:06am BP Diastolic 76 mm[Hg] October 19, 2019 10:06am Height 63 [in_i] November 06, 2019 2:29pm Weight 162.50 [lb_av] November 06, 2019 2:29pm Body Temperature 98.5 [degF] 97.6-99.5 November 06, 2019 2:29pm Heart Rate 71 /min 60-100 November 06, 2019 2:29pm Respiratory rate 18 /min 12-November 06, 2019 2:29pm Oxygen saturation by Pulse oximetry 95 % 95- 100 November 06, 2019 2:29pm BP Systolic 142 mm[Hg] November 06, 2019 2:29pm BP Diastolic 88 mm[Hg] November 06, 2019 2:29pm BMI (Body Mass Index) 28.8 kg/m2 November 06, 2019 2:29pm Height 63 [in_i] March 15, 2020 9:24am Weight 163.00 [lb_av] March 15, 2020 9:24am Heart Rate 81 /min 60-100 March 15, 2020 9:24am Oxygen saturation by Pulse oximetry 97 % 95- 100 March 15, 2020 9:24am BP Systolic 118 mm[Hg] March 15, 2020 9:24am BP Diastolic 74 mm[Hg] March 15, 2020 9:24am BMI (Body Mass Index) 28.8 kg/m2 March 15, 2020 9:24am Height 63 [in_i] March 16, 2020 12:57pm Weight 160.00 [lb_av] March 16, 2020 12:57pm Body Temperature 97.3 [degF] 97.6-99.5 March 23, 2020 9:32am Heart Rate 83 /min 60-100 March 23, 2020 9:32am Respiratory rate 18 /min -March 23, 2020 9:32am Oxygen saturation by Pulse oximetry 94 % 95- 100 March 23, 2020 9:32am BP Systolic 112 mm[Hg] March 23, 2020 9:32am BP Diastolic 66 mm[Hg] March 23, 2020 9:32am Height 63 [in_i] July 08, 2020 11:35am Weight 160.00 [lb_av] July 08, 2020 11:35am Heart Rate 96 /min 60-100 July 08, 2020 11:35am Oxygen saturation by Pulse oximetry 97 % 95- 100 July 08, 2020 11:35am BP Systolic 140 mm[Hg] July 08, 2020 11:35am BP Diastolic 82 mm[Hg] July 08, 2020 11:35am BMI (Body Mass Index) 28.3 kg/m2 July 08, 2020 11:35am Heart Rate 81 /min 60-100 October 17, 2020 1:13pm Respiratory rate 18 /min 12-24 October 17, 2020 1:13pm Oxygen saturation by Pulse oximetry 98 % 95- 100 October 17, 2020 1:13pm BP Systolic 124 mm[Hg] October 17, 2020 1:13pm BP Diastolic 62 mm[Hg] October 17, 2020 1:13pm
--- OUTSIDE RECORDS SUMMARY | 2020-10-28 07:59 | CCD | Continuity of Care Document ---
Author Author [facility] Address [address] [place] [address] Phone Support Name Relationship Address Phone Minh Bhatia PRS [address] [place] [address] TevinYair keyes PRS [address] [place] [address] AmandaОлег mahajandameenakshi [place] [address] [place] [address] Amanda Eldad PRS [address] [place] [address] Erica, Bobby PRS [address] [place] [address] KolMilena triplett PRS [address] [place] [address] Allergies, Adverse Reactions, Alerts No known allergies. Medications Medication Status Dose Units Route Directions Qty Days Start Date End Date Instructions Gabapentin Discontinued 500 MG PO At Bedtime July 06, 2019 10:45am November 06, 2019 2:34pm 2 in the AM and 3 in the PM Tamoxifen Discontinued 20 MG PO Once Per Day July 06, 2019 10:46am July 14, 2019 6:38am Afluria Qd (3yr up)(PF) (flu vac [id number] 36mos up(PF)) Discontinued 60 MCG IM 1 Time/Once 0.5 July 08, 2020 10:36am June 172019 10:46am Multivitamin Active 1 TAB PO Once Per Day July 08, 2020 11:39am Duloxetine Active 30 MG PO daily March 15, 2020 8:27am [place] 9-Ufi-Arz-Fish Oil Discontinued 1 EACH PO Once Per [...] PO Three times a day 90 April 02, 2011 3:03pm April 03, 2011 10:24am Nateglinide Discontinued 120 MG PO Three times a day 90 April 03, 2011 10:24am October 29, 2012 1:11pm Metformin Hcl Discontinued 1000 MG PO 2 Times Per Day 180 May 01, 2011 9:13am October 29, 2012 1:11pm Blood Sugar Diagnostic (Freestyle Test) strip Discontinued 1 STRIP MC Once Per Day 0 3 July 16, 2011 9:03am July 16, 2011 9:04am Blood Sugar Diagnostic (Freestyle Test) strip Discontinued 1 STRIP MC Once Per Day 100 July 16, 2011 9:04am October 29, 2012 [...] Discontinued 1 STRIP MC Once Per Day August 06, 2013 9:02am December 02, 2013 [...] Per Day January 20, 2020 6:33am J arcelia 2019 11:57am Problems Active Problems Medical Problem Onset Date Status History of Diabetes Mellitus Active Pure hypercholesterolemia Active History of right breast cancer Febru pedro 2017 Active 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 Right shoulder pain Ac tive Inactive/Resolved Problems Medical Problem Onset Date Status Essential hypertension Resolved Procedures Procedure Date Performed Status Phacoemulsification With IOL (Left) March 23, 2020 10:25am completed Xray Shoulder complete RT February 15, 2020 9:56am completed 3D DIG MAMMO SCREEN LT October 4:26pm completed Relevant Diagnostic Tests and/or Laboratory Data Laboratory Results Test Date/Time Result Interpretation Reference Range Result Comment Performing Site White Blood Count July 04, 2020 9:10a m 6.4 10e3/uL 4.45-10.71 [facility], [address] [place] [address] 02055 Red Blood Count July 04, 2020 9:10am 4.35 10e6/uL 4.20-5.40 [facility], [address] [place] [address] 41979 Hemoglobin July 04, 2020 9:10am 13.1 g/dL 10.7-15.4 [facility], [address] [place] [address] 16956 Hematocrit July 04, 2020 9:10am 41.3 % 37-47 [facility], [address] [place] [address] 95166 Mean Corpuscular Volume June 9:10am 94.9 fl 80-96 [facility], [address] [place] [address] 65073 Mean Corpuscular Hemoglobin July 04, 2020 9:10am 30.1 pg 27-31 [facility], [address] [place] [address] 93300 Mean Corpuscular Hemoglobin Concent July 04, 2020 9:10am 31.7 g/dl 33-37 [facility], [address] [place] [address] 09810 Red Cell Distribution Width July 04, 2020 9:10am 12 % 11-15 [facility], [address] [place] [address] 61711 Platelet Count July 04, 2020 9:10am 256 10e3/ul 130-472 [facility], [address] [place] [address] 76713 Mean Platelet Volume July 04 9:10am 9.2 fl 9.1-13.1 [facility], [address] [place] [address] 85270 Neutrophils (%) (Auto) July 04, 2020 9:10am 57.4 % 41-77 [facility], [address] [place] [address] 12827 Absolute Neutrophil July 04 9:10am 3.7 # 1.7-7.6 [facility], [address] [place] [address] 59621 Lymphocytes (%) (Auto) July 04, 2020 9:10am 32.1 % 14-46 [facility], [address] [place] [address] 59054 Lymphocytes # (Auto) July 04 9:10am 2.1 # 0.6-4.6 [facility], [address] [place] [address] 36428 Monocytes (%) (Auto) July 04 9:10am 8.0 % 4-12 [facility], [address] [place] [address] 59758 Monocytes # July 04, 2020 9:10am 0.5 # 0.2-1.2 [facility], [address] [place] [address] 37513 Eosinophils (%) (Auto) July 04, 2020 9:10am 1.4 % 0-7 [facility], [address] [place] [address] 66876 Absolute Eosinophils (CBC) June 162019 9:10am 0.1 # 0.0-0.5 [facility], [address] [place] [address] 22966 Basophils (%) (Auto) July 04 9:10am 0.8 % 0.4-1.3 [facility], [address] [place] [address] 28539 Absolute Basophils (CBC) June 9:10am 0.1 # 0.0-0.2 [facility], [address] [place] [address] 49230 Immature Granulocyte % (Auto) Oct2019 9:10am 0.3 % 0-2 [facility], [address] [place] [address] 48045 Absolute Immature Granulocyte (auto July 04, 2020 9:10am 0.0 # 0-0.1 [facility], [address] [place] [address] 93107 Add Manual Differential June 9:10am No [facility], [address] [place] [address] 54285 Urine Color July 04, 2020 9:16am Yellow [facility], [address] [place] [address] 85438 Urine Appearance July 04, 2020 9:16am Clear CLEAR [facility], [address] [place] [address] 45821 Urine pH July 04, 2020 9:16am 5.0 [facility], [address] [place] [address] 42207 Urine Specific [place] July 04, 2020 9:16am 1.033 [facility], [address] [place] [address] 76731 Urine Leukocyte Esterase June 9:16am Trace NEGATIVE [facility], [address] [place] [address] 55671 Urine Nitrite July 04, 2020 9:16am Negative NEGATIVE [facility], [address] [place] [address] 66956 Urine Protein July 04, 2020 9:16am Negative NEGATIVE [facility], [address] [place] [address] 78438 Urine Glucose July 04, 2020 9:16am Negative NEGATIVE [facility], [address] [place] [address] 56630 Urine Ketones July 04, 2020 9:16am Trace NEGATIVE [facility], [address] [place] [address] 34410 Urine Urobilinogen July 04 0 9:16am 1 eu/dl [facility], [address] [place] [address] 38861 Urine Bilirubin July 04, 2020 9:16am Negative NEGATIVE [facility], [address] [place] [address] 32240 Urine Blood July 04, 2020 9:16am Negative NEGATIVE [facility], [address] [place] [address] 38303 Microscopic Urinalysis Comment Octob er 2019 9:16am Microscopic added [facility], [address] [place] [address] Urine WBC July 04, 2020 9:16am 3-5 /hpf [facility], [address] [place] [address] 88252 Urine Squamous Epithelial Cells Octo franck 2019 9:16am Moderate /hpf [facility], [address] [place] [address] 12063 Urine Mucus July 04, 2020 9:16am Moderate amount [facility], [address] [place] [address] 34860 Blood Urea Nitrogen July 04 9:10am 22 mg/dL 9-23 [facility], [address] [place] [address] 60867 Sodium Level July 04, 2020 9:10am 141 mmol/L 132-146 [facility], [address] [place] [address] 43760 Potassium Level July 04, 2020 9:10am 4.1 mmol/L 3.5-5.5 [facility], [address] [place] [address] 00100 Chloride Level July 04, 2020 9:10am 106 mmol/l 99-109 [facility], [address] [place] [address] 28272 Carbon Dioxide Level July 04 9:10am 31 mmol/l 20-31 [facility], [address] [place] [address] 83425 Anion Gap July 04, 2020 9:10am 8 mmol/l 8-16 [facility], [address] [place] [address] 12311 Glucose Level July 04, 2020 9:10am 97 mg/dL 74-106 [facility], [address] [place] [address] 84517 Creatinine July 04, 2020 9:10am 0.7 mg/dL 0.5-1.1 [facility], [address] [place] [address] 91493 Glomerular Filtration Rate Calc Octo 2019 9:10am Greater than 60 ml/min ABOVE 60 [facility], [address] [place] [address] 93835 Alanine Aminotransferase (ALT/SGPT) July 04, 2020 9:10am 26 U/L 10-49 [facility], [address] [place] [address] 54980 Aspartate Amino Transf (AST/SGOT) Oc tober 2019 9:10am 22 U/L 0-33 [facility], [address] [place] [address] 95229 Alkaline Phosphatase July 04 9:10am 71 U/L 45-129 [facility], [address] [place] [address] 66484 Calcium Level July 04, 2020 9:10am 9.0 mg/dL 8.5-10.1 [facility], [address] [place] [address] 29546 Total Bilirubin July 04, 2020 9:10am 0.6 mg/dL 0.3-1.2 [facility], [address] [place] [address] 36396 Albumin July 04, 2020 9:10am 3.4 g/dL 3.2-4.8 [facility], [address] [place] [address] 28485 Serum Total Protein July 04 9:10am 6.3 g/dL 5.7-8.2 [facility], [address] [place] [address] 81173 Triglycerides Level July 04 9:10am 82 mg/dL 0-150 [facility], [address] [place] [address] 96676 Cholesterol Level July 04, 2020 9:10a m 189 mg/dL 120-200 [facility], [address] [place] [address] 40611 HDL Cholesterol July 04, 2020 9:10am 84 mg/dL HDL Less than 40 mg/dL: Major risk for CHDHDL Greater than 59 mg/dL: Low risk for CHD [facility], [address] [place] [address] 99109 LDL Cholesterol, Calculated July 04, 2020 9:10am 89 mg/dL 0-100 [facility], [address] [place], [place] [address] Diagnostic Imaging Reports Report Dictated Date/Time Dictated By Status Radiology Report November 16, 2019 11:47am Shahriar Hernandez MD [place] [address] [place] [id number] [phone] NAME SEX PT STATUS ACCOUNT NUMBER NEO MCCORMICK REG REF [id number] ORDERING PHYSICIAN LOCATION MEDICAL RECORD NO. Lyly Patel MD MAMMO [id number] ATTENDING PHYSICIAN DATE OF DATE OF EXAM/TIME Minh Bhatia MD 1945 11/13/19 / 6 TYPE / EXAM 3D DIG MAMMO SCREEN [...] mammogram was read with the assistance of [employer], an FDA-approved computer- aided detection system for mammography. Reported By Shahriar Hernandez MD on 11/16/19 1147 Signed By Shahriar Hernandez MD on 11/16/19 1149 Date Time CC: Shahriar Hernandez MD; Minh Bhatia MD Techn: FROSA Trans Dt/Tm: Trans by: DT Prt Dt/Tm: 3900-8681: Total DLP = 0.00 mGy-cm 7756-0197: Total Radiation Dose = 0.0000 mSv Lifetime Dose: 0 mSv Radiology Report February 15, 2020 11:20am Shahriar Hernandez MD completed [place] [address] [place] [address] [phone] NAME SEX PT STATUS ACCOUNT NUMBER NEO MCCORMICK REG REF [id number] ORDERING PHYSICIAN LOCATION MEDICAL RECORD NO. Minh Bhatia MD RAD [id number] ATTENDING PHYSICIAN DATE OF DATE OF EXAM/TIME Minh Bhatia MD 1945 02/15/201055 TYPE / EXAM Xray Shoulder complete RT [...] Signed By Shahriar Hernandez MD on 02/15/20 112 Date Time CC: Shahriar Hernandez MD; Minh Bhatia MD Techn: EBEBR Trans Dt/Tm: Trans by: DT Prt Dt/Tm: : Total DLP = 0.00 mGy-cm Fluoroscopy Time (in secs): Operative Report March 23, 2020 8:37am Milena Sim completed OPERATIV E REPORT NAME: NEO MCCORMICK : 1945 AGE: 75 MR#: [id number] ADMITTING DATE: 03/23/[address]: DISCHARGE DATE: [...] condition and met all criteria for discharge. /[id number] <Electronically signed by Milena Sim MD> Milena Sim MD 05/26/20 1350 Milena Sim M.D. Cosigner: D: IVELISSE 03/23/20 0837 T: MELONY 03/23/20 1251 CC: Milena Sim M.D.; Minh Bhatia MD LAST EDIT: Health Concerns Health Concerns may be documented in an alternate section. Advance Directives Advance Directive Response Recorded Date/Time Advanced Directive No [facility] 2013 7:03am Advance Directives on File or in chart? No March 14, 2020 3:43pm Does Patient have a DNR? 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 Pre-operative H&P Call First Appt CATARACT/CATARACT EXTRACTION 68191 E78.00 Annual Physical Telemed Visit Reason for Visit Acquired hallux tessy alden with metatarsus primus varus of right foot History of right breast cancer Pure hypercholesterolemia Encounters Encounter Location(s) Ar rival/Admit Date Discharge/Depart Date Provider(s) Departed Physician/Provider Office Visit [facility] October 19, 2019 9:53am October 19, 2019 10:35am Yair anderson MD Departed Physician/Provider Office Visit [facility] November 06, 2019 2:13pm November 06, 2019 3:14pm Lyly Patel MD Registered Referred [facility] November 13, 2019 3:55pm Lyly Patel MD Registered Referred [facility]Rad[facility] February 15, 2020 9:53am Minh Bhatia MD Departed Physician/Provider Office Visit [facility] Internal Medicine March 15, 2020 8:21am March 15, 2020 8:53am Minh Bhatia MD Departed Physician/Provider Office Visit [facility] March 21, 2020 9:20am March 21, 2020 9:20am Milena Sim Departed Surgical Day Care [facility] March 23, 2020 5:35am March 23, 2020 8:49am Milena Sim Registered Referred [facility]Labor[facility] July 04, 2020 9:02am Minh Bhatia MD Departed Physician/Provider Office Visit [facility] July 08, 2020 10:36am July 08, 2020 11:15am Minh Bhatia MD Departed Physician/Provider Office Visit [facility] September 22, 2020 2:03pm September 22, 2020 2:14pm Minh Bhatia MD Recent Diagnosis Onset Date 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 Immunizations Immunization Event Date Not Given Reason Dose Number [facility] Att[facility] Lot Number Vaccine Information Statement (VIS) Deta il influenza vaccine, inactivated Octob er 2019 [id number] Mental Status Observation Response Keon e Recorded Cognitive Status Mild Dementia March 23, 2020 6:10am Medical Equipment Implanted Devices Device Date Implanted De vice Details LENS [id number] March 23, 2020 SEAN: Insurance Providers Guarantor NEO MCCORMICK Address [address] [place] [address] Contact Info. Home Phone: Payer Policy Id Coverage Id Subscriber's Name Subscriber Id Effective Date Expiration Date [facility] [id number] NEO MCCORMICK [id number] AAR [id number] NEO MCCORMICK [id number] MEDICARE UPSTATE [id number] NEO MCCORMICK [id number] MEDICARE [id number] NEO MCCORMICK [id number] [employer] Self Pay Self N/A AAR [id number] NEO MCCORMICK [id number] [facility] MEDICAR [id number] NEO MCCORMICK [id number] Plan of Treatment Based on today's physical evaluation and review of the available data, Ms. Mccormick is medically optimized for the proposed left eye cataract surgical procedure. A printed medic ation list with preoperative instructions was given to her. If there are any medical concerns, p cholo reach me at [phone]. Patient has bilateral hallux valgus of the feet. At this point I discussed this problem at length with the patient. As she is failed nonoperative treatment she would likely requ stephen surgical correction. I explained that I do not do this operation routinely. I will refe r her to a armature straightener for treatment. Annual visit today. Personal history was updated. Medication record was updated. Results of the annual blood work were discussed with the patient in detail. Comprehensive revie w of systems was done. Comprehensive examination was done. Depression questionnaire was reviewed. Patient came for the annual wellness visit as well as her annual physical. Jace missy's medical and personal history was updated. I [...] 19, 2019 10:06am Respiratory rate 16 /min 12-October 19, 2019 10:06am Oxygen saturation by Pulse [...] 06, 2019 2:29pm Respiratory rate 18 /min -November 06, 2019 2:29pm Oxygen saturation by Pulse [...] 23, 2020 9:32am Respiratory rate 18 /min 12-24 March 23, 2020 9:32am Oxygen saturation by Pulse [...]
--- OUTSIDE RECORDS SUMMARY | 2020-10-28 07:59 | CCD | Continuity of Care Document ---
Author Author Mahsa VALLADARES MD Organization Unknown Address [address] [place] [address] Phone [phone] Problems Description No Information Available Social History Type Date Description Comments Sex Unknown ETOH Use Denies alcohol use Tobacco Use Start: Unknown End: Unknown Patient is a former smoker Smoking Status Reviewed: 11/16/19 Patient is a former smoker Allergies, Adverse Reactions, Alerts Description No Known Drug Allergies Medications Active Medications SIG Qnty Indications Ordering Provide r Date Tamoxifen Citrate 20mg Tablets Unknown Magnesium 250mg Tablets Unknown Meloxicam 15mg Tablets 1 by mouth every day with food or milk Unknown Vitamin C 500mg Capsules 1 by mouth every day Unknown Vitamin D 1000Unit Tablets Unknown B Complex-B12 Tablets Unknown Multi Vitamin W/D-3 D-3 Tablets Unknown Duloxetine HCL 30mg Caps DR Lawson Take One Capsule By Mouth Every Day For Pain Maximum Daily Dose 1 Capsule Unknown Tobramycin 0.3% Solution Milena Sim MD Ketorolac Tromethamine 0.4% Solution Milena Sim MD Prednisolone Acetate 1% Suspension Instill 1 Drop Into Right Eye Four Times A Day as Directed . Start Day Of Surgeryafter You Get Home Unknown Penicillin V Potassium 500mg Tablets Unknown Immunizations Description No Information Available Vital Signs Date Vital Result Comment 11/16/2019 3:29pm Body Temperature 98.1 F Height 61.5 inches 5'1.50" Weight 154.00 lb BMI (Body Mass Index) 28.6 kg/m2 Results Test Acquired Date Facility Test Result H/L Range Note Order 06/14/2020 [facility] [address] [place] [address] Surgery <pending> Procedures Date Code Description Status 06/13/2020 38380 X-Ray Foot Complete Completed Medical Devices Description No Information Available Encounters Type Date Location Provider Dx Diagnosis Office Visit 06/13/2020 1:15p [place] Patricia Valladares MD M20. 11 Hallux valgus (acquired), right foot M19.071 Primary osteoarthritis, righ t ankle and foot M19.072 Primary osteoarthritis, left ankle and foot Assessments Date Code Description Provider 09/20/2020 M20.11 Hallux valgus (acquired), right foot Patricia Valladarse MD 09/20/2020 M19.071 Primary osteoarthritis, right an kle and foot Patricia Valladares MD 09/20/2020 M19.072 Primary osteoarthritis, left ank le and foot Patricia Valladares MD 09/20/2020 M21.612 Bunion of left foot Patricia zayas MD 06/13/2020 M20.11 Hallux valgus (acquired), right foot aPtricia Valladares MD 06/13/2020 M19.071 Primary osteoarthritis, right an kle and foot Patricia Valladares MD 06/13/2020 M19.072 Primary osteoarthritis, left ank le and foot Patricia Valladares MD Plan of Treatment 09/20/2020 - Patricia Valladares MD* M20.11 Hallux valgus (acquired), right foot * M19.071 Primary osteoarthritis, right ankle and foot* New Xrays:* Fluroscopic xray guided steroid injection into the 2nd and, Ordered: 09/20/20 * Follow up:* prn. * M19.072 Primary osteoarthritis, left ankle and foot* New Xrays:* Fluroscopic xray guided steriod injection into the 2nd and, Ordered: 09/20/20 * New Orders:* Referral, Ordered: 09/20/20 * M21.612 Bunion of left foot Functional Status Description No Information Available Mental Status Description No Information Available Referrals Refer to Reason for Referral Status Appt Date Patricia Valladares MD FLUORO INJ NO AUTH REQUIRED FOR FLUORO GUIDED INJ LEFT FOOT TO ALANA Thurman [facility] [place] [address] [phone] Patricia Valladares MD SURGERY NO AUTH REQUIRED FOR RT FOOT SURGERY ([id number]) TO SURGERY NT Created [address] [place] [address] [phone]
--- OUTSIDE RECORDS SUMMARY | 2020-10-28 08:00 | CCD ---
Author Author [facility] Organization [facility] Address Unknown Phone Unavailable Care Team Providers Care Respiratory Clinician Name Role Phone PATRICIA VALLADARES MD Unavailable Unavailable PATRICIA VALLADARES MD Unavailable Unavailable PATRICIA VALLADARES MD Unavailable Unavailable PATRICIA VALLADARES MD Unavailable Unavailable PATRICIA VALLADARES MD Unavailable Unavailable PATRICIA VALLADARES MD Unavailable Unavailable PATRICIA VALLADARES MD Unavailable Unavailable PATRICIA VALLADARES MD Unavailable Unavailable PATRICIA VALLADARES MD Unavailable Unavailable PATRICIA VALLADARES MD Unavailable Unavailable PATRICIA VALLADARES MD Unavailable Unavailable PATRICIA VALLADARES MD Unavailable Unavailable PATRICIA VALLADARES MD Unavailable Unavailable PATRICIA VALLADARES MD Unavailable Unavailable PATRICIA VALLADARES MD Unavailable Unavailable PATRICIA VALLADARES MD Unavailable Unavailable PATRICIA VALLADARES MD Unavailable Unavailable PATRICIA VALLADARES MD Unavailable Unavailable PATRICIA VALLADARES MD Unavailable Unavailable PATRICIA VALLADARES MD Unavailable Unavailable PATRICIA VALLADARES MD Unavailable Unavailable PATRICIA VALLADARES MD Unavailable Unavailable PATRICIA VALLADARES MD Unavailable Unavailable PATRICIA VALLADARES MD Unavailable Unavailable PATRICIA VALLADARES MD Unavailable Unavailable PATRICIA VALLADARES MD Unavailable Unavailable PATRICIA VALLADARES MD Unavailable Unavailable PATRICIA VALLADARES MD Unavailable Unavailable PATRICIA VALLADARES MD Unavailable Unavailable PATRICIA VALLADARES MD Unavailable Unavailable Koloms, Milena MD Unavailable Unavailable Koloms, Milena MD Unavailable Unavailable Koloms, Milena MD Unavailable Unavailable Koloms, Milena MD Unavailable Unavailable Koloms, Milena MD Unavailable Unavailable Koloms, Milena MD Unavailable Unavailable Koloms, Milena MD Unavailable Unavailable Koloms, Milena MD Unavailable Unavailable Koloms, Milena MD Unavailable Unavailable Koloms, Milena MD Unavailable Unavailable Koloms, Milena MD Unavailable Unavailable Koloms, Milena MD Unavailable Unavailable Koloms, Milena MD Unavailable Unavailable Koloms, Milena MD Unavailable Unavailable Koloms, Milena MD Unavailable Unavailable Koloms, Milena MD Unavailable Unavailable Koloms, Milena MD Unavailable Unavailable Koloms, Milena MD Unavailable Unavailable Koloms, Milena MD Unavailable Unavailable Koloms, Milena MD Unavailable Unavailable Koloms, Milena MD Unavailable Unavailable Koloms, Milena MD Unavailable Unavailable Koloms, Milena MD Unavailable Unavailable Koloms, Milena MD Unavailable Unavailable Koloms, Milena MD Unavailable Unavailable Koloms, Milena MD Unavailable Unavailable Koloms, Milena MD Unavailable Unavailable Koloms, Milena MD Unavailable Unavailable Amanda, Eldad Unavailable Unavailable Amanda, Eldad Unavailable Unavailable Amanda, Eldad Unavailable Unavailable Amanda, Eldad Unavailable Unavailable Amanda, Eldad Unavailable Unavailable Amanda, Eldad Unavailable Unavailable Amanda, Eldad Unavailable Unavailable Amanda, Eldad Unavailable Unavailable Amanda, Eldad Unavailable Unavailable Amanda, Eldad Unavailable Unavailable SriramChristofer MD Unavailable Unavailable SriramChristofer Minh MD Unavailable Unavailable SriramChristofer Minh MD Unavailable Unavailable Sriram R Minh MD Unavailable Unavailable SriramChristofer Minh MD Unavailable Unavailable SriramChristofer Minh MD Unavailable Unavailable SriramChristofer Minh MD Unavailable Unavailable Sriram R Minh MD Unavailable Unavailable Sriram R Minh MD Unavailable Unavailable Sriram R Minh MD Unavailable Unavailable Sriram R Minh MD Unavailable Unavailable SriramChristofer Minh MD Unavailable Unavailable Sriram R Minh MD Unavailable Unavailable SriramChristofer Minh MD Unavailable Unavailable Sriram R Minh MD Unavailable Unavailable Sriram R Minh MD Unavailable Unavailable Sriram R Minh MD Unavailable Unavailable Sriram R Minh MD Unavailable Unavailable Sriram R Minh MD Unavailable Unavailable Sriram R Minh MD Unavailable Unavailable Sriram, R Minh MD Unavailable Unavailable Sriram, R Minh MD Unavailable Unavailable Sriram, R Minh MD Unavailable Unavailable Sriram, R Minh MD Unavailable Unavailable Sriram, R Minh MD Unavailable Unavailable Sriram, R Minh MD Unavailable Unavailable Sriram, R Minh MD Unavailable Unavailable Sriram, R Minh MD Unavailable Unavailable Sriram, R Minh MD Unavailable Unavailable Sriram, R Minh MD Unavailable Unavailable Sriram, R Minh MD Unavailable Unavailable Sriram, R Minh MD Unavailable Unavailable Sriram, R Minh MD Unavailable Unavailable Sriram, R Minh MD Unavailable Unavailable Sriram, R Minh MD Unavailable Unavailable Sriram, R Minh MD Unavailable Unavailable Sriram, R Minh MD Unavailable Unavailable Sriram, R Minh MD Unavailable Unavailable Rsiram, R Minh MD Unavailable Unavailable Sriram, R Minh MD Unavailable Unavailable Sriram, R Minh MD Unavailable Unavailable Sriram, R Minh MD Unavailable Unavailable Sriram, R Minh MD Unavailable Unavailable Sriram, R Minh MD Unavailable Unavailable Sriram, R Minh MD Unavailable Unavailable Sriram, R Minh MD Unavailable Unavailable Sriram, R Minh MD Unavailable Unavailable Sriram, R Minh MD Unavailable Unavailable Sriram, R Minh MD Unavailable Unavailable Sriram, R Minh MD Unavailable Unavailable Sriram, R Minh MD Unavailable Unavailable Sriram, R Minh MD Unavailable Unavailable Sriram, R Minh MD Unavailable Unavailable Sriram, R Minh MD Unavailable Unavailable Sriram, R Minh Unavailable Unavailable Sriram, R Minh MD Unavailable Unavailable Sriram, R Minh MD Unavailable Unavailable Sriram, R Minh MD Unavailable Unavailable Sriram, R Minh MD Unavailable Unavailable Sriram, R Minh MD Unavailable Unavailable Sriram, R Minh MD Unavailable Unavailable Sriram, R Minh MD Unavailable Unavailable Sriram, R Minh MD Unavailable Unavailable Sriram, R Minh MD Unavailable Unavailable Sriram, R Minh MD Unavailable Unavailable Sriram, R Minh MD Unavailable Unavailable Sriram, R Minh MD Unavailable Unavailable Sriram, R Minh MD Unavailable Unavailable Sriram, R Minh MD Unavailable Unavailable Sriram, R Minh MD Unavailable Unavailable Sriram, Christofer Valadezoruben ZULUAGA Unavailable Unavailable Christofer Bhatia MD Unavailable Unavailable SriramChristofer camacho MD Unavailable Unavailable Christofer Bhatia MD Unavailable Unavailable Christofer Bhatia MD Unavailable Unavailable Christofer Bhatia MD Unavailable Unavailable NITHIN PAULSON Unavailable Unavailable Yair Abarca MD Unavailable Unavailable Tima, Santos DPM Unavailable Unavailable Tima, Santos DPM Unavailable Unavailable Tima, Santos DPM Unavailable Unavailable Tima, Santos DPM Unavailable Unavailable Tima, Santos DPM Unavailable Unavailable Tima, Santos DPM Unavailable Unavailable Tima, Santos DPM Unavailable Unavailable Tima, Santos DPM Unavailable Unavailable Tima, Santos DPM Unavailable Unavailable Tima, Santos DPM Unavailable Unavailable Tima, Santos DPM Unavailable Unavailable Tima, Santos DPM Unavailable Unavailable Tima, Santos DPM Unavailable Unavailable Tima, Santos DPM Unavailable Unavailable Tima, Santos DPM Unavailable Unavailable Tima, Santos DPM Unavailable Unavailable Tima, Santos DPM Unavailable Unavailable Tima, Santos DPM Unavailable Unavailable Tima, Santos DPM Unavailable Unavailable Tima, Santos DPM Unavailable Unavailable Tima, Santos DPM Unavailable Unavailable Tima, Santos DPM Unavailable Unavailable Tima, Santos DPM Unavailable Unavailable Tima, Santos DPM Unavailable Unavailable Tima, Santos DPM Unavailable Unavailable Tima, Santos DPM Unavailable Unavailable Tima, Santos DPM Unavailable Unavailable Tima, Santos DPM Unavailable Unavailable Tima, Santos DPM Unavailable Unavailable Tima, Santos DPM Unavailable Unavailable Tima, Santos DPM Unavailable Unavailable Tima, Santos DPM Unavailable Unavailable Tima, Santos DPM Unavailable Unavailable PATRICIA VALLADARES MD Unavailable Unavailable PATRICIA VALLADARES MD Unavailable Unavailable PATRICIA VALLADARES MD Unavailable Unavailable PATRICIA VALLADARES MD Unavailable Unavailable PATRICIA VALLADARES MD Unavailable Unavailable PATRICIA VALLADARES MD Unavailable Unavailable PATRICIA VALLADARES MD Unavailable Unavailable PATRICIA VALLADARES MD Unavailable Unavailable PATRICIA VALLADARES MD Unavailable Unavailable PATRICIA VALLADARES MD Unavailable Unavailable PATRICIA VALLADARES MD Unavailable Unavailable PATRICIA VALLADARES MD Unavailable Unavailable PATRICIA VALLADARES MD Unavailable Unavailable PATRICIA VALLADARES MD Unavailable Unavailable PATRICIA VALLADARES MD Unavailable Unavailable PATRICIA VALLADARES MD Unavailable Unavailable PATRICIA VALLADARES MD Unavailable Unavailable PATRICIA VALLADARES MD Unavailable Unavailable PATRICIA VALLADARES MD Unavailable Unavailable PATRICIA VALLADARES MD Unavailable Unavailable VALLADARES, PATRICIA MD Unavailable Unavailable PATRICIA VALLADARES MD Unavailable Unavailable VALLADARESPATRICIA MD Unavailable Unavailable VALLADARESPATRICIA MD Unavailable Unavailable VALLADARESPATRICIA MD Unavailable Unavailable VALLADARESPATRICIA MD Unavailable Unavailable VALLADARESPATRICIA MD Unavailable Unavailable VALLADARESPATRICIA MD Unavailable Unavailable VALLADARESPATRICIA MD Unavailable Unavailable PATRICIA VALLADARES MD Unavailable Unavailable Re-disclosure Warning The records that you are about to access may contain information from federally-assisted alcohol or drug abuse programs. If such information is present, then the following federally mandated warning applies: This information has been disclosed to you from records protected by federal confidentiality rules (42 CFR part 2). The federal rules prohibit you from making any further disclosure of this information unless further disclosure is expressly permitted by the written consent of the person to whom it pertains or as otherwise permitted by 42 CFR part 2. A general authorization for the release of medical or other information is NOT sufficient for this purpose. The Federal rules restrict any use of the information to criminally investigate or prosecute any alcohol or drug abuse patient.The records that you are about to access may contain highly sensitive health information, the redisclosure of which is protected by Article 27-F of the [facility] Public Health law. If you continue you may have access to information: Regarding HIV / AIDS; Provided by facilities licensed or operated by the [facility] Office of Mental Health; or Provided by the [facility] Office for People With Developmental Disabilities. If such information is present, then the following [facility] mandated warning applies: This information has been disclosed to you from confidential records which are protected by state law. State law prohibits you from making any further disclosure of this information without the specific written consent of the person to whom it pertains, or as otherwise permitted by law. Any unauthorized further disclosure in violation of state law may result in a fine or correction sentence or both. A general authorization for the release of medical or other information is NOT sufficient authorization for further disc losure. Allergies and Adverse Reactions Type Description Substance Reaction Status Data Source(s ) Drug allergy No Known Drug Allergies No Known Drug Allergies [facility] Environmental Allergy SEASONAL ALLERGIES SEASONAL ALLERGIES envi ronmental allergies too [facility] seasonal seasonal seasonal nasal congestion, itchy eyes Active eCW1 ([facility]) seasonal seasonal seasonal nasal congestion, itchy eyes Active eCW1 ([facility]) seasonal seasonal seasonal nasal congestion, itchy eyes Active eCW1 ([facility]) seasonal seasonal seasonal nasal congestion, itchy eyes Active eCW1 ([facility]) seasonal seasonal seasonal nasal congestion, itchy eyes Active eCW1 ([facility]) seasonal seasonal seasonal nasal congestion, itchy eyes Active eCW1 ([facility]) seasonal seasonal seasonal nasal congestion, itchy eyes Active eCW1 ([facility]) Family History Family Member Name Family Member Gender Family Member Status Date o f Status Description Data Source(s) Unknown Condition [facility] Unknown Condition [facility] Unknown Condition [facility] Unknown Condition [facility] Unknown Condition [facility] Unknown Condition [facility] Unknown Condition [facility] Unknown Condition [facility] Unknown Condition [facility] Unknown Female Problem [facility] ([facility], ) Unknown Female Problem [facility] ([facility], ) Encounters Encounter Providers Location Date Indications Data Source(s ) Outpatient Attender: Santos Alfred DPM 10/19/2020 12:15:00 PM EST M20.11,M79.671 [facility] M20.11,M79.671 Outpatient Attender: Yair Abarca MDReferrer: Minh Bhatia MD 10/17/2020 01:06:00 PM EST - 10/17/2020 02:10:[address] [facility] Outpatient Attender: NITHIN PAULSON 09/29/2020 11:30:00 AM EST L40.0 [facility] L40.0 Outpatient Attender: Minh Bhatia MD 09/23/2020 11:27:00 AM EST M25.50 [facility] M25.50 Outpatient Attender: Minh GAUTHIEReferrer: Minh Bhatia MD 09/22/2020 02:03:00 PM EST - 09/22/2020 02:14:[address] [facility] Outpatient Attender: Minh GAUTHIEReferrer: Minh Bhatia MD 07/08/2020 11:36:00 AM EDT - 07/08/2020 12:15:[address] [facility] Outpatient Attender: Minh Bhatia MD 07/04/2020 10:02:00 AM EDT E78.00 [facility] E78.00 Outpatient Attender: PATRICIA VALLADARES MD Physical Therapy 01:15:00 PM EDT MED[facility] ([facility]) Outpatient Attender: Milena Sim MD 2019 06:35:00 AM EDT - 03/23/2020 09:49:00 AM EDT CATARACT/CATARACT EXTRACTION [address] [facility] CATARACT/CATARACT EXTRACTION 42290 Patient discharged. Outpatient Attender: Milena Sim MD 03/21/2020 10:20:00 A M EDT PRE-OP [facility] PRE-OP Outpatient [address] [facility] [phone] 03/17/2020 12:00:00 AM EDT eCW1 ([facility]) Outpatient Attender: Minh Bhatia MDReferrer: Minh Bhatia MD 03/15/2020 09:21:00 AM EDT [facility] TeleMedicine Phone E/M by Phys 11-[address] [place] [address] 02/23/2020 12:00:00 AM EDT eCW1 ([facility]) Outpatient Attender: Minh Bhatia MD 02/15/2020 10:53: 00 AM EDT RT SHOULDER PAIN [facility] RT SHOULDER PAIN [facility] [address] [place] [phone] 02/12/2020 12:00:00 AM EDT eCW1 ([facility]) [facility] [address] [place] [phone] 02/04/2020 12:00:00 AM EDT eCW1 ([facility]) Outpatient Referrer: PATRICIA VALLADARES MD 02/03/2020 04:00:0 0 PM EDT [facility] Outpatient Referrer: PATRICIA VALLADARES MD 02/03/2020 04:00:0 0 PM EDT [facility] Outpatient Referrer: PATRICIA VALLADARES MD 02/03/2020 02:45:0 0 PM EDT [facility] Outpatient Referrer: PATRICIA VALLADARES MD 02/02/2020 11:44:0 0 AM EDT [facility] [address] [place], [place] [phone] 01/14/2020 12:00:00 AM EDT [facility]CW1 [facility] [address] [place], [place] [id number] 01/14/2020 12:00:00 AM EDT eCW1 ([facility]) Outpatient Referrer: PATRICIA VALLADARES MD 01/08/2020 12:45:0 0 PM EDT [facility] Outpatient Referrer: PATRICIA VALLADARES MD 01/08/2020 12:43:0 0 PM EDT [facility] Outpatient Referrer: PATRICIA VALLADARES MD 01/08/2020 12:33:0 0 PM EDT [facility] Outpatient Attender: PATRICIA VALLADARES MD Physical Therapy 02:00:00 PM EDT MED[facility] ([facility]) [facility] [address] [place] [address] 12/31/2019 12:00:00 AM EDT eCW1 ([facility]) [facility] [address] [place], [place] [phone] 12/30/2019 12:00:00 AM EDT eCW1 ([facility]) [facility] [address] [place], [place] [phone] 11/27/2019 12:00:00 AM EDT eCW1 ([facility]) Outpatient Referrer: PATRICIA VALLADARES MD 11/25/2019 10:40:0 0 AM EDT [facility] Outpatient Referrer: PATRICIA VALLADARES MD 11/23/2019 11:59:0 0 AM EDT [facility] [address] [place], [place] [phone] 11/18/2019 12:00:00 AM EST eCW1 ([facility]) Outpatient Referrer: PATRICIA VALLADARES MD 11/17/2019 12:22:0 0 PM EST [facility] OFFICE OUTPATIENT NEW 30 MINUTES Attender: PATRICIA VALLADARES MD Ph ysical Therapy 11/16/2019 02:15:00 PM EST MEDENT ([facility]) Outpatient Attender: Lyly Patel 11/13/2019 03:55:00 PM ES T [facility] SCREEN [facility] [address] [place] [phone] 11/09/2019 12:00:00 AM EST eCW1 ([facility]) Outpatient Attender: Lyly PatelReferrer: Minh Bhatia MD 11/06/2019 02:13:00 PM EST [facility] Outpatient Attender: Yair GAUTHIEReferrer: Minh Bhatia MD 10/19/2019 09:53:00 AM EST - 10/19/2019 10:35:00 AM EST [facility] [address] [place], [place] [phone] 10/19/2019 12:00:00 AM EST eCW1 ([facility]) [facility] [address] [place] [phone] 09/28/2019 12:00:00 AM EST eCW1 ([facility]) [address] [phone] 09/24/2019 12:00:00 AM EST eCW1 ([facility]) Immunizations Vaccine Date Status Description Data Source(s) IIV3. This is one of two codes replacing CVX 15, which is being retired. 07/08/2020 12:00:00 AM EDT completed influenza vaccine, inactivated [facility] IIV3. This is one of two codes replacing CVX 15, which is being retired. 07/08/2020 12:00:00 AM EDT completed influenza vaccine, inactivated [facility] IIV3. This is one of two codes replacing CVX 15, which is being retired. 07/08/2020 12:00:00 AM EDT completed influenza vaccine, inactivated [facility] Medications Medication Brand Name Start Date Product Form Dose Route Admi nistrative Instructions Pharmacy Instructions Status Indications Reaction Description Data Source(s) 5-325 mg 10/19/2020 12:00:00 AM EST tablet 20 TAKE 1 TO 2 TABLETS BY MOUTH EVERY 6 HOURS NEEDED FOR POSTOPERATIVE PAIN MAXIMUM DAILY DOSE = 8 TAKE 1 TO 2 TABLETS BY MOUTH EVERY 6 HOURS NEEDED FOR POSTOPERATIVE PAIN MAXIMUM DAILY DOSE = 8 SOLD: 10/19/2020 [facility] Multivitamin 07/08/2020 12:39:52 PM [facility] 12:39:52 PM EDT 1 TAB acti ve [facility] Afluria Qd 2019-(3yr up)(PF) (flu vac [id number] 36mos up(P F)) 07/08/2020 11:36:12 AM EDT 60 MCG completed [facility] Qd 2019-(3yr up)(PF) (flu vac [id number] 36mos up(P F)) 07/08/2020 11:36:12 AM EDT 60 MCG completed [facility] Qd 2019-(3yr up)(PF) (flu vac [id number] 36mos up(P F)) 07/08/2020 11:36:12 AM EDT 60 MCG completed [facility] Calcium Carbonate 1500 MG / Cholecalcife rol 400 UNT Oral Tablet Calcium Carbonate-Vitamin D3 (Calcium 600 + D(3)) 600 mg(1,500mg) -400 unit tablet Calcium Carbonate-Vitamin D3 (Calcium 600 + D(3)) 600 mg(1,500mg) -400 unit tablet 03/16/2020 12:57:44 PM EDT 1 TAB active [facility] Calcium Carbonate 1500 MG / Cholecalcife rol 400 UNT Oral Tablet Calcium Carbonate-Vitamin D3 (Calcium 600 + D(3)) 600 mg(1,500mg) -400 unit tablet Calcium Carbonate-Vitamin D3 (Calcium 600 + D(3)) 600 mg(1,500mg) -400 unit tablet 03/16/2020 12:57:44 PM EDT 1 TAB [facility] meloxicam 15 MG Oral Tablet Meloxicam Meloxicam 03/16/2020 12:57 :44 PM EDT 15 MG active [facility] meloxicam 15 MG Oral Tablet Meloxicam Meloxicam 03/16/2020 12:57 :44 PM EDT 15 MG active [facility] meloxicam 15 MG Oral Tablet Meloxicam Meloxicam 03/16/2020 12:57 :44 PM EDT 15 MG active [facility] Calcium Carbonate 1500 MG / Cholecalcife rol 400 UNT Oral Tablet Calcium Carbonate-Vitamin D3 (Calcium 600 + D(3)) 600 mg(1,500mg) -400 unit tablet Calcium Carbonate-Vitamin D3 (Calcium 600 + D(3)) 600 mg(1,500mg) -400 unit tablet 03/16/2020 12:57:44 PM EDT 1 TAB active [facility] meloxicam 15 MG Oral Tablet Meloxicam Meloxicam 03/16/2020 12:57 :44 PM EDT 15 MG active [facility] meloxicam 15 MG Oral Tablet Meloxicam Meloxicam 03/16/2020 12:57 :44 PM EDT 15 MG active [facility] Calcium Carbonate 1500 MG / Cholecalcife rol 400 UNT Oral Tablet Calcium Carbonate-Vitamin D3 (Calcium 600 + D(3)) 600 mg(1,500mg) -400 unit tablet Calcium Carbonate-Vitamin D3 (Calcium 600 + D(3)) 600 mg(1,500mg) -400 unit tablet 03/16/2020 12:57:44 PM EDT 1 TAB active [facility] Calcium Carbonate 1500 MG / Cholecalcife rol 400 UNT Oral Tablet Calcium Carbonate-Vitamin D3 (Calcium 600 + D(3)) 600 mg(1,500mg) -400 unit tablet Calcium Carbonate-Vitamin D3 (Calcium 600 + D(3)) 600 mg(1,500mg) -400 unit tablet 03/16/2020 12:57:44 PM EDT 1 TAB active [facility] duloxetine 30 MG Delayed Release Oral Capsule Duloxetine Dul oxetine 03/15/2020 09:27:14 AM EDT 30 MG active [facility] duloxetine 30 MG Delayed Release Oral Capsule Duloxetine Dul oxetine 03/15/2020 09:27:14 AM EDT 30 MG active [facility] duloxetine 30 MG Delayed Release Oral Capsule Duloxetine Dul etine 03/15/2020 09:27:14 AM EDT 30 MG active [facility] duloxetine 30 MG Delayed Release Oral Capsule Duloxetine Dul oxetine 03/15/2020 09:27:14 AM EDT 30 MG active [facility] duloxetine 30 MG Delayed Release Oral Capsule Duloxetine Dul oxetine 03/15/2020 09:27:14 AM EDT 30 MG active [facility] duloxetine 30 MG Delayed Release Oral Capsule Duloxetine Dul oxetine 03/15/2020 09:27:14 AM EDT 30 MG active [facility] 0.3 % 02/23/2020 12:00:00 AM EDT drops 5 INSTILL 1 DROP INTO RIGHT EYE FOUR TIMES A DAY DIRECTED . START 3 DAYS PRIOR TO SURGERY INSTILL 1 DROP INTO RIGHT EYE FOUR TIMES A DAY DIRECTED . START 3 DAYS PRIOR TO SURGERY SOLD: 03/21/2020 [facility] 0.4 % 02/23/2020 12:00:00 AM EDT drops 5 INSTILL 1 DROP IN THE RIGHT EYE FOUR TIMES A DAY DIRECTED . START 3 DAYS PRIOR TO SURGERY INSTILL 1 DROP IN THE RIGHT EYE FOUR TIMES A DAY DIRECTED . START 3 DAYS PRIOR TO SURGERY SOLD: 02/26/2020 [facility] 0.4 % 02/23/2020 12:00:00 AM EDT drops 5 INSTILL 1 DROP IN THE RIGHT EYE FOUR TIMES A DAY DIRECTED . START 3 DAYS PRIOR TO SURGERY INSTILL 1 DROP IN THE RIGHT EYE FOUR TIMES A DAY DIRECTED . START 3 DAYS PRIOR TO SURGERY SOLD: 03/21/2020 [facility] 1 % 02/23/2020 12:00:00 AM EDT drops,suspension 5 INSTILL 1 DROP INTO RIGHT EYE FOUR TIMES A DAY DIRECTED . START DAY OF SURGERY AFTER YOU GET HOME INSTILL 1 DROP INTO RIGHT EYE FOUR TIMES A DAY DIRECTED . START DAY OF SURGERY AFTER YOU GET HOME SOLD: 02/26/2020 [facility] 0.3 % 02/23/2020 12:00:00 AM EDT drops 5 INSTILL 1 DROP INTO RIGHT EYE FOUR TIMES A DAY DIRECTED . START 3 DAYS PRIOR TO SURGERY INSTILL 1 DROP INTO RIGHT EYE FOUR TIMES A DAY DIRECTED . START 3 DAYS PRIOR TO SURGERY SOLD: 02/26/2020 [facility] 30 mg 02/13/2020 12:00:00 AM EDT capsule,delayed release (DR/EC) 30 TAKE ONE CAPSULE BY MOUTH EVERY DAY FOR PAIN MAXIMUM DAILY DOSE = 1 CAPSULE TAKE ONE CAPSULE BY MOUTH EVERY DAY FOR PAIN MAXIMUM DAILY DOSE = 1 CAPSULE SOLD: 02/13/2020 [facility] 30 mg 02/13/2020 12:00:00 AM EDT capsule,delayed release (DR/EC) 30 TAKE ONE CAPSULE BY MOUTH EVERY DAY FOR PAIN MAXIMUM DAILY DOSE = 1 CAPSULE TAKE ONE CAPSULE BY MOUTH EVERY DAY FOR PAIN MAXIMUM DAILY DOSE = 1 CAPSULE SOLD: 03/10/2020 [facility] 30 mg 02/13/2020 12:00:00 AM EDT capsule,delayed release (DR/EC) 30 TAKE ONE CAPSULE BY MOUTH EVERY DAY FOR PAIN MAXIMUM DAILY DOSE = 1 CAPSULE TAKE ONE CAPSULE BY MOUTH EVERY DAY FOR PAIN MAXIMUM DAILY DOSE = 1 CAPSULE SOLD: 04/20/2020 [facility] 30 mg 02/13/2020 12:00:00 AM EDT capsule,delayed release (DR/EC) 30 TAKE ONE CAPSULE BY MOUTH EVERY DAY FOR PAIN MAXIMUM DAILY DOSE = 1 CAPSULE TAKE ONE CAPSULE BY MOUTH EVERY DAY FOR PAIN MAXIMUM DAILY DOSE = 1 CAPSULE SOLD: 05/20/2020 [facility] 30 mg 02/13/2020 12:00:00 AM EDT capsule,delayed release (DR/EC) 30 TAKE ONE CAPSULE BY MOUTH EVERY DAY FOR PAIN MAXIMUM DAILY DOSE = 1 CAPSULE TAKE ONE CAPSULE BY MOUTH EVERY DAY FOR PAIN MAXIMUM DAILY DOSE = 1 CAPSULE SOLD: 06/19/2020 [facility] meloxicam 15 MG Oral Tablet Meloxicam Meloxicam 01/20/2020 07:33 :59 AM EDT 15 MG completed [facility] meloxicam 15 MG Oral Tablet Meloxicam Meloxicam 01/20/2020 07:33 :59 AM EDT 15 MG completed [facility] meloxicam 15 MG Oral Tablet Meloxicam Meloxicam 01/20/2020 07:33 :59 AM EDT 15 MG completed [facility] meloxicam 15 MG Oral Tablet Meloxicam Meloxicam 01/20/2020 07:33 :59 AM EDT 15 MG completed [facility] meloxicam 15 MG Oral Tablet Meloxicam Meloxicam 01/20/2020 07:33 :59 AM EDT 15 MG active [facility] meloxicam 15 MG Oral Tablet Meloxicam Meloxicam 01/20/2020 07:33 :59 AM EDT 15 MG completed [facility] 15 mg 01/20/2020 12:00:00 AM EDT tablet 30 TAKE ONE TABLET BY MOUTH EVERY DAY TAKE ONE TABLET BY MOUTH EVERY DAY SOLD: 06/19/2020 [facility] 15 mg 01/20/2020 12:00:00 AM EDT tablet 30 TAKE ONE TABLET BY MOUTH EVERY DAY TAKE ONE TABLET BY MOUTH EVERY DAY SOLD: 01/23/2020 [facility] 15 mg 01/20/2020 12:00:00 AM EDT tablet 30 TAKE ONE TABLET BY MOUTH EVERY DAY TAKE ONE TABLET BY MOUTH EVERY DAY SOLD: 05/20/2020 [facility] 15 mg 01/20/2020 12:00:00 AM EDT tablet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 rce(s) Supporting Document(s) Alanine aminotransferase [Enzymatic acti vity/volume] in Serum or Plasma by With P-5'-P 23 U/L 10-49 N [facility] ital Aspartate aminotransferase [Enzymatic ac tivity/volume] in Serum or Plasma by With P-5'-P 21 U/L 0-33 N [facility] pital Alkaline phosphatase [Enzymatic activity/volume] in Serum or Plasma 94 U/L 45-129 N [facility] Bilirubin.total [Mass/volume] in Serum or Plasma 0.4 mg/dL 0.3-1.2 N [facility] Bilirubin.direct [Mass/volume] in Serum or Plasma 0.1 mg/dL 0.0-0.2 N [facility] Albumin [Mass/volume] in Serum or Plasma by Bromocresol purple (BCP) dye binding method 3.3 g/dL 3.2-4.8 N [facility] ital Protein [Mass/volume] in Serum or Plasma 6.2 g/dL 5.7-8.2 N [facility] ID Date Data Source [id number] 10/03/2020 03:48:00 PM [facility] Name Value Range Interpretation Code Description Data Mary rce(s) Supporting Document(s) Hepatitis B virus surface Ag [Presence] in Serum or Plasma b y Immunoassay NON-REACTIVE [facility] THIS TEST WAS PERFORMED AT:[facility] [address] [id number] MERATI,MD HBsAg Confirmation [facility] ID Date Data Source [id number] 09/29/2020 12:29:00 PM [facility] Name Value Range Interpretation Code Description Data Mary rce(s) Supporting Document(s) Triglycerides 119 mg/dL 0-150 N [facility] Cholesterol 188 mg/dL 120-[address] [facility] HDL Cholesterol 73 mg/dL [facility] HDL Less than 40 mg/dL: Major risk for CHDHDL Greater than 59 mg/dL: Low risk for CHD LDL Cholesterol, Calc 92 mg/dL 0-100 N [facility] ID Date Data Source [id number] 10/03/2020 03:48:00 PM [facility] Name Value Range Interpretation Code Description Data Mary rce(s) Supporting Document(s) Hepatitis B virus core Ab [Presence] in Serum or Plasma by Domo odell NON-REACTIVE [facility] THIS TEST WAS PERFORMED AT:[facility] [id number] MERATI,MD ID Date Data Source [id number] 09/29/2020 12:29:00 PM [facility] Name Value Range Interpretation Code Description Data Mary rce(s) Supporting Document(s) LDL, Direct Chol (MCR modify) 95 mg/dL 0-100 N [facility] OPTIMAL ID Date Data Source [id number] 10/03/2020 03:48:00 PM [facility] Name Value Range Interpretation Code Description Data Mary rce(s) Supporting Document(s) Hepatitis B virus surface Ab [Units/volume] in Serum <5 m[iU]/mL > OR = 10 [place] [facility] Patient does not have immunity to hepati tis B virus.For additional information, please refer tohttp://education.Awareness Card/faq/XTE389(This link is being provided for informational/educational purposes only).THIS TEST WAS PERFORMED AT:[facility] [address]ZMRLJY MERATI,MD ID Date Data Source [id number] 10/03/2020 03:48:00 PM [facility] Name Value Range Interpretation Code Description Data Mary rce(s) Supporting Document(s) Mycobacterium tuberculosis stimulated gamma interferon [Pres ence] in Blood NEGATIVE [facility] Negative test result. M. tuberculosis co mplexinfection unlikely. Gamma interferon background [Units/volume] in Blood by Immun oassay 0.03 [IU]/mL [facility] Mitogen stimulated gamma interferon [Units/volume] in Blood >10.00 [IU]/mL [facility] Mycobacterium tuberculosis stimulated ga mma interferon [Units/volume] corrected for background in Blood <0.00 [IU]/mL [facility] M TB IFN-g CD4+CD8+ bckgrnd cor Bld-aCnc 0.00 [IU]/mL [facility] The Nil tube value reflects the backgrou [...] and CD8+cytotoxic T-lymphocytes.For additional information, please refer tohttps://[email or web address] Card/faq/CKD824(This link is being provided for informational/educational purposes only.)THIS TEST WAS PERFORMED AT:[facility] [id number] MERATI,MD ID Date Data Source [id number] 10/03/2020 03:48:00 PM [facility] Name Value Range Interpretation Code Description Data Mary rce(s) Supporting Document(s) Hepatitis C virus Ab [Presence] in Serum NON-REACTIVE [facility] HCV RNA Qualitative (BELKYS) 0.01 <1.00 [facility] HCV antibody was non-reactive. There is no laboratoryevidence of HCV infection.In most cases, no further action is required. However,if recent HCV exposure is suspected, a test for HCV RNA(test code 25150) is suggested.For additional information please refer tohttp://Bridj.Awareness Card/faq/ZRY63z5(This link is being provided for informational/educational purposes only.)THIS TEST WAS PERFORMED AT:[facility] [address]GARRETT THOAMS MD ID Date Data Source [id number] 09/23/2020 03:33:00 PM [facility] [address] [place] [address] [phone] NAME SEX PT STATUS ACCOUNT NUMBER NEO MCCORMICK REG REF [id number] ORDERING PHYSICIAN LOCATION MEDICAL RECORD NO. Minh Bhatia MD LAB [id number] ATTENDING PHYSICIAN DATE OF DATE OF EXAM/TIME Minh Bhatia MD 1945 09/23/201139 TYPE / EXAM Xray Hand Complete RT REASON FOR EXAM Bilateral hand pain COMPARISON: None FINDINGS: There is normal alignment and position of the bones. No fracture or radiopaque foreign body is identified. IMPRESSION: Unremarkable hand. Reported By Bhumi Tate MD on 09/23/201532 Signed By Bhumi Tate MD on 09/23/20 153 Date Time CC: Minh Bhatia MD; Bhumi Tate MD Techn: BAIAB Trans Dt/Tm: Trans by: DT Prt Dt/Tm: [id number]: Total DLP = 0.00 mGy-cm Fluoroscopy Time (in secs): Name Value Range Interpretation Code Description Data Mary rce(s) Supporting Document(s) ID Date Data Source [id number] 09/23/2020 03:21:00 PM [facility] [address] [place] [address] [phone] NAME SEX PT STATUS ACCOUNT NUMBER NEO MCCORMICK REG REF [id number] ORDERING PHYSICIAN LOCATION MEDICAL RECORD NO. Minh Bhatia MD LAB [id number] ATTENDING PHYSICIAN DATE OF DATE OF EXAM/TIME Minh Bhatia MD 1945 09/23/201139 TYPE / EXAM Xray Hand Complete LT REASON FOR EXAM Bilateral hand pain COMPARISON: None FINDINGS: Mild degenerative changes particularly involving the fifth DIP joint. IMPRESSION: Unremarkable hand. Reported By Bhumi Tate MD on 09/23/201520 Signed By Bhumi Tate MD on 09/23/20 152 Date Time CC: Minh Bhatia MD; Bhumi Tate MD Techn: BAIAB Trans Dt/Tm: Trans by: DT Prt Dt/Tm: [id number]: Total DLP = 0.00 mGy-cm Fluoroscopy Time (in secs): Name Value Range Interpretation Code Description Data Mary rce(s) Supporting Document(s) ID Date Data Source [id number] 09/23/2020 12:18:00 PM [facility] Name Value Range Interpretation Code Description Data Mary rce(s) Supporting Document(s) Urea nitrogen [Mass/volume] in Serum or Plasma 15 mg/dL 9-23 N [facility] Sodium [Moles/volume] in Serum or Plasma 142 mmol/L 132-146 [facility] Potassium [Moles/volume] in Serum or Plasma 4.2 mmol/L 3.5-5.5 [facility] Chloride [Moles/volume] in Serum or Plasma 106 mmol/L 99-109 [facility] Carbon dioxide, total [Moles/volume] in Serum or Plasma 32 mmol/ L 20-31 Above high normal [facility] Anion gap in Serum or Plasma 8 mmol/L 8-16 [facility] Glucose [Mass/volume] in Serum or Plasma 112 mg/dL 74-106 Above high normal [facility] Creatinine 0.7 mg/dL 0.5-1.1 [facility] Glomerular filtration rate/1.73 sq M.pre dicted [Volume Rate/Area] in Serum or Plasma Greater Than 60 ABOVE 60 [facility] Calcium [Mass/volume] in Serum or Plasma 9.0 mg/dL 8.5-10.1 [facility] ID Date Data Source [id number] 09/23/2020 12:21:00 PM [facility] Name Value Range Interpretation Code Description Data Mary rce(s) Supporting Document(s) Leukocytes [#/volume] in Blood by Automated count 7.0 10*3/uL 4.45-10 .71 [facility] Erythrocytes [#/volume] in Blood by Automated count 4.40 10*6/uL 4.20 -5.40 [facility] Hemoglobin [Moles/volume] in Blood 12.9 g/dL 10.7-15.4 N [facility] Hematocrit [Volume Fraction] of Blood by Automated count 41.4 % 3 7-47 N [facility] Erythrocyte mean corpuscular volume [Ent itic volume] in Cord blood by Automated count 94.1 fL 80-96 N [facility] Erythrocyte mean corpuscular hemoglobin [Entitic mass] by Automated count 29.3 pg 27-31 N [facility] Erythrocyte mean corpuscular hemoglobin concentration [Mass/volume] in Cord blood 31.2 g/dL 33-37 Below low normal [facility] Erythrocyte distribution width [Entitic volume] by Automated count 12 % 11-15 N [facility] Platelets [#/volume] in Blood by Automated count 194 10*3/uL 130-472 N [facility] Platelet mean volume [Entitic volume] in Blood 9.9 fL 9.1-13.1 N [facility] Neutrophils/100 leukocytes in Blood by Automated count 55.9 % 41- 77 N [facility] Neutrophils [#/volume] in Blood by Automated count 3.9 U 1.7-7.6 N [facility] Lymphocytes/100 leukocytes in Blood by Automated count 35.2 % 14- 46 N [facility] Lymphocytes [#/volume] in Blood by Automated count 2.5 U 0.6-4.6 N [facility] Monocytes/100 leukocytes in Blood by Automated count 6.2 % 4-12 N [facility] Monocytes [#/volume] in Blood by Automated count 0.4 U 0.2-1.2 N [facility] Eosinophils/100 leukocytes in Blood by Automated count 2.0 % 0-7 N [facility] Eosinophils [#/volume] in Blood by Automated count 0.1 U 0.0-0.5 N [facility] Basophils/100 leukocytes in Blood by Automated count 0.6 % 0.4-1 .3 N [facility] Basophils [#/volume] in Blood by Automated count 0.0 U 0.0-0.2 N [facility] NUCLEATED RED BLOOD CELL 0 % [facility] NUCLEATED RED BLOOD CELL# 0 U [facility] Immature granulocytes [Presence] in Blood by Automated count 0-2 N [facility] Immature granulocytes [#/volume] in Blood by Automated count 0.0 U 0-0.1 N [facility] Manual Differential panel - Blood NO [facility] ID Date Data Source [id number] 09/26/2020 10:53:00 AM [facility] Name Value Range Interpretation Code Description Data Mary rce(s) Supporting Document(s) Nuclear Ab [Titer] in Serum by Immunofluorescence NEGATIVE NEGATIVE [facility] MARIA ELENA IFA is a first line [...] inflammatory myopathies.AC-0: NegativeInternational Consensus on MARIA ELENA Patterns(https://doi.org/10.1515/rrxn-5275-2134)For additional information, please refer tohttp://education.[employer]/faq/TQJ067(This link is being provided for informational/educational purposes only.)THIS TEST WAS PERFORMED AT:[facility] [address]SMMSBT MERATI,MD ID Date Data Source [id number] 09/23/2020 12:18:00 PM [facility] Name Value Range Interpretation Code Description Data Mary rce(s) Supporting Document(s) C reactive protein [Mass/volume] in Serum or Plasma Less Than 2.9 0.0 -5.0 N [facility] @Report as less than lower limit ID Date Data Source [id number] 09/23/2020 12:21:00 PM [facility] Name Value Range Interpretation Code Description Data Mary rce(s) Supporting Document(s) Erythrocyte sedimentation rate by Westergren method 18 mm/hr 0-30 N [facility] @Reenter manual test result: 18@by Nova Weinberg at 09/23/20 1221. ID Date Data Source [id number] 09/23/2020 12:18:00 PM [facility] Name Value Range Interpretation Code Description Data Mary rce(s) Supporting Document(s) Rheumatoid factor [Units/volume] in Serum by Nephelometry Le ss Than 10.0 0.0-14.0 N [facility] ID Date Data Source [id number] 09/22/2020 02:01:00 PM EST [facility] Patient Name: NEO MCCORMICK : 1945 Sex: F Pt Unit #: [id number] Location:[facility] Provider: Visit Date/Time: 09/22/20 Primary Insurance: MEDICARE [facility] Secondary Insurance: [facility] Intake Intake Visit Reasons: Telemed Visit Nurse Note: Pt's having a telehealth visit done today. Pt would like to be tested for RA for joint pain. Cardiac Cath Technologist Required: No Is patient in pain?: No Allergies SEASONAL ALLERGIES Allergy (Unknown, Verified 07/08/20 17:47) environmental allergies too No Known Drug Allergies Allergy (Verified 07/08/20 17:47) Fall Risk History of falls: No Ambulatory Aid:: None Gait/Transferring:: Normal Medications:: No High Risk Medications HIV Testing Offer - ages 13-64 HIV testing Offer: No Requirement for HIV testing offer been met?: Not in age range Hep C Testing Offered: No Hep C Requirement met: Patient reports past refusal Telephone visit Telephone/Virtual Visit Patient consented to consult via telephone or video: Yes Names of people present:: Patient with besides her I am alone in the office with door shut Total time spent on medical discussion: 8 Coronavirus Screening Screening Have you traveled outside of [facility] or [facility] in the last 14 days.: No Has patient experienced coronavirus symptoms: No [facility] Medical History Degenerative Disc Disease Eczema History of Diabetes Mellitus History of right breast cancer lower back issues mearche 15 menopause 49- 1993 Obesity Surgical History (Updated 06/17 12/03 @ 11:46 by Minh Bhatia M.D.) Biopsy of breast (05/19/15) History of cataract extraction History of gastric bypass (10/04/11) History of right mastectomy Status post tubal ligation Family History (Updated 07/08/20 @ 17:48 by Minh Bhatia M.D.) Mother Alzheimer disease Father No problems noted. Brother No problems noted. Brother No problems noted. Brother No problems noted. Sister No problems noted. Sister No problems noted. Sister No problems noted. Sister No problems noted. Sister No problems noted. Daughter No problems noted. Son No problems noted. Son No problems noted. 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 [employer] current occupational exposures/hazards: No pets and animals: Yes leisure activities: other Hx Recent Travel (where): No well-balanced diet: about half the time caffeine: Yes Type: coffee Number of servings: 3 high-fat food intake: 2 times daily daily servings fruits/ve-4 daily servings of milk/calcium: 0-1 eating out: 1-3 times/week reads food labels: sometimes during the past year weight has: remained stable what type of physical activity do you participate in?: walking and swimming frequency: 1-2 times per week duration: 15-30 minutes/day Smoking Status: Former smoker Smoking risk assessment performed?: Yes counseling given: provider counseling substance use type: does not use counseling given: No denver/congregation: [employer] special [place] needs: No seatbelt use: always helmet use: No drive intox or ride w/ intox mixer driver: No water heater temp set < 120 deg: Yes working smoke detector in home: Yes fire extinguisher in home: Yes carbon monox detector in home: Yes firearms in home: Yes victim of emotional abuse: No victim of sexual abuse: No would you like helpful sources: No Female Reproductive History Menstrual Total pregnancies: 3 Ab induced: 0 Ab spontaneous: 0 Ectopics: 0 HPI Additional HPI HPI Details: Patient requested a telehealth visit. She complained of the small joints of her hands being very painful. They keep her up at night. She wakes up in the morning with pain. The pain and stiffness lasts for more than 1 hour. She takes an OTC nonsteroidal medication for pain relief that helps a little. The pain has been present for quite some time now. The symptoms are graduallyworsening. The symptoms are interfering with her daily activities. She recalled being diagnosed with psoriasis several years ago. She was prescribed Enbrel at that time in the injectable form. She had noticed improvement in her joint discomfort with that medication. Patient primarily wanted to have further investigations done. Review of Systems Const All systems reviewed are unremarkable except as noted in HPI and below Denies fever(s) Eyes Denies blurry vision Musc Reports arthralgias (Small joints of both hands), Reports joint swelling (Both wrists) and Reports limited range of motion (Small joints of both hands and wrists) Assessment Plan Assess ment Plan (1) Joint pain: Code(s): M25.50 - Pain in unspecified joint Qualifiers: Joint pain location: wrist Laterality: bilateral Qualified Code(s): M25.531 - Pain in right wrist; M25.532 - Pain in left wrist Plan - Minh Bhatia M.D.: Patient with worsening joint pain involving both wrists and small joints of both hands. Her description is suggestive of rheumatoid arthritis given the stiffness lasting for more than 1 hour in the morning. Testing has been requested. Lab data and imaging studies have been ordered. I will call the patient with the test results. Referral to the appropriate specialist will be considered. Orders Other Orders: Orders: CRP, C-REACTIVE PROTEIN 1 Week M25.50 RHEUMATOID FACTOR 1 Week M25.50 SED RATE 1 Week M25.50 MARIA ELENA Abs w Rfx to Patterns(IFA) 1 Week M25.50 BMP 1 Week M25.50 CBC W AUTO DIFF 1 Week M25.50 Xray Hand Complete LT 1 Week M25.50 Xray Hand Complete RT 1 Week M25.50 Time spent Total time spent on medical discussion: 8 Coding Level of Care Code Telemed Visit (5-10 min) Diagnoses Joint pain M25.531; M25.532 Joint pain location: wrist Laterality: bilateral <Electronically signed by Minh Bhatia MD> 09/22/202127 Name Value Range Interpretation Code Description Data Mary rce(s) Supporting Document(s) ID Date Data Source [id number] 09/12/2020 12:00:00 AM EST [facility] Name Value Range Interpretation Code Description Data Mary rce(s) Supporting Document(s) SARS-CoV-2 (COVID-19) RNA [Presence] in Respiratory specimen by BELKYS with probe detection [facility] This lab was ordered by [facility] and reported by [employer] ID Date Data Source [id number] 08/15/2020 12:00:00 AM EST [facility] Name Value Range Interpretation Code Description Data Mary rce(s) Supporting Document(s) 2019-nCoV RNA XXX BELKYS+probe-Imp [facility] This lab was ordered by [facility] and reported by [employer] ID Date Data Source [id number] 07/08/2020 11:31:00 AM EDT [facility] Patient Name: NEO MCCORMICK : 1945 Sex: F Pt Unit #: [id number] Location:[facility] Provider: Visit Date/Time: 07/08/20 Primary Insurance: MEDICARE [employer] Secondary Insurance: [employer] Intake Vital Signs 07/08/20 11:35 Current Height 5 ft 3 in Current Weight 160 lb Weight Measurement Method Standing Scale BMI 28.3 BP 140/82 Blood Pressure Location Lt brachial Position Sitting Pulse 96 Pulse Strength Normal Pulse Source Pulse Oximeter Pulse Oximetry (%) 97 Oxygen Delivery Method room air Intake-Medicare Annual Visit Reasons: Annual Physical Nurse Note: Pt's here for her Medicare Annual Exam and regular Annual Exam. Pain in left hip for "years". Cardiac Cath Technologist Required: No Accompanied by: Self / Same as Patient Is patient in pain?: Yes (left hip) Pain scale (1-10): 4 Allergies SEASONAL ALLERGIES Allergy (Unknown, Verified 07/08/20 17:47) environmental allergies too No Known Drug Allergies Allergy (Verified 07/08/20 17:47) Feel stressed/tense/nervous/anxious/difficulty sleeping: not at all Fall Risk History of falls: No Ambulatory Aid:: None Gait/Transferring:: Normal Medications:: No High Risk Medications HIV testing Offer: No Requirement for HIV testing offer been met?: Not in age range Hep C Testing Offered: No Hep C Requirement met: Patient reports past refusal Coronavirus Screening Screening Have you traveled outside of [facility] or [facility] in the last 14 days.: No Has patient experienced coronavirus symptoms: No [facility] Medical History (Updated 07/08/20 @ 12:30 by Minh Bhatia M.D.) Degenerative Disc Disease Eczema History of Diabetes Mellitus History of right breast cancer lower back issues mearche 15 menopause 49- 1994 Obesity Afluria Qd 2020-(3yr up)(PF) Performing Provider: Minh Bhatia M.D. Administered by: Katelynn Farmer on 07/08/20 11:45 Surgical History (Updated 07/08/20 @ 11:46 by Minh Bhatia M.D.) Biopsy of breast (05/19/15) History of cataract extraction History of gastric bypass (10/04/11) History of right mastectomy Status post tubal ligation Family History (Updated 07/08/20 @ 17:48 by Minh Bhatia M.D.) Mother Alzheimer disease Father No problems noted. Brother No problems noted. Brother No problems noted. Brother No problems noted. Sister No problems noted. Sister No problems noted. Sister No problems noted. Sister No problems noted. Sister No problems noted. Daughter No problems noted. Son No problems noted. Son No problems noted. 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 [employer] current occupational exposures/hazards: No pets and animals: Yes leisure activities: other Hx Recent Travel (where): No well-balanced diet: about half the time caffeine: Yes Type: coffee Number of servings: 3 high-fat food intake: 2 times daily daily servings fruits/ve-4 daily servings of milk/calcium: 0-1 eating out: 1-3 times/week reads food labels: sometimes during the past year weight has: remained stable what type of physical activity do you participate in?: walking and swimming frequency: 1-2 times per week duration: 15-30 minutes/day Smoking Status: Former smoker Smoking risk assessment performed?: Yes counseling given: provider counseling substance use type: does not use counseling given: No denver/congregation: [employer] special [place] needs: No seatbelt use: always helmet use: No drive intox or ride w/ intox mixer driver: No water heater temp set < 120 deg: Yes working smoke detector in home: Yes fire extinguisher in home: Yes carbon monox detector in home: Yes firearms in home: Yes victim of emotional abuse: No victim of sexual abuse: No would you like helpful sources: No Female Reproductive History Menstrual Total pregnancies: 3 Ab induced: 0 Ab spontaneous: 0 Ectopics: 0 Medicare Annual Wellness Type Of Examation Type of Exam: Subsequent Wellness Exam EKG EKG Performed: Yes (08/11/18) Allergies Allergies SEASONAL ALLERGIES Allergy (Unknown, Verified 07/08/20 17:47) environmental allergies too No Known Drug Allergies Allergy (Verified 07/08/20 17:47) Current Diet Current diet: regular PHQ-2/9 Over the last 2 weeks, how often have you been bothered by any of the following problems? 1. Little interest or pleasure in doing things: not at all 2. Feeling down, depressed, or hopeless: not at all Total score: 0 Vision [place] [facility] - right eye: 20/25 [facility] Far - left eye: 20/25 [facility] Far - bilateral eyes: 20/25 VA Near - right eye: 20/30 VA Near - left eye: 20/25 VA near - bilateral eye: 20/25 Functional Assessment Bathing: Independent Dressing: Independent Toileting: Independent Transferring: Independent Continence: Independent Feeding: Independent Total Score: 6 Home Safety Home Safety: Reports Bathroom: Grab bars, Lighting: Adequate and [place]: No throw rugs; Denies Stairs: Handrail available Hearing Hearing Left Ear: Normal Hearing Right Ear: Normal IADL Assessment Functional abilities: Up Go test, pt steady, Up Go test, within 30 sec, Pt independent w/phone,Pt independent w/transportation, Pt independent w/shopping, Pt independent w/housework, Pt independent w/meal preparation, Pt independent w/laundry, Pt ind ependent w/medication and Pt independent w/finances Cognitive Evaluation Oriented to the date:: Yes Oriented to time:: Yes Oriented to place:: Yes Mood: grossly normal Affect: Normal Judgement: normal Needs caregiver for assistance: No Clock drawing: Yes Clock drawing with correct time: No (swapped small and big hand) 3 item recall: 3 Next Visit Return to Office:: At the end of one year HPI Additional HPI HPI Details: Patient with problems including pure hypercholesterolemia, diabetes that is not a problem since her bariatric surgery, remote history of breast cancer as well as joint arthritis came to the office for her annual physical as well as for her Medicare annual wellness visit. She complained ofleft hip/gluteal area discomfort. Review of Systems Const Denies anorexia, Denies excessive sweating, Denies fatigue, Denies fever(s), Denies headache(s), Denies weight gain and Denies weight loss Eyes Denies blurry vision, Denies change in vision, Denies dry eyes, Denies irritation, Denies itchy eyesand Denies loss of vision ENT Denies abnormal hearing, Denies dysphagia, Denies dizziness, Denies headache(s), Denies lip swelling, Denies nasal congestion, Denies nasal discharge, Denies disequilibrium, Denies sinus pain,Denies sore throat and Denies throat swelling Card Denies chest pain, Denies pedal edema, Denies lightheadedness, Denies palpitations and Denies dyspnea Resp Denies cough, Denies excessive phlegm production, Denies pain on inspiration, Denies dyspnea and Denies wheezing GI Denies abdominal pain, Denies change in bowel habits, Denies dysphagia, Denies early satiety, Deniesheartburn, Denies diarrhea, Denies nausea and Denies vomiting Musc Denies back pain, Denies arthralgias, Denies limited range of motion, Denies muscle cramps, Denies muscle weakness and Reports other (Left gluteal area discomfort) Skin/Breast Denies change in pigmentation, Denies lesions, Denies nail changes, Denies rash and Denies unusual bruising Neuro Denies abnormal hearing, Denies dizziness, Denies headache(s), Denies loss of vision, Denies memory loss and Denies disequilibrium Psych Denies abnormal sleep pattern, Denies anxiety, Denies change in appetite, Denies depression, Denies irritability and Denies memory loss Endo Denies cold intolerance, Denies excessive sweating, Denies fatigue, Denies polyphagia, Denies polydipsia, Denies polyuria and Denies palpitations Virgil/Lymph Denies easy bleeding, Denies easy bruising and Denies lymphadenopathy Aller/Immun Denies urticaria, Denies itchy eyes, Denies lip swelling, Denies seasonal rhinorrhea, Denies t hroat swelling and Denies wheezing Exam Const General: cooperative, healthy appearing, no acute distress, well developed and well groomed Nutritional Appearance: overweight Orientation: alert, awake and oriented x3 [facility] Head: normal to inspection, normocephalic, atraumatic and no scalp tenderness Ears: hearing grossly normal bilaterally, external ears normal, TM's normal bilaterally, EAC's normal and no periauricular adenopathy General nose exam: external nose normal, nares normal, no nasal polyps, septum normal and no nasal discharge Face and sinus: normal facial exam and sinuses nontender Mouth: oral mucosae normal, lip normal, tongue normal, oropharynx normal and moist mucous membranes Throat: posterior oropharynx normal Eyes General: appearance normal, both eyes and all related structures Periorbital: periorbital findings normal Eyelids: eyelids normal Conjunctivae: conjunctivae normal Sclera: sclerae normal Pupils: PERRL EOM: EOM intact bilaterally Direct ophthalmosc opy: normal light reflex Neck Neck: normal visual inspection, full ROM, no lymphadenopathy, supple and no JVD present Neck mass: No Thyroid: thyroid normal Carotids: normal carotid upstroke Resp Effort Inspection: normal respiratory effort Auscultation: clear to auscultation bilaterally Percussion: percussion normal Cardio Jugular venous pressure: no JVD Palpation: normal PMI Rate: regular rate Rhythm: regular rhythm Heart Sounds: S1 normal and S2 normal Pulses: normal peripheral pulses GI Inspection: Yes normal to inspection Palpation: soft, no hepatosplenomegaly, no aortic enlargement and nontender Percussion: normal to percussion Auscultation: normal bowel sounds Musc Cervical Spine: normal cervical lordosis and cervical ROM normal Thoracic/Lumbar Spine: thoracic and lumbar spine normal to inspection, thoraco- lumbar ROM normal andstraight leg raise negative bilaterally Other: Some tenderness over the left SI joint Skin Lesions: no lesions Rashes: no rashes Hair: normal Nails: normal Neuro General: patient alert, patient awake, patient oriented x3, gait normal, moves all extremities and normal light touch, pain and propioception Cognition: normal cognition Speech: speech normal Gait: normal gait Motor: muscle tone normal throughout and strength 5/5 throughout Sensory Exam: no sensory deficits noted Extrem General: normal to inspection, full ROM, capillary refill normal, no clubbing, cyanosis or edema andno muscle atrophy Psych Appearance: grossly normal and well kempt Mental Status: mental status grossly normal Speech and Movement: speech and movement normal Immunizations Afluria Qd 2019-(3yr up)(PF) Performing Provider: Minh Bhatia M.D. Administered by: Katelynn Farmer on 07/08/20 11:45 Dose Route Admin Location Lot Number Expiration Date NDC Manufactu rer 60 mcg IM Left deltoid [id number] 03/15/21 [id number] [employer] VIS Given Date VIS Provided VIS Publication Date 07/08/20 Single Vaccine 19 Eligibility Eligibility Date Funding Source Not [facility] Eligible 07/08/20 Private Quality Reporting Adult ([facility] 138/2/22/69/61/64/165) Smoking risk assessment performed?: Yes Assessment Plan Assessment Plan (1) Medicare annual wellness visit, subsequent: Code(s): Z00.00 - Encounter for general adult medical examination without abnormal findings Plan - Minh Bhatia M.D.: Patient came for the annual wellness visit as well as her annual physical. Patient's medical and personal history was updated. I updated the list of patient's current medical providers. Medication regimen was also reviewed. Vital signs were recorded. Patient was subjected to the mini-cog test. There is no evidence of cognitive impairment. Health maintenance activity record was updated. Patient was provided with personalized advice regarding lifestyle measures. A personal ized prevention plan was also given to the patient in print. Return appointment will be at the end of 12months for a recheck. (2) Encounter for annual health examination: Code(s): Z00.00 - Encounter for general adult medical examination without abnormal findings Plan - Minh Bhatia M.D.: Annual visit today. Personal history was updated. Medication record was updated. Results of the annual blood work were discussed with the patient in detail. Comprehensive review of systems was done. Comprehensive examination was done. Depression questionnaire was reviewed. (3) Pure hypercholesterolemia: Status: Acute Code(s): E78.00 - Pure hypercholesterolemia, unspecified Category: Medical Plan - Minh Bhatia M.D.: Results of the fasting lipid panel were discussed with the patient. The findings are satisfactory. Patient was advised to follow a low-fat diet. (4) History of right breast cancer: Status: Acute Onset Date: 10/28/17 Code(s): Z85.3 - Personal history of malignant neoplasm of breast Category: Medical Plan - Minh Bhatia M.D.: Patient states that she has had no need for further follow-up with her oncologist. (5) Overweight: Code(s): E66.3 - Overweight Plan - Minh Bhatia M.D.: Patient is overweight. Patient was counseled regarding diet, exercise and weight control. (6) BMI 28.0- 28.9,adult: Code(s): Z68.28 - Body mass index [BMI] 28.0-28.9, adult Suresh - Minh Bhatia M.D.: Her weight has remained around the same over the past 1 year (7) Encounter for screening for depression: Code(s): Z13.31 - Encounter for screening for depression Plan - Minh Bhatia M.D.: Depression questionnaire was filled out. The score was zero. Additional Comments Additional Comments: Patient came to the office for her annual/annual. She will return on an annual basis. Certain parts of this note may have been carried over from prior notes to maintain accuracy of the patient's pertinent medical history and continuity of care. The details were verified and edited as appropriate. This document was dictated using [employer] speech recognition software. A reasonable attempt to proofread has been made to minimize errors. Please call if you notice any errors or have any questions. Orders Other Medications: New: multivitamin 1 tab PO DAILY 30 tabs 0RF prob Other Orders: Orders: INJ - Influenza Vaccine Today Z23 Counseling Smoking risk assessment performed?: Yes Counseling Given: provider counseling <Electronically signed by Minh Bhatia MD> 07/08/20 6859 Name Value Range Interpretation Code Description Data Mary rce(s) Supporting Document(s) ID Date Data Source [id number] 07/04/2020 12:00:00 AM EDT [facility] Patricia Valladares MD Patient Name: NEO MCCORMICK [id number] [facility] 1945[facility] [place] [address] Date of Exam: 07/04/2020#: Fax: [phone] EXAM: ARTHROCENTESIS SMALL JOINT W/O US GUIDLEFT 2ND AND 3RD TARSOMETATARSAL JOINT INJECTION:The procedure was performed by RASHARD Mao under the generalsupervision of Dr. Moser.The benefits and risks including, but not limited to pain, infection,bleeding, and anaphylaxis were explained to the patient and informedconsent was obtained.The left 2nd and 3rd tarsometatarsal joints were localized usingfluoroscopic guidance. The skin was prepped and draped in a sterilefashion. 1% Lidocaine was used as a local anesthetic. Using fluoroscopicguidance, a #25 gauge needle was inserted and advanced into the joint. 0.5cc of Omnipaque 300 was injected to verify placement. 3 cc of a solutioncontaining 2 cc of 1% Lidocaine and 1 cc of Kenalog 40 mg was injected intothe joint space. The needle was then removed.The patient tolerated the procedure well and there were no immediatecomplications.Fluoroscopy time was 3 seconds at 3 pulses/second. This is equal to .75seconds continuous fluoroscopy time which is a 75% reduction in radiation.CARROLL Silva/Pola you for referring NEO MCCORMICK to our office. Electronically Signed - ROLY MOSER MD 07/06/20 15:04 Name Value Range Interpretation Code Description Data Mary rce(s) Supporting Document(s) ID Date Data Source [id number] 07/04/2020 12:00:00 AM EDT [facility] Patricia Valladares MD Patient Name: NEO MCCORMICK [id number] [facility] Date [place] : 1945[place] [address] Date of Exam: 07/04/2020#: Fax: [phone] EXAM: ARTHROCENTESIS SMALL JOINT W/O US GUIDRIGHT 1ST AND 2ND TARSOMETATARSAL JOINT INJECTION:The procedure was performed by RASHARD Mao under the generalsupervision of Dr. Moser.The benefits and risks including, but not limited to pain, infection,bleeding, and anaphylaxis were explained to the patient and informedconsent was obtained.The right 2nd and 3rd tarsometatarsal joints were localized usingfluoroscopic guidance. The skin was prepped and draped in a sterilefashion. 1% Lidocaine was used as a local anesthetic. Using fluoroscopicguidance, a #25 gauge needle was inserted and advanced into the joint. 0.5cc of Omnipaque 300 was injected to verify placement. 3 cc of a solutioncontaining 2 cc of 1% Lidocaine and 1 cc of Kenalog 40 mg was injected intothe joint space. The needle was then removed.The patient tolerated the procedure well and there were no immediatecomplications.Fluoroscopy time was 3 seconds at 3 pulses/second. This is equal to .75seconds continuous fluoroscopy time which is a 75% reduction in radiation.CARROLL Silva/Pola you for referring NEO MCCORMICK to our office. Electronically Signed - ROLY MOSER MD 07/06/20 15:04 Name Value Range Interpretation Code Description Data Mary rce(s) Supporting Document(s) ID Date Data Source [id number] 07/04/2020 12:00:00 AM EDT [facility] Patricia Valladares MD Patient Name: NEO MCCORMICK [id number] [facility] 1945[facility] [place] [address] Date of Exam: 07/04/2020#: Fax: [phone] EXAM: ARTHROCENTESIS SMALL JOINT W/O US GUIDLEFT 2ND AND 3RD TARSOMETATARSAL JOINT INJECTION:The procedure was performed by RASHARD Mao under the generalsupervision of Dr. Moser.The benefits and risks including, but not limited to pain, infection,bleeding, and anaphylaxis were explained to the patient and informedconsent was obtained.The left 2nd and 3rd tarsometatarsal joints were localized usingfluoroscopic guidance. The skin was prepped and draped in a sterilefashion. 1% Lidocaine was used as a local anesthetic. Using fluoroscopicguidance, a #25 gauge needle was inserted and advanced into the joint. 0.5cc of Omnipaque 300 was injected to verify placement. 3 cc of a solutioncontaining 2 cc of 1% Lidocaine and 1 cc of Kenalog 40 mg was injected intothe joint space. The needle was then removed.The patient tolerated the procedure well and there were no immediatecomplications.Fluoroscopy time was 3 seconds at 3 pulses/second. This is equal to .75seconds continuous fluoroscopy time which is a 75% reduction in radiation.CARROLL Silva/Pola you for referring NEO MCCORMICK to our office. Electronically Signed - ROLY MOSER MD 07/06/20 15:04 Name Value Range Interpretation Code Description Data Mary rce(s) Supporting Document(s) ID Date Data Source [id number] 07/04/2020 12:00:00 AM EDT [facility] Patricia Valladares MD Patient Name: NEO MCCORMICK [id number] [facility] Date of : 1945[place] [address] Date of Exam: 07/04/2020#: Fax: [phone] EXAM: ARTHROCENTESIS SMALL JOINT W/O US GUIDRIGHT 1ST AND 2ND TARSOMETATARSAL JOINT INJECTION:The procedure was performed by RASHARD Mao under the generalsupervision of Dr. Moser.The benefits and risks including, but not limited to pain, infection,bleeding, and anaphylaxis were explained to the patient and informedconsent was obtained.The right 2nd and 3rd tarsometatarsal joints were localized usingfluoroscopic guidance. The skin was prepped and draped in a sterilefashion. 1% Lidocaine was used as a local anesthetic. Using fluoroscopicguidance, a #25 gauge needle was inserted and advanced into the joint. 0.5cc of Omnipaque 300 was injected to verify placement. 3 cc of a solutioncontaining 2 cc of 1% Lidocaine and 1 cc of Kenalog 40 mg was injected intothe joint space. The needle was then removed.The patient tolerated the procedure well and there were no immediatecomplications.Fluoroscopy time was 3 seconds at 3 pulses/second. This is equal to .75seconds continuous fluoroscopy time which is a 75% reduction in radiation.CARROLL Silva/Pola bains for referring NEO MCCORMICK to our office. Electronically Signed - ROLY MOSER MD 07/06/20 15:04 Name Value Range Interpretation Code Description Data Mary rce(s) Supporting Document(s) ID Date Data Source [id number] 07/04/2020 11:01:00 AM EDT [facility] @07/04/20 1049: UA W/ MICRO added. RFLXG = UMIC.Method of Collection:: Voided @07/04/20 1049: UA W/ MICRO added. RFLXG = UMIC.Method of Collection:: Voided Name Value Range Interpretation Code Description Data Mary rce(s) Supporting Document(s) Color of Urine [facility] Appearance of Urine CLEAR [facility] pH of Urine by Test strip 5.0 5-8 [facility] Specific gravity of Urine by Refractometry 1.033 1.005 -1.030 Abnormal (applies to non-numeric results) [facility] Leukocyte esterase [Presence] in Urine by Test strip NEGATIVE Above high normal [facility] @DO MICRO!!!! Nitrite [Presence] in Urine by Test strip NEGATIVE [facility] Protein [Presence] in Urine by Test strip NEGATIVE [facility] Glucose [Mass/volume] in Urine by Automated test strip NEGATIVE NEG ATIVE [facility] Ketones [Presence] in Urine by Test strip NEGATI VE Abnormal (applies to non- numeric results) [facility] Urobilinogen [Presence] in Urine 0.2-1 EU/dl [facility] Bilirubin.total [Presence] in Urine by Automated test strip NEGATIVE [facility] Erythrocytes [#/volume] in Urine by Test strip NEGATIVE NEGATIVE [facility] URINE MICROSCOPIC ADDED Microscopic Added [facility] ID Date Data Source [id number] 07/04/2020 11:01:00 AM EDT [facility] @07/04/20 1049: UA W/ MICRO added. RFLXG = UMIC.Method of Collection:: Voided @07/04/20 1049: UA W/ MICRO added. RFLXG = UMIC.Method of Collection:: Voided Name Value Range Interpretation Code Description Data Mary rce(s) Supporting Document(s) Leukocytes [#/volume] in Urine by Manual count 3-5 /hpf 0-5 [facility] Cells [Type] in Urine sediment by Light microscopy [facility] Mucus [Presence] in Urine sediment by Light microscopy [facility] ID Date Data Source [id number] 07/04/2020 10:25:00 AM EDT [facility] @07/04/20 1049: UA W/ MICRO added. RFLXG = UMIC.Method of Collection:: Voided @07/04/20 1049: UA W/ MICRO added. RFLXG = UMIC.Method of Collection:: Voided Name Value Range Interpretation Code Description Data Mary rce(s) Supporting Document(s) Leukocytes [#/volume] in Blood by Automated count 6.4 10*3/uL 4.45-10 .71 N [facility] Erythrocytes [#/volume] in Blood by Automated count 4.35 10*6/uL 4.20 -5.40 N [facility] Hemoglobin [Moles/volume] in Blood 13.1 g/dL 10.7-15.4 N [facility] Hematocrit [Volume Fraction] of Blood by Automated count 41.3 % 3 7-47 N [facility] Erythrocyte mean corpuscular volume [Ent itic volume] in Cord blood by Automated count 94.9 fL 80-96 N [facility] Erythrocyte mean corpuscular hemoglobin [Entitic mass] by Automated count 30.1 pg 27-31 N [facility] Erythrocyte mean corpuscular hemoglobin concentration [Mass/volume] in Cord blood 31.7 g/dL 33-37 Below low normal [facility] Erythrocyte distribution width [Entitic volume] by Automated count 12 % 11-15 N [facility] Platelets [#/volume] in Blood by Automated count 256 10*3/uL 130-472 N [facility] Platelet mean volume [Entitic volume] in Blood 9.2 fL 9.1-13.1 N [facility] Neutrophils/100 leukocytes in Blood by Automated count 57.4 % 41- 77 N [facility] Neutrophils [#/volume] in Blood by Automated count 3.7 U 1.7-7.6 N [facility] Lymphocytes/100 leukocytes in Blood by Automated count 32.1 % 14- 46 N [facility] Lymphocytes [#/volume] in Blood by Automated count 2.1 U 0.6-4.6 N [facility] Monocytes/100 leukocytes in Blood by Automated count 8.0 % 4-12 N [facility] Monocytes [#/volume] in Blood by Automated count 0.5 U 0.2-1.2 N [facility] Eosinophils/100 leukocytes in Blood by Automated count 1.4 % 0-7 N [facility] Eosinophils [#/volume] in Blood by Automated count 0.1 U 0.0-0.5 N [facility] Basophils/100 leukocytes in Blood by Automated count 0.8 % 0.4-1 .3 N [facility] Basophils [#/volume] in Blood by Automated count 0.1 U 0.0-0.2 N [facility] NUCLEATED RED BLOOD CELL 0 % [facility] NUCLEATED RED BLOOD CELL# 0 U [facility] Immature granulocytes [Presence] in Blood by Automated count 0-2 N [facility] Immature granulocytes [#/volume] in Blood by Automated count 0.0 U 0-0.1 N [facility] Manual Differential panel - Blood NO [facility] ID Date Data Source [id number] 07/04/2020 11:06:00 AM EDT [facility] @07/04/20 1049: UA W/ MICRO added. RFLXG = UMIC.Method of Collection:: Voided @07/04/20 1049: UA W/ MICRO added. RFLXG = UMIC.Method of Collection:: Voided Name Value Range Interpretation Code Description Data Mary rce(s) Supporting Document(s) Urea nitrogen [Mass/volume] in Serum or Plasma 22 mg/dL 9-23 N [facility] Sodium [Moles/volume] in Serum or Plasma 141 mmol/L 132-146 N [facility] Potassium [Moles/volume] in Serum or Plasma 4.1 mmol/L 3.5-5.5 N [facility] Chloride [Moles/volume] in Serum or Plasma 106 mmol/L 99-109 N [facility] Carbon dioxide, total [Moles/volume] in Serum or Plasma 31 mmol/L 20 -31 N [facility] Anion gap in Serum or Plasma 8 mmol/L 8-16 N [facility] Glucose [Mass/volume] in Serum or Plasma 97 mg/dL 74-106 N [facility] Creatinine 0.7 mg/dL 0.5-1.1 [facility] Glomerular filtration rate/1.73 sq M.pre dicted [Volume Rate/Area] in Serum or Plasma Greater Than 60 ABOVE 60 [facility] Alanine aminotransferase [Enzymatic acti vity/volume] in Serum or Plasma by With P-5'-P 26 U/L 10-49 [facility] ital Aspartate aminotransferase [Enzymatic ac tivity/volume] in Serum or Plasma by With P-5'-P 22 U/L 0-33 N [facility] pital Alkaline phosphatase [Enzymatic activity/volume] in Serum or Plasma 71 U/L 45-129 [facility] Calcium [Mass/volume] in Serum or Plasma 9.0 mg/dL 8.5-10.1 [facility] Bilirubin.total [Mass/volume] in Serum or Plasma 0.6 mg/dL 0.3-1.2 [facility] Albumin [Mass/volume] in Serum or Plasma by Bromocresol purple (BCP) dye binding method 3.4 g/dL 3.2-4.8 [facility] ital Protein [Mass/volume] in Serum or Plasma 6.3 g/dL 5.7-8.2 [facility] ID Date Data Source [id number] 07/04/2020 11:06:00 AM EDT [facility] @07/04/20 1049: UA W/ MICRO added. RFLXG = UMIC.Method of Collection:: Voided @07/04/20 1049: UA W/ MICRO added. RFLXG = UMIC.Method of Collection:: Voided Name Value Range Interpretation Code Description Data Mary rce(s) Supporting Document(s) Triglycerides 82 mg/dL 0-150 N [facility] Cholesterol 189 mg/dL 120-200 [facility] HDL Cholesterol 84 mg/dL [facility] HDL Less than 40 mg/dL: Major risk for CHDHDL Greater than 59 mg/dL: Low risk for CHD LDL Cholesterol, Calc 89 mg/dL 0-100 N [facility] ID Date Data Source [id number] 06/25/2020 12:00:00 AM EDT [facility] Name Value Range Interpretation Code Description Data Mary rce(s) Supporting Document(s) 2019-nCoV RNA XXX BELKYS+probe-Imp [facility] This lab was ordered by [facility] and reported by [employer] ID Date Data Source [id number] 06/14/2020 11:22:00 AM EDT [facility] ([facility]) Name Value Range Interpretation Code Description Data Mary rce(s) Supporting Document(s) Laboratory test finding (navigational concept) Laboratory test result [facility] ([facility]) ID Date Data Source [id number] 05/20/2020 12:00:00 PM EDT [facility] Name Value Range Interpretation Code Description Data Mary rce(s) Supporting Document(s) SARS coronavirus 2 RNA [facility] This lab was ordered by [facility] and reported by [facility]. ID Date Data Source [id number] 03/23/2020 08:37:00 AM EDT [facility] OPERATIVE REPORT NAME: NEO MCCORMICK : 1945 AGE: 75 MR#: [id number] ADMITTING DATE: 03/23/[address]: DISCHARGE DATE: [...] of the lens was done completely to rem ove all the nucleus. Then, the tip was withdrawn and the irrigation aspiration tip was inserted to remove all [...] condition and met all criteria for discharge. /[id number] <Electronically signed by Milena Sim MD> Milena Sim MD 05/26/20 1350 Milena Sim M.D. Cosigner: D: IVELISSE 03/23/20 0837 T: MELONY 03/23/20 1251 CC: Milena Sim M.D.; Minh Bhatia MD LAST EDIT: Name Value Range Interpretation Code Description Data Mary rce(s) Supporting Document(s) ID Date Data Source [id number] 03/21/2020 03:07:00 PM EDT [facility] SARS CoV-2 - COVID 19 IS ON THIS PANELNO RMAL VALUE FOR ALL PATHOGENS IS "NOT DETECTED".FILM ARRAY RESPIRATORY PANEL IS A MULTIPLEXED NUCLEIC ACIDTESTTHE FOLLOWING PATHOGENS ARE TESTED USING RP 2.1 PANELAdenovirus,Coronavirus 229E,HKU1,NL63,OC43, Humanmetapneumovirus, Human rhino/enterovirus, Influenza A,Influenza B,Parainfluenza virus 1,Parainfluenza virus 2,Parainfluenza virus 3, Parainfluenza virus 4, RSV,Bordetella parapertussis, Bordetella pertussis, Chlamydiapneumoniae, Mycoplasma pneumoniae,SARS-CoV-2(COVID 19) THIS TEST HAS NOT BEEN EVALUATED FOR USE WITH SPECIMENSOTHER THAN NASOPHARYNGEAL SWAB SPECIMENS.THE PERFORMANCE OF THIS TEST HAS NOT BEEN ESTABLISHED FORPATIENTS WITHOUT SIGNS AND SYMPTOMS OF RESPIRATORYINFECTION.RESULTS FROM THIS TEST MUST BE CORRELATED WITH CLINICALHISTORY, EPIDEMIOLOGICAL DATA , AND OTHER DATA AVAILABLE TOTHE CLINICIAN EVALUATING THE PATIENT.THE PERFORMANCE OF THE [employer] RP HAS NOT BEEN ESTABLISHEDIN INDIVIDUALS WHO RECEIVED INFLUENZA VACCINE. RECENTADMINISTRATION OF A NASAL INFLUENZA VACCINE MAY CAUSE AFALSE POSITIVE RESULT FOR INFLUENZA A AND/OR B.NEGATIVE RESULTS SHOULD NOT BE USED THE SOLE BASIS FORDIAGNOSIS, TREATMENT, OR OTHER MANAGEMENT DECISIONS.NEGATIVE RESULTS IN THE SETTING OF A RESPIRATORY ILLNESSMAYBE DUE TO INFECTION WITH PATHOGENS THAT ARE NOT DETECTEDBY THIS TEST OR LOWER RESPIRATORY TRACT INFECTION THAT ISNOT DETECTED BY A NASOPHARYNGEAL SWAB SPECIMEN. Name Value Range Interpretation Code Description Data Mary rce(s) Supporting Document(s) COVID-19 SARS-CoV-2, COVID 19 NOT DETECTED [facility] ID Date Data Source [id number] 03/21/2020 12:00:00 AM EDT [facility] Name Value Range Interpretation Code Description Data Mary rce(s) Supporting Document(s) SARS-CoV2 Rapid PCR [facility] This lab was ordered by [facility] and reported by [facility]. ID Date Data Source [id number] 03/15/2020 09:19:00 AM EDT [facility] Patient Name: NEO MCCORMICK DO B: 1945 Sex: F Pt Unit #: [id number] Location:[facility] Provider: Visit Date/Time: 03/15/20 Primary Insurance: MEDICARE [employer] Secondary Insurance: AARP Intake Vital Signs 03/15/20 09:24 Current Height 5 ft 3 in Current Weight 163 lb Weight Measurement Method Standing Scale BMI 28.8 BP 118/74 Blood Pressure Location Lt brachial Position Sitting Pulse 81 Pulse Strength Normal Pulse Source Pulse Oximeter Pulse Oximetry (%) 97 Oxygen Delivery Method room air Intake Visit Reasons: Pre-operative H P Nurse Note: Pt's having left eye cataract surgery w/ Dr. Sim on 03/23/2020. Cardiac Cath Technologist Required: No Accompanied by: Self / Same as Patient Is patient in pain?: No Allergies SEASONAL ALLERGIES Allergy (Unknown, Verified 03/15/20 09:36) environmental allergies too No Known Drug Allergies Allergy (Verifie d 03/15/20 09:36) Fall Risk History of falls: No Ambulatory Aid:: None Gait/Transferring:: Normal HIV Testing Offer - ages 13-64 HIV testing Offer: No Requirement for HIV testing offer been met?: Not in age range Hep C Testing Offered: No Hep C Requirement met: Patient reports past refusal Do you need a note to return Do you need a note to return to daycare/school/sports/work: No Coronavirus Screening Screening Have you traveled outside of [facility] or [facility] in the last 14 days.: No Has patient experienced coronavirus symptoms: No [facility] Medical His tory Degenerative Disc Disease Eczema History of Diabetes Mellitus History of right breast cancer lower back issues mearche 15 menopause 49- 1993 Obesity Surgical History Biopsy of breast (05/19/15) History of - surgery History of cataract extraction (Acute) History of gastric bypass (10/04/11) Status post tubal ligation Family History Mother No problems noted. Father No problems noted. Brother No problems noted. Brother No problems noted. Brother No problems noted. Sister No problems noted. Sister No problems noted. Sister No problems noted. Sister No problems noted. Sister No problems noted. Daughter No problems noted. Son No problems noted. Son No problems noted. 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 [employer] current occupational exposures/hazards: No pets and animals: Yes leisure activities: other Hx Recent Travel (where): No well-balanced diet: about half the time caffeine: Yes Type: coffee Number of servings: 3 high-fat food intake: 2 times daily daily servings fruits/ve-4 daily servings of milk/calcium: 0-1 eating out: 1-3 times/week reads food labels: sometimes during the past year weight has: remained stable frequency: 1-2 times per week duration: 15-30 minutes/day substance use type: does not use counseling given: No denver/congregation: [employer] special den[place] needs: No seatbelt use: always helmet use: No drive intox or ride w/ intox mixer driver: No water heater temp set < 120 deg: Yes working smoke detector in home: Yes fire extinguisher in home: Yes carbon monox detector in home: Yes firearms in home: Yes victim of emotional abuse: No victim of sexual abuse: No would you like helpful sources: No Female Reproductive History Menstrual Ab induced: 0 Ab spontaneous: 0 Ectopics: 0 HPI Pre-Operative H P Surgery Information Proposed Surgical Procedure: L. cataract Date of surgery: 03/23/20 Surgeon: Dr. Sim Anesthesia: local Covid Screening Pre-Op Covid testing ordered?: Yes Exercise tolerance Can climb one flight of stairs (12-13 steps) in less than 30 seconds without stopping and without symptoms: Yes Distance able to walk (blocks): More than 2 blocks Risk factors Pulmonary risk factors: age > 60 Active cardiac conditions: none Active risk factors: none Sleep apnea risks: No Pertinent Past History Previous surgical complications: No Previous anesthesia intolerance: No Steroid use in last 6 months: No Allergies to meds or foods: No Pertinent Family History Family hx adverse reaction to anesthesia: No Family history coagulopathy: No Menstrual History Menopausal?: Yes Review o f Systems Const Denies anorexia, Denies fatigue, Denies fever(s), Denies headache(s) and Denies weight loss ENT Denies dysphagia, Denies dizziness, Denies headache(s) and Denies disequilibrium Card Denies chest pain, Denies pedal edema, Denies lightheadedness, Denies palpitations and Denies dyspnea Resp Denies cough, Denies excessive phlegm production, Denies pain on inspiration, Denies dyspnea and Denies wheezing GI Denies abdominal pain, Denies change in bowel habits, Denies dysphagia, Denies early satiety, Deniesheartburn, Denies diarrhea, Denies nausea and Denies vomiting Neuro Den ies dizziness, Denies headache(s), Denies memory loss, Denies paresthesias and Denies disequilibrium Psych Denies memory loss Endo Denies fatigue and Denies palpitations Aller/Immun Denies wheezing Exam Const General: cooperative, healthy appearing, no acute distress, well developed and well groomed Nutritional Appearance: overweight Orientation: alert, awake and oriented x3 Eyes Pupils: PERRL (Right intraocular lens implant and developed cataract on the left side) Neck Neck: normal visual inspection, full ROM, no lymphadenopathy, supple and no JVD present Carotids: normal carotid upstroke Chest Chest: normal inspection of the chest Resp Effort Inspection: normal respiratory effort Auscultation: clear to auscultation bilaterally Percussion: percussion normal Cardio Jugular venous pressure: no JVD Palpation: normal PMI Rate: regular rate Rhythm: regular rhythm Heart Sounds: S1 normal and S2 normal GI Inspection: Yes normal to inspection Palpation: soft and nontender Auscultation: normal bowel sounds Neuro General: gait normal Extrem General: normal to inspection, full ROM and no clubbing, cyanosis or edema Assessment Plan Assessment Plan (1) Pre-Operative Examination: Code(s): Z01.818 - Encounter for other preprocedural examination (2) Left cataract: Code(s): H26.9 - Unspecified cataract Plan - Minh Bhatia M.D.: Based on today's physical evaluation and review of the available data, Ms. Mccormick is medically optimized for the proposed left eye cataract surgical procedure. A printed medication list with preoperative instructions was given to her. If there are any medical concerns, please reach me at [phone]. Electronically Signed By: <Electronically signed by Minh Bhatia MD> Date/Time Signed: 03/15/20 0947 Name Value Range Interpretation Code Description Data Mary rce(s) Supporting Document(s) ID Date Data Source [id number] 03/06/2020 12:00:00 AM EDT [facility] Name Value Range Interpretation Code Description Data Mary rce(s) Supporting Document(s) SARS CORONAVIRUS 2 RNA [facility] This lab was ordered by [facility] and reported by [facility]. ID Date Data Source [id number] 02/26/2020 12:00:00 AM EDT [facility] Name Value Range Interpretation Code Description Data Mary rce(s) Supporting Document(s) SARS CORONAVIRUS 2 RNA [facility] This lab was ordered by [facility] and reported by [facility]. ID Date Data Source [id number] 02/15/2020 11:20:00 AM EDT [place] [address] [id number] [phone] NAME SEX PT STATUS ACCOUNT NUMBER NEO MCCORMICK REG REF [id number] ORDERING PHYSICIAN LOCATION MEDICAL RECORD NO. Minh Bhatia MD RAD [id number] ATTENDING PHYSICIAN DATE OF DATE OF EXAM/TIME Minh Bhatia MD 1945 02/15/20 / 105 TYPE / EXAM Xray Shoulder complete RT [...] Shahriar Hernandez MD; Minh Bhatia MD Techn: EBJOSHUAR Trans Dt/Tm: Trans by: DT Prt Dt/Tm: : Total DLP = 0.00 mGy-cm Fluoroscopy Time (in secs): Name Value Range Interpretation Code Description Data Mary rce(s) Supporting Document(s) ID Date Data Source [id number] 02/03/2020 12:00:00 AM EDT [facility] Patricia Valladares MD Patient Name: PETER MCCORMICK [facility] Date of : 1945[place] [address] Date of Exam: 02/03/2020#: Fax: [phone] EXAM: ARTHROCENTESIS SMALL JOINT W/O US GUIDCLINICAL INFORMATION: 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 Aguilar.The benefits and risks including but not limited to pain, infection,bleeding and anaphylaxis were explained to the patient as well as thepotential therapeutic benefits of the procedure and the possibility of anunsuccessful procedure, and an informed consent was obtained. Directlyprior to the start of the procedure, a formal time-out was completed.The left 1st TMT joint space was localized using fluoroscopic guidance.The skin was prepped and draped in a sterile fashion. Approximately .5 ccof 1% Lidocaine 10 mg/ml was used as a local anesthetic. Usingfluoroscopic guidance, this needle was advanced in to the 1st TMT jointspace. .5 cc of Omnipaque 300 mg/ml was injected to verify placement. A 11/2 cc solution containing 1 cc of 1% Lidocaine 10 mg/ml and .5 or a halfcc of Kenalog 40 mg/ml was injected into the joint space. The needle wasthen removed.The patient tolerated the procedure well and there were no immediatecomplications.Fluoroscopic images are performed with last image hold technology. Theseimages require no additional radiation to acquire.Fluoroscopy time was 22 seconds at 3 pulses/second. This is equal to 5.5seconds continuous fluoroscopy time which is a 75% reduction in radiation.Dictated by Mariluz Lemus, [facility], with Dr. Aguilar.JONG Castillo/Pola you for referring NEO MCCORMICK to our office. 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 Aguilar.The benefits and risks including but not limited to pain, infection,bleeding and anaphylaxis were explained to the patient as well as thepotential therapeutic benefits of the procedure and the possibility of anunsuccessful procedure, and an informed consent was obtained. Directlyprior to the start of the procedure, a formal time-out was completed.The left 1st TMT joint space was localized using fluoroscopic guidance.The skin was prepped and draped in a sterile fashion. Approximately .5 ccof 1% Lidocaine 10 mg/ml was used as a local anesthetic. Usingfluoroscopic guidance, this needle was advanced in to the 1st TMT jointspace. .5 cc of Omnipaque 300 mg/ml was injected to verify placement. A 11/2 cc solution containing 1 cc of 1% Lidocaine 10 mg/ml and .5 or a halfcc of Kenalog 40 mg/ml was injected into the joint space. The needle wasthen removed.The patient tolerated the procedure well and there were no immediatecomplications.Fluoroscopic images are performed with last image hold technology. Theseimages require no additional radiation to acquire.Fluoroscopy time was 22 seconds at 3 pulses/second. This is equal to 5.5seconds continuous fluoroscopy time which is a 75% reduction in radiation.Dictated by Mariluz Lemus [facility], with Dr. Aguilar.JONG Castillo/Pola bains for referring NEO MCCORMICK to our office. Electronically Signed - MARIO AGUILAR DO 02/03/20 16:35 Name Value Range Interpretation Code Description Data Mary rce(s) Supporting Document(s) ID Date Data Source [id number] 11/26/2019 12:00:00 AM EDT [facility] Patricia Valladares MD Patient Name: PETER MCCORMICK [facility] Date of : 1945[place] [address] Date of Exam: 11/26/2019#: Fax: [phone] EXAM: ARTHROCENTESIS SMALL JOINT W/O US GUIDRIGHT 2ND AND 3RD TARSOMETATARSAL INJECTION:The procedure was performed by RASHARD Mao under the generalsupervision of Dr. King.The benefits and risks including, but not limited to pain, infection,bleeding, and anaphylaxis were explained to the patient and informedconsent was obtained.The 2nd and 3rd tarsometatarsal joints were localized using fluoroscopicguidance. The skin was prepped and draped in a sterile fashion. 1%Lidocaine was used as a local anesthetic. Using fluoroscopic guidance, a#22 gauge spinal needle was inserted and advanced into the joint. 0.5 ccof Omnipaque 300 was injected to verify placement. 3 cc of a solutioncontaining 1 cc of 1% Lidocaine and 2 cc of Kenalog 40 mg was injected intothe joint space. The needle was then removed.The patient tolerated the pro cedure well and there were no immediatecomplications.Fluoroscopy time was 2 seconds at 3 pulses/second. This is equal to .05seconds continuous fluoroscopy time which is a 75% reduction in radiation.KAYLA Keith/Pola you for referring NEO MCCORMICK to our office. Electronically Signed - CASEY KING MD 11/27/19 12:41 Name Value Range Interpretation Code Description Data Mary rce(s) Supporting Document(s) ID Date Data Source [id number] 11/26/2019 12:00:00 AM EDT [facility] Patricia Valladares MD Patient Name: PETER MCCORMICK Date of : 1945[place] [address] Date of Exam: 11/26/2019#: Fax: [phone] EXAM: ARTHROCENTESIS SMALL JOINT W/O US GUIDRIGHT 2ND AND 3RD TARSOMETATARSAL INJECTION:The procedure was performed by RASHARD Mao under the generalsupervision of Dr. King.The benefits and risks including, but not limited to pain, infection,bleeding, and anaphylaxis were explained to the patient and informedconsent was obtained.The 2nd and 3rd tarsometatarsal joints were localized using fluoroscopicguidance. The skin was prepped and draped in a sterile fashion. 1%Lidocaine was used as a local anesthetic. Using fluoroscopic guidance, a#22 gauge spinal needle was inserted and advanced into the joint. 0.5 ccof Omnipaque 300 was injected to verify placement. 3 cc of a solutioncontaining 1 cc of 1% Lidocaine and 2 cc of Kenalog 40 mg was injected intothe joint space. The needle was then removed.The patient tolerated the pro cedure well and there were no immediatecomplications.Fluoroscopy time was 2 seconds at 3 pulses/second. This is equal to .05seconds continuous fluoroscopy time which is a 75% reduction in radiation.KAYLA Keith/Pola bains for referring NEO MCCORMICK to our office. Electronically Signed - CASEY KING MD 11/27/19 12:41 Name Value Range Interpretation Code Description Data Mary rce(s) Supporting Document(s) ID Date Data Source [id number] 11/16/2019 11:47:00 AM EST [employer] [address] [place] [address] [phone] NAME SEX PT STATUS ACCOUNT NUMBER NEO MCCORMICK REG REF [id number] ORDERING PHYSICIAN LOCATION MEDICAL RECORD NO. Lyly Patel MD MAMMO [id number] ATTENDING PHYSICIAN DATE OF DATE OF EXAM/TIME [...] mammogram was read with the assistance of [employer], an FDA-approved computer-aided detection system for mammography. Reported By Shahriar Hernandez MD on 11/16/19 1147 Signed By Shahriar Hernandez MD on 11/16/19 1149 Date Time CC: Shahriar Hernandez MD; Minh Bhatia MD Techn: FROSA Trans Dt/Tm: Trans by: DT Prt Dt/Tm: : Total DLP = 0.00 mGy-cm : Total Radiation Dose = 0.0000 mSv Lifetime Dose: 0 mSv Name Value Range Interpretation Code Description Data Mary rce(s) Supporting Document(s) ID Date Data Source [id number] 11/06/2019 02:18:00 PM [facility] Patient Name: NEO MCCORMICK DO B: 1945 Sex: F Pt Unit #: [id number] Location:[facility] Provider: Visit Date/Time: 11/06/19 Primary Insurance: MEDICARE [employer] Secondary Insurance: AARP Intake Vital Signs 11/06/19 14:29 Current Height 5 ft 3 in Current Weight 162 lb 8 oz Weight Measurement Method Standing Scale BMI 28.8 BP 142/88 Blood Pressure Location Rt brachial Position Sitting Respiration 18 Pulse 71 Pulse Strength Normal Pulse Source Pulse Oximeter Temp 98.5 F Temp Source Tympanic Pulse Oximetry (%) 95 Oxygen Delivery Method room air 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 Last mammo/ breast u/s was 11/12/18 and negative. PT has hx of R) breast cancer S/P Mastectomy Rt Breast, states she has a full implant on the right breast and partial on the left breast. She has not found any lumps, states she does not do her own breast exams because of the implants. States she has had some sore spots in her breast but no lumps. No concerns. Cardiac Cath Technologist Required: No Accompanied by: Self / Same as Patient Is patient in pain?: Yes (hips/back) Pain scale (1-10): 6 Allergies SEASONAL ALLERGIES Allergy (Unknown, Verified 07/07/19 06:33) environmental allergies too No Known Drug Allergies Allergy (Verified 07/07/19 06:33) Is last menstrual period known: No Post menopausal: Yes Patient : No Fall Risk History of falls: No Ambulatory Aid:: None Gait/Transferring:: Normal HIV Testing Offer - ages 13-64 HIV testing Offer: No Hep C Testing Offered: No SBIRT Annual Questionnaire Are you currently in recovery for alcohol or substance use?: No How many times in the past year have you had 4 or more drinks in a day?: None How many times in the past year have you used a recreational drug or used a prescription medication for nonmedical reasons?: None Do you need a note to return Do you need a note to return to daycare/school/sports/work: No PFSH Medical History Degenerative Disc Disease Eczema History of Diabetes Mellitus History of right breast cancer lower back issues mearche 15 menopause 49- 1994 Obesity Surgical History Biopsy of breast (05/19/15) History of - surgery History of gastric bypass (10/04/11) Status post tubal ligation Family History Mother No problems noted. Father No problems noted. Brother No problems noted. Brother No problems noted. Brother No problems noted. Sister No problems noted. Sister No problems noted. Sister No problems noted. Sister No problems noted. Sister No problems noted. Daughter No problems noted. Son No problems noted. Son No problems noted. 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 [employer] current occupational exposures/hazards: No pets and animals: Yes leisure activities: other Hx Recent Travel (where): No well-balanced diet: about half the time caffeine: Yes Type: coffee Number of servings: 3 high-fat food intake: 2 times daily daily servings fruits/ve-4 daily servings of milk/calcium: 0-1 eating out: 1-3 times/week reads food labels: sometimes during the past year weight has: remained stable frequency: 1-2 times per week duration: 15-30 minutes/day substance use type: does not use counseling given: No denver/congregation: [employer] special [place] needs: No seatbelt use: always helmet use: No drive intox or ride w/ intox mixer driver: No water heater temp set < 120 deg: Yes working smoke detector in home: Yes fire extinguisher in home: Yes carbon monox detector in home: Yes firearms in home: Yes victim of emotional abuse: No victim of sexual abuse: No would you like helpful sources: No Female Reproductive History Menstrual Total pregnancies: 3 Full term: 3 Premature: 0 Ab induced: 0 Ab spontaneous: 0 Ectopics: 0 Multiple births: 0 Exam Const General: healthy appearing Nutritional Appearance: average body habitus Orientation: alert, awake and oriented x3 Neck Neck mass: No Thyroid: thyroid normal Chest Chest: normal inspection of the chest Breast/Axilla Inspection: normal inspection of the breasts and normal inspection of the axillae Breast/Axilla Palpation: normal palpation of the breasts, normal palpation of the axillae and no axillary lymphadenopathy Other: Rt Breast implant appears to be following a Subcutaneous Mastectomy, Left breast implant is cosmetic to match the other side. Cardio Rate: regular rate Rhythm: regular rhythm Heart Sounds: S1 normal and S2 normal Assessment Plan Assessment Plan (1) Encounter for Routine Gynecological Examination: Code(s): Z01.419 - Encounter for gynecological examination (general) (routine) without abnormal findings Qualifiers: Gynecological examination findings: abnormal findings ABSENT Qualified Code(s): Z01.419 - Encounter for gynecological examination (general) (routine) without abnormal findings Additional Comments Additional Comments: The patient declined pelvic exam, I discussed with her the rationale for routine pelvic exams, she declined. Electronically Signed By: <Electronically signed by Lyly Patel MD> Date/Time Signed: 11/06/19 1502 Name Value Range Interpretation Code Description Data Mary rce(s) Supporting Document(s) ID Date Data Source [id number] 10/19/2019 10:04:00 AM [facility] Patient Name: NEO MCCORMICK DO B: 1945 Sex: F Pt Unit #: [id number] Location:[facility] Provider: Visit Date/Time: 10/19/19 Primary Insurance: MEDICARE [employer] Secondary Insurance: AARP Intake Vital Signs 10/19/19 10:06 BP 120/76 Respiration 16 Pulse 70 Pulse Oximetry (%) 96 Oxygen Delivery Method room air Intake Visit Reasons: follow-up bilateral feet Is patient in pain?: Yes Pain scale (1-10): 3 Allergies SEASONAL ALLERGIES Allergy (Unknown, Verified 07/07/19 06:33) environmental allergies too No Known Drug Allergies Allergy (Verified 07/07/19 06:33) HIV Testing Offer - ages 13-64 Requirement for HIV testing offer been met?: Not in age range [facility] Medical History Degenerative Disc Disease Eczema History of Diabetes Mellitus History of right breast cancer lower back issues mearche 15 menopause 49- 1994 Obesity Surgical History Biopsy of breast (05/19/15) History of - surgery History of gastric bypass (10/04/11) Status post tubal li gation Family History Mother No problems noted. Father No problems noted. Brother No problems noted. Brother No problems noted. Brother No problems noted. Sister No problems noted. Sister No problems noted. Sister No problems noted. Sister No problems noted. Sister No problems noted. Daughter No problems noted. Son No problems noted. Son No problems noted. 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 [employer] current occupational exposures/hazards: No pets and animals: Yes leisure activities: other Hx Recent Travel (where): No well-balanced diet: about half the time caffeine: Yes Type: coffee Number of servings: 3 high-fat food intake: 2 times daily daily servings fruits/ve-4 daily servings of milk/calcium: 0-1 eating out: 1-3 times/week reads food labels: sometimes during the past year weight has: remained stable frequency: 1-2 times per week duration: 15-30 minutes/day substance use type: does not use counseling given: No den[place]/congregation: [employer] special [place] needs: No seatbelt use: always helmet use: No drive intox or ride w/ intox mixer driver: No water heater temp set < 120 deg: Yes working smoke detector in home: Yes fire extinguisher in home: Yes carbon monox detector in home: Yes firearms in home: Yes victim of emotional abuse: No victim of sexual abuse: No would you like helpful sources: No HPI Additional HPI HPI Details: Patient is a 74 year old female, here for a follow-up of her bilateral feet. She has bunions on both feet, with the Right foot being more painful. She is full weight bearing in normal shoes. She feels as if when she ambulates the toes want to curl toward the plantar aspect. She has increased pain with ambulation. She has constant numbness in both feet. She takes Tylenol or Ibuprofen as needed with relief and has difficulty sleeping due to pain. Patient presents today with bilateral hallux valgus. She has most recently had corticosteroid injections done and she continues have significant pain. She would like to have corrective surgery. No numbness tingling paresthesias. No other complaints. Review of Systems Const Denies anorexia, Denies excessive sweating, Denies f atigue, Denies fever(s), Denies headache(s), Denies weight gain and Denies weight loss Eyes Denies blurry vision, Denies change in vision, Denies dry eyes, Denies irritation, Denies itchy eyesand Denies loss of vision ENT Denies abnormal hearing, Denies dysphagia, Denies dizziness, Denies headache(s), Denies lip swelling, Denies nasal congestion, Denies nasal discharge, Denies disequilibrium, Denies sinus pain,Denies sore throat and Denies throat swelling Card Denies chest pain, Denies pedal edema, Denies lightheadedness, Denies palpitations and Denies dyspnea Resp Denies cough, Denies excessive phlegm production, Denies pain on inspiration, Denies dyspnea and Denies wheezing GI Denies abdominal pain, Denies change in bowel habits, Denies dysphagia, Denies early satiety, Deniesheartburn, Denies diarrhea, Denies nausea and Denies vomiting Denies abnormal vaginal bleeding, Denies difficulty voiding, Denies pelvic pain, Denies urinary incontinence and Denies urinary urgency Musc Denies back pain, Reports arthralgias (bilateral feet), Denies limited range of motion, Denies muscle cramps and Denies muscle weakness Skin/Breast Denies breast pain, Denies change in pigmentation, Denies lesions, Denies nail changes, Denies rash and Denies unusual bruising Neuro Denies abnormal hearing, Denies dizziness, Denies headache(s), Denies loss of vision, Denies memory loss, Denies paresthesias and Denies disequilibrium Psych Denies abnormal sleep pattern, Denies anxiety, Denies change in appetite, Denies depression, Denies irritability and Denies memory loss Endo Denies cold intolerance, Denies excessive sweating, Denies fatigue, Denies polyphagia, Denies polydipsia, Denies polyuria and Denies palpitations Virgil/Lymph Denies easy bleeding, Denies easy bruising and Denies lymphadenopathy Aller/Immun Denies urticaria, Denies itchy eyes, Denies lip swelling, Denies seasonal rhinorrhea, Denies throat swelling and Denies wheezing Exam Const General: cooperative, healthy appea ring, no acute distress, well developed and well groomed Orientation: alert, awake and oriented x3 HENMT Head: normal to inspection, normocephalic and atraumatic Neck Neck: full ROM Cardio Pulses: normal peripheral pulses Musc Other: Bilateral lower Extremity: Inspection: Skin intact Deformity: Hallux valgus deformity bilaterally Atrophy: None Gait: Normal, non-antalgic, patient is able to stand on toes and on heels Tenderness: -Negative for jointline, ATFL, AITFL -Neg achilles tendon, tibialis anterior, posterior tibial tendon tenderness. -No painful crepitus -No midfoot tenderness -No hindfoot tenderness -Tenderness along the metatarsal phalangeal joint of the bilateral great toe Laxity: No laxity with anterior drawer or talar tilt Molina Sign: Negative Motor: 5+ DF/PF/EHL SILT: L5-S1 Palpable peripheral pulses A/PROM: knee F/E: 0-135/0-135 ankle Plantar flexion 50/50 ankle Dorsiflexion 20/20 Skin Lesions: no lesions Rashes: no rashes Neuro General: alert, awake, oriented x3, gait normal, moves all extremities and normal light touch, pain and propioception Psych Appearance: grossly normal and well kempt Assessment Plan Assessment Plan (1) 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 At this point I discussed this problem at length with the patient. As she is failed nonoperative treatment she would likely require surgical correction. I explained that I do not do this operation routinely. I will refer her to a potable water treatment operator for treatment. Electronically Signed By: <Electronically signed by Yair Abarca MD> Date/Time Signed: 10/19/19 1142 Name Value Range Interpretation Code Description Data Mary rce(s) Supporting Document(s) Procedure Social History Code Duration Value Status Description Data Source(s ) Smoking 03/17/2020 12:00:00 AM EDT Former Smoker completed Former Smoker eCW1 ([facility]) Smoking 03/16/2020 01:58:00 PM EDT Former smoker completed Former smoker [facility] Smoking 03/16/2020 01:58:00 PM EDT Former smoker completed Former smoker [facility] 03/16/2020 12:58:00 PM EDT No completed No [facility] 03/16/2020 12:58:00 PM EDT Former smoker completed Former smoker [facility] 03/16/2020 12:58:00 PM EDT No completed No [facility] 03/16/2020 12:58:00 PM EDT Former smoker completed Former smoker [facility] 03/16/2020 12:58:00 PM EDT No completed No [facility] 03/16/2020 12:58:00 PM EDT Former smoker completed Former smoker [facility] Smoking 03/16/2020 12:58:00 PM EDT Former smoker completed Former smoker [facility] 03/16/2020 12:58:00 PM EDT Former smoker completed Former smoker [facility] Smoking 03/16/2020 12:58:00 PM EDT Former smoker completed Former smoker [facility] 03/16/2020 12:58:00 PM EDT No completed No [facility] Smoking 02/23/2020 12:00:00 AM EDT Former Smoker completed Former Smoker eCW1 ([facility]) Smoking 11/16/2019 12:00:00 AM EST Patient is a former smoker completed Patient is a former smoker MEDENT ([facility]) Vital Signs ID Date Data Source UNK Name Value Range Interpretation Code Description Data Source(s) Diastolic blood pressure 77 mm[Hg] 77 mm[Hg] eCW1 ([facility]) Systolic blood pressure 132 mm[Hg] 132 mm[Hg] e CW1 ([facility]) Body temperature 98.3 [degF] 98.3 [degF] eCW1 ( [facility]) Respiratory rate 18 /min 18 /min eCW1 ([facility]) Heart rate 82 /min 82 /min eCW1 ([facility]) Body mass index (BMI) [Ratio] 29.26 kg/m2 29.26 kg/m2 eCW1 ([facility]) Body height [in_i] eCW1 ([facility]) Body weight 165.2 [lb_av] 165.2 [lb_av] eCW1 ([facility]) Diastolic blood pressure 78 mm[Hg] 78 mm[Hg] eCW1 ([facility]) Systolic blood pressure 160 mm[Hg] 160 mm[Hg] e CW1 ([facility]) Body temperature 97.7 [degF] 97.7 [degF] eCW1 ( [facility]) Respiratory rate 18 /min 18 /min eCW1 ([facility]) Heart rate 77 /min 77 /min eCW1 ([facility]) Body mass index (BMI) [Ratio] 27.14 kg/m2 27.14 kg/m2 W1 ([facility]) Body height [in_us] eCW1 ([facility]) Body weight Measured 153.2 [lb_av] 153.2 [lb_av ] eCW1 ([facility]) Diastolic blood pressure 86 mm[Hg] 86 mm[Hg] eCW1 ([facility]) Systolic blood pressure 167 mm[Hg] 167 mm[Hg] e CW1 ([facility]) Body temperature 98.8 [degF] 98.8 [degF] eCW1 ( [facility]) Respiratory rate 16 /min 16 /min eCW1 ([facility]) Heart rate 83 /min 83 /min eCW1 ([facility]) Body mass index (BMI) [Ratio] 28.73 kg/m2 28.73 kg/m2 eCW1 ([facility]) Body height [in_us] eCW1 ([facility]) Body weight Measured 162.2 [lb_av] 162.2 [lb_av ] eCW1 ([facility]) Diastolic blood pressure 80 mm[Hg] 80 mm[Hg] eCW1 ([facility]) Systolic blood pressure 141 mm[Hg] 141 mm[Hg] e CW1 ([facility]) Body temperature 98 [degF] 98 [degF] eCW1 ([facility]) Respiratory rate 16 /min 16 /min eCW1 ([facility]) Heart rate 65 /min 65 /min eCW1 ([facility]) Body mass index (BMI) [Ratio] 28.73 kg/m2 28.73 kg/m2 eCW1 ([facility]) Body height [in_us] eCW1 ([facility]) Body weight Measured 162.2 [lb_av] 162.2 [lb_av ] eCW1 ([facility]) Body mass index (BMI) [Ratio] 28.6 kg/m2 28.6 k g/m2 MED[facility] ([facility]) Body weight 154.00 [lb_av] 154.00 [lb_av] MEDEN T ([facility]) Body height 61.5 [in_i] 61.5 [in_i] MEDENT ([facility]) 5'1.50" Body temperature 98.1 [degF] 98.1 [degF] MEDENT ([facility]) Diastolic blood pressure 77 mm[Hg] 77 mm[Hg] eCW1 ([facility]) Systolic blood pressure 143 mm[Hg] 143 mm[Hg] e CW1 ([facility]) Body temperature 97.8 [degF] 97.8 [degF] eCW1 ( [facility]) Respiratory rate 18 /min 18 /min eCW1 ([facility]) Heart rate 95 /min 95 /min eCW1 ([facility]) Body mass index (BMI) [Ratio] 28.98 kg/m2 28.98 kg/m2 eCW1 ([facility]) Body height [in_us] eCW1 ([facility]) Body weight Measured 163.6 [lb_av] 163.6 [lb_av ] eCW1 ([facility]) Diastolic blood pressure 71 mm[Hg] 71 mm[Hg] eCW1 ([facility]) Systolic blood pressure 127 mm[Hg] 127 mm[Hg] e CW1 ([facility]) Body temperature 97.3 [degF] 97.3 [degF] eCW1 ( [facility]) Respiratory rate 18 /min 18 /min eCW1 ([facility]) Heart rate 75 /min 75 /min eCW1 ([facility]) Body mass index (BMI) [Ratio] 28.34 kg/m2 28.34 kg/m2 eCW1 ([facility]) Body height [in_us] eCW1 ([facility]) Body weight Measured 160 [lb_av] 160 [lb_av] eC W1 ([facility]) Patient Treatment Plan of Care Planned Activity Planned Date Details Description Data Source (s) duloxetine 30 MG Delayed Release Oral Capsule 12/30/2019 12:00:00 A M EDT eCW1 ([facility]) duloxetine 30 MG Delayed Release Oral Capsule 12/30/2019 12:00:00 A M EDT eCW1 ([facility]) duloxetine 30 MG Delayed Release Oral Capsule 12/30/2019 12:00:00 A M EDT eCW1 ([facility])
[2020-10-28] MEDS ORDERED: MIDAZOLAM INJ 2MG/2ML VIAL (J2250 PER 1MG) As Ordered ONE (09:07)
[2020-10-28] MEDS ORDERED: fentaNYL 100 MCG/2 ML INJECTION (J3010) As Ordered ONE (09:07)
[2020-10-28] MEDS ORDERED: LIDOCAINE 2% 100MG/5ML SDV (FOR ANES.) As Ordered ONE (09:07)
[2020-10-28] MEDS ORDERED: propofoL 200 MG/20 ML VIAL As Ordered ONE ×2 (09:07→10:12)
[2020-10-28 11:21] VITALS: BP 131/73
[2020-10-28] MEDS ORDERED: oxyCODONE 5MG TAB PO PRN (11:30)
[2020-10-28] MEDS ORDERED: LR 1,000 ML IV SCH (11:30)
[2020-10-28] MEDS ORDERED: fentaNYL 100 MCG/2 ML INJECTION (J3010) IV PRN (11:30)
[2020-10-28] MEDS ORDERED: ONDANSETRON 4MG/2ML VIAL IV PRN (11:30)
--- NOTE | 2020-10-28 13:15 | REP ---
INDICATION: RIGHT TOMY BUNIONECTOMY. COMPARISON: None. TECHNIQUE: Three portable views right foot. FINDINGS: Metallic screw seen in the distal 1st metatarsal. Osseous structures are well-aligned. Moderate spurring is noted of the inferior calcaneus. Overlying cast obscures underlying osseous detail. IMPRESSION: Metallic screw distal 1st metatarsal. Osseous structures well aligned. <Electronically signed by George Moser > 10/28/20 3655
--- NOTE | 2020-10-28 13:23 | RO ---
OPERATIVE NOTE DATE OF OPERATION: 10/28/2020 PREOPERATIVE DIAGNOSIS: Hallux valgus metatarsus primus varus deformity, right foot. POSTOPERATIVE DIAGNOSIS: Hallux valgus metatarsus primus varus deformity, right foot. PROCEDURE PERFORMED: Jaime bunionectomy internal screw fixation 3.0 mm x 32 mm x 1 right foot. SURGEON: Santos Alfred DPM FORMING ROLL OPERATOR: None. ANESTHESIA: Local MAC. HEMOSTASIS: Ankle pneumatic tourniquet at 225 mmHg at the right ankle for 32 minutes. DESCRIPTION OF PROCEDURE: On 10/28/2020, this 75-year-old white female was taken from her hospital room to the operating room and placed on the operating room table in the supine position. Following induction of IV sedation and local anesthesia, the right lower extremity was prepped and draped in the usual aseptic manner. Attention was directed to the patient's right foot. There was noted to a hallux valgus deformity. At this time, a 6 cm incision was placed over the first metatarsophalangeal joint medial to the extensor tendon. The incision was deepened through the subcutaneous tissues and crossing venous tributaries were identified, scored, clamped, cut, ligated or electrocoagulated as necessary. Linear capsulotomy was performed in the same plane as the original skin incision. The capsule and periosteal structures were then dissected free in one continuous layer dorsally, medially, laterally thus creating a capsular periosteal type envelope. This allowed me to view the hypertrophied medial eminence of the first metatarsal, which was osteotomized from distal to proximal [id number] exiting medial to the sesamoidal groove. Attention was then directed to the first intermetatarsal space where dissection was carried down to the level of the fibular sesamoid. The conjoint tendon was then sharply dissected free from the fibular sesamoid. This allowed the sesamoidal apparatus to slide under the head of the first metatarsal. A V-shaped osteotomy was then performed and at the distal metaphysis of the first metatarsal there was noted to be a cyst present, which was curetted out of the osteotomy. This somewhat limited maximum excursion of the first metatarsal. The metatarsal was placed approximately 40% of the width of the shaft of the first metatarsal and then fixated with a 3.0 x 20 mm compression screw. The osteotomy was noted to be stable in all three cardinal planes. The redundant cortical spike was osteotomized in dorsal to plantar [id number]. The wound was flushed with copiously amounts of dilute Bacitracin, Neomycin, and Polymyxin B solution. Attention was directed towards closure over the capsular structures coapted and maintained utilizing 2-0 Monocryl in a simple interrupted type fashion. Subcutaneous tissues were coapted and maintained utilizing 4-0 Monocryl in a simple interrupted type fashion. Skin incisions were coapted and maintained utilizing 5-0 Monocryl in a continuous subcuticular type fashion. This was additionally reinforced with Steri-Strips. Attention was directed towards bandaging where 4 mg of dexamethasone sodium phosphate was instilled proximal to the surgical site followed by Adaptic, 4 x 4s, 4 x 4 splints, Venkat and Kerlix. A well molded fiberglass boot cast was then applied to the patient's right extremity. The patient tolerated the procedure well and was taken from the OR to the recovery room for further monitoring by the anesthesia department. Postoperative instructions given upon discharge.
== END 2020-10-28 12:18 | disposition home or self-care (01) ==
LOC: M SDC 07:54
PROVIDERS: ATTEND Podiatrist
DX: M20.11 Hallux valgus (acquired), right foot (principal); M19.071 Primary osteoarthritis, right ankle and foot; M20.12 Hallux valgus (acquired), left foot; Z79.899 Other long term (current) drug therapy; Z85.3 Personal history of malignant neoplasm of breast; Z87.891 Personal history of nicotine dependence; Z96.1 Presence of intraocular lens; Z98.41 Cataract extraction status, right eye; Z98.42 Cataract extraction status, left eye; Z98.84 Bariatric surgery status
CPT/HCPCS: 28296; 73630; 76000; 88300; 97116; C1713; J0690; J1100; J2250; J3010

== ENCOUNTER → 2024-07-01 | Outpatient (CLI) | payer MEDICARE ==
[~2024-07-01] MED LIST changes: -BACITRACIN PWD 50,000 UNITS VIAL As Ordered ONE; -BUPIVACAINE HCL 0.5% 30 ML VIAL As Ordered ONE; -D31000TA2 PO; +ISOVUE-300 61% 100ML VIAL As Ordered ONE; +LIDOCAINE 1% MDV 20ML VIAL As Ordered ONE; -LIDOCAINE 2% MDV 20ML VIAL As Ordered ONE; -LR 1,000 ML IV ONE; -NEOSPORIN GU IRRIG 20 ML VIAL As Ordered ONE; -TAMO10TA PO; +TAMO10TA8 PO; +VITA100093 PO; -VITA500C19 PO; +VITA500C22 PO; -ceFAZolin SOD 2 GM in IV 1 EA IV ONE; -dexameTHASONE 4 MG/ML 1ML VIAL (J1100 PER 1MG) As Ordered ONE; +methylPREDNISolone SUSP 40MG/ML 1ML VIAL (DEPO MEDROL) As Ordered ONE
== END ==
LOC: M RAD 13:43
PROVIDERS: ATTEND Physician Assistant
DX: M19.011 Primary osteoarthritis, right shoulder (principal)
CPT/HCPCS: 20610; 77002; J1010; Q9967

== ENCOUNTER → 2024-11-17 | Outpatient (CLI) | payer MEDICARE | LOC: M RAD 13:21 | PROVIDERS: ATTEND Physician Assistant | DX: M19.011 Primary osteoarthritis, right shoulder (principal) | CPT/HCPCS: 20610; 77002; J1010; Q9967 ==